=== PATIENT | female | born 1980 | race Caucasian/White ===

== ENCOUNTER 2020-07-18 08:07 | Outpatient (REF) | payer OTHER, SELFPAY ==
[2020-07-18 10:31] LABS: Cholesterol 210 mg/dL; HDL Cholesterol 45 mg/dL; LDL Cholesterol Calculated 141 mg/dl; Triglycerides 123 mg/dL
[2020-07-18 10:53] LABS: Vitamin D 25-OH Total 23.9 ng/mL (>30)
[2020-07-18 11:14] LABS: Estimated Average Glucose 123 mg/dL; Hemoglobin A1c % 5.9 %
[2020-07-20 10:26] LABS: LDL Cholesterol Direct 155 mg/dL (<100)
== END 2020-07-18 08:08 | disposition home or self-care (01) ==
LOC: CF 08:07
PROVIDERS: PCP Internal Medicine; Referring Provider Internal Medicine; Visit Provider Internal Medicine Endocrinology, Diabetes & Metabolism
DX: R73.03 Prediabetes (principal); E78.5 Hyperlipidemia, unspecified; E55.9 Vitamin D deficiency, unspecified; E66.01 Morbid (severe) obesity due to excess calories; Z68.41 Body mass index [BMI] 40.0-44.9, adult
CPT/HCPCS: 80061; 82306; 83036; 83721; 99214

== ENCOUNTER 2020-07-24 11:06 | Outpatient (REF) | payer OTHER, SELFPAY ==
--- NOTE | 2020-07-24 | MM_ITS ---
EXAMINATION: MM SCREENING DIGITAL BREAST TOMOSYNTHESIS, BILATERAL CLINICAL INFORMATION: Screening. Asymptomatic. Prior history breast reduction mammoplasty 2007 The lifetime risk of breast cancer based on the Tyrer-Cuzick Model is 12%. COMPARISON: Mammography: 07/19/2019, 06/30/2018 TECHNIQUE: Digital breast tomosynthesis is performed in both the craniocaudal and mediolateral oblique views along with computer-aided detection (CAD). Synthesized 2D images are generated from the tomosynthesis. FINDINGS: The breasts are heterogeneously dense, which may obscure small masses (ACR BI-RADS breast composition Category c). There are no significant masses, abnormal calcifications, or other abnormalities. The axilla and skin contours are unremarkable. IMPRESSION: No significant changes from prior studies. ASSESSMENT: BI-RADS 1: Negative RECOMMENDATION: Routine annual mammography screening. This patient's information was entered into a reminder system with a target due date for their next mammogram.
== END 2020-07-24 11:07 | disposition home or self-care (01) ==
LOC: HO.MAMMO 11:06
PROVIDERS: PCP Internal Medicine; Visit Provider Internal Medicine
DX: Z12.31 Encounter for screening mammogram for malignant neoplasm of breast (principal)
CPT/HCPCS: 77063; 77067

== ENCOUNTER 2021-02-09 07:45 | Outpatient (REF) | payer OTHER, SELFPAY ==
--- NOTE | ~2021-02-09 | XR_ITS ---
EXAMINATION: BILATERAL FOOT X-RAY CLINICAL INFORMATION: Pain COMPARISON: None TECHNIQUE: 3 views of each foot FINDINGS: Left: Bone alignment is normal. No fracture or dislocation is seen. Joint spaces are normal. There are small calcaneal spurs. Right: None alignment is normal. No acute fracture or dislocation is seen. There is a evidence of old fractures of the distal tibia and fibular shafts. There is orthopedic hardware with intramedullary billie and 2 distal screws seen in the visualized distal femur. There is mild arthritis at the first MTP joint with small osteophytes. Joint spaces are otherwise normal. There are calcaneal spurs. XR/XR foot LT 2V IMPRESSION: Bilateral calcaneal spurs. Mild arthritis at the right first MTP joint. Evidence of old trauma to the right distal tibial and fibular shafts.
--- NOTE | ~2021-02-09 | XR_ITS ---
EXAMINATION: XR HAND, RIGHT CLINICAL INFORMATION: Pain COMPARISON: Previous x-rays September 2016 and June 2016 TECHNIQUE: PA, lateral, and oblique views of the right hand. FINDINGS: Bone alignment is normal. No acute fracture or dislocation is seen seen. There is an old healed fracture of the right distal radius. There are small osteophytes at the DIP joint of the third finger. Joint spaces are otherwise normal. Soft tissues are normal. XR/XR hand RT min 3V IMPRESSION: Old healed distal radius fracture. Mild osteoarthritis at the DIP joint of the third finger.
--- NOTE | ~2021-02-09 | XR_ITS ---
EXAMINATION: BILATERAL FOOT X-RAY CLINICAL INFORMATION: Pain COMPARISON: None TECHNIQUE: 3 views of each foot FINDINGS: Left: Bone alignment is normal. No fracture or dislocation is seen. Joint spaces are normal. There are small calcaneal spurs. Right: None alignment is normal. No acute fracture or dislocation is seen. There is a evidence of old fractures of the distal tibia and fibular shafts. There is orthopedic hardware with intramedullary billie and 2 distal screws seen in the visualized distal femur. There is mild arthritis at the first MTP joint with small osteophytes. Joint spaces are otherwise normal. There are calcaneal spurs. XR/XR foot RT 2V IMPRESSION: Bilateral calcaneal spurs. Mild arthritis at the right first MTP joint. Evidence of old trauma to the right distal tibial and fibular shafts.
[2021-02-09 09:07] LABS: Cholesterol 210 mg/dL; HDL Cholesterol 41 mg/dL; LDL Cholesterol Calculated 133 mg/dl; Triglycerides 180 mg/dL
[2021-02-10 13:51] LABS: LDL Cholesterol Direct 154 mg/dL (<100)
== END 2021-02-09 07:46 | disposition home or self-care (01) ==
LOC: HO.LAB 07:45
PROVIDERS: Internal Medicine Endocrinology, Diabetes & Metabolism; PCP Internal Medicine; Visit Provider Internal Medicine
DX: E55.9 Vitamin D deficiency, unspecified (principal); M79.671 Pain in right foot; M79.672 Pain in left foot; M79.644 Pain in right finger(s)
CPT/HCPCS: 36415; 73130; 73620; 80061; 83721

== ENCOUNTER → 2021-02-13 09:56 | Outpatient (REF) | payer OTHER, SELFPAY ==
--- NOTE | 2021-02-13 10:10 | ECG_ITS ---
Test Reason : CHEST PAIN Blood Pressure : / mmHG Vent. Rate : 072 BPM Atrial Rate : 072 BPM P-R Int : 142 ms QRS Dur : 080 ms QT Int : 382 ms P-R-T Axes : 038 015 006 degrees QTc Int : 418 ms Normal sinus rhythm Normal ECG When compared with ECG of 17-JAN-2017 09:31, No significant change was found Referred By: Luli Jones Electronically Signed By:SHASHA PARMAR
== END ==
LOC: HO.CARD 09:56
PROVIDERS: PCP Internal Medicine; Visit Provider Internal Medicine
DX: R07.9 Chest pain, unspecified (principal)
CPT/HCPCS: 93005

== ENCOUNTER 2021-03-20 08:48 | Outpatient (REF) | payer OTHER, SELFPAY ==
[2021-03-20 10:20] LABS: Estimated Average Glucose 134 mg/dL; Hemoglobin A1c % 6.3 %
[2021-03-20 10:31] LABS: Alanine Aminotransferase 10 U/L (0-31); Albumin Level 4.1 g/dL (3.5-5.0); Alkaline Phosphatase 70 U/L (39-117); Anion Gap 11 (12-20); Aspartate Amino Transferase 17 U/L (5-31); Bilirubin Total 0.2 mg/dL (0.0-1.0); Blood Urea Nitrogen 6 mg/dL (9-16); Calcium 8.7 mg/dL (8.4-10.2); Carbon Dioxide 28 mmol/L (22-29); Chloride 105 mmol/L (96-108); Cholesterol 208 mg/dL; Estimated Glomerular Filt Rate > 60; Glucose Random 106 mg/dL (60-115); HDL Cholesterol 43 mg/dL; LDL Cholesterol Calculated 146 mg/dl; Potassium 4.5 mmol/L (3.3-5.1); Sodium 139 mmol/L (135-145); Total Protein 6.7 g/dL (6.5-8.0); Triglycerides 99 mg/dL
[2021-03-20 11:00] LABS: Vitamin D 25-OH Total 24.4 ng/mL (>30)
[2021-03-20 11:25] LABS: Creatinine Urine 226.28 mg/dL; Microalbum/Creatinine Ratio Ur 9.7 ug/mg cr
[2021-03-21 11:06] LABS: LDL Cholesterol Direct 152 mg/dL (<100)
== END 2021-03-20 08:49 | disposition home or self-care (01) ==
LOC: HO.LAB 08:48
PROVIDERS: PCP Internal Medicine; Visit Provider Internal Medicine Endocrinology, Diabetes & Metabolism
DX: R73.03 Prediabetes (principal); E55.9 Vitamin D deficiency, unspecified; E66.01 Morbid (severe) obesity due to excess calories; E78.5 Hyperlipidemia, unspecified; Z86.39 Personal history of other endocrine, nutritional and metabolic disease; Z79.899 Other long term (current) drug therapy
CPT/HCPCS: 36415; 80053; 80061; 82043; 82306; 83036; 83721; 99212

== ENCOUNTER → 2021-03-28 14:16 | Outpatient (BNVA) | payer OTHER, SELFPAY | PROVIDERS: PCP Internal Medicine; Visit Provider Dietitian, Registered | DX: R73.03 Prediabetes (principal) | CPT/HCPCS: 97803 ==

== ENCOUNTER 2021-03-29 13:58 | Outpatient (REF) | payer OTHER, SELFPAY ==
[2021-03-29 16:42] LABS: Amylase 56 U/L (28-100); Lipase 14 U/L (8-78)
[2021-03-29 17:02] LABS: Ferritin 63 ng/mL (10-250)
== END 2021-03-29 13:59 | disposition home or self-care (01) ==
LOC: HO.LAB 13:58
PROVIDERS: PCP Internal Medicine; Referring Provider Internal Medicine; Visit Provider Nurse Practitioner
DX: R10.13 Epigastric pain (principal); K92.1 Melena; K21.9 Gastro-esophageal reflux disease without esophagitis; D64.9 Anemia, unspecified; K59.04 Chronic idiopathic constipation
CPT/HCPCS: 36415; 82150; 82728; 83690

== ENCOUNTER 2021-04-19 18:58 | Emergency (ER) | payer OTHER, SELFPAY ==
[2021-04-19 19:08] VITALS: BP 133/88; PULSE 86; RESP 16; TEMP 36.6; O2SAT 98; BMI 38.9
[2021-04-19 19:59] LABS: MANUAL DIFF FLAG NO
[2021-04-19 20:02] LABS: Basophils Percent Auto 0.4 % (0-2); Eosinophils Absolute Auto 0.2 X10*3/uL (0.0-0.4); Eosinophils Percent Auto 1.7 % (0-4); Hematocrit 37.6 % (37-47); Hemoglobin 12.4 g/dl (12.0-16.0); Imm Gran Abs Auto 0.03 X10*3/uL (0.00-0.03); Imm Gran Pct Auto 0.3 % (0.0-0.4); Lymphocytes Absolute Auto 2.2 X10*3/uL (1.2-4.9); Lymphocytes Percent Auto 21.1 % (20-40); Mean Corpuscular Hemoglobin 26.8 pg (27.0-33.0); Mean Corpuscular Volume 81.4 fL (80-98); Mean Platelet Volume 9.6 fL (9.4-12.3); Monocytes Absolute Auto 0.6 X10*3/uL (0.1-1.2); Monocytes Percent Auto 5.8 % (2-11); Neutrophils Absolute Auto 7.4 X10*3/uL (2.0-8.3); Neutrophils Percent Auto 70.7 % (45-73); Platelet Count 334 X10*3/uL (160-400); Red Blood Count 4.62 X10*6/uL (4.20-5.50); Red Cell Distribution Width 13.1 % (11.0-16.0); White Blood Count 10.5 X10*3/uL (4.8-10.8)
[2021-04-19 20:04] LABS: Glucose Urine UA NEG (NEG); Leukocyte Esterase Urine 1+ (NEG); Nitrite Urine NEG (NEG); Specific Gravity - Urine 1.015 (1.005-1.025); UACC Culture Trigger YES; Urine Blood NEG (NEG); Urine Ketones NEG (NEG); Urine Protein NEG (NEG-TRACE)
[2021-04-19 20:06] LABS: Appearance Urine HAZY; Color Urine YELLOW
[2021-04-19 20:12] LABS: Amorphous Sediment Urine 2+ /LPF; Bacteria Urine 1+ /LPF; RBC Urine 0 /HPF (0); Squamous Epithelial Cell Urine 1+ /LPF
[2021-04-19 20:21] LABS: Anion Gap 16 (12-20); Blood Urea Nitrogen 8 mg/dL (9-16); Calcium 9.2 mg/dL (8.4-10.2); Carbon Dioxide 26 mmol/L (22-29); Chloride 102 mmol/L (96-108); Creatinine Clr Calc Pharmacy 118.4; Estimated Glomerular Filt Rate > 60; Glucose Random 118 mg/dL (60-115); Potassium 4.2 mmol/L (3.3-5.1); Sodium 140 mmol/L (135-145)
--- NOTE | 2021-04-19 22:39 | ED_ITS ---
HPI - Abdominal Pain General Chief Complaint: Abdominal Pain Stated Complaint: Flank pain Time Seen by Provider: 04/19/21 22:39 Source: patient Mode of arrival: ambulatory Limitations: language barrier History of Present Illness HPI narrative: Patient with history of kidney stone had lithotripsy last year been complaining of pain for 1 week in suprapubic area and right flank area with dysuria and frequency no hematuria no fever or chills no vomiting Related Data Home Medications Medication Instructions Recorded Confirmed nabumetone 750 mg tablet 750 mg PO BID 07/18/20 03/20/21 propranolol 20 mg tablet 20 mg PO BID 07/18/20 03/20/21 venlafaxine 75 mg tablet 75 mg PO DAILY 07/18/20 03/20/21 Previous Rx's Medication Instructions Recorded tglmofzuaz-lyajdgo-xjafeeaw 50 1 cap PO DAILY PRN #30 cap 01/31/21 mg-325 mg-40 mg capsule hydrochlorothiazide 12.5 mg tablet 12.5 mg PO QAM 90 Days #90 tab 01/31/21 cholecalciferol (vitamin D3) 125 125 mcg PO DAILY 90 Days #90 cap 03/20/21 mcg (5,000 unit) capsule pravastatin 40 mg tablet 40 mg PO BEDTIME 90 Days #90 tab 03/20/21 linaclotide 145 mcg capsule 145 mcg PO QAM 30 Days #30 cap 03/29/21 pantoprazole 40 mg tablet,delayed 40 mg PO DAILY 30 Days #30 tab 03/29/21 release ciprofloxacin HCl [Cipro] 500 mg PO BID #14 tab 04/20/21 phenazopyridine [Pyridium] 200 mg PO TID PRN #6 tab 04/20/21 tramadol 50 mg PO Q6H PRN #20 tab 04/20/21 Allergies Allergy/AdvReac Type Severity Reaction Status Date / Time acetaminophen [Percocet] Allergy Unknown hives Verified 04/19/21 19:13 bupropion [Contrave] Allergy Unknown nausea,vomit, Verified 04/19/21 19:13 headaches naltrexone [Contrave] Allergy Unknown nausea,vomit, Verified 04/19/21 19:13 headaches oxycodone [Percocet] Allergy Unknown hives Verified 04/19/21 19:13 Review of Systems Review of Systems Yes all other systems are reviewed and are negative Physical Exam Vital Signs: Vital Signs: Last Vital Signs Temp 97.9 F 07/09/21 19:08 Pulse 76 04/19/21 23:41 Resp 18 04/19/21 23:41 BP 143/81 H 04/19/21 23:41 Pulse Ox 98 04/19/21 23:41 Body Mass Index 38.9 Appearance: Alert. Oriented X3. No acute distress. Eyes: PERRLA, No Nystagmus ENT: Pharynx normal. Oral Mucosa moist Neck: Normal inspection. Neck supple. CVS: Normal heart rate and rhythm. Pulses normal. Respiratory: No respiratory distress. Equal air entry bilateral, no wheezing/rales/rhonchi Abdomen: Soft and nontender. Bowel sounds are present, no mass palpable, mild right CVA tenderness Skin: Skin warm and dry. Normal skin color. Normal skin turgor. Extremities: No lower extremity edema. No calf tenderness Neuro: Oriented X 3. No motor deficit. No sensory deficit.No cerebellar signs , cranial nerves II-XII intact MDM - Abdominal Pain Lab Data Attestation: I reviewed the patient's lab results. Result diagrams: 04/19/21 19:49 04/19/21 19:49 Labs: Lab Results 04/19/21 04/19/21 04/19/21 Range/Units 19:45 19:49 19:49 WBC 10.5 (4.8-10.8) X10*3/uL RBC 4.62 (4.20-5.50) X10*6/uL Hgb 12.4 (12.0-16.0) g/dl Hct 37.6 (37-47) % MCV 81.4 (80-98) fL MCH 26.8 L (27.0-33.0) pg MCHC 33.0 (31.0-35.0) g/dl RDW 13.1 (11.0-16.0) % Plt Count 334 (160-400) X10*3/uL MPV 9.6 (9.4-12.3) fL Immature Gran % (Auto) 0.3 (0.0-0.4) % Neut % (Auto) 70.7 (45-73) % Lymph % (Auto) 21.1 (20-40) % [place] % (Auto) 5.8 (2-11) % Eos % (Auto) 1.7 (0-4) % Baso % (Auto) 0.4 (0-2) % Lymph # (Auto) 2.2 (1.2-4.9) X10*3/uL [place] # (Auto) 0.6 (0.1-1.2) X10*3/uL Eos # (Auto) 0.2 (0.0-0.4) X10*3/uL Baso # (Auto) 0.0 (0.0-0.2) X10*3/uL Abs Immat Gran (auto) 0.03 (0.00-0.03) X10*3/uL Absolute Neuts (auto) 7.4 (2.0-8.3) X10*3/uL Absolute Nucleated RBC 0.000 (0.0-0.012) X10*3/uL Nucleated RBC % (auto) 0.0 (0.0-0.2) /100WBC Sodium 140 (135-145) mmol/L Potassium 4.2 (3.3-5.1) mmol/L Chloride 102 (96-108) mmol/L Carbon Dioxide 26 (22-29) mmol/L Anion Gap 16 (12-20) BUN 8 L (9-16) mg/dL Creatinine 0.69 (0.5-1.4) mg/dL Estim Creat Clear Calc 118.4 Estimated GFR > 60 Random Glucose 118 H (60-115) mg/dL Calcium 9.2 (8.4-10.2) mg/dL Urine Color YELLOW Urine Appearance HAZY Urine pH 7.0 (5.0-8.0) Ur Specific [place] 1.015 (1.005-1.025) Urine Protein NEG (NEG-TRACE) MG/DL Urine Glucose (UA) NEG (NEG) MG/DL Urine Ketones NEG (NEG) MG/DL Urine Blood NEG (NEG) Urine Nitrite NEG (NEG) Ur Leukocyte Esterase 1+ H (NEG) Urine RBC 0 (0) /HPF Urine WBC 5-9 H (0-4) /HPF Ur Squamous Epith Cells 1+ /LPF Amorphous Sediment 2+ /LPF Urine Bacteria 1+ /LPF Discharge Plan Discharge Clinical Impression: UTI (urinary tract infection) Qualifiers: Urinary tract infection type: acute cystitis Hematuria presence: without hematuria Qualified Code(s): N30.00 - Acute cystitis without hematuria Patient Disposition: Home, Self-Care Instructions: Urinary Tract Infection in Women (ED) Additional Instructions: Drink plenty of fluids take antibiotic as prescribed follow with PCP if not better Prescriptions: New ciprofloxacin HCl [Cipro] 500 mg tablet 500 mg PO BID Qty: 14 RF: 0 phenazopyridine [Pyridium] 200 mg tablet 200 mg PO TID PRN (Reason: pain) Qty: 6 RF: 0 tramadol 50 mg tablet 50 mg PO Q6H PRN (Reason: pain) Qty: 20 RF: 0 No Action tznmbtdlrs-ppuykol-hwzqrtej 50-325-40 mg capsule 1 cap PO DAILY PRN (Reason: headache) Qty: 30 RF: 0 hydrochlorothiazide 12.5 mg tablet 12.5 mg PO QAM 90 Days Qty: 90 RF: 3 pravastatin 40 mg tablet 40 mg PO BEDTIME 90 Days Qty: 90 RF: 1 cholecalciferol (vitamin D3) 125 mcg (5,000 unit) capsule 125 mcg PO DAILY 90 Days Qty: 90 RF: 0 propranolol 20 mg tablet 20 mg PO BID RF: 0 nabumetone 750 mg tablet 750 mg PO BID RF: 0 venlafaxine 75 mg tablet 75 mg PO DAILY RF: 0 pantoprazole [Protonix] 40 mg tablet,delayed release (DR/EC) 40 mg PO DAILY 30 Days Qty: 30 RF: 3 Linzess 145 mcg capsule 145 mcg PO QAM 30 Days Qty: 30 RF: 3 PMFSH Past Medical History Medical History Bloody stools Dyslipidemia Essential hypertension Finger pain GERD (gastroesophageal reflux disease) H/O reactive hypoglycemia Left foot pain Morbid obesity Polyarthralgia Prediabetes Right foot pain Vitamin D deficiency Surgical History Deficient knowledge of leg surgery History of incision and drainage History of lithotripsy History of total abdominal hysterectomy History of tubal ligation Hx of bilateral breast reduction surgery Hx of section Family History Family History Daughter Cancer Father No problems noted. Mother No problems noted. Paternal Aunt Cancer Maternal Grandmother Diabetes Hypertension CVD (cardiovascular disease) Maternal Grandfather Diabetes Hypertension CVD (cardiovascular disease) Paternal Grandmother Diabetes Hypertension Paternal Grandfather No problems noted. Social History Social History Alcohol intake: never Advance Directives: No Advance Directives Date on File: 07/18/20
[2021-04-19] MEDS: levoFLOXacin 500 MG TABLET PO (23:40)
[2021-04-19] MEDS: Phenazopyridine HCL 200 MG TABLET PO (23:40)
[2021-04-19] MEDS: Ketorolac Tromethamine 60 MG/2 ML VIAL IM (23:40)
[2021-04-19 23:41] VITALS: BP 143/81; PULSE 76; RESP 18; O2SAT 98
[2021-04-20] MEDS: Fluconazole 150 MG TABLET PO (01:20)
== END 2021-04-20 01:10 | disposition home or self-care (01) ==
PROVIDERS: Emergency Provider Internal Medicine; PCP Internal Medicine
DX: N30.00 Acute cystitis without hematuria (principal); R10.9 Unspecified abdominal pain; R30.0 Dysuria; Z79.899 Other long term (current) drug therapy
CPT/HCPCS: 36415; 80048; 81001; 81003; 85025; 87086; 96372; 99284; J1885

== ENCOUNTER 2021-04-25 08:14 | Outpatient (REF) | payer OTHER, SELFPAY ==
--- NOTE | ~2021-04-25 | US_ITS ---
EXAMINATION: US ABDOMEN COMPLETE CLINICAL INFORMATION: Epigastric pain. COMPARISON: Ultrasound abdomen complete 09/23/2019 and 06/18/2018. CT abdomen and pelvis 05/21/2019. KUB 01/27/2019 and 09/30/2017. TECHNIQUE: Real-time imaging of the abdominal viscera. FINDINGS: PANCREAS: Normal. ABDOMINAL AORTA: The proximal, mid, and distal segments are normal in caliber. INFERIOR VENA CAVA: Visualized portions are normal. LIVER: The liver is normal in size. The liver contour is normal. Increased parenchymal echogenicity. No focal hepatic lesion. There is no intrahepatic biliary duct dilatation seen. GALLBLADDER: Normal. The gallbladder is physiologically distended without evidence of stones, sludge, polyps, wall thickening or pericholecystic fluid. COMMON BILE DUCT: Normal in caliber measuring 0.4 cm in diameter. RIGHT KIDNEY: Simple right midpole cyst measuring 1.0 cm, unchanged. Findings are not clinically significant, and no followup imaging is recommended. No hydronephrosis. The kidney measures 10.6 cm in maximum dimension. LEFT KIDNEY: Probable vascular artifact within the mid/upper pole. No hydronephrosis. No renal calculi or focal parenchymal lesions. The kidney measures 10.9 cm in maximum dimension. SPLEEN: Normal. The spleen measures 9.3 cm in maximum dimension. FREE FLUID: None. US/US abdomen complete IMPRESSION: Increased hepatic parenchymal echogenicity, which can be seen in the setting of steatosis. Underlying hepatocellular disease cannot be excluded. No hepatic parenchymal lesion or biliary ductal dilatation. No cholelithiasis, gallbladder wall thickening, or pericholecystic free fluid to suggest acute cholecystitis.
[2021-04-25 13:38] LABS: MANUAL DIFF FLAG NO
[2021-04-25 13:41] LABS: Basophils Absolute Auto 0.1 X10*3/uL (0.0-0.2); Basophils Percent Auto 0.4 % (0-2); Eosinophils Absolute Auto 0.2 X10*3/uL (0.0-0.4); Eosinophils Percent Auto 1.6 % (0-4); Hematocrit 37.6 % (37-47); Hemoglobin 12.5 g/dl (12.0-16.0); Imm Gran Abs Auto 0.04 X10*3/uL (0.00-0.03); Imm Gran Pct Auto 0.3 % (0.0-0.4); Lymphocytes Absolute Auto 2.9 X10*3/uL (1.2-4.9); Mean Corpuscular HGB Conc 33.2 g/dl (31.0-35.0); Mean Corpuscular Hemoglobin 26.9 pg (27.0-33.0); Mean Corpuscular Volume 80.9 fL (80-98); Mean Platelet Volume 9.5 fL (9.4-12.3); Monocytes Absolute Auto 0.8 X10*3/uL (0.1-1.2); Monocytes Percent Auto 6.6 % (2-11); Neutrophils Absolute Auto 7.7 X10*3/uL (2.0-8.3); Neutrophils Percent Auto 66.1 % (45-73); Platelet Count 340 X10*3/uL (160-400); Red Blood Count 4.65 X10*6/uL (4.20-5.50); Red Cell Distribution Width 13.2 % (11.0-16.0); White Blood Count 11.6 X10*3/uL (4.8-10.8)
[2021-04-25 14:12] LABS: Alanine Aminotransferase 8 U/L (0-31); Albumin Level 4.4 g/dL (3.5-5.0); Alkaline Phosphatase 67 U/L (39-117); Anion Gap 12 (12-20); Aspartate Amino Transferase 13 U/L (5-31); Bilirubin Total 0.4 mg/dL (0.0-1.0); Blood Urea Nitrogen 13 mg/dL (9-16); Calcium 9.3 mg/dL (8.4-10.2); Carbon Dioxide 26 mmol/L (22-29); Chloride 104 mmol/L (96-108); Estimated Glomerular Filt Rate > 60; Glucose Random 82 mg/dL (60-115); Potassium 4.1 mmol/L (3.3-5.1); Rheumatoid Factor < 15.0 IU/mL (<15.0); Sodium 138 mmol/L (135-145); Total Protein 7.4 g/dL (6.5-8.0)
[2021-04-25 14:30] LABS: Erythrocyte Sedimentation Rate 43 MM/HR (0-20)
[2021-04-26 17:46] LABS: Lyme Abs Screen <0.90 index
[2021-04-27 14:06] LABS: Cyclic Citrullinated Peptide <16 UNITS
[2021-04-29 14:26] LABS: Anti Nuclear Antibody Screen NEGATIVE (NEGATIVE)
== END 2021-04-25 08:15 | disposition home or self-care (01) ==
LOC: HO.US 08:14
PROVIDERS: PCP Internal Medicine; Referring Provider Student in an Organized Health Care Education/Training Program; Visit Provider Nurse Practitioner
DX: R10.13 Epigastric pain (principal); K92.1 Melena; D64.9 Anemia, unspecified; M79.672 Pain in left foot; M79.7 Fibromyalgia; M79.644 Pain in right finger(s); M79.671 Pain in right foot; M77.11 Lateral epicondylitis, right elbow
CPT/HCPCS: 36415; 76700; 80053; 85025; 85652; 86038; 86039; 86140; 86200; 86431; 86617; 86618; 99202

== ENCOUNTER → 2021-05-09 12:05 | Outpatient (BNVA) | payer OTHER, SELFPAY | PROVIDERS: PCP Internal Medicine; Visit Provider Dietitian, Registered | DX: R73.03 Prediabetes (principal) | CPT/HCPCS: 97803 ==

== ENCOUNTER 2021-06-05 11:53 | Outpatient (REF) | payer OTHER, SELFPAY ==
[2021-06-05 12:44] LABS: Hematocrit 38.8 % (37-47); Hemoglobin 12.7 g/dl (12.0-16.0); Mean Corpuscular HGB Conc 32.7 g/dl (31.0-35.0); Mean Corpuscular Hemoglobin 26.5 pg (27.0-33.0); Mean Platelet Volume 9.5 fL (9.4-12.3); Platelet Count 347 X10*3/uL (160-400); Red Blood Count 4.79 X10*6/uL (4.20-5.50); Red Cell Distribution Width 12.9 % (11.0-16.0); White Blood Count 8.3 X10*3/uL (4.8-10.8)
[2021-06-05 13:34] LABS: Alanine Aminotransferase 14 U/L (0-31); Albumin Level 4.5 g/dL (3.5-5.0); Alkaline Phosphatase 67 U/L (39-117); Anion Gap 15 (12-20); Aspartate Amino Transferase 17 U/L (5-31); Bilirubin Total 0.5 mg/dL (0.0-1.0); Blood Urea Nitrogen 8 mg/dL (9-16); Calcium 9.4 mg/dL (8.4-10.2); Carbon Dioxide 26 mmol/L (22-29); Chloride 101 mmol/L (96-108); Cholesterol 231 mg/dL; Estimated Glomerular Filt Rate > 60; Glucose Fasting 99 mg/dL (60-99); HDL Cholesterol 44 mg/dL; LDL Cholesterol Calculated 156 mg/dl; Sodium 138 mmol/L (135-145); Total Protein 7.6 g/dL (6.5-8.0); Triglycerides 156 mg/dL
[2021-06-10 14:55] LABS: Vitamin D 25-OH, D2 <4 ng/mL; Vitamin D 25-OH, D3 29 ng/mL; Vitamin D 25-OH, Total 29 ng/mL (30-100)
== END 2021-06-05 11:54 | disposition home or self-care (01) ==
LOC: HO.LAB 11:53
PROVIDERS: PCP Internal Medicine; Visit Provider Internal Medicine
DX: E55.9 Vitamin D deficiency, unspecified (principal); E78.5 Hyperlipidemia, unspecified; I10 Essential (primary) hypertension; K21.9 Gastro-esophageal reflux disease without esophagitis
CPT/HCPCS: 36415; 80053; 80061; 82306; 85027

== ENCOUNTER → 2021-06-12 10:50 | Outpatient (BNVA) | payer OTHER, SELFPAY | PROVIDERS: PCP Internal Medicine; Visit Provider Student in an Organized Health Care Education/Training Program ==

== ENCOUNTER → 2021-06-20 11:19 | Outpatient (BNVA) | payer OTHER, SELFPAY | PROVIDERS: PCP Internal Medicine; Visit Provider Dietitian, Registered | DX: R73.03 Prediabetes (principal) | CPT/HCPCS: 97803 ==

== ENCOUNTER → 2021-07-29 11:51 | Outpatient (BNVA) | payer OTHER, SELFPAY | PROVIDERS: PCP Internal Medicine; Visit Provider Dietitian, Registered | DX: R73.03 Prediabetes (principal) | CPT/HCPCS: 97803 ==

== ENCOUNTER 2021-08-01 13:32 | Outpatient (REF) | payer OTHER, SELFPAY ==
--- NOTE | ~2021-08-01 | MM_ITS ---
EXAMINATION: MM SCREENING DIGITAL BREAST TOMOSYNTHESIS, BILATERAL CLINICAL INFORMATION: Screening. Asymptomatic. The lifetime risk of breast cancer based on the Tyrer-Cuzick Model is 19%. COMPARISON: Mammography: 07/24/2020, 07/19/2019, 06/30/2018 TECHNIQUE: Digital breast tomosynthesis is performed in both the craniocaudal and mediolateral oblique views along with computer-aided detection (CAD). Synthesized 2D images are generated from the tomosynthesis. Additional left CC view is provided. FINDINGS: The breasts are heterogeneously dense, which may obscure small masses (ACR BI-RADS breast composition Category c). There are no significant masses, abnormal calcifications, or other abnormalities. Parenchymal pattern is similar to prior exams. MM/MM tomosynthesis screening BI IMPRESSION: No mammographic evidence of malignancy. ASSESSMENT: BI-RADS 1: Negative RECOMMENDATION: Routine annual mammography screening. This patient's information was entered into a reminder system with a target due date for their next mammogram.
== END 2021-08-01 13:33 | disposition home or self-care (01) ==
LOC: HO.MAMMO 13:32
PROVIDERS: Visit Provider Internal Medicine
DX: Z12.31 Encounter for screening mammogram for malignant neoplasm of breast (principal)
CPT/HCPCS: 77063; 77067

== ENCOUNTER → 2021-09-30 09:26 | Outpatient (BNVA) | payer OTHER, SELFPAY | PROVIDERS: PCP Internal Medicine; Visit Provider Dietitian, Registered | DX: R73.03 Prediabetes (principal) | CPT/HCPCS: 97803 ==

== ENCOUNTER → 2021-12-03 14:01 | Outpatient (BNVA) | payer OTHER, SELFPAY | PROVIDERS: PCP Internal Medicine; Visit Provider Dietitian, Registered | DX: R73.03 Prediabetes (principal); E78.5 Hyperlipidemia, unspecified; E55.9 Vitamin D deficiency, unspecified; E66.9 Obesity, unspecified; Z68.39 Body mass index [BMI] 39.0-39.9, adult | CPT/HCPCS: 97803 ==

== ENCOUNTER → 2022-01-23 11:45 | Outpatient (BNVA) | payer OTHER, SELFPAY | PROVIDERS: PCP Internal Medicine; Visit Provider Dietitian, Registered | DX: R73.03 Prediabetes (principal); Z71.3 Dietary counseling and surveillance | CPT/HCPCS: 97803 ==

== ENCOUNTER → 2022-03-31 13:56 | Outpatient (BNVA) | payer OTHER, SELFPAY | PROVIDERS: PCP Internal Medicine; Referring Provider Internal Medicine; Visit Provider Nurse Practitioner | DX: K62.5 Hemorrhage of anus and rectum (principal) | CPT/HCPCS: 99202 ==

== ENCOUNTER → 2022-04-03 08:47 | Outpatient (BNVA) | payer OTHER, SELFPAY | PROVIDERS: PCP Internal Medicine; Visit Provider Physician Assistant Surgical | DX: E66.9 Obesity, unspecified (principal); Z68.39 Body mass index [BMI] 39.0-39.9, adult | CPT/HCPCS: 99202 ==

== ENCOUNTER 2022-04-21 09:59 | Outpatient (REF) | payer OTHER, SELFPAY ==
--- NOTE | ~2022-04-21 | XR_ITS ---
EXAMINATION: XR CHEST 2 VIEWS CLINICAL INFORMATION: Obesity. COMPARISON: Prior chest radiographs, most recently 02/16/2019. TECHNIQUE: Frontal and lateral views of the chest were obtained. FINDINGS: The heart, great vessels, pulmonary vasculature and mediastinum are normal. The lungs show no focal infiltrate, effusion or pneumothorax. There is no acute osseous abnormality. XR/XR chest 2V IMPRESSION: No active cardiopulmonary disease.
--- NOTE | 2022-04-21 10:05 | ECG_ITS ---
Test Reason : OBESITY Blood Pressure : / mmHG Vent. Rate : 065 BPM Atrial Rate : 065 BPM P-R Int : 152 ms QRS Dur : 088 ms QT Int : 402 ms P-R-T Axes : 040 010 011 degrees QTc Int : 418 ms Poor data quality, interpretation may be adversely affected Normal sinus rhythm Normal ECG When compared with ECG of 13-FEB-2021 10:13, No significant change was found Referred By: Bird Tang Electronically Signed By:
[2022-04-21 10:30] LABS: MANUAL DIFF FLAG NO
[2022-04-21 10:55] LABS: Basophils Absolute Auto 0.1 X10*3/uL (0.0-0.2); Basophils Percent Auto 0.8 % (0-2); Eosinophils Absolute Auto 0.2 X10*3/uL (0.0-0.4); Eosinophils Percent Auto 2.3 % (0-4); Hematocrit 37.7 % (37.0-47.0); Hemoglobin 12.7 g/dl (12.0-16.0); Imm Gran Abs Auto 0.01 X10*3/uL (0.00-0.03); Imm Gran Pct Auto 0.1 % (0.0-0.4); Lymphocytes Percent Auto 27.6 % (20-40); Mean Corpuscular HGB Conc 33.7 g/dl (31.0-35.0); Mean Corpuscular Hemoglobin 27.3 pg (27.0-33.0); Mean Corpuscular Volume 81.1 fL (80.0-98.0); Mean Platelet Volume 9.5 fL (9.4-12.3); Monocytes Absolute Auto 0.5 X10*3/uL (0.1-1.2); Monocytes Percent Auto 6.2 % (2-11); Neutrophils Absolute Auto 4.6 x10*3/uL (2.0-8.3); Platelet Count 354 X10*3/uL (160-400); Red Blood Count 4.65 X10*6/uL (4.20-5.50); Red Cell Distribution Width 12.6 % (11.0-16.0); White Blood Count 7.3 X10*3/uL (4.8-10.8)
[2022-04-21 11:05] LABS: Estimated Average Glucose 120 mg/dL; Hemoglobin A1c % 5.8 %
[2022-04-21 11:26] LABS: Alanine Aminotransferase 12 U/L (0-31); Albumin Level 4.3 g/dL (3.5-5.0); Alkaline Phosphatase 51 U/L (39-117); Anion Gap 13 (12-20); Aspartate Amino Transferase 16 U/L (5-31); Bilirubin Total 0.4 mg/dL (0.0-1.0); Blood Urea Nitrogen 12 mg/dL (9-16); C Reactive Protein 0.42 mg/dL (< or = 0.50); Carbon Dioxide 24 mmol/L (22-29); Chloride 104 mmol/L (96-108); Cholesterol 181 mg/dL; Estimated Glomerular Filt Rate > 60; Glucose Fasting 97 mg/dL (60-99); HDL Cholesterol 34 mg/dL; Iron 60 mcg/dL (30-160); LDL Cholesterol Calculated 130 mg/dl; Percent Iron Saturation 19 % (15-50); Potassium 4.3 mmol/L (3.3-5.1); Sodium 137 mmol/L (135-145); Total Iron Binding Capacity 322 mcg/dL (228-428); Total Protein 7.2 g/dL (6.5-8.0); Triglycerides 89 mg/dL; Unsaturated Iron Binding 262 ug/dL
[2022-04-21 11:29] LABS: C Reactive Protein 0.42 mg/dL (< or = 0.50); Cholesterol 181 mg/dL; HDL Cholesterol 34 mg/dL; LDL Cholesterol Calculated 130 mg/dl; Triglycerides 89 mg/dL
[2022-04-21 11:39] LABS: Erythrocyte Sedimentation Rate 34 MM/HR (0-20)
[2022-04-21 11:51] LABS: Vitamin D 25-OH Total 24.7 ng/mL (>30)
[2022-04-21 11:56] LABS: Ferritin 78 ng/mL (10-250); TSH reflex Free T4 0.53 uIU/mL (0.32-4.0); Vitamin D 25-OH Total 24.2 ng/mL (>30)
[2022-04-21 12:12] LABS: Folate 17.3 ng/mL (> or = 4.0); Vitamin B12 400 pg/mL (200-900)
[2022-04-21 13:11] LABS: Insulin 14 uU/mL (2-29)
[2022-04-22 12:11] LABS: Calcium (PTHI) 9.3 mg/dL (8.6-10.2); PTHI 59 pg/mL (16-77)
[2022-04-25 00:07] LABS: Zinc 76 mcg/dL (60-130)
[2022-04-26 02:57] LABS: Vitamin A 89 mcg/dL (38-98)
[2022-04-26 16:01] LABS: Vitamin B1 7 nmol/L (8-30)
== END 2022-04-21 10:00 | disposition home or self-care (01) ==
LOC: HO.LAB 09:59
PROVIDERS: Absent Provider Nurse Practitioner; PCP Internal Medicine; Referring Provider Internal Medicine; Visit Provider Physician Assistant Surgical
DX: Z00.00 Encounter for general adult medical examination without abnormal findings (principal); E66.9 Obesity, unspecified; K62.5 Hemorrhage of anus and rectum; E78.5 Hyperlipidemia, unspecified; R79.82 Elevated C-reactive protein (CRP); E55.9 Vitamin D deficiency, unspecified
CPT/HCPCS: 36415; 71046; 80053; 80061; 82306; 82607; 82728; 82746; 83036; 83525; 83540; 83970; 84425; 84443; 84590; 84630; 85025; 85652; 86140; 93005

== ENCOUNTER 2022-04-24 10:21 | Outpatient (REF) | payer OTHER, SELFPAY ==
[2022-04-25 14:09] LABS: H Pylori Breath Test Positive (Negative)
== END 2022-04-24 10:22 | disposition home or self-care (01) ==
LOC: HO.LNP 10:21
PROVIDERS: Physician Assistant Surgical; PCP Internal Medicine; Visit Provider Physician Assistant
DX: R73.03 Prediabetes (principal); E66.9 Obesity, unspecified; E55.9 Vitamin D deficiency, unspecified; E78.5 Hyperlipidemia, unspecified; Z71.3 Dietary counseling and surveillance; Z11.0 Encounter for screening for intestinal infectious diseases
CPT/HCPCS: 83013; 97803; 99211

== ENCOUNTER → 2022-05-01 10:27 | Outpatient (BNVA) | payer OTHER, SELFPAY | PROVIDERS: PCP Internal Medicine; Visit Provider Physician Assistant Surgical | DX: Z01.818 Encounter for other preprocedural examination (principal); E66.9 Obesity, unspecified; Z68.37 Body mass index [BMI] 37.0-37.9, adult; A04.8 Other specified bacterial intestinal infections | CPT/HCPCS: 99212 ==

== ENCOUNTER → 2022-05-06 08:37 | Outpatient (BNVA) | payer OTHER, SELFPAY | PROVIDERS: PCP Internal Medicine; Referring Provider Physician Assistant Surgical; Visit Provider Dietitian, Registered | DX: E66.9 Obesity, unspecified (principal); R73.03 Prediabetes; Z71.3 Dietary counseling and surveillance | CPT/HCPCS: 97802 ==

== ENCOUNTER → 2022-05-14 08:45 | Outpatient (BNVA) | payer OTHER, SELFPAY | PROVIDERS: PCP Internal Medicine; Visit Provider Surgery | DX: E66.9 Obesity, unspecified (principal); A04.8 Other specified bacterial intestinal infections; K59.04 Chronic idiopathic constipation; K21.9 Gastro-esophageal reflux disease without esophagitis; R73.03 Prediabetes; E78.5 Hyperlipidemia, unspecified | CPT/HCPCS: 99202; 99212 ==

== ENCOUNTER 2022-06-02 07:44 | Outpatient (REF) | payer OTHER, SELFPAY ==
--- NOTE | ~2022-06-02 | FL_ITS ---
EXAMINATION: XR FLUOROSCOPY UPPER GI WITH AIR CLINICAL INFORMATION: Obesity preop COMPARISON: None TECHNIQUE: Routine upper GI air-contrast study was performed. FINDINGS: Following oral administration of thick barium and effervescent granules there is normal propagation of bolus from the oral cavity through the pharynx, esophagus into stomach without any evidence of obstruction, narrowing or stricture. The course, caliber and peristalsis of the stomach and duodenal bulb is normal. The mucosal pattern is normal. There is mild gastroesophageal reflux without hiatal hernia. FLUOROSCOPY TIME: 1.1 minute DOSE AREA PRODUCT: 24.662 uGy-m2 (microgray-meter squared) FL/FL upper GI w air IMPRESSION: Mild gastroesophageal reflux without hiatal hernia.
--- NOTE | ~2022-06-02 | US_ITS ---
EXAMINATION: US COMPLETE ABDOMEN WITH LIVER ELASTOGRAPHY CLINICAL INFORMATION: Obesity. COMPARISON: None. TECHNIQUE: Real-time imaging of the abdominal viscera. Noninvasive ultrasound liver fibrosis assessment is performed using Kaiden ElastPQ point quantification shear wave elastography (2D-SWE) with a C5-2 MHz transducer. Multiple elastography samples are obtained. FINDINGS: PANCREAS: The visualized pancreatic head and body are mildly heterogeneous without focal lesion. The remainder of the pancreas is obscured from visualization by the overlying bowel gas. ABDOMINAL AORTA: The proximal, middle, and distal aortic segments are normal in caliber. INFERIOR VENA CAVA: Visualized portions are normal. LIVER: The liver demonstrates normal size, contour and increased echogenicity. No focal lesion or intrahepatic biliary duct dilatation. The right lobe measures 14.9 cm in length. The left lobe measures 11.2 cm in length. Portal flow is hepatopedal. Shear wave liver elastography median stiffness is 1.34 m/s (reference: normal median stiffness is 1.3 m/s or less). IQR/median stiffness to assess sampling precision is 0.03 (reference: good quality data set is IQR/median stiffness of 0.15 or less). GALLBLADDER: Normal. The gallbladder is physiologically distended without evidence of stones, sludge, polyps, wall thickening or pericholecystic fluid. COMMON BILE DUCT: Normal in caliber measuring 0.4 cm in diameter. RIGHT KIDNEY: No hydronephrosis. There are several echogenic calculi upper pole measuring 0.4 cm, midpole measuring 0.5 cm and lower pole measuring 0.3 cm. No caliectasis seen. There is anechoic cyst upper midpole measuring 0.9 x 0.8 x 0.9 cm. The kidney measures 11.6 cm in maximum dimension. LEFT KIDNEY: Normal. No hydronephrosis. No renal calculi or focal parenchymal lesions. The kidney measures 11.6 cm in maximum dimension. SPLEEN: Normal. The spleen measures 10.0 cm in maximum dimension. FREE FLUID: None. US/US abdomen comp w elastography IMPRESSION: 1. Nonobstructive echogenic right renal calculi. Small right renal cysts. 2. Hepatic steatosis without focal lesion. 3. Mild heterogeneous appearing pancreas. 4. Liver elastography: Median liver stiffness 1.34 m/s corresponding to cACLD (ruled out). REFERENCE: Society of Radiologists in Ultrasound Liver Stiffness Thresholds (2020): LIVER STIFFNESS THRESHOLDS: *Liver Stiffness equal or less than 1.3 m/s: High probability of being normal. *Liver Stiffness less than 1.7 m/s: In the absence of other known clinical signs, rules out compensated advanced chronic liver disease. *Liver Stiffness 1.7-2.1 m/s: Suggestive of compensated advanced chronic liver disease but need further test for confirmation. *Liver Stiffness over 2.1 m/s: Rules in compensated advanced chronic liver disease. *Liver Stiffness over 2.4 m/s: Suggestive of clinically significant portal hypertension. QUALITY OF DATA SET: *IQR/Median value equal or less than 0.15 implies a quality data set. *IQR/Median value over 0.15 implies a poor quality data set. SIGNIFICANT CHANGE FROM PRIOR EXAM: Significant change if liver stiffness measurement is 10% or greater from prior exam. OTHER CONSIDERATIONS: The stage of liver fibrosis may be overestimated in the setting of acute hepatitis, liver inflammation, elevated liver function tests, hepatic vascular congestion, obstructive cholestasis, non-fasting state, and infiltrative diseases such as amyloidosis and lymphoma. In some patients with NAFLD, the liver stiffness thresholds for compensated advanced chronic liver disease may be lower. In causes other than viral hepatitis and NAFLD, liver stiffness thresholds are not well established.
== END 2022-06-02 07:45 | disposition home or self-care (01) ==
LOC: HO.US 07:44
PROVIDERS: Visit Provider Physician Assistant Surgical
DX: Z01.818 Encounter for other preprocedural examination (principal); E66.9 Obesity, unspecified; K21.9 Gastro-esophageal reflux disease without esophagitis
CPT/HCPCS: 74246; 76705; 76981; 99212

== ENCOUNTER 2022-06-03 | Outpatient (REF) | payer OTHER, SELFPAY ==
[2022-06-05 13:56] LABS: H Pylori Breath Test Negative (Negative)
== END 2022-06-03 00:01 | disposition home or self-care (01) ==
LOC: HO.LNP
PROVIDERS: Visit Provider Physician Assistant Surgical
DX: Z01.818 Encounter for other preprocedural examination (principal); Z11.0 Encounter for screening for intestinal infectious diseases
CPT/HCPCS: 83013

== ENCOUNTER → 2022-06-03 10:53 | Outpatient (BNVA) | payer OTHER, SELFPAY | PROVIDERS: PCP Internal Medicine; Visit Provider Physician Assistant Surgical | DX: Z11.0 Encounter for screening for intestinal infectious diseases (principal) | CPT/HCPCS: 99211 ==

== ENCOUNTER → 2022-06-27 10:20 | Outpatient (BNVA) | payer OTHER, SELFPAY | PROVIDERS: PCP Internal Medicine; Visit Provider Physician Assistant Surgical | DX: E66.9 Obesity, unspecified (principal); Z68.35 Body mass index [BMI] 35.0-35.9, adult | CPT/HCPCS: 99212 ==

== ENCOUNTER → 2022-07-01 14:14 | Outpatient (BNVA) | payer OTHER, SELFPAY | PROVIDERS: PCP Internal Medicine; Visit Provider Dietitian, Registered | DX: E66.9 Obesity, unspecified (principal) | CPT/HCPCS: 97803 ==

== ENCOUNTER 2022-07-02 12:00 | Day surgery (SDC) | payer OTHER, SELFPAY ==
[2022-06-27 14:01] VITALS: BMI 32.5
[2022-07-02 12:16] VITALS: BMI 35.2
[2022-07-02 12:20] VITALS: BP 143/97; PULSE 92; RESP 18; TEMP 37.3; O2SAT 98
--- NOTE | 2022-07-02 12:22 | HO.ANESPROP2 ---
[facility] Active Problems Active Problems: All Active Problems (Updated 05/01/22 @ 11:32 by RACHEL Byrne) H. pylori infection (Acute) Obesity (BMI 30-39.9) (Acute) Rectal bleeding (Acute) Mild recurrent major depression (Acute) Physical exam (Acute) Elevated C-reactive protein (CRP) (Acute) Morbid obesity with BMI of 40.0-44.9, adult (Acute) Fibromyalgia (Acute) Right lateral epicondylitis (Acute) Chronic idiopathic constipation (Acute) Anemia (Acute) Epigastric pain (Acute) Polyarthralgia (Acute) Bloody stools (Acute) Right foot pain (Acute) Left foot pain (Acute) Finger pain (Acute) GERD (gastroesophageal reflux disease) (Acute) Essential hypertension (Acute) H/O reactive hypoglycemia (Acute) Vitamin D deficiency (Acute) Prediabetes (Acute) Dyslipidemia (Acute) Past Medical History Medical History Bloody stools Dyslipidemia Essential hypertension Finger pain GERD (gastroesophageal reflux disease) H/O reactive hypoglycemia Left foot pain Mild recurrent major depression Morbid obesity with BMI of 40.0-44.9, adult Physical exam Polyarthralgia Prediabetes Right foot pain Vitamin D deficiency Family History Family History Daughter Cancer Father Cancer, Onset Age: 54 Diabetes mellitus Mother Cancer, Onset Age: 64 Diabetes mellitus Paternal Aunt Cancer Maternal Grandmother Diabetes mellitus Hypertension CVD (cardiovascular disease) Maternal Grandfather Diabetes mellitus Hypertension CVD (cardiovascular disease) Paternal Grandmother Diabetes mellitus Hypertension Paternal Grandfather No problems noted. Family history of problems with anesthesia: No Surgical History Surgical History Deficient knowledge of leg surgery History of incision and drainage History of lithotripsy History of total abdominal hysterectomy History of tubal ligation Hx of bilateral breast reduction surgery Hx of section History of Problems with Anesthesia: No Social History Social History Housing: House Alcohol intake: never Patient Tobacco Use Status: Never used Tobacco e-Cigarette/Vaping Use: Never Used Second Hand Smoke Exposure: No Use of substances other than those prescribed or required for medical reasons: No Advance Directives: Yes Advance Directives on File: Yes Advance Directives Date on File: 07/18/20 service: No Current occupational status: unemployed Cognitive needs: No Hearing needs: No Vision needs: No Meds Allergies Allergy/AdvReac Type Severity Reaction Status Date / Time bupropion [Contrave] Allergy Intermediate nausea,vomit, Verified 06/27/22 10:31 headaches naltrexone [Contrave] Allergy Intermediate nausea,vomit, Verified 06/27/22 10:31 headaches oxycodone [Percocet] Allergy Intermediate hives Verified 06/27/22 10:31 duloxetine AdvReac Severe Hallucinati Verified 06/27/22 10:31 ons Home Medications Medication Instructions Recorded Confirmed Last Taken Type nabumetone 750 mg tablet 750 mg PO BID 07/18/20 06/27/22 Unknown History propranolol 20 mg tablet 20 mg PO BID 07/18/20 06/27/22 Unknown History venlafaxine 75 mg tablet 75 mg PO DAILY 07/18/20 06/27/22 Unknown History Exam Exam Date and Time: July 02, 2022 1222 Height,Weight and Vital Signs: Height 5 ft 3 in Weight 90.265 kg Last Vital Signs Temp 99.1 F 07/02/22 12:20 Pulse 92 07/02/22 12:20 Resp 18 07/02/22 12:20 BP 143/97 H 07/02/22 12:20 Pulse Ox 98 07/02/22 12:20 O2 Del Method 07/02/22 12:20 Airway Mallampati Class: II (Chipped tooth, appears loose but denied) TM Dist: >3cm Neck ROM: Full Heart: rrr Lungs: cta Assessment and Plan Assessment Anesthesia Assessment: Anesthesia Plan Discussed and Chart Reviewed Final Anesthetic Review Family History of Problems with Anesthesia: No History of Problems with Anesthesia: No NPO: Yes ASA Class: II Final Preanesthetic Review: No Changes in Pt Med Stat, Meds/Allgs Chart Reviewed and Consent Obtained/Reviewed Patient Risk: Intermediate Procedure Risk: Intermediate Anesthetic Plan Anesthetic Plan: MAC: Disposition: Standard PACU
[2022-07-02 12:26] VITALS: BMI 35.2
--- NOTE | 2022-07-02 12:32 | MHC.SHP ---
Pre-Procedural Eval Section A Date of Service: 07/02/22 Section B Chief Complaint: bleeding Relevant Family History (Specify if Yes): No Relevant Social History: None Present Medications: see Short Stay Collaborative assessment Medical History: Significant History (Bloody stools Dyslipidemia Essential hypertension Finger pain GERD (gastroesophageal reflux disease) H/O reactive hypoglycemia Left foot pain Mild recurrent major depression Morbid obesity with BMI of 40.0-44.9, adult Physical exam Polyarthralgia Prediabetes Right foot pain Vitamin D deficiency) History of Previous Operations: Relevant previous surgery/procedure and date(s) (Deficient knowledge of leg surgery History of incision and drainage History of lithotripsy History of total abdominal hysterectomy History of tubal ligation Hx of bilateral breast reduction surgery Hx of section) Allergies: Allergies Allergy/AdvReac Type Severity Reaction Status Date / Time bupropion [Contrave] Allergy Intermediate nausea,vomit, Verified 06/27/22 10:31 headaches naltrexone [Contrave] Allergy Intermediate nausea,vomit, Verified 06/27/22 10:31 headaches oxycodone [Percocet] Allergy Intermediate hives Verified 06/27/22 10:31 duloxetine AdvReac Severe Hallucinati Verified 06/27/22 10:31 ons Review of Systems Sugical H&P ROS: Negative: Constitution, Cardiovascular, Respiratory, Neurological, Psychiatric, Hem-Onc, Allergic/Immunologic, Gastrointestinal, Genitourinary, Musculoskeletal, Integumentary, Endocrine and Eyes/Ears/Nose/Throat Exam Surgical H&P Exam: Normal: HEENT, Normal: Heart, Normal: Lungs, Normal: Extremities, Normal: Abdomen, Normal: Skin and Normal: Neurological Plan Diagnosis/Plan: Unchanged I have reviewed the history and physical and performed a pertinent physical examination on my patient. No changes have occurred unless specified.
--- NOTE | 2022-07-02 12:40 | W.PM.OPN ---
Operative Note Operative Note Date of Service: 07/02/22 Narrative: Operative Information Procedure Description: Colonoscopy Indication: rectal bleeding Anesthesia: MAC COLONOSCOPY Instrument: Olympus variable stiffness pediatric scope 190L Colonoscopy Monitoring: Vital signs and clinical assessment, continuous EKG monitoring, Pulse oximetry, Carbon Dioxide monitoring and blood pressure monitoring were done throughout the procedure. Colon withdrawal time was 8 minutes. Procedure: The patient was placed in the left lateral decubitis position and pre-procedure medications were administered. After a digital rectal examination of the ano-rectum, the video colonoscope was inserted into the rectum and advanced through the colon to the cecum/TI. The colonoscope was slowly withdrawn in a retrograde panoramic fashion and the colon mucosa was carefully examined including a retroflexed view of the rectum. Findings and interventions are described below. Procedure Difficulty: easy Findings: Terminal Ileum-normal right sided retroflexion- normal Cecum:normal Ascending Colon: normal Transverse Colon -normal Descending Colon:normal Sigmoid Colon: normal Rectum: Retroflexion with small internal hemorrhoids, grade I Anorectum - normal Colon preparation: [place] Bowel Preparation Scale Right colon; 3 Transverse colon: 3 Left colon; 3 (0 = Unprepared colon segment with mucosa not seen due to solid stool that cannot be cleared. 1 = Portion of mucosa of the colon segment seen, but other areas of the colon segment not well seen due to staining, residual stool and/or opaque liquid. 2 = Minor amount of residual staining, small fragments of stool and/or opaque liquid, but mucosa of colon segment seen well. 3 = Entire mucosa of colon segment seen well with no residual staining, small fragments of stool or opaque liquid) Impression and Post Procedure Diagnosis: internal hemorrhoids Plan: High fiber diet leaflet Avoid straining at stool, epsom salts and sitz bath, anusol supps or cream Repeat Colonoscopy in 10 years or earlier if clinically indicated Above findings were reviewed with the patient and relevant handouts were provided if indicated.
[2022-07-02] MEDS: Lactated Ringers 1,000 ML 50 ML IVCONT (12:53)
[2022-07-02 13:14] VITALS: BP 114/65; PULSE 82; RESP 16; TEMP 36.9; O2SAT 98
[2022-07-02 13:29] VITALS: BP 126/82; PULSE 76; RESP 16; TEMP 36.5; O2SAT 98
[2022-07-02 13:44] VITALS: BP 128/76; PULSE 78; RESP 20; TEMP 36.7; O2SAT 98
== END 2022-07-02 14:23 | disposition home or self-care (01) ==
PROVIDERS: PCP Internal Medicine; Visit Provider Internal Medicine Gastroenterology
PROC: 0DJD8ZZ Inspection of Lower Intestinal Tract, Via Natural or Artificial Opening Endoscopic (ICD-10-PCS; CPT 45378; principal; 2022-07-02 13:40)
DX: K62.5 Hemorrhage of anus and rectum (principal); K64.0 First degree hemorrhoids; R14.0 Abdominal distension (gaseous); K21.9 Gastro-esophageal reflux disease without esophagitis; R19.7 Diarrhea, unspecified; K59.00 Constipation, unspecified; E78.5 Hyperlipidemia, unspecified; R73.03 Prediabetes; I10 Essential (primary) hypertension; Z79.899 Other long term (current) drug therapy; Z88.8 Allergy status to other drugs, medicaments and biological substances
CPT/HCPCS: 45378

== ENCOUNTER → 2022-07-16 13:55 | Outpatient (BNVA) | payer OTHER, SELFPAY | PROVIDERS: PCP Internal Medicine; Visit Provider Nurse Practitioner | DX: K64.9 Unspecified hemorrhoids (principal); K62.5 Hemorrhage of anus and rectum; K59.04 Chronic idiopathic constipation; K21.9 Gastro-esophageal reflux disease without esophagitis | CPT/HCPCS: 99212 ==

== ENCOUNTER → 2022-07-22 14:15 | Outpatient (BNVA) | payer OTHER, SELFPAY | PROVIDERS: PCP Internal Medicine; Visit Provider Dietitian, Registered | DX: E66.9 Obesity, unspecified (principal); Z68.35 Body mass index [BMI] 35.0-35.9, adult | CPT/HCPCS: 97803 ==

== ENCOUNTER → 2022-08-08 10:56 | Outpatient (BNVA) | payer OTHER, SELFPAY | PROVIDERS: PCP Internal Medicine; Visit Provider Physician Assistant Surgical | DX: E66.9 Obesity, unspecified (principal); Z68.34 Body mass index [BMI] 34.0-34.9, adult | CPT/HCPCS: 99212 ==

== ENCOUNTER → 2022-08-18 11:12 | Outpatient (BNVA) | payer OTHER, SELFPAY | PROVIDERS: PCP Internal Medicine; Referring Provider Physician Assistant Surgical; Visit Provider Dietitian, Registered | DX: E66.9 Obesity, unspecified (principal) | CPT/HCPCS: 97803 ==

== ENCOUNTER → 2022-09-03 08:14 | Outpatient (BNVA) | payer OTHER, SELFPAY | PROVIDERS: PCP Internal Medicine; Visit Provider Physician Assistant Surgical | DX: E66.9 Obesity, unspecified (principal); Z68.34 Body mass index [BMI] 34.0-34.9, adult | CPT/HCPCS: 99212 ==

== ENCOUNTER → 2022-09-08 08:01 | Outpatient (BNVA) | payer OTHER, SELFPAY | PROVIDERS: PCP Internal Medicine; Referring Provider Internal Medicine; Visit Provider Surgery | DX: E66.9 Obesity, unspecified (principal); R73.03 Prediabetes; E78.5 Hyperlipidemia, unspecified; E55.9 Vitamin D deficiency, unspecified; I10 Essential (primary) hypertension; K21.9 Gastro-esophageal reflux disease without esophagitis; M25.50 Pain in unspecified joint; K59.04 Chronic idiopathic constipation; M79.7 Fibromyalgia; A04.8 Other specified bacterial intestinal infections; Z68.34 Body mass index [BMI] 34.0-34.9, adult | CPT/HCPCS: 99212 ==

== ENCOUNTER 2022-09-12 11:38 | Emergency (ER) | payer OTHER, SELFPAY ==
[2022-09-12 11:52] VITALS: BP 113/74; PULSE 72; RESP 18; TEMP 36.6; O2SAT 98; BMI 33.5
--- NOTE | 2022-09-12 12:01 | ED_ITS ---
HPI - General Adult General Chief complaint: Dizziness Stated complaint: Dizzy Light Headed Time Seen by Provider: 09/12/22 12:01 Source: patient and vp organizational development Mode of arrival: wheelchair Limitations: language barrier History of Present Illness HPI narrative: Patient is a 42 year old assigned female at with a history of anemia presenting to the emergency department today after a near syncopal episode. Patient states that she was getting her blood drawn when she felt like she was going to pass out. Patient states that she fasted before the blood draw. Patient states that she feels back to normal now however, she wanted to be evaluated in the ER. Patient denies any current dizziness, lightheadedness, abdominal pain, nausea, vomiting, fever, chills, blurry vision, double vision, loss of vision, chest pain, difficulty breathing, shortness of breath, back pain, night sweats, pain with urination, increased urinary frequency, increased urinary urgency, blood in her urine or stool, recent trauma or falls, bowel incontinence, bladder incontinence, bowel retention, bladder retention, or any other complaints at this time. Onset (ago): minute(s) Severity: mild Severity scale (1-10): 2 Relieving factors: none Exacerbating factors: none Associated symptoms: denies other symptoms Treatments prior to arrival: none Related Data Home Medications Medication Instructions Recorded Confirmed nabumetone 750 mg tablet 750 mg PO BID 07/18/20 09/10/22 propranolol 20 mg tablet 20 mg PO BID 07/18/20 09/10/22 acetaminophen 500 mg/15 mL oral 500 mg PO Q4-6H PRN Pain 09/10/22 09/10/22 liquid Previous Rx's Medication Instructions Recorded cholecalciferol (vitamin D3) 125 125 mcg PO DAILY 90 days #90 caps 03/12/22 mcg (5,000 unit) capsule ondansetron HCl 4 mg tablet 4 mg PO Q6-8H PRN nausea and 06/23/22 vomiting #20 tabs pantoprazole 40 mg tablet,delayed 40 mg PO DAILY #30 tabs 06/23/22 release hydrocortisone 2.5 % topical cream 1 appl [place] BID hemorrhoids #30 grams 07/16/22 with perineal applicator (Proctosol HC) linaclotide 290 mcg capsule 290 mcg PO QAM 30 days #30 caps 07/16/22 (Linzess) yiqedehoia-jvnfoyz-skhcjgam 50 1 cap PO DAILY PRN headache #30 07/28/22 mg-325 mg-40 mg capsule caps loratadine 10 mg tablet (Allergy 10 mg PO DAILY 90 days #90 tabs 07/28/22 Relief (loratadine)) thiamine HCl (vitamin B1) 100 mg 100 mg PO DAILY #30 tabs 07/29/22 tablet (Vitamin B-1) Allergies Allergy/AdvReac Type Severity Reaction Status Date / Time bupropion [Contrave] Allergy Intermediate nausea,vomit, Verified 09/08/22 08:27 headaches naltrexone [Contrave] Allergy Intermediate nausea,vomit, Verified 09/08/22 08:27 headaches oxycodone [Percocet] Allergy Intermediate hives Verified 09/08/22 08:27 duloxetine AdvReac Severe Hallucinati Verified 09/08/22 08:27 ons Review of Systems Constitutional: Constitutional: Reports no additional constitutional complaints, Denies chills, Denies fever(s) and Denies night sweats Eyes: Eyes: Reports no additional eye complaints, Denies blurry vision, Denies change in vision, Denies diplopia, Denies eye discharge, Denies loss of vision and Denies eye pain ENT: Denies dizziness Cardiovascular: Cardiovascular: Reports no additional cardiovascular complaints, Denies chest pain, Denies lightheadedness, Denies Loss of Consciousness and Denies dyspnea Respiratory: Respiratory: Reports no additional respiratory complaints and Denies dyspnea Gastrointestinal: Gastrointestinal: Reports no additional gastrointestinal complaints, Denies abdominal pain, Denies melena, Denies hematochezia, Denies change in bowel habits and Denies change in stool character Genitourinary: Genitourinary: Denies hematuria, Denies urinary frequency, Denies dysuria, Denies urinary incontinence, Denies urinary hesitancy and Denies urinary urgency Musculoskeletal: Musculoskeletal: Reports no additional musculoskeletal complaints, Denies numbness and Denies tingling Neurologic: Denies dizziness, Denies loss of vision, Denies numbness and Denies tingling Psychiatric: Psychiatric: Reports no additional psychiatric complaints Endocrine: Endocrine: Reports no additional endocrine complaints Hematologic/Lymphatic: Hematologic/Lymphatic: Reports no additional hematologic/lymphatic complaints Allergic/Immunologic: Allergic/Immunologic: Reports no additional allergic/immunologic complaints PMFSH Past Medical History Attestation statement: The following information was validated with the patient. Source: old records reviewed and nursing notes reviewed Medical History Bloody stools Dyslipidemia Essential hypertension Finger pain GERD (gastroesophageal reflux disease) H/O reactive hypoglycemia Left foot pain Mild recurrent major depression Morbid obesity with BMI of 40.0-44.9, adult Physical exam Polyarthralgia Prediabetes Right foot pain Vitamin D deficiency Surgical History Deficient knowledge of leg surgery History of incision and drainage History of lithotripsy History of total abdominal hysterectomy History of tubal ligation Hx of bilateral breast reduction surgery Hx of section Hx of colonoscopy Family History Family History Daughter Cancer Father Cancer, Onset Age: 54 Diabetes mellitus Mother Cancer, Onset Age: 64 Diabetes mellitus Paternal Aunt Cancer Maternal Grandmother Diabetes mellitus Hypertension CVD (cardiovascular disease) Maternal Grandfather Diabetes mellitus Hypertension CVD (cardiovascular disease) Paternal Grandmother Diabetes mellitus Hypertension Paternal Grandfather No problems noted. Social History Social History Housing: House Are you a primary career portals teacher to a significant other at home: No Do you presently have visiting nurse or other home services: No Alcohol intake: never Patient Tobacco Use Status: Never used Tobacco e-Cigarette/Vaping Use: Never Used Second Hand Smoke Exposure: No Advance Directives: Yes Advance Directives Information Provided: Yes Advance Directives on File: No Advance Directives Date on File: 07/18/20 service: No Current occupational status: unemployed Cognitive needs: No Hearing needs: No Vision needs: No Physical Exam ED Vital Signs: Vital Signs - 24 hr 09/12/22 11:52 Temperature 97.8 F Pulse Rate 72 Respiratory Rate 18 Blood Pressure 113/74 Pulse Oximetry 98 Oxygen Delivery Method Room Air BMI result Body Mass Index 33.5 Const General: cooperative, no acute distress, alert and awake Nutritional Appearance: well nourished Orientation/consciousness: patient oriented x3 Limitations: no limitations HENMT Head: Yes normal to inspection and Yes atraumatic Ears: hearing grossly normal bilaterally and external ears normal General nose exam: Normal external nose present, no nasal discharge noted and no epistaxis Face and sinus: Yes normal facial exam, No abrasion and No laceration Mouth: Normal oral and palatal mucosa present, no drooling and no muffled voice Eyes General: appearance normal, both eyes and all related structures Periorbital: periorbital findings normal Eyelids: Yes eyelids normal Conjunctivae: conjunctivae normal Pupils: Equal, round and reactive pupils present EOM: EOMs intact bilaterally Neck Neck: Yes normal visual inspection, Yes full ROM and Yes no lymphadenopathy Chest Chest palpation & inspection: normal inspection of the chest Resp Effort & Inspection: normal respiratory effort and able to speak in complete sentences Auscultation: clear to auscultation bilaterally Cardio Rate: regular rate Rhythm: regular rhythm GI Inspection: Yes normal to inspection Neuro General: patient oriented x3 and moves all extremities Cranial nerves: Yes Equal, round and reactive pupils present Cognition (Neuro): normal cognition Motor exam (neuro): 5/5 motor strength present throughout Sensory Exam: Normal double simultaneous stimulation for sensation Coordination: jqkjlc-yv-rwhj test normal Extrem General: Yes normal to inspection, Yes full ROM and Yes capillary refill normal Psych Appearance: grossly normal Mental Status: mental status grossly normal Affect: normal affect Attitude: cooperative Thought process: Normal thought process present Thought content: Normal thought content present Insight: Good insight present (Psych) Medical Decision Making MDM Narrative Medical decision making narrative: Patient is a 42 year old assigned female at with a history of anemia presenting to the emergency department today after a near syncopal episode. Patient's physical exam was unremarkable. Patient was given juice and food while in the waiting room. Patient is back to baseline. Patient's clinical presentation is most consistent with a vasovagal episode. Patient's is going to come pick the patient up. I explained my physical exam findings to the patient. I answered all questions asked by the patient. I stressed the importance of the patient taking her medication as prescribed. I stressed the importance of the patient following up with her primary care provider. I stressed the importance of the patient returning to the emergency department immediately if her symptoms were to worsen or if she were to develop any dizziness, shortness of breath, difficulty breathing, chest pain, blurry vision, loss of vision, nausea, vomiting, abdominal pain, fever, chills, back pain, or any other complaints. Patient verbalized agreement and understanding with this treatment plan and discharge. Medical Records Medical records reviewed: Yes I reviewed the patient's medical records. Discharge Plan Discharge Clinical Impression: Vasovagal episode Patient Disposition: Home, Self-Care Instructions: Near Syncope (ED) Additional Instructions: Follow up with your primary care provider. Return to the emergency department immediately if your symptoms worsen or if you develop any dizziness, shortness of breath, difficulty breathing, chest pain, blurry vision, loss of vision, nausea, vomiting, abdominal pain, fever, chills, back pain, or any other complaints. Daryl un seguimiento con rogers proveedor de atenci?n primaria. Regrese al departamento de emergencias de inmediato si patrice s?ntomas empeoran o si presenta mareos, falta de aire, dificultad para respirar, dolor de pecho, visi?n borrosa, p?rdida de la visi?n, n?useas, v?mitos, dolor abdominal, fiebre, escalofr?os, dolor de espalda o cualquier otras quejas. Prescriptions: No Action pantoprazole 40 mg tablet,delayed release (DR/EC) 40 mg PO DAILY Qty: 30 2RF ondansetron HCl 4 mg tablet 4 mg PO Q6-8H PRN (Reason: nausea and vomiting) Qty: 20 0RF loratadine [Allergy Relief (loratadine)] 10 mg tablet 10 mg PO DAILY 90 Days Qty: 90 0RF jfxxafyexn-sfsezsn-jjefwqla 50-325-40 mg capsule 1 cap PO DAILY PRN (Reason: headache) Qty: 30 0RF thiamine HCl (vitamin B1) [Vitamin B-1] 100 mg tablet 100 mg PO DAILY Qty: 30 2RF acetaminophen 500 mg/15 mL liquid 500 mg PO Q4-6H PRN (Reason: Pain) cholecalciferol (vitamin D3) 125 mcg (5,000 unit) capsule 125 mcg PO DAILY 90 Days Qty: 90 0RF propranolol 20 mg tablet 20 mg PO BID nabumetone 750 mg tablet 750 mg PO BID hydrocortisone [Proctosol HC] 2.5 % cream with perineal applicator 1 appl [place] BID Qty: 30 3RF Linzess 290 mcg capsule 290 mcg PO QAM 30 Days Qty: 30 6RF Referrals: [facility] [place] [facility] [place] Group] (Call to establish and follow up with a primary care provider. If you already have a primary care provider, please follow up with them. Llame para establecer y hacer un seguimiento con un proveedor de atenci?n primaria. Si ya tiene un proveedor de atenci?n primaria, daryl un seguimiento con ?l.) [facility] [place] [facility] [[facility]] (Call to establish and follow up with a primary care provider. If you already have a primary care provider, please follow up with them. Llame para establecer y hacer un seguimiento con un proveedor de atenci?n primaria. Si ya tiene un proveedor de atenci?n primaria, daryl un seguimiento con ?l.) [facility] [Provider Group] (Call to establish and follow up with a primary care provider. If you already have a primary care provider, please follow up with them. Llame para establecer y hacer un seguimiento con un proveedor de atenci?n primaria. Si ya tiene un proveedor de atenci?n primaria, daryl un seguimiento con ?l.) Stand Alone Forms: Work/School Release Print Language: Icelandic
== END 2022-09-12 12:27 | disposition home or self-care (01) ==
PROVIDERS: Emergency Provider Student in an Organized Health Care Education/Training Program; PCP Internal Medicine
DX: R42 Dizziness and giddiness (principal); Z79.899 Other long term (current) drug therapy
CPT/HCPCS: 99282; 99283

== ENCOUNTER → 2022-09-25 10:48 | Outpatient (BNVA) | payer OTHER, SELFPAY | PROVIDERS: PCP Internal Medicine; Visit Provider Nurse Practitioner | DX: K64.9 Unspecified hemorrhoids (principal); K62.5 Hemorrhage of anus and rectum; K59.04 Chronic idiopathic constipation; K21.9 Gastro-esophageal reflux disease without esophagitis; I10 Essential (primary) hypertension; E66.01 Morbid (severe) obesity due to excess calories; E78.5 Hyperlipidemia, unspecified; Z68.34 Body mass index [BMI] 34.0-34.9, adult; Z79.899 Other long term (current) drug therapy | CPT/HCPCS: 99212 ==

== ENCOUNTER 2022-10-01 05:59 | Inpatient (IN) | payer OTHER, SELFPAY ==
[2022-09-10 10:33] VITALS: BMI 34.2
[2022-09-12 11:25] LABS: MANUAL DIFF FLAG NO
[2022-09-12 11:49] LABS: Basophils Percent Auto 0.4 % (0-2); Eosinophils Absolute Auto 0.1 X10*3/uL (0.0-0.4); Eosinophils Percent Auto 1.1 % (0-4); Hematocrit 42.2 % (37.0-47.0); Hemoglobin 14.1 g/dl (12.0-16.0); Imm Gran Abs Auto 0.01 X10*3/uL (0.00-0.03); Imm Gran Pct Auto 0.1 % (0.0-0.4); Lymphocytes Absolute Auto 1.9 X10*3/uL (1.2-4.9); Lymphocytes Percent Auto 24.9 % (20-40); Mean Corpuscular HGB Conc 33.4 g/dl (31.0-35.0); Mean Corpuscular Hemoglobin 27.3 pg (27.0-33.0); Mean Corpuscular Volume 81.6 fL (80.0-98.0); Mean Platelet Volume 9.7 fL (9.4-12.3); Monocytes Absolute Auto 0.4 X10*3/uL (0.1-1.2); Neutrophils Absolute Auto 5.2 x10*3/uL (2.0-8.3); Neutrophils Percent Auto 68.5 % (45-73); Platelet Count 334 X10*3/uL (160-400); Red Blood Count 5.17 X10*6/uL (4.20-5.50); Red Cell Distribution Width 12.9 % (11.0-16.0); White Blood Count 7.6 X10*3/uL (4.8-10.8)
[2022-09-12 12:02] LABS: INTERNATIONAL NORM RATIO 1.2 (0.9-1.1); Prothrombin Time 13.4 SEC (10.0-13.1)
[2022-09-12 12:03] LABS: Partial Thromboplastin Time 33.2 SEC (26.0-36.4)
[2022-09-12 12:50] LABS: Estimated Average Glucose 117 mg/dL; Hemoglobin A1c % 5.7 %
[2022-09-12 13:10] LABS: Vitamin B12 461 pg/mL (200-900)
[2022-09-12 14:27] LABS: Alanine Aminotransferase < 6 U/L (0-31); Albumin Level 4.6 g/dL (3.5-5.0); Alkaline Phosphatase 66 U/L (39-117); Anion Gap 13 (12-20); Aspartate Amino Transferase 13 U/L (5-31); Bilirubin Total 0.5 mg/dL (0.0-1.0); Blood Urea Nitrogen 11 mg/dL (9-16); C Reactive Protein 0.56 mg/dL (< or = 0.50); Calcium 9.4 mg/dL (8.4-10.2); Carbon Dioxide 27 mmol/L (22-29); Chloride 99 mmol/L (96-108); Cholesterol 203 mg/dL; Creatinine Clr Calc Pharmacy 114.1; Estimated Glomerular Filt Rate > 60; Ferritin 118 ng/mL (10-250); Glucose Random 92 mg/dL (60-115); HDL Cholesterol 38 mg/dL; Iron 77 mcg/dL (30-160); LDL Cholesterol Calculated 144 mg/dl; Percent Iron Saturation 26 % (15-50); Potassium 3.8 mmol/L (3.3-5.1); Sodium 135 mmol/L (135-145); TSH reflex Free T4 1.13 uIU/mL (0.32-4.0); Total Iron Binding Capacity 292 mcg/dL (228-428); Total Protein 7.7 g/dL (6.5-8.0); Triglycerides 105 mg/dL; Unsaturated Iron Binding 215 ug/dL; Vitamin D 25-OH Total 20.4 ng/mL (>30)
[2022-09-14 15:39] LABS: Calcium (PTHI) 9.5 mg/dL (8.6-10.2); PTHI 61 pg/mL (16-77)
--- NOTE | 2022-09-16 08:33 | P.CONAN_ITS ---
Documented by User: Lian Tomas NP 09/22/22 14:54 HPI - Anesthesia Eval Consult details Narrative: 42yo F for Gastrectomy Sleeve,EGD,poss diaphragmatic hernia,poss ventral hernia,poss open, 10/01/22 PMFSH Active Problems Active Problems: All Active Problems (Updated 09/13/22 @ 00:02 by Mary Cardenas) Epigastric pain (Acute) Anemia (Acute) Chronic idiopathic constipation (Acute) Right lateral epicondylitis (Acute) Fibromyalgia (Acute) Elevated C-reactive protein (CRP) (Acute) Rectal bleeding (Acute) Obesity (BMI 30-39.9) (Acute) H. pylori infection (Acute) Hemorrhoids (Acute) Family history of cancer (Acute) Mild recurrent major depression (Acute) Physical exam (Acute) Morbid obesity with BMI of 40.0-44.9, adult (Acute) Polyarthralgia (Acute) Bloody stools (Acute) Right foot pain (Acute) Left foot pain (Acute) Finger pain (Acute) GERD (gastroesophageal reflux disease) (Acute) Essential hypertension (Acute) H/O reactive hypoglycemia (Acute) Vitamin D deficiency (Acute) Prediabetes (Acute) Dyslipidemia (Acute) Past Medical History Medical History (Updated 09/30/22 @ 13:19 by Effie Ambriz RN) Bloody stools Dyslipidemia Essential hypertension Finger pain GERD (gastroesophageal reflux disease) H/O reactive hypoglycemia History of COVID-19 Left foot pain Mild recurrent major depression Morbid obesity with BMI of 40.0-44.9, adult Physical exam Polyarthralgia Prediabetes Right foot pain Vitamin D deficiency Family History Family History Daughter Cancer Father Cancer, Onset Age: 54 Diabetes mellitus Mother Cancer, Onset Age: 64 Diabetes mellitus Paternal Aunt Cancer Maternal Grandmother Diabetes mellitus Hypertension CVD (cardiovascular disease) Maternal Grandfather Diabetes mellitus Hypertension CVD (cardiovascular disease) Paternal Grandmother Diabetes mellitus Hypertension Paternal Grandfather No problems noted. Family history of problems with anesthesia: No Surgical History Surgical History (Updated 09/25/22 @ 11:15 by ZURI Luz) Deficient knowledge of leg surgery History of incision and drainage History of lithotripsy History of total abdominal hysterectomy History of tubal ligation Hx of bilateral breast reduction surgery Hx of section Hx of colonoscopy History of Problems with Anesthesia: No Social History Social History Housing: House Are you a primary manager critical care unit to a significant other at home: No Do you presently have visiting nurse or other home services: No Alcohol intake: never Patient Tobacco Use Status: Never used Tobacco e-Cigarette/Vaping Use: Never Used Second Hand Smoke Exposure: No Use of substances other than those prescribed or required for medical reasons: No Have you been hit, kicked, punched, or otherwise hurt by someone within the past year? If so, by whom?: No Are you DNR?: No Advance Directives: Yes Advance Directives Information Provided: No Advance Directives on File: No Advance Directives Date on File: 07/18/20 Recently lost weight without trying: No How much weight loss: 24-33 pounds Eating poorly because of decreased appetite: No Nutrition screen score: 3 Nutrition Risks: No Nutritional Risk Patient : No service: No Current occupational status: unemployed Cognitive needs: No Hearing needs: No Vision needs: No Meds Allergies Allergy/AdvReac Type Severity Reaction Status Date / Time bupropion [Contrave] Allergy Intermediate nausea,vomit, Verified 09/08/22 08:27 headaches naltrexone [Contrave] Allergy Intermediate nausea,vomit, Verified 09/08/22 08:27 headaches oxycodone [Percocet] Allergy Intermediate hives Verified 09/08/22 08:27 duloxetine AdvReac Severe Hallucinati Verified 09/08/22 08:27 ons Active Medications: Current Medications Acetaminophen/Butalbital/Caffeine (Butalb/Acetamin/Caff 50/325/40 Tablet) 1 tab PO DAILY PRN PRN Reason: headache Hydrocortisone (Hydrocortisone 2.5 % Rectal Cr 30 Gm Tube) 1 appl [place] BID YOU Loratadine (Loratadine 10 Mg Tablet) 10 mg PO DAILY YOU Non-Formulary Medication (Linaclotide [Linzess]) 290 mcg PO DAILY YOU Non-Formulary Medication (Nabumetone) 750 mg PO BID YOU Omeprazole (Omeprazole 20 Mg Capsule.Dr) 20 mg PO DAILY@0630 YOU Ondansetron HCl (Ondansetron Odt 4 Mg Tab.Rapdis) 4 mg TRANSLINGU Q6H PRN PRN Reason: nausea and vomiting Propranolol HCl (Propranolol Hcl 20 Mg Tablet) 20 mg PO BID [facility]; Protocol Thiamine HCl (Thiamine Hcl 100 Mg Tablet) 100 mg PO DAILY [facility] Vitamin D (Cholecalciferol (Vitamin D3) 25 Mcg Tablet) 125 mcg PO DAILY [facility] Home Medications Medication Instructions Recorded Confirmed Last Taken Type linaclotide 290 mcg capsule 290 mcg PO QAM 10/01/22 10/01/22 10/01/22 History Exam Exam Date and Time: September 16, 2022 0833 Height,Weight and Vital Signs: Height 5 ft 3 in Weight 87.543 kg Pertinent Lab Results Pertinent Lab Results: Laboratory Tests 09/12/22 09/12/22 09/12/22 11:11 11:11 11:11 WBC 7.6 RBC 5.17 Hgb 14.1 Hct 42.2 MCV 81.6 MCH 27.3 MCHC 33.4 RDW 12.9 Plt Count 334 MPV 9.7 Immature Gran % (Auto) 0.1 Neut % (Auto) 68.5 Lymph % (Auto) 24.9 [place] % (Auto) 5.0 Eos % (Auto) 1.1 Baso % (Auto) 0.4 Lymph # (Auto) 1.9 [place] # (Auto) 0.4 Eos # (Auto) 0.1 Baso # (Auto) 0.0 Abs Immat Gran (auto) 0.01 Absolute Neuts (auto) 5.2 Absolute Nucleated RBC 0.000 Nucleated RBC % (auto) 0.0 PT 13.4 H INR 1.2 H APTT 33.2 Sodium 135 Potassium 3.8 Chloride 99 Carbon Dioxide 27 Anion Gap 13 BUN 11 Creatinine 0.66 Estim Creat Clear Calc 114.1 Estimated GFR > 60 Random Glucose 92 Estimat Average Glucose Hemoglobin A1c % Calcium 9.4 Iron 77 TIBC 292 % Saturation 26 Unsat Iron Binding 215 Ferritin 118 Total Bilirubin 0.5 AST 13 ALT < 6 Alkaline Phosphatase 66 C-Reactive Protein 0.56 H Total Protein 7.7 Albumin 4.6 Triglycerides 105 Cholesterol 203 LDL Cholesterol, Calc 144 HDL Cholesterol 38 Vitamin B12 25-OH Vitamin D Total 20.4 TSH 1.13 PTH Intact Calcium (PTH Intact) Blood Type Antibody Screen 09/12/22 09/12/22 09/12/22 11:11 11:11 11:11 WBC RBC Hgb Hct MCV MCH MCHC RDW Plt Count MPV Immature Gran % (Auto) Neut % (Auto) Lymph % (Auto) [place] % (Auto) Eos % (Auto) Baso % (Auto) Lymph # (Auto) [place] # (Auto) Eos # (Auto) Baso # (Auto) Abs Immat Gran (auto) Absolute Neuts (auto) Absolute Nucleated RBC Nucleated RBC % (auto) PT INR APTT Sodium Potassium Chloride Carbon Dioxide Anion Gap BUN Creatinine Estim Creat Clear Calc Estimated GFR Random Glucose Estimat Average Glucose 117 Hemoglobin A1c % 5.7 Calcium Iron TIBC % Saturation Unsat Iron Binding Ferritin Total Bilirubin AST ALT Alkaline Phosphatase C-Reactive Protein Total Protein Albumin Triglycerides Cholesterol LDL Cholesterol, Calc HDL Cholesterol Vitamin B12 461 25-OH Vitamin D Total TSH PTH Intact 61 Calcium (PTH Intact) 9.5 Blood Type Antibody Screen 09/12/22 11:11 WBC RBC Hgb Hct MCV MCH MCHC RDW Plt Count MPV Immature Gran % (Auto) Neut % (Auto) Lymph % (Auto) [place] % (Auto) Eos % (Auto) Baso % (Auto) Lymph # (Auto) [place] # (Auto) Eos # (Auto) Baso # (Auto) Abs Immat Gran (auto) Absolute Neuts (auto) Absolute Nucleated RBC Nucleated RBC % (auto) PT INR APTT Sodium Potassium Chloride Carbon Dioxide Anion Gap BUN Creatinine Estim Creat Clear Calc Estimated GFR Random Glucose Estimat Average Glucose Hemoglobin A1c % Calcium Iron TIBC % Saturation Unsat Iron Binding Ferritin Total Bilirubin AST ALT Alkaline Phosphatase C-Reactive Protein Total Protein Albumin Triglycerides Cholesterol LDL Cholesterol, Calc HDL Cholesterol Vitamin B12 25-OH Vitamin D Total TSH PTH Intact Calcium (PTH Intact) Blood Type O Positive Antibody Screen NEGATIVE Narrative Narrative: EKG 04/2022 Vent. Rate : 065 BPM ? ? Atrial Rate : 065 BPM ?? P-R Int : 152 ms? QRS Dur : 088 ms ? ? QT Int : 402 ms ? ? ? P-R-T Axes : 040 010 011 degrees ?? QTc Int : 418 ms ? Poor data quality, interpretation may be adversely affected Normal sinus rhythm Normal ECG When compared with ECG of 13-FEB-2021 10:13, No significant change was found Assessment and Plan Assessment Anesthesia Assessment: Chart Reviewed Final Anesthetic Review Family History of Problems with Anesthesia: No History of Problems with Anesthesia: No Documented by User: Elzbieta Mcrae MD 10/01/22 09:39 [facility] Past Medical History Medical History (Updated 09/30/22 @ 13:19 by Effie Ambriz, ANGELINE) Bloody stools Dyslipidemia Essential hypertension Finger pain GERD (gastroesophageal reflux disease) H/O reactive hypoglycemia History of COVID-19 Left foot pain Mild recurrent major depression Morbid obesity with BMI of 40.0-44.9, adult Physical exam Polyarthralgia Prediabetes Right foot pain Vitamin D deficiency Family History Family History Daughter Cancer Father Cancer, Onset Age: 54 Diabetes mellitus Mother Cancer, Onset Age: 64 Diabetes mellitus Paternal Aunt Cancer Maternal Grandmother Diabetes mellitus Hypertension CVD (cardiovascular disease) Maternal Grandfather Diabetes mellitus Hypertension CVD (cardiovascular disease) Paternal Grandmother Diabetes mellitus Hypertension Paternal Grandfather No problems noted. Surgical History Surgical History (Updated 09/25/22 @ 11:15 by ZURI Luz) Deficient knowledge of leg surgery History of incision and drainage History of lithotripsy History of total abdominal hysterectomy History of tubal ligation Hx of bilateral breast reduction surgery Hx of section Hx of colonoscopy Social History Social History Housing: House Are you a primary manager critical care unit to a significant other at home: No Do you presently have visiting nurse or other home services: No Alcohol intake: never Patient Tobacco Use Status: Never used Tobacco e-Cigarette/Vaping Use: Never Used Second Hand Smoke Exposure: No Use of substances other than those prescribed or required for medical reasons: No Have you been hit, kicked, punched, or otherwise hurt by someone within the past year? If so, by whom?: No Are you DNR?: No Advance Directives: Yes Advance Directives Information Provided: No Advance Directives on File: No Advance Directives Date on File: 07/18/20 Recently lost weight without trying: No How much weight loss: 24-33 pounds Eating poorly because of decreased appetite: No Nutrition screen score: 3 Nutrition Risks: No Nutritional Risk Patient : No service: No Current occupational status: unemployed Cognitive needs: No Hearing needs: No Vision needs: No Meds Allergies Allergy/AdvReac Type Severity Reaction Status Date / Time bupropion [Contrave] Allergy Intermediate nausea,vomit, Verified 09/08/22 08:27 headaches naltrexone [Contrave] Allergy Intermediate nausea,vomit, Verified 09/08/22 08:27 headaches oxycodone [Percocet] Allergy Intermediate hives Verified 09/08/22 08:27 duloxetine AdvReac Severe Hallucinati Verified 09/08/22 08:27 ons Home Medications Medication Instructions Recorded Confirmed Last Taken Type linaclotide 290 mcg capsule 290 mcg PO QAM 10/01/22 10/01/22 10/01/22 History Exam Airway Mallampati Class: II TM Dist: >3cm Neck ROM: Full Loose/Missing/Broken Teeth: Yes (9 loose) Heart: rr Lungs: cta Assessment and Plan Final Anesthetic Review NPO: Yes ASA Class: II and III (Obesity morbid ) Final Preanesthetic Review: No Changes in Pt Med Stat, Meds/Allgs Chart Reviewed, Consent Obtained/Reviewed and Anes Risks/Benef Reviewed Patient Risk: Intermediate Procedure Risk: Intermediate Anesthetic Plan Anesthetic Plan: GA Disposition: Standard PACU
[2022-09-16 13:50] LABS: COVID-19 Test Positive (Negative); IDNOW Serial# BCCEAD1C
[2022-09-17 12:37] LABS: Vitamin A 39 mcg/dL (38-98)
[2022-09-17 15:59] LABS: Vitamin B1 9 nmol/L (8-30)
[2022-09-17 17:58] LABS: Zinc 82 mcg/dL (60-130)
[2022-09-30 13:59] LABS: COVID-19 Test Negative (Negative); IDNOW Serial# 55D5AD1C
[2022-10-01] VITALS (16 sets, daily range): BP systolic 138–167; BP diastolic 79–98; PULSE 71–102; RESP 18–32; TEMP 36.6–37.2; O2SAT 93–100
[2022-10-01] MEDS: Scopolamine 1.5 MG PATCH.TD.3 TRANSDERMA (06:40)
[2022-10-01] MEDS: Lactated Ringers 1,000 ML 150 ML IVCONT (06:40)
--- NOTE | 2022-10-01 06:53 | W.PM.OPN ---
Operative Note Operative Note Date of Service: 10/01/22 Narrative: Preop diagnosis: [Morbid obesity, prediabetes, dyslipidemia, hypertension] Postop diagnosis: [Same] Procedure: [Laparoscopic sleeve gastrectomy, gastropexy and intraoperative upper endoscopy] Surgeon: Gabriel Voss MD Assist: [Bird Tang PA-C] Anesthesia: [GET] Estimated blood loss: [3cc] Specimen: [Portion of stomach with fundus] Intraoperative findings: [Grossly normal stomach, no evidence of hiatal hernia, grossly normal liver, visualized spleen and visualized anterior pancreas] Indications: [The patient is a 42-year-old woman with a lifelong struggle with obesity that is failed medical management. Patient reports her heaviest weight is 235 lb and entered the surgical weight loss program at [facility] at a weight of 224 lb with a BMI of 39.8. After demonstrate commitment to her health, proper diet and increased activity, discussion of bariatric surgery including gastric bypass and sleeve gastrectomy was undertaken with the patient. I reviewed the inherent risks of this procedure which include, but are not limited to: Bleeding that could require another operation or blood transfusion; the inherent risks of transfusion reaction infectious disease from blood transfusions; the risk of staple line leaks that could cause sepsis, multi-system organ failure and ; the risk of mesenteric or deep vein thrombosis of the lower extremities that could cause a fatal pulmonary embolism was reviewed; the risk of GERD that could require conversion to gastric bypass was discussed; the risk of recurrent hiatal hernia, especially in the setting of weight regain was reviewed. The risk of weight regain if maladaptive eating and sedentary behavior continue was discussed. The importance of proper diet and increased activity to augment surgical weight loss and the fact that no operation would result in weight loss of poor dietary decisions and sedentary behavior are resumed were discussed at length and apparently understood. The patient had an cereal miller present for the discussion.] Procedure: [The patient was identified by myself in the preoperative holding area and hospital interpretive services and I met with the patient and confirmed no significant interval change. She was properly identified and the operations confirmed with her. She confirmed that she wanted me to call her at [phone] postoperatively. The patient was identified in the preoperative holding area by myself and again in the operating suite by myself and the team. Patient was placed supine on the operating table. Safety straps were utilized and a footboard utilized. The patient was induced in general endotracheal anesthesia administered with excellent effect. An appropriate time-out was performed. The patient's abdomen was then widely prepped and draped in the usual manner for surgery using chlorhexidine. Antibiotics per protocol were administered by Anesthesia. After infiltrating preemptive local in the skin and subcutaneous tissues in the epigastrium approximately 10cm from the xiphoid and the midline of the epigastrium, a stab incision was made sharply in the left subcostal abdomen and the Veress needle inserted without incident. An appropriate drop test was performed then a pneumoperitoneum of 15 mmHg was obtained using carbon dioxide. Opening pressures were 7 mmHg. Next, a 5 mm 0 degree scope over a 5 mm Optiview trocar was used to access the abdomen via the epigastric incision in the midline. Once the abdomen was entered, the the trocar obturator was removed and the laparoscope was used to confirm there was no injury from the Veress needle nor trocar insertion injury to the bowel or mesentery, then the scope was switched to a 5 mm 45 degree laparoscope. Next, using preemptive local, additional 5 mm trocars were placed under direct laparoscopic vision on the patient's left abdomen, then right and the 5 mm midline trocar upsized to a 12 mm to accommodate the stapler. The patient was then positioned in reverse Trendelenburg and the liver retractor deployed through the right lateral 5 mm trocar and secured. A 40 [place] ViSiGi bougie was inserted by Anesthesia per os and advanced to the stomach to decompress. It was then withdrawn to the GE junction all under direct laparoscopic vision. Dissection was begun along the greater curvature using the 5 mm [place] LigaSure for hemostasis and continued to the left pamela of the diaphragm. Dissection was then carried towards the pylorus to 3-4 cm from the pylorus and retro gastric adhesions lysed. The gastroesophageal fat pad was carefully mobilized taking care to avoid injury to the esophagus and stomach and dissection carried towards the short gastrics taking care to avoid injury to the spleen and splenic artery. The diaphragmatic hiatus was carefully examined for a hernia ; no hernia was identified. Next, the 40 Fr ViSiGi bougie was advanced by anesthesia under direct vision and laparoscopic guidance and positioned in the antrum approximately 3 cm from the pylorus using laparoscopic graspers to serve as a guide for a stapled sleeve gastrectomy. Stapling was performed with AEON Endo-CALIXTO stapler with a purple 45 and then orange 45 and 60 loads. The bougie served as a guide to maintain the same sleeve caliber to avoid stricture & sleeve distortion. The 10 mm clip marketing consultant was used to apply additional clips to the staple line. Care was taken to be sure that the sleeve laid flat and was without stricture. Once the sleeve was complete, the portion of stomach was placed in the lower abdomen to be sent for permanent section. The staple line, gastrocolic omentum, spleen and short gastric areas were all inspected for hemostasis which was found to be good. The ViSiGi bougie used for a leak test by reducing the reverse Trendelenburg and instilling sterile saline. Anesthesia that ran of O2 at 1 L per minute via the tube and no bubbles were demonstrated from the staple line. Next, the bougie was withdrawn under laparoscopic vision used to suction the esophagus and hypopharynx and then discarded. Next, I broke scrub perform an on-table upper endoscopy to assess the sleeve and the esophagus and stomach. The patient was returned to neutral position and the Olympus 160 gastroscope was advanced taking care to preserve the endotracheal tube. The esophagus was intubated without incident. Minimal air was insufflated and the scope advanced into the newly formed sleeve. The staple line was inspected for hemostasis and the morphology of the sleeve appeared straight with a uniform diameter. Intraoperatively, there was no evidence of staple line leak seen during laparoscopy as air was insufflated via endoscope. The scope was then used to aspirate the air from the sleeve withdrawn and removed. I then rescrubbed to return to the operative field and again inspected the field for hemostasis. The patient was again placed in reverse Trendelenburg. A gastropexy was performed using 2-0 Polysorb suture to secure the sleeve gastrectomy to the gastrocolic omentum. After final assessment for hemostasis, the patient was returned to neutral position, a Bryant used to withdraw the stomach which was sent for permanent section. The fascia of the 12 mm midline was closed using an 0 Polysorb on a suture Passer under direct laparoscopic vision. The abdomen was then deflated and all trocars removed. The suture was then tied and the skin closed with 4-0 Monocryl subcuticular sutures. The abdomen was then washed and dried, benzoin and Steri-Strips applied followed by Band-Aids. The patient tolerated the procedure well was then extubated the recover in stable condition. All sponge needle and instrument counts were correct x2. Postoperatively, the patient's was called as she has requested at [phone] with the help of Azul, our patient liaison since he is Yakut-speaking only. He was briefed that the operation went well, there was nothing unexpected and he could visit this afternoon since she was in PACU. His questions seemed to be satisfactorily answered.]
--- NOTE | 2022-10-01 07:19 | PHA.MEDREC ---
Pharmacy Consult ? Medication Reconciliation Pharmacy has completed the medication reconciliation. Reviewed med rec done by nursing
--- NOTE | 2022-10-01 07:26 | MHC.SHP ---
Pre-Procedural Eval Section A Date of Service: 10/01/22 The patient is an INPATIENT: Yes The History & Physical has been completed within 30 days and I have reviewed it.: Yes Section B Chief Complaint: obesity Allergies: Allergies Allergy/AdvReac Type Severity Reaction Status Date / Time bupropion [Contrave] Allergy Intermediate nausea,vomit, Verified 09/08/22 08:27 headaches naltrexone [Contrave] Allergy Intermediate nausea,vomit, Verified 09/08/22 08:27 headaches oxycodone [Percocet] Allergy Intermediate hives Verified 09/08/22 08:27 duloxetine AdvReac Severe Hallucinati Verified 09/08/22 08:27 ons Plan I have reviewed the history and physical and performed a pertinent physical examination on my patient. No changes have occurred unless specified. Time Spent With Patient Time: Total time managing care of this patient today ____ minutes.
[2022-10-01] MEDS: ceFAZolin Sodium/Dextrose,Iso 2 GM/50 ML PIGGYBACK IV ×2 (07:41→13:49)
--- NOTE | 2022-10-01 10:34 | PM.DS ---
DS: Providers Provider Date of Service: 10/02/22 Date of admission: 10/01/22 05:59 Primary care physician: Luli Jones MD DS: Summary Hospital Course Hospital Course: ADMITTING DIAGNOSIS: obesity, htn, gerd, depression, migraine ? DISCHARGE DIAGNOSIS: same, s/p laparoscopic sleeve gastrectomy ? PAST SURGICAL HISTORY: KAROL, breast reduction, cesarian section, tubal ligation ? PROCEDURE: upper endoscopy, laparoscopic sleeve gastrectomy ? DISCHARGE SUMMARY: ? History of Present Illness: ? The patient is a?42 year-old woman with a BMI of?39.8 kg/m2 and associated co-morbidities as described above. The patient had extensive work-up,lost?28.6 lbs preoperatively and was electively scheduled for laparoscopic, possible open sleeve gastrectomy and gastropexy. Risks and complications of the surgery were discussed with the patient in advance, particularly the possibility of , pulmonary embolism, anastomotic leak, bleeding, bowel injury, GERD, cardiac, renal or pulmonary complications. The patient understood all the risks and was in agreement with the surgical plan. ? Hospital Course: ? The patient underwent an uneventful laparoscopic sleeve gastrectomy with gastropexy on the day of admission. Postoperatively, the patient was transferred to the surgical floor. The patient received IV Acetaminophen and IV dilaudid for pain control. Patient was started on bariatric phase 1 diet POD #0. On postoperative day one, the patient was feeling well without nausea, vomiting, fevers, or tachycardia. The patient had some mild incisional pain and the abdomen was soft. ? On the morning of postoperative day one, the patient was continued on 1 ounce of water or ice every half hour. During the day, the patient did fairly well, having some incisional pain, but able to ambulate adequately and to tolerate liquids well. ? Since the patient is doing well, we decided that the patient was ready to be discharged. The patient was given instructions to follow-up with me next week and to call my office for any fever over 101, persistent abdominal pain, nausea, vomiting, GERD, symptoms of DVT such as calf tenderness, or leg swelling, or pulmonary embolism such as chest pain or shortness of breath. The patient was also instructed to drink 40-60 ounces of liquids per day using the 1-ounce cups. The patient had been given prescriptions for Tylenol for pain, Zofran prn for nausea, and pantoprazole and carafate previously. The patient was encouraged to ambulate and use the incentive spirometer. The patient was allowed to shower, but no baths, and encouraged to stay active at home. All of these instructions were given to the patient personally. All questions were answered and the patient understood all instructions, the instructions were also given to the patient in print. Time Spent with Patient Time attestation: Total time managing care of this patient today ____ minutes. Discharge coordination time: Less than 30 minutes Quality: Safe Use of Opioids Does Pt have an Active Cancer Diagnosis on the Problem List?: No Quality: Stroke Does the patient have a stroke diagnosis?: No Physical Exam Vital Signs: Vital Signs: Last Vital Signs Temp 98 F 10/01/22 06:15 Pulse 93 10/01/22 06:15 Resp 18 10/01/22 06:15 BP 138/79 10/01/22 06:15 Pulse Ox 98 10/01/22 06:15 O2 Del Method 10/01/22 06:15 BMI result Body Mass Index 34.2 DS: Data Data Completed and Pending Pending studies at discharge: Pending at discharge 10/01/22 09:42 Surgical [PTH] Routine Labs on day of discharge: Laboratory Results - last 24 hr 09/30/22 10/01/22 13:41 06:21 COVID-19 ([facility]INDER) Negative COVID-19 Clin Com See Note Blood Type O Positive Antibody Screen NEGATIVE Discharge Plan Discharge Anticipated Discharge Date/Time: 10/02/22 08:00 Patient Disposition: Home, Self-Care Discharge Diagnosis: s/p laparoscopic sleeve gastrectomy Referrals: Luli Azevedo MD [Primary Care Provider] - 1 Week Discharge Medications: New propranolol 20 mg Tablet 20 mg PO BID Qty: 1 0RF Protocol: Hold for SBP/HR < HOLD for SBP < : 90 HOLD for HR < : 60 Continued ondansetron HCl 4 mg tablet 4 mg PO Q6-8H PRN (Reason: nausea and vomiting) Qty: 20 0RF loratadine [Allergy Relief (loratadine)] 10 mg tablet 10 mg PO DAILY 90 Days Qty: 90 0RF pantoprazole 40 mg tablet,delayed release (DR/EC) 40 mg PO QAM 30 Days Qty: 30 2RF sucralfate 100 mg/mL suspension 10 ml PO BID 30 Days Qty: 600 2RF linaclotide 290 mcg capsule 290 mcg PO QAM hydrocortisone [Proctosol HC] 2.5 % cream with perineal applicator 1 appl [place] BID Qty: 28.35 3RF Label Comments: postop med Held [id number] 50-325-40 mg capsule 1 cap PO DAILY PRN (Reason: headache) Qty: 30 0RF Hold Instructions: hold for 1 week Discontinued thiamine HCl (vitamin B1) [Vitamin B-1] 100 mg tablet 100 mg PO DAILY Qty: 30 2RF cholecalciferol (vitamin D3) 125 mcg (5,000 unit) capsule 125 mcg PO DAILY 90 Days Qty: 90 0RF Activity on Discharge: No heavy lifting Stand Alone Forms: Patient Portal Discharge page Care Plan Goals: weight loss Health Concerns: obesity Plan of Treatment: No tub baths, sex or returning to work until discussed at first post op appointment. No exercise, alcohol, tobacco or illegal drug use. Continue to use incentive spirometer hourly while awake. Walk in home for 5- 10 minutes every 2 hours during the first week. Follow all instructions in the bariatric handbook and call with any questions.Discharge Instructions 1. Please call your doctor or come back to the emergency room should any new symptoms arise. 2. You will receive a courtesy call from [facility] 24-48 hours after discharge. 3. Activity: abstain from alcohol, practice limited stair climbing, no bending, no driving, no exercise, no illicit substances, no lifting, no sex, no tub bath, no work. 4. Diet: continue as discussed with Dr. Voss. 5. Dressing Change/Wound Care: Your incision is covered by clear bandages and guaze underneath. If the area is tender, you may apply an ice pack for short intervals (no more than 20 minutes on, followed by at least 20 minutes off). Do not apply heat. Do not use creams, lotions, or topical antibiotics unless instructed to do so by your surgeon. These can cause infection or allergic reaction. 6. Call your doctor if: - Your temperature exceeds 101.5 F - You experience excessive pain or swelling - You have an unexpected reaction to medication - You have excessive bleeding - You experience continued vomiting/nausea - Your incision begins to separate - Your incision shows signs of infection such as increased redness, swelling, excessive pain, heat, or drainage (light blood or clear fluid is normal) 7. General instructions: No lifting greater than 5 lbs for the next 4 weeks[address] driving within 24 hours of taking narcotic pain medications. If you do not move your bowels in the next 2 days, please take milk of magnesia over the counter. Please follow the post op diet and do not advance your diet until you are seen in the office in about 2 weeks. Please walk around your home every hour or two to prevent blood clots from forming in your legs. You do not need to wake from sleeping to walk. Please sleep in a bed or couch to prevent kinking at the hips and knees. Please take your incentive spirometer (your lung order entry representative) home with you and use it for the next few days to prevent pneumonias. You may shower, no hot tubs, baths or swimming pools. Please call the office with any questions or concerns such as increasing abdominal pain, fever, chills, shortness of breath, chest pain, leg pain or swelling, or redness or drainage from your incisions. Please stay on stage 3 diet which includes sugar free clear liquids such as ice pops and jello and broth and crystal light. Avoid all carbonation. Please drink 3 protein shakes with at least 25-30 grams of protein daily or 3 of the Celebrate 4:1 shakes which can be purchased in our office. The Celebrate shakes have all of the bariatric vitamins you need if you consume these shakes. If you are drinking other protein shakes, you will need to purchase the Celebrate multivitamins and calcium that we provide in the office (they will provide all the vitamins you need). Please make sure you are consuming at least 40-60 ounces of water in addition to your 3 protein shakes daily. Do not hesitate to contact the office with any questions at . The patient's medical history has been reviewed and they are considered low risk for post op DVT and therefore DVT prophylaxis is not considered necessary. Travel after surgery was reviewed. The patient has not disclosed any travel plans during the first 30 days after surgery and they have been advised that within the first 30 days after surgery any bus, plane, train or car travel over 2 hours in duration is contraindicated due to the possibility of developing blood clots from immobility. Any travel, needs to include periods of ambulation of 10 minutes in duration every 2 hours.? The patient was instructed to discuss any plans for travel during this period with their bariatric surgeon. Assessment: stable s/p laparoscopic sleeve gastrectomy
[2022-10-01] MEDS: ondansetron HCL 4 MG/2 ML VIAL IVPUSH ×2 (10:45→19:27)
[2022-10-01] MEDS: Lactated Ringers 1,000 ML 125 ML IVCONT ×2 (10:55→18:00)
[2022-10-01] MEDS: Famotidine/PF 20 MG/2 ML VIAL IVPUSH ×2 (10:57→19:27)
[2022-10-01] MEDS: Metoclopramide HCl 10 MG/2 ML VIAL IVPUSH ×2 (11:12→21:10)
[2022-10-01] MEDS: fentaNYL citrate/PF 100 MCG/2 ML VIAL 50 MCG IVPUSH ×2 (11:15→11:45)
[2022-10-01 11:38] LABS: Hematocrit 40.4 % (37.0-47.0); Hemoglobin 13.4 g/dl (12.0-16.0)
--- NOTE | 2022-10-01 11:58 | P.PNGS_ITS ---
Subjective Subjective Date of Service: 10/01/22 Patient reports: nausea and vomiting Interval history: The patient is seen with the auto service writer from the hospitalist to facilitate postoperative evaluation. Patient has been having significant nausea and vomiting since waking in PACU. She is getting Zofran and Phenergan with some improvement. Patient also notes that she has significant motion sickness. She denies any dysphagia or odynophagia but notes that after taking water, she starts feeling more nausea and then vomits. She did have some bloody emesis ea rlier but is not vomiting tamiko blood. Physical Exam Vital Signs: Vital Signs: Last Vital Signs Temp 98.5 F 10/01/22 10:33 Pulse 84 10/01/22 11:30 Resp 30 H 10/01/22 11:30 BP 157/88 H 10/01/22 11:30 Pulse Ox 99 10/01/22 11:30 O2 Del Method 10/01/22 11:30 O2 Flow Rate 2 10/01/22 11:30 BMI result Body Mass Index 34.2 The patient appears nontoxic but nausea is Objective Data Active Medications Acetaminophen/Butalbital/Caffeine (Butalb/Acetamin/Caff 50/325/40 Tablet) 1 tab PO DAILY PRN PRN Reason: headache Famotidine (Famotidine/Pf 20 Mg/2 Ml Vial) 20 mg IVPUSH BID [facility] Last Admin: 10/01/22 10:57 Dose: 20 mg Documented By: ELLIE Fentanyl (Fentanyl Citrate/Pf 100 Mcg/2 Ml Vial) 50 mcg IVPUSH Q5M PRN; Protocol PRN Reason: Pain, Severe (Pain Scale 7-10) Last Admin: 10/01/22 11:15 Dose: 50 mcg Documented By: ELLIE Hydrocortisone (Hydrocortisone 2.5 % Rectal Cr 30 Gm Tube) 1 appl [place] BID [facility] Lactated Ringer's (Lr) 1,000 mls @ 150 mls/hr IVCONT .Q6H40M [facility] Last Admin: 10/01/22 06:40 Dose: 150 mls/hr Documented By: VALDO Lactated Ringer's (Lr) 1,000 mls @ 125 mls/hr IVCONT .Q8H [facility] Last Admin: 10/01/22 10:55 Dose: 125 mls/hr Documented By: ELLIE Loratadine (Loratadine 10 Mg Tablet) 10 mg PO DAILY [facility] Metoclopramide HCl (Metoclopramide Hcl 10 Mg/2 Ml Vial) 10 mg IVPUSH Q6H PRN PRN Reason: Nausea Last Admin: 10/01/22 11:12 Dose: 10 mg Documented By: ELLIE Omeprazole (Omeprazole 20 Mg Capsule.Dr) 20 mg PO DAILY@0630 [facility] Ondansetron HCl (Ondansetron Odt 4 Mg Tab.Rapdis) 4 mg TRANSLINGU Q6H PRN PRN Reason: nausea and vomiting Ondansetron HCl (Ondansetron Hcl 4 Mg/2 Ml Vial) 4 mg IVPUSH ONCE PRN PRN Reason: Nausea and Vomiting Propranolol HCl (Propranolol Hcl 20 Mg Tablet) 20 mg PO BID [facility]; Protocol Thiamine HCl (Thiamine Hcl 100 Mg Tablet) 100 mg PO DAILY [facility] Vitamin D (Cholecalciferol (Vitamin D3) 25 Mcg Tablet) 125 mcg PO DAILY [facility] Labs CBC & Chem 7: 10/01/22 11:32 10/01/22 11:32 Labs: Laboratory Results - last 24 hr 09/30/22 10/01/22 13:41 06:21 COVID-19 ([facility]) Negative COVID-19 Clin Com See Note Blood Type O Positive Antibody Screen NEGATIVE Procedures Date of Service Date of Service: 10/01/22 Progress Note: A&P Assessment and plan (1) S/P laparoscopic sleeve gastrectomy: Status: Acute Plan Continue NPO and IV hydration. Continue anti emetics. The patient is reassured that this should pass over the next few hours. She has no tachycardia to suggest bleeding and is not experiencing symptoms of hematemesis at this time. Continue present management, trend labs. Time Spent With Patient Time: Total time managing care of this patient today ____ minutes. Quality Stroke Does the patient have a stroke diagnosis?: No VTE Prior VTE?: No VTE Risk Level:: Surgical - moderate VTE Device Contraindication: N/A - Device Ordered VTE Drug Contraindication: Treatment Not Indicated
[2022-10-01 12:06] LABS: Anion Gap 15 (12-20); Blood Urea Nitrogen 9 mg/dL (9-16); Calcium 8.4 mg/dL (8.4-10.2); Carbon Dioxide 23 mmol/L (22-29); Chloride 102 mmol/L (96-108); Creatinine Clr Calc Pharmacy 109.1; Estimated Glomerular Filt Rate > 60; Glucose Random 193 mg/dL (60-115); Potassium 3.8 mmol/L (3.3-5.1); Sodium 136 mmol/L (135-145)
[2022-10-01] MEDS: Acetaminophen 1,000 MG/100 ML PIGGYBACK 400 MG IV (12:14)
[2022-10-01] MEDS: Acetaminophen 1,000 MG/100 ML PIGGYBACK 16.7 MG IV ×2 (14:56→19:27)
[2022-10-01] MEDS: Propranolol HCL 20 MG TABLET PO (19:27)
[2022-10-01] MEDS: 0.9 % Sodium Chloride Flush 3 ML SYRINGE IVFLUSH (19:27)
[2022-10-01] MEDS: Hydrocortisone 2.5 % Rectal Cr 30 GM TUBE 1 APPL PR (19:28)
[2022-10-02] VITALS (7 sets, daily range): BP systolic 119–141; BP diastolic 77–95; PULSE 72–90; RESP 16–18; TEMP 36.8–37.4; O2SAT 98–100
[2022-10-02] MEDS: Acetaminophen 1,000 MG/100 ML PIGGYBACK 16.7 MG IV ×5 (01:23→23:36)
[2022-10-02] MEDS: Lactated Ringers 1,000 ML 125 ML IVCONT (01:25)
[2022-10-02] MEDS: Omeprazole 20 MG CAPSULE.DR PO (05:43)
[2022-10-02] MEDS: ondansetron HCL 4 MG/2 ML VIAL IVPUSH ×3 (05:43→20:55)
[2022-10-02 06:29] LABS: MANUAL DIFF FLAG NO
[2022-10-02 06:31] LABS: Basophils Percent Auto 0.3 % (0-2); Hematocrit 29.3 % (37.0-47.0); Hemoglobin 10.1 g/dl (12.0-16.0); Imm Gran Abs Auto 0.06 X10*3/uL (0.00-0.03); Imm Gran Pct Auto 0.4 % (0.0-0.4); Lymphocytes Percent Auto 13.1 % (20-40); Mean Corpuscular HGB Conc 34.5 g/dl (31.0-35.0); Mean Corpuscular Volume 81.2 fL (80.0-98.0); Mean Platelet Volume 10.3 fL (9.4-12.3); Monocytes Absolute Auto 0.9 X10*3/uL (0.1-1.2); Monocytes Percent Auto 5.9 % (2-11); Neutrophils Percent Auto 80.3 % (45-73); Platelet Count 338 X10*3/uL (160-400); Red Blood Count 3.61 X10*6/uL (4.20-5.50); Red Cell Distribution Width 12.9 % (11.0-16.0)
[2022-10-02 06:57] LABS: Anion Gap 13 (12-20); Blood Urea Nitrogen 7 mg/dL (9-16); Calcium 8.3 mg/dL (8.4-10.2); Carbon Dioxide 24 mmol/L (22-29); Chloride 103 mmol/L (96-108); Creatinine Clr Calc Pharmacy 129.8; Estimated Glomerular Filt Rate > 60; Glucose Random 126 mg/dL (60-115); Potassium 4.3 mmol/L (3.3-5.1); Sodium 136 mmol/L (135-145)
[2022-10-02] MEDS: Propranolol HCL 20 MG TABLET PO ×2 (07:09→20:54)
[2022-10-02] MEDS: Famotidine/PF 20 MG/2 ML VIAL IVPUSH ×2 (07:09→20:54)
--- NOTE | 2022-10-02 08:26 | P.PNGS_ITS ---
Subjective Subjective Date of Service: 10/02/22 Patient reports: feels better, pain is less and tolerating liquids well Interval history: The pt is see with the help of the sound effects manager from the hospital. Patient reports that her pain is improved as has her nausea and vomiting. She is tolerating water. She has continued epigastric pressure and reports that the binder is a little too tight. She otherwise denies dysphagia, odynophagia, regurgitation, hematemesis, pain in her chest or trouble breathing. She has been up to the bathroom several times. Physical Exam Vital Signs: Vital Signs: Last Vital Signs Temp 99.3 F 10/02/22 07:18 Pulse 86 10/02/22 07:18 Resp 17 10/02/22 07:18 BP 141/88 H 10/02/22 07:18 Pulse Ox 99 10/02/22 07:18 O2 Del Method 10/02/22 07:18 O2 Flow Rate 2.0 10/01/22 14:19 BMI result Body Mass Index 34.2 The patient is nontoxic Her questions were appropriate Her abdominal binder was loosened, dressings are clean, dry and intact Objective Data Active Medications Acetaminophen/Butalbital/Caffeine (Butalb/Acetamin/Caff 50/325/40 Tablet) 1 tab PO DAILY PRN PRN Reason: headache Famotidine (Famotidine/Pf 20 Mg/2 Ml Vial) 20 mg IVPUSH BID [facility] Last Admin: 10/02/22 07:09 Dose: 20 mg Documented By: DABKatherine Fentanyl (Fentanyl Citrate/Pf 100 Mcg/2 Ml Vial) 50 mcg IVPUSH Q5M PRN; Protocol PRN Reason: Pain, Severe (Pain Scale 7-10) Last Admin: 10/01/22 11:45 Dose: 50 mcg Documented By: ELLIE Hydrocortisone (Hydrocortisone 2.5 % Rectal Cr 30 Gm Tube) 1 appl SC BID [facility] Last Admin: 10/01/22 19:28 Dose: 1 appl Documented By: IMELDA Lactated Ringer's (Lr) 1,000 mls @ 80 mls/hr IVCONT .[id number] [facility] Last Admin: 10/02/22 01:25 Dose: 125 mls/hr Documented By: IMELDA Acetaminophen (Ofirmev) 1,000 mg in 100 mls @ 16.7 mls/hr IV .Q6H [facility] Last Admin: 10/02/22 06:24 Dose: 16.7 mls/hr Documented By: IMELDA Loratadine (Loratadine 10 Mg Tablet) 10 mg PO DAILY [facility] Metoclopramide HCl (Metoclopramide Hcl 10 Mg/2 Ml Vial) 10 mg IVPUSH Q6H PRN PRN Reason: Nausea Last Admin: 10/01/22 21:10 Dose: 10 mg Documented By: IMELDA Omeprazole (Omeprazole 20 Mg Capsule.Dr) 20 mg PO DAILY@0630 [facility] Last Admin: 10/02/22 05:43 Dose: 20 mg Documented By: IMELDA Ondansetron HCl (Ondansetron Odt 4 Mg Tab.Rapdis) 4 mg TRANSLINGU Q6H PRN PRN Reason: nausea and vomiting Ondansetron HCl (Ondansetron Hcl 4 Mg/2 Ml Vial) 4 mg IVPUSH ONCE PRN PRN Reason: Nausea and Vomiting Ondansetron HCl (Ondansetron Hcl 4 Mg/2 Ml Vial) 4 mg IVPUSH Q8H [facility] Last Admin: 10/02/22 05:43 Dose: 4 mg Documented By: IMELDA Propranolol HCl (Propranolol Hcl 20 Mg Tablet) 20 mg PO BID [facility]; Protocol Last Admin: 10/02/22 07:09 Dose: 20 mg Documented By: DORCAS Sodium Chloride (0.9 % Sodium Chloride Flush 3 Ml Syringe) 3 ml IVFLUSH QSHIFT [facility] Last Admin: 10/02/22 06:30 Dose: Not Given Documented By: DORCAS Non-Admin Reason: IV Running Thiamine HCl (Thiamine Hcl 100 Mg Tablet) 100 mg PO DAILY [facility] Last Admin: 10/02/22 07:12 Dose: Not Given Documented By: DORCAS Non-Admin Reason: hold per Vitamin D (Cholecalciferol (Vitamin D3) 25 Mcg Tablet) 125 mcg PO DAILY [facility] Last Admin: 10/02/22 07:12 Dose: Not Given Documented By: DORCAS Non-Admin Reason: holdl per Labs CBC & Chem 7: 10/02/22 05:24 10/02/22 05:24 Labs: Laboratory Results - last 24 hr 10/01/22 10/02/22 10/02/22 11:32 05:24 05:24 MCV 81.2 MCH 28.0 MCHC 34.5 RDW 12.9 Plt Count 338 MPV 10.3 Immature Gran % (Auto) 0.4 Neut % (Auto) 80.3 H Lymph % (Auto) 13.1 L [place] % (Auto) 5.9 Eos % (Auto) 0.0 Baso % (Auto) 0.3 Lymph # (Auto) 2.0 [place] # (Auto) 0.9 Eos # (Auto) 0.0 Baso # (Auto) 0.0 Abs Immat Gran (auto) 0.06 H Absolute Neuts (auto) 12.0 H Absolute Nucleated RBC 0.000 Nucleated RBC % (auto) 0.0 Anion Gap 15 13 Estim Creat Clear Calc 109.1 129.8 Estimated GFR > 60 > 60 Random Glucose 193 H 126 H Calcium 8.4 D 8.3 L Procedures Date of Service Date of Service: 10/02/22 Progress Note: A&P Assessment and plan (1) S/P laparoscopic sleeve gastrectomy: Status: Acute (2) Obesity (BMI 30-39.9): Status: Acute Plan Advanced to bariatric phase 2 diet Try a looser abdominal binder, if available, since the patient reports her incisions are more tender with the binder in place See new IV fluid orders, decrease rate to 80 cc/hour. Will recheck a CBC at 13:00 given the drift of hemoglobin that may be dilutional verses bleeding. Patient does not have any tachycardia or ongoing pain to suggest ongoing bleeding, however, this needs to be excluded. Time Spent With Patient Time: Total time managing care of this patient today ____ minutes. Quality Stroke Does the patient have a stroke diagnosis?: No VTE Prior VTE?: No VTE Risk Level:: Surgical - moderate VTE Device Contraindication: N/A - Device Ordered VTE Drug Contraindication: Treatment Not Indicated
--- NOTE | 2022-10-02 09:06 | MHC.CM.PN ---
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 LIVES IN A HOUSE WITH SPOUSE AND DAUGHTER. USES NO SERVICES OR DME PRIOR TO HOSPITALIZATION. NO HCP BUT WILL CONSIDER FILLING ONE OUT. NO COVID VAX. PCP DR. SALOMON AT [facility] [place]. DP: HOME WITH NO SERVICES ANTICIPATED, SPOUSE WILL TRANSPORT.
[2022-10-02 11:28] LABS: MANUAL DIFF FLAG NO
[2022-10-02 11:32] LABS: Basophils Percent Auto 0.2 % (0-2); Eosinophils Percent Auto 0.1 % (0-4); Hematocrit 27.8 % (37.0-47.0); Hemoglobin 9.5 g/dl (12.0-16.0); Imm Gran Abs Auto 0.04 X10*3/uL (0.00-0.03); Imm Gran Pct Auto 0.3 % (0.0-0.4); Lymphocytes Absolute Auto 1.9 X10*3/uL (1.2-4.9); Lymphocytes Percent Auto 13.5 % (20-40); Mean Corpuscular HGB Conc 34.2 g/dl (31.0-35.0); Mean Corpuscular Hemoglobin 27.9 pg (27.0-33.0); Mean Corpuscular Volume 81.5 fL (80.0-98.0); Mean Platelet Volume 9.6 fL (9.4-12.3); Monocytes Absolute Auto 0.9 X10*3/uL (0.1-1.2); Monocytes Percent Auto 6.1 % (2-11); Neutrophils Percent Auto 79.8 % (45-73); Platelet Count 290 X10*3/uL (160-400); Red Blood Count 3.41 X10*6/uL (4.20-5.50); White Blood Count 13.8 X10*3/uL (4.8-10.8)
[2022-10-02] MEDS: iohexoL 350 MG/ML 100 ML INFUS..BTL 85 ML IV (14:23)
--- NOTE | 2022-10-02 14:25 | HO.POSTANES ---
Post Anesthesia Evaluation Post Anesthesia Evaluation Vital Signs: Vital Signs Temp Pulse Resp BP Pulse Ox O2 Del Method 10/02/22 13:00 98.5 F 72 17 130/82 100 Room Air 10/02/22 10:26 Room Air 10/02/22 08:54 Room Air 10/02/22 07:18 99.3 F 86 17 141/88 H 99 Room Air 10/02/22 03:57 98.3 F 78 18 139/86 99 Room Air Anesthesia: General Endotracheal-GETA Mental Status: Awake Pain Control: Satisfactory Nausea/Vomiting: None Hydration: Adequate Anesthesia-Related Issues: No Anes. Related Issues
[2022-10-02 18:44] LABS: MANUAL DIFF FLAG NO
[2022-10-02 18:48] LABS: Basophils Absolute Auto 0.1 X10*3/uL (0.0-0.2); Basophils Percent Auto 0.4 % (0-2); Eosinophils Percent Auto 0.1 % (0-4); Hematocrit 25.7 % (37.0-47.0); Hemoglobin 8.7 g/dl (12.0-16.0); Imm Gran Abs Auto 0.07 X10*3/uL (0.00-0.03); Imm Gran Pct Auto 0.5 % (0.0-0.4); Lymphocytes Absolute Auto 2.3 X10*3/uL (1.2-4.9); Lymphocytes Percent Auto 17.3 % (20-40); Mean Corpuscular HGB Conc 33.9 g/dl (31.0-35.0); Mean Corpuscular Hemoglobin 28.1 pg (27.0-33.0); Mean Corpuscular Volume 82.9 fL (80.0-98.0); Mean Platelet Volume 9.8 fL (9.4-12.3); Monocytes Absolute Auto 0.8 X10*3/uL (0.1-1.2); Monocytes Percent Auto 6.2 % (2-11); Neutrophils Absolute Auto 10.1 x10*3/uL (2.0-8.3); Neutrophils Percent Auto 75.5 % (45-73); Platelet Count 279 X10*3/uL (160-400); Red Cell Distribution Width 13.2 % (11.0-16.0); White Blood Count 13.4 X10*3/uL (4.8-10.8)
[2022-10-02] MEDS: 0.9 % Sodium Chloride Flush 3 ML SYRINGE IVFLUSH (20:55)
[2022-10-02] MEDS: Hydrocortisone 2.5 % Rectal Cr 30 GM TUBE 1 APPL PR (20:56)
[2022-10-02] MEDS: Lactated Ringers 1,000 ML 80 ML IVCONT (23:34)
[2022-10-03] VITALS (11 sets, daily range): BP systolic 99–139; BP diastolic 60–82; PULSE 57–87; RESP 12–20; TEMP 35.7–37.3; O2SAT 95–99
[2022-10-03] MEDS: ondansetron HCL 4 MG/2 ML VIAL IVPUSH ×3 (05:23→21:20)
[2022-10-03] MEDS: Acetaminophen 1,000 MG/100 ML PIGGYBACK 16.7 MG IV ×3 (05:23→21:20)
[2022-10-03] MEDS: Omeprazole 20 MG CAPSULE.DR PO (05:24)
[2022-10-03 06:09] LABS: MANUAL DIFF FLAG NO
[2022-10-03 06:24] LABS: Basophils Absolute Auto 0.1 X10*3/uL (0.0-0.2); Basophils Percent Auto 0.5 % (0-2); Eosinophils Percent Auto 0.2 % (0-4); Hematocrit 22.8 % (37.0-47.0); Hemoglobin 7.7 g/dl (12.0-16.0); Imm Gran Abs Auto 0.06 X10*3/uL (0.00-0.03); Imm Gran Pct Auto 0.5 % (0.0-0.4); Lymphocytes Absolute Auto 2.6 X10*3/uL (1.2-4.9); Lymphocytes Percent Auto 21.7 % (20-40); Mean Corpuscular HGB Conc 33.8 g/dl (31.0-35.0); Mean Corpuscular Hemoglobin 27.8 pg (27.0-33.0); Mean Corpuscular Volume 82.3 fL (80.0-98.0); Mean Platelet Volume 10.1 fL (9.4-12.3); Monocytes Absolute Auto 0.8 X10*3/uL (0.1-1.2); Monocytes Percent Auto 6.6 % (2-11); Neutrophils Absolute Auto 8.6 x10*3/uL (2.0-8.3); Neutrophils Percent Auto 70.5 % (45-73); Platelet Count 256 X10*3/uL (160-400); Red Blood Count 2.77 X10*6/uL (4.20-5.50); Red Cell Distribution Width 13.2 % (11.0-16.0); White Blood Count 12.1 X10*3/uL (4.8-10.8)
[2022-10-03 06:33] LABS: Partial Thromboplastin Time 27.1 SEC (26.0-36.4)
[2022-10-03 06:49] LABS: Anion Gap 11 (12-20); Blood Urea Nitrogen 8 mg/dL (9-16); Calcium 7.9 mg/dL (8.4-10.2); Carbon Dioxide 26 mmol/L (22-29); Chloride 103 mmol/L (96-108); Creatinine Clr Calc Pharmacy 129.8; Estimated Glomerular Filt Rate > 60; Glucose Random 82 mg/dL (60-115); Potassium 3.8 mmol/L (3.3-5.1); Sodium 136 mmol/L (135-145)
--- NOTE | 2022-10-03 07:51 | PM.PNGS ---
Subjective Subjective Date of Service: 10/03/22 Patient reports: no new complaints Interval history: The help of the hospital socket welder helper, Hanh. Patient reports she has about the same to possibly a little more pain and she is coughing which is making her possibly have a headache. She denies any regurgitation, reports her nausea level is about the same but has had no vomiting. There is no hematemesis. She is passing gas and had a liquidy bowel movement, likely left over from her MiraLax bowel prep. She otherwise denies chest pain, shortness of breath or lower extremity pain Physical Exam Vital Signs: Vital Signs: Last Vital Signs Temp 96.3 F L 10/03/22 07:20 Pulse 80 10/03/22 07:20 Resp 12 10/03/22 07:20 BP 131/78 10/03/22 07:20 Pulse Ox 95 10/03/22 07:20 O2 Del Method 10/03/22 07:20 O2 Flow Rate 2.0 10/01/22 14:19 BMI result Body Mass Index 34.2 On exam, she is seated out of bed at the window and tolerating bariatric phase 2 Abdominal dressing is intact and her exam is unchanged Objective Data Active Medications Acetaminophen/Butalbital/Caffeine (Butalb/Acetamin/Caff 50/325/40 Tablet) 1 tab PO DAILY PRN PRN Reason: headache Famotidine (Famotidine/Pf 20 Mg/2 Ml Vial) 20 mg IVPUSH BID [facility] Last Admin: 10/02/22 20:54 Dose: 20 mg Documented By: IMELDA Fentanyl (Fentanyl Citrate/Pf 100 Mcg/2 Ml Vial) 50 mcg IVPUSH Q5M PRN; Protocol PRN Reason: Pain, Severe (Pain Scale 7-10) Last Admin: 10/01/22 11:45 Dose: 50 mcg Documented By: ELLIE Hydrocortisone (Hydrocortisone 2.5 % Rectal Cr 30 Gm Tube) 1 appl [place] BID [facility] Last Admin: 10/02/22 20:56 Dose: 1 appl Documented By: IMELDA Lactated Ringer's (Lr) 1,000 mls @ 80 mls/hr IVCONT .[id number] [facility] Last Admin: 10/02/22 23:34 Dose: 80 mls/hr Documented By: IMELDA Acetaminophen (Ofirmev) 1,000 mg in 100 mls @ 16.7 mls/hr IV .Q6H [facility] Last Admin: 10/03/22 05:23 Dose: 16.7 mls/hr Documented By: IMELDA Loratadine (Loratadine 10 Mg Tablet) 10 mg PO DAILY [facility] Last Admin: 10/02/22 12:16 Dose: Not Given Documented By: DORCAS Non-Admin Reason: Patient Refused Metoclopramide HCl (Metoclopramide Hcl 10 Mg/2 Ml Vial) 10 mg IVPUSH Q6H PRN PRN Reason: Nausea Last Admin: 10/01/22 21:10 Dose: 10 mg Documented By: IMELDA Omeprazole (Omeprazole 20 Mg Capsule.Dr) 20 mg PO DAILY@0630 [facility] Last Admin: 10/03/22 05:24 Dose: 20 mg Documented By: IMELDA Ondansetron HCl (Ondansetron Odt 4 Mg Tab.Rapdis) 4 mg TRANSLINGU Q6H PRN PRN Reason: nausea and vomiting Ondansetron HCl (Ondansetron Hcl 4 Mg/2 Ml Vial) 4 mg IVPUSH ONCE PRN PRN Reason: Nausea and Vomiting Ondansetron HCl (Ondansetron Hcl 4 Mg/2 Ml Vial) 4 mg IVPUSH Q8H [facility] Last Admin: 10/03/22 05:23 Dose: 4 mg Documented By: IMELDA Propranolol HCl (Propranolol Hcl 20 Mg Tablet) 20 mg PO BID [facility]; Protocol Last Admin: 10/02/22 20:54 Dose: 20 mg Documented By: IEMLDA Sodium Chloride (0.9 % Sodium Chloride Flush 3 Ml Syringe) 3 ml IVFLUSH QSHIFT [facility] Last Admin: 10/02/22 20:55 Dose: 3 ml Documented By: IMELDA Thiamine HCl (Thiamine Hcl 100 Mg Tablet) 100 mg PO DAILY [facility] Last Admin: 10/02/22 07:12 Dose: Not Given Documented By: DORCAS Non-Admin Reason: hold per Vitamin D (Cholecalciferol (Vitamin D3) 25 Mcg Tablet) 125 mcg PO DAILY [facility] Last Admin: 10/02/22 07:12 Dose: Not Given Documented By: DORCAS Non-Admin Reason: holdl per Labs CBC & Chem 7: 10/03/22 05:15 10/03/22 05:15 Labs: Laboratory Results - last 24 hr 10/02/22 10/02/22 10/03/22 11:23 18:30 05:15 MCV 81.5 82.9 82.3 MCH 27.9 28.1 27.8 MCHC 34.2 33.9 33.8 RDW 13.0 13.2 13.2 Plt Count 290 279 256 MPV 9.6 9.8 10.1 Immature Gran % (Auto) 0.3 0.5 H 0.5 H Neut % (Auto) 79.8 H 75.5 H 70.5 Lymph % (Auto) 13.5 L 17.3 L 21.7 [place] % (Auto) 6.1 6.2 6.6 Eos % (Auto) 0.1 0.1 0.2 Baso % (Auto) 0.2 0.4 0.5 Lymph # (Auto) 1.9 2.3 2.6 [place] # (Auto) 0.9 0.8 0.8 Eos # (Auto) 0.0 0.0 0.0 Baso # (Auto) 0.0 0.1 0.1 Abs Immat Gran (auto) 0.04 H 0.07 H 0.06 H Absolute Neuts (auto) 11.0 H 10.1 H 8.6 H Absolute Nucleated RBC 0.000 0.000 0.000 Nucleated RBC % (auto) 0.0 0.0 0.0 APTT Anion Gap Estim Creat Clear Calc Estimated GFR Random Glucose Calcium 10/03/22 10/03/22 05:15 05:37 MCV MCH MCHC RDW Plt Count MPV Immature Gran % (Auto) Neut % (Auto) Lymph % (Auto) [place] % (Auto) Eos % (Auto) Baso % (Auto) Lymph # (Auto) [place] # (Auto) Eos # (Auto) Baso # (Auto) Abs Immat Gran (auto) Absolute Neuts (auto) Absolute Nucleated RBC Nucleated RBC % (auto) APTT 27.1 Anion Gap 11 L Estim Creat Clear Calc 129.8 Estimated GFR > 60 Random Glucose 82 Calcium 7.9 L Procedures Date of Service Date of Service: 10/03/22 Progress Note: A&P Assessment and plan (1) S/P laparoscopic sleeve gastrectomy: Status: Acute (2) Anemia: Status: Acute (3) Postoperative anemia due to acute blood loss: Status: Acute (4) Prediabetes: Status: Acute (5) Dyslipidemia: Status: Acute Plan The patient is clinically stable at this point, has no significant dizziness or lightheadedness or shortness of breath. She seems well compensated from her bleed. However, given her hemoglobin drifting to 7.7, will observe her with serial CBCs to assess for stability and possible discharge tomorrow. Blood loss can cause consumptive coagulopathy. Stat coags were ordered and are currently pending. PTT is normal, PT INR pending. Please contact Dr. Voss with tachycardia, symptomatic dizziness/lightheadedness or questions. Time Spent With Patient Time: Total time managing care of this patient today ____ minutes. Quality Stroke Does the patient have a stroke diagnosis?: No VTE Prior VTE?: No VTE Risk Level:: Surgical - moderate VTE Device Contraindication: N/A - Device Ordered VTE Drug Contraindication: Treatment Not Indicated
[2022-10-03 08:16] LABS: INTERNATIONAL NORM RATIO 1.3 (0.9-1.1); Prothrombin Time 14.7 SEC (10.0-13.1)
[2022-10-03] MEDS: Thiamine HCL 100 MG TABLET PO (10:07)
[2022-10-03] MEDS: Cholecalciferol (Vitamin D3) 25 MCG TABLET 125 MCG PO (10:07)
[2022-10-03] MEDS: Propranolol HCL 20 MG TABLET PO ×2 (10:08→21:19)
[2022-10-03] MEDS: Loratadine 10 MG TABLET PO (10:08)
[2022-10-03] MEDS: Famotidine/PF 20 MG/2 ML VIAL IVPUSH ×2 (10:08→21:20)
[2022-10-03] MEDS: 0.9 % Sodium Chloride Flush 3 ML SYRINGE IVFLUSH ×3 (10:09→21:20)
[2022-10-03] MEDS: Hydrocortisone 2.5 % Rectal Cr 30 GM TUBE 1 APPL PR (10:09)
[2022-10-03] MEDS: HYDROmorphone HCl 2 MG TABLET PO (11:10)
[2022-10-03] MEDS: Lactated Ringers 1,000 ML 50 ML IVCONT (12:26)
[2022-10-03 13:31] LABS: MANUAL DIFF FLAG NO
[2022-10-03 13:34] LABS: Basophils Absolute Auto 0.1 X10*3/uL (0.0-0.2); Basophils Percent Auto 0.4 % (0-2); Eosinophils Absolute Auto 0.1 X10*3/uL (0.0-0.4); Eosinophils Percent Auto 0.4 % (0-4); Hematocrit 22.5 % (37.0-47.0); Hemoglobin 7.5 g/dl (12.0-16.0); Imm Gran Abs Auto 0.05 X10*3/uL (0.00-0.03); Imm Gran Pct Auto 0.4 % (0.0-0.4); Lymphocytes Absolute Auto 2.5 X10*3/uL (1.2-4.9); Lymphocytes Percent Auto 22.2 % (20-40); Mean Corpuscular HGB Conc 33.3 g/dl (31.0-35.0); Mean Corpuscular Hemoglobin 27.9 pg (27.0-33.0); Mean Corpuscular Volume 83.6 fL (80.0-98.0); Mean Platelet Volume 9.7 fL (9.4-12.3); Monocytes Absolute Auto 0.7 X10*3/uL (0.1-1.2); Monocytes Percent Auto 6.3 % (2-11); Neutrophils Absolute Auto 7.8 x10*3/uL (2.0-8.3); Neutrophils Percent Auto 70.3 % (45-73); Platelet Count 239 X10*3/uL (160-400); Red Blood Count 2.69 X10*6/uL (4.20-5.50); Red Cell Distribution Width 13.3 % (11.0-16.0); White Blood Count 11.2 X10*3/uL (4.8-10.8)
--- NOTE | 2022-10-03 14:44 | MHC.CM.PN ---
EMR REVIEWED . PT NOT MEDICALLY CLEARED FOR DC (MONITORING LABS) CM WILL CONTINUE TO FOLLOW.
[2022-10-03 19:19] LABS: MANUAL DIFF FLAG NO
[2022-10-03 19:22] LABS: Basophils Absolute Auto 0.1 X10*3/uL (0.0-0.2); Basophils Percent Auto 0.7 % (0-2); Eosinophils Absolute Auto 0.1 X10*3/uL (0.0-0.4); Eosinophils Percent Auto 0.7 % (0-4); Hematocrit 28.1 % (37.0-47.0); Hemoglobin 9.4 g/dl (12.0-16.0); Imm Gran Abs Auto 0.04 X10*3/uL (0.00-0.03); Imm Gran Pct Auto 0.3 % (0.0-0.4); Lymphocytes Absolute Auto 2.7 X10*3/uL (1.2-4.9); Lymphocytes Percent Auto 23.7 % (20-40); Mean Corpuscular HGB Conc 33.5 g/dl (31.0-35.0); Mean Corpuscular Volume 83.6 fL (80.0-98.0); Mean Platelet Volume 9.7 fL (9.4-12.3); Monocytes Absolute Auto 0.7 X10*3/uL (0.1-1.2); Monocytes Percent Auto 5.9 % (2-11); Neutrophils Absolute Auto 7.9 x10*3/uL (2.0-8.3); Neutrophils Percent Auto 68.7 % (45-73); Platelet Count 243 X10*3/uL (160-400); Red Blood Count 3.36 X10*6/uL (4.20-5.50); Red Cell Distribution Width 13.1 % (11.0-16.0); White Blood Count 11.5 X10*3/uL (4.8-10.8)
[2022-10-03 19:29] LABS: INTERNATIONAL NORM RATIO 1.2 (0.9-1.1); Prothrombin Time 13.8 SEC (10.0-13.1)
[2022-10-03 19:32] LABS: Partial Thromboplastin Time 27.4 SEC (26.0-36.4)
[2022-10-04] MEDS: Butalb/Acetamin/Caff 50/325/40 TABLET 1 TAB PO (02:43)
[2022-10-04 04:00] VITALS: BP 123/70; PULSE 69; RESP 18; TEMP 36.6; O2SAT 97
[2022-10-04] MEDS: ondansetron HCL 4 MG/2 ML VIAL IVPUSH ×2 (05:30→13:33)
[2022-10-04] MEDS: Omeprazole 20 MG CAPSULE.DR PO (05:30)
[2022-10-04] MEDS: Lactated Ringers 1,000 ML 50 ML IVCONT (06:44)
[2022-10-04] MEDS: Acetaminophen 1,000 MG/100 ML PIGGYBACK 16.7 MG IV (06:45)
[2022-10-04 07:02] LABS: MANUAL DIFF FLAG NO
[2022-10-04 07:06] LABS: Basophils Absolute Auto 0.1 X10*3/uL (0.0-0.2); Basophils Percent Auto 0.6 % (0-2); Eosinophils Absolute Auto 0.1 X10*3/uL (0.0-0.4); Eosinophils Percent Auto 1.1 % (0-4); Hematocrit 25.7 % (37.0-47.0); Hemoglobin 8.5 g/dl (12.0-16.0); Imm Gran Abs Auto 0.04 X10*3/uL (0.00-0.03); Imm Gran Pct Auto 0.4 % (0.0-0.4); Lymphocytes Absolute Auto 2.3 X10*3/uL (1.2-4.9); Lymphocytes Percent Auto 21.8 % (20-40); Mean Corpuscular HGB Conc 33.1 g/dl (31.0-35.0); Mean Corpuscular Hemoglobin 27.5 pg (27.0-33.0); Mean Corpuscular Volume 83.2 fL (80.0-98.0); Monocytes Absolute Auto 0.6 X10*3/uL (0.1-1.2); Monocytes Percent Auto 5.8 % (2-11); Neutrophils Absolute Auto 7.3 x10*3/uL (2.0-8.3); Neutrophils Percent Auto 70.3 % (45-73); Platelet Count 246 X10*3/uL (160-400); Red Blood Count 3.09 X10*6/uL (4.20-5.50); Red Cell Distribution Width 13.1 % (11.0-16.0); White Blood Count 10.4 X10*3/uL (4.8-10.8)
[2022-10-04] MEDS: Loratadine 10 MG TABLET PO (07:40)
[2022-10-04] MEDS: Thiamine HCL 100 MG TABLET PO (07:40)
[2022-10-04] MEDS: Cholecalciferol (Vitamin D3) 25 MCG TABLET 125 MCG PO (07:40)
[2022-10-04] MEDS: Famotidine/PF 20 MG/2 ML VIAL IVPUSH (07:40)
[2022-10-04] MEDS: Propranolol HCL 20 MG TABLET PO (07:40)
[2022-10-04] MEDS: 0.9 % Sodium Chloride Flush 3 ML SYRINGE IVFLUSH (07:41)
[2022-10-04] MEDS: Hydrocortisone 2.5 % Rectal Cr 30 GM TUBE 1 APPL PR (07:42)
[2022-10-04 08:00] VITALS: BP 121/68; PULSE 66; RESP 18; TEMP 36.7; O2SAT 98
[2022-10-04 12:00] VITALS: BP 118/68; PULSE 70; RESP 18; TEMP 36; O2SAT 100
[2022-10-04 13:20] LABS: MANUAL DIFF FLAG NO
[2022-10-04 13:24] LABS: Basophils Absolute Auto 0.1 X10*3/uL (0.0-0.2); Basophils Percent Auto 0.7 % (0-2); Eosinophils Absolute Auto 0.1 X10*3/uL (0.0-0.4); Eosinophils Percent Auto 0.7 % (0-4); Hematocrit 25.4 % (37.0-47.0); Hemoglobin 8.7 g/dl (12.0-16.0); Imm Gran Abs Auto 0.05 X10*3/uL (0.00-0.03); Imm Gran Pct Auto 0.4 % (0.0-0.4); Lymphocytes Absolute Auto 2.2 X10*3/uL (1.2-4.9); Lymphocytes Percent Auto 17.9 % (20-40); Mean Corpuscular HGB Conc 34.3 g/dl (31.0-35.0); Mean Corpuscular Hemoglobin 28.2 pg (27.0-33.0); Mean Corpuscular Volume 82.5 fL (80.0-98.0); Mean Platelet Volume 10.3 fL (9.4-12.3); Monocytes Absolute Auto 0.7 X10*3/uL (0.1-1.2); Neutrophils Percent Auto 74.3 % (45-73); Platelet Count 197 X10*3/uL (160-400); Red Blood Count 3.08 X10*6/uL (4.20-5.50); Red Cell Distribution Width 13.2 % (11.0-16.0); White Blood Count 12.1 X10*3/uL (4.8-10.8)
--- NOTE | 2022-10-04 15:15 | PM.PNGS ---
Subjective Subjective Date of Service: 10/04/22 Patient reports: no new complaints and feels better Interval history: The patient is seen with a hospital official court interpreter and reports that she is feeling well. She has no heartburn and his improved much after the unit of blood. She does note some cough but denies any fevers or productive sputum. She is tolerating her bariatric phase 2 diet and is anxious to go home. Physical Exam Vital Signs: Vital Signs: Last Vital Signs Temp 96.8 F 10/04/22 12:00 Pulse 70 10/04/22 12:00 Resp 18 10/04/22 12:00 BP 118/68 10/04/22 12:00 Pulse Ox 100 10/04/22 12:00 O2 Del Method 10/04/22 12:00 O2 Flow Rate 2.0 10/01/22 14:19 BMI result Body Mass Index 34.2 On exam she is nontoxic Abdomen has appropriate tenderness Binder instructions reviewed Objective Data Active Medications Acetaminophen/Butalbital/Caffeine (Butalb/Acetamin/Caff 50/325/40 Tablet) 1 tab PO DAILY PRN PRN Reason: headache Last Admin: 10/04/22 02:43 Dose: 1 tab Documented By: RAMIN Famotidine (Famotidine/Pf 20 Mg/2 Ml Vial) 20 mg IVPUSH BID [facility] Last Admin: 10/04/22 07:40 Dose: 20 mg Documented By: SANDRA Fentanyl (Fentanyl Citrate/Pf 100 Mcg/2 Ml Vial) 50 mcg IVPUSH Q5M PRN; Protocol PRN Reason: Pain, Severe (Pain Scale 7-10) Last Admin: 10/01/22 11:45 Dose: 50 mcg Documented By: ELLIE Hydrocortisone (Hydrocortisone 2.5 % Rectal Cr 30 Gm Tube) 1 appl [place] BID [facility] Last Admin: 10/04/22 07:42 Dose: 1 appl Documented By: SANDRA Lactated Ringer's (Lr) 1,000 mls @ 50 mls/hr IVCONT .Q20H [facility] Last Admin: 10/04/22 06:44 Dose: 50 mls/hr Documented By: RAMIN Loratadine (Loratadine 10 Mg Tablet) 10 mg PO DAILY [facility] Last Admin: 10/04/22 07:40 Dose: 10 mg Documented By: SANDRA Metoclopramide HCl (Metoclopramide Hcl 10 Mg/2 Ml Vial) 10 mg IVPUSH Q6H PRN PRN Reason: Nausea Last Admin: 10/01/22 21:10 Dose: 10 mg Documented By: IMELDA Omeprazole (Omeprazole 20 Mg Capsule.Dr) 20 mg PO DAILY@0630 [facility] Last Admin: 10/04/22 05:30 Dose: 20 mg Documented By: MALLY-YOULM Ondansetron HCl (Ondansetron Odt 4 Mg Tab.Rapdis) 4 mg TRANSLINGU Q6H PRN PRN Reason: nausea and vomiting Ondansetron HCl (Ondansetron Hcl 4 Mg/2 Ml Vial) 4 mg IVPUSH ONCE PRN PRN Reason: Nausea and Vomiting Ondansetron HCl (Ondansetron Hcl 4 Mg/2 Ml Vial) 4 mg IVPUSH Q8H [facility] Last Admin: 10/04/22 13:33 Dose: 4 mg Documented By: SANDRA Propranolol HCl (Propranolol Hcl 20 Mg Tablet) 20 mg PO BID [facility]; Protocol Last Admin: 10/04/22 07:40 Dose: 20 mg Documented By: SANDRA Sodium Chloride (0.9 % Sodium Chloride Flush 3 Ml Syringe) 3 ml IVFLUSH QSHIFT [facility] Last Admin: 10/04/22 07:41 Dose: 3 ml Documented By: SANDRA Thiamine HCl (Thiamine Hcl 100 Mg Tablet) 100 mg PO DAILY [facility] Last Admin: 10/04/22 07:40 Dose: 100 mg Documented By: SANDRA Vitamin D (Cholecalciferol (Vitamin D3) 25 Mcg Tablet) 125 mcg PO DAILY [facility] Last Admin: 10/04/22 07:40 Dose: 125 mcg Documented By: SANDRA Labs CBC & Chem 7: 10/04/22 13:15 10/03/22 05:15 Labs: Laboratory Results - last 24 hr 10/01/22 10/03/22 10/03/22 06:21 19:12 19:12 MCV 83.6 MCH 28.0 MCHC 33.5 RDW 13.1 Plt Count 243 MPV 9.7 Immature Gran % (Auto) 0.3 Neut % (Auto) 68.7 Lymph % (Auto) 23.7 [place] % (Auto) 5.9 Eos % (Auto) 0.7 Baso % (Auto) 0.7 Lymph # (Auto) 2.7 [place] # (Auto) 0.7 Eos # (Auto) 0.1 Baso # (Auto) 0.1 Abs Immat Gran (auto) 0.04 H Absolute Neuts (auto) 7.9 Absolute Nucleated RBC 0.000 Nucleated RBC % (auto) 0.0 PT 13.8 H INR 1.2 H APTT 27.4 Blood Type O Positive Antibody Screen NEGATIVE Crossmatch See Detail 10/04/22 10/04/22 05:30 13:15 MCV 83.2 82.5 MCH 27.5 28.2 MCHC 33.1 34.3 RDW 13.1 13.2 Plt Count 246 197 MPV 10.0 10.3 Immature Gran % (Auto) 0.4 0.4 Neut % (Auto) 70.3 74.3 H Lymph % (Auto) 21.8 17.9 L [place] % (Auto) 5.8 6.0 Eos % (Auto) 1.1 0.7 Baso % (Auto) 0.6 0.7 Lymph # (Auto) 2.3 2.2 [place] # (Auto) 0.6 0.7 Eos # (Auto) 0.1 0.1 Baso # (Auto) 0.1 0.1 Abs Immat Gran (auto) 0.04 H 0.05 H Absolute Neuts (auto) 7.3 9.0 H Absolute Nucleated RBC 0.000 0.000 Nucleated RBC % (auto) 0.0 0.0 PT INR APTT Blood Type Antibody Screen Crossmatch Procedures Date of Service Date of Service: 10/04/22 Progress Note: A&P Assessment and plan (1) S/P laparoscopic sleeve gastrectomy: Status: Acute (2) Postoperative anemia due to acute blood loss: Status: Acute Plan Instructions were reviewed and apparently understood. The patient had previously been on Relafen and is unsure whether not she took it preoperatively. I wrote this down as well as the generic name nabumetone and explained that she cannot take this medicine or any other NSAIDs due to concerns about bleeding. She has [place] instructions regarding her diet advancement. Follow-up next week. Time Spent With Patient Time: Total time managing care of this patient today ____ minutes. Quality Stroke Does the patient have a stroke diagnosis?: No VTE Prior VTE?: No VTE Risk Level:: Surgical - moderate VTE Device Contraindication: N/A - Device Ordered VTE Drug Contraindication: Treatment Not Indicated
--- NOTE | 2022-10-04 15:18 | PM.DS ---
DS: Providers Provider Date of Service: 10/04/22 Date of admission: 10/01/22 05:59 Primary care physician: Luli Jones MD DS: Diagnosis Discharge Diagnosis (1) S/P laparoscopic sleeve gastrectomy: Status: Acute (2) Postoperative anemia due to acute blood loss: Status: Acute DS: Summary Hospital Course Hospital Course: ADMITTING DIAGNOSIS: obesity, htn, gerd, depression, migraine ? DISCHARGE DIAGNOSIS: same, s/p laparoscopic sleeve gastrectomy ? PAST SURGICAL HISTORY: KAROL, breast reduction, cesarian section, tubal ligation ? PROCEDURE: upper endoscopy, laparoscopic sleeve gastrectomy ? DISCHARGE SUMMARY: ? History of Present Illness: ? The patient is a?42 year-old woman with a BMI of?39.8 kg/m2 and associated co-morbidities as described above. The patient had extensive work-up,lost?28.6 lbs preoperatively and was electively scheduled for laparoscopic, possible open sleeve gastrectomy and gastropexy. Risks and complications of the surgery were discussed with the patient in advance, particularly the possibility of , pulmonary embolism, anastomotic leak, bleeding, bowel injury, GERD, cardiac, renal or pulmonary complications. The patient understood all the risks and was in agreement with the surgical plan. ? Hospital Course: ? The patient underwent an uneventful laparoscopic sleeve gastrectomy with gastropexy on the day of admission. Postoperatively, the patient was transferred to the surgical floor. The patient received IV Acetaminophen and IV dilaudid for pain control. Patient had significant postoperative nausea and vomiting immediately after surgery and PACU in could not tolerate bariatric phase 1 diet. By postop day 1, hemoglobin had dropped and on repeat, an apparent bleed occurred and confirmed on CT. During this time, the patient had no tachycardia, dizziness, chest pain or symptoms of anemia, but by postop day 2 had general global weakness and when her hemoglobin dropped to 7.5, she received 1 unit of blood. By the next day, her hemoglobin had remained stable and she was discharged home in stable condition. The patient was unsure whether not she was taking her Relafen preoperatively and this medicine was clearly identified, written down and with an product technology scientist, noted that she must not take this medication, any aspirin or any other NSAIDs. ? The patient was given instructions to follow-up with me next week and to call my office for any fever over 101, persistent abdominal pain, nausea, vomiting, GERD, symptoms of DVT such as calf tenderness, or leg swelling, or pulmonary embolism such as chest pain or shortness of breath. The patient was also instructed to drink 40-60 ounces of liquids per day using the 1-ounce cups. The patient had been given prescriptions for Tylenol for pain, Zofran prn for nausea, and pantoprazole and carafate previously. The patient was encouraged to ambulate and use the incentive spirometer. The patient was allowed to shower, but no baths, and encouraged to stay active at home. All of these instructions were given to the patient personally. All questions were answered and the patient understood all instructions, the instructions were also given to the patient in print. Time Spent with Patient Time attestation: Total time managing care of this patient today ____ minutes. Discharge coordination time: Greater than 30 minutes Quality: Safe Use of Opioids Does Pt have an Active Cancer Diagnosis on the Problem List?: No Quality: Stroke Does the patient have a stroke diagnosis?: No Physical Exam Vital Signs: Vital Signs: Last Vital Signs Temp 96.8 F 10/04/22 12:00 Pulse 70 10/04/22 12:00 Resp 18 10/04/22 12:00 BP 118/68 10/04/22 12:00 Pulse Ox 100 10/04/22 12:00 O2 Del Method 10/04/22 12:00 O2 Flow Rate 2.0 10/01/22 14:19 BMI result Body Mass Index 34.2 DS: Data Data Completed and Pending Completed studies during hospitalization [Text1]: Pending at discharge 10/01/22 09:41 Surgical [PTH] Routine Labs on day of discharge: Laboratory Results - last 24 hr 10/01/22 10/03/22 10/03/22 06:21 19:12 19:12 WBC 11.5 H RBC 3.36 L D Hgb 9.4 L D Hct 28.1 L D MCV 83.6 MCH 28.0 MCHC 33.5 RDW 13.1 Plt Count 243 MPV 9.7 Immature Gran % (Auto) 0.3 Neut % (Auto) 68.7 Lymph % (Auto) 23.7 [place] % (Auto) 5.9 Eos % (Auto) 0.7 Baso % (Auto) 0.7 Lymph # (Auto) 2.7 [place] # (Auto) 0.7 Eos # (Auto) 0.1 Baso # (Auto) 0.1 Abs Immat Gran (auto) 0.04 H Absolute Neuts (auto) 7.9 Absolute Nucleated RBC 0.000 Nucleated RBC % (auto) 0.0 PT 13.8 H INR 1.2 H APTT 27.4 Blood Type O Positive Antibody Screen NEGATIVE Crossmatch See Detail 10/04/22 10/04/22 05:30 13:15 WBC 10.4 12.1 H RBC 3.09 L 3.08 L Hgb 8.5 L 8.7 L Hct 25.7 L 25.4 L MCV 83.2 82.5 MCH 27.5 28.2 MCHC 33.1 34.3 RDW 13.1 13.2 Plt Count 246 197 MPV 10.0 10.3 Immature Gran % (Auto) 0.4 0.4 Neut % (Auto) 70.3 74.3 H Lymph % (Auto) 21.8 17.9 L [place] % (Auto) 5.8 6.0 Eos % (Auto) 1.1 0.7 Baso % (Auto) 0.6 0.7 Lymph # (Auto) 2.3 2.2 [place] # (Auto) 0.6 0.7 Eos # (Auto) 0.1 0.1 Baso # (Auto) 0.1 0.1 Abs Immat Gran (auto) 0.04 H 0.05 H Absolute Neuts (auto) 7.3 9.0 H Absolute Nucleated RBC 0.000 0.000 Nucleated RBC % (auto) 0.0 0.0 PT INR APTT Blood Type Antibody Screen Crossmatch Discharge Plan Discharge Anticipated Discharge Date/Time: 10/02/22 08:00 Patient Disposition: Home, Self-Care Discharge Diagnosis: s/p laparoscopic sleeve gastrectomy Referrals: Luli Azevedo MD [Primary Care Provider] - 1 Week Gabriel Voss MD [Physician] - 1 Week Discharge Medications: New propranolol 20 mg Tablet 20 mg PO BID Qty: 1 0RF Protocol: Hold for SBP/HR < HOLD for SBP < : 90 HOLD for HR < : 60 Continued ondansetron HCl 4 mg tablet 4 mg PO Q6-8H PRN (Reason: nausea and vomiting) Qty: 20 0RF loratadine [Allergy Relief (loratadine)] 10 mg tablet 10 mg PO DAILY 90 Days Qty: 90 0RF pantoprazole 40 mg tablet,delayed release (DR/EC) 40 mg PO QAM 30 Days Qty: 30 2RF sucralfate 100 mg/mL suspension 10 ml PO BID 30 Days Qty: 600 2RF linaclotide 290 mcg capsule 290 mcg PO QAM hydrocortisone [Proctosol HC] 2.5 % cream with perineal applicator 1 appl [place] BID Qty: 28.35 3RF Label Comments: postop med Held [id number] 50-325-40 mg capsule 1 cap PO DAILY PRN (Reason: headache) Qty: 30 0RF Hold Instructions: hold for 1 week Discontinued thiamine HCl (vitamin B1) [Vitamin B-1] 100 mg tablet 100 mg PO DAILY Qty: 30 2RF cholecalciferol (vitamin D3) 125 mcg (5,000 unit) capsule 125 mcg PO DAILY 90 Days Qty: 90 0RF Discharge Orders: Discharge Order (Routine); Ordered 10/04/22 Ordered By: Gabriel Voss Diet: Bariatric diet Activity on Discharge: No heavy lifting Stand Alone Forms: Patient Portal Discharge page Care Plan Goals: weight loss Health Concerns: obesity Plan of Treatment: No tub baths, sex or returning to work until discussed at first post op appointment. No exercise, alcohol, tobacco or illegal drug use. Continue to use incentive spirometer hourly while awake. Walk in home for 5- 10 minutes every 2 hours during the first week. Follow all instructions in the bariatric handbook and call with any questions.Discharge Instructions 1. Please call your doctor or come back to the emergency room should any new symptoms arise. 2. You will receive a courtesy call from [facility] 24-48 hours after discharge. 3. Activity: abstain from alcohol, practice limited stair climbing, no bending, no driving, no exercise, no illicit substances, no lifting, no sex, no tub bath, no work. 4. Diet: continue as discussed with Dr. Voss. 5. Dressing Change/Wound Care: Your incision is covered by clear bandages and guaze underneath. If the area is tender, you may apply an ice pack for short intervals (no more than 20 minutes on, followed by at least 20 minutes off). Do not apply heat. Do not use creams, lotions, or topical antibiotics unless instructed to do so by your surgeon. These can cause infection or allergic reaction. 6. Call your doctor if: - Your temperature exceeds 101.5 F - You experience excessive pain or swelling - You have an unexpected reaction to medication - You have excessive bleeding - You experience continued vomiting/nausea - Your incision begins to separate - Your incision shows signs of infection such as increased redness, swelling, excessive pain, heat, or drainage (light blood or clear fluid is normal) 7. General instructions: No lifting greater than 5 lbs for the next 4 weeks[address] No driving within 24 hours of taking narcotic pain medications. If you do not move your bowels in the next 2 days, please take milk of magnesia over the counter. Please follow the post op diet and do not advance your diet until you are seen in the office in about 2 weeks. Please walk around your home every hour or two to prevent blood clots from forming in your legs. You do not need to wake from sleeping to walk. Please sleep in a bed or couch to prevent kinking at the hips and knees. Please take your incentive spirometer (your lung on air personality) home with you and use it for the next few days to prevent pneumonias. You may shower, no hot tubs, baths or swimming pools. Please call the office with any questions or concerns such as increasing abdominal pain, fever, chills, shortness of breath, chest pain, leg pain or swelling, or redness or drainage from your incisions. Please stay on stage 3 diet which includes sugar free clear liquids such as ice pops and jello and broth and crystal light. Avoid all carbonation. Please drink 3 protein shakes with at least 25-30 grams of protein daily or 3 of the Celebrate 4:1 shakes which can be purchased in our office. The Celebrate shakes have all of the bariatric vitamins you need if you consume these shakes. If you are drinking other protein shakes, you will need to purchase the Celebrate multivitamins and calcium that we provide in the office (they will provide all the vitamins you need). Please make sure you are consuming at least 40-60 ounces of water in addition to your 3 protein shakes daily. Do not hesitate to contact the office with any questions at . The patient's medical history has been reviewed and they are considered low risk for post op DVT and therefore DVT prophylaxis is not considered necessary. Travel after surgery was reviewed. The patient has not disclosed any travel plans during the first 30 days after surgery and they have been advised that within the first 30 days after surgery any bus, plane, train or car travel over 2 hours in duration is contraindicated due to the possibility of developing blood clots from immobility. Any travel, needs to include periods of ambulation of 10 minutes in duration every 2 hours.? The patient was instructed to discuss any plans for travel during this period with their bariatric surgeon. Assessment: stable s/p laparoscopic sleeve gastrectomy
== END 2022-10-04 16:46 | disposition home or self-care (01) | DRG 403 ==
LOC: HO.SSSA 10:38 → HO.S3 11:51
PROVIDERS: Physician Assistant; Physician Assistant Surgical; Admitting Provider Surgery; PCP Internal Medicine; Visit Provider Surgery
PROC: 0DB64Z3 Excision of Stomach, Percutaneous Endoscopic Approach, Vertical (ICD-10-PCS; CPT 43845; principal; 2022-10-01 07:30)
DX: E66.01 Morbid (severe) obesity due to excess calories (principal); D65 Disseminated intravascular coagulation [defibrination syndrome]; K66.1 Hemoperitoneum; K91.840 Postprocedural hemorrhage of a digestive system organ or structure following a digestive system procedure; D62 Acute posthemorrhagic anemia; F33.9 Major depressive disorder, recurrent, unspecified; R73.03 Prediabetes; Z68.34 Body mass index [BMI] 34.0-34.9, adult; I10 Essential (primary) hypertension; E78.5 Hyperlipidemia, unspecified; K21.9 Gastro-esophageal reflux disease without esophagitis; Z20.822 Contact with and (suspected) exposure to COVID-19; Z88.5 Allergy status to narcotic agent; Z79.899 Other long term (current) drug therapy
CPT/HCPCS: 36415; 74177; 80048; 80053; 80061; 82306; 82607; 82728; 83036; 83540; 83970; 84425; 84443; 84590; 84630; 85014; 85018; 85025; 85610; 85730; 86140; 86850; 86900; 86901; 86923; 87635; 88307; 88342; C9088; J0131; J0330; J0690; J1100; J2250; J2405; J2550; J2765; J2795; J3010; P9016; Q9967

== ENCOUNTER 2022-10-08 07:47 | Outpatient (REF) | payer OTHER, SELFPAY ==
[2022-10-08 09:16] LABS: MANUAL DIFF FLAG NO
[2022-10-08 10:11] LABS: Basophils Absolute Auto 0.1 X10*3/uL (0.0-0.2); Basophils Percent Auto 0.5 % (0-2); Eosinophils Absolute Auto 0.2 X10*3/uL (0.0-0.4); Eosinophils Percent Auto 1.6 % (0-4); Hematocrit 29.7 % (37.0-47.0); Hemoglobin 9.7 g/dl (12.0-16.0); Imm Gran Abs Auto 0.04 X10*3/uL (0.00-0.03); Imm Gran Pct Auto 0.4 % (0.0-0.4); Lymphocytes Absolute Auto 1.2 X10*3/uL (1.2-4.9); Lymphocytes Percent Auto 11.3 % (20-40); Mean Corpuscular HGB Conc 32.7 g/dl (31.0-35.0); Mean Corpuscular Hemoglobin 28.4 pg (27.0-33.0); Mean Corpuscular Volume 87.1 fL (80.0-98.0); Mean Platelet Volume 9.6 fL (9.4-12.3); Monocytes Absolute Auto 0.7 X10*3/uL (0.1-1.2); Monocytes Percent Auto 6.6 % (2-11); Neutrophils Absolute Auto 8.8 x10*3/uL (2.0-8.3); Neutrophils Percent Auto 79.6 % (45-73); Platelet Count 444 X10*3/uL (160-400); Red Blood Count 3.41 X10*6/uL (4.20-5.50); Red Cell Distribution Width 13.8 % (11.0-16.0)
== END 2022-10-08 07:48 | disposition home or self-care (01) ==
LOC: HO.LAB 07:47
PROVIDERS: Absent Provider Surgery; PCP Internal Medicine; Referring Provider Internal Medicine; Visit Provider Physician Assistant
DX: D62 Acute posthemorrhagic anemia (principal); Z98.84 Bariatric surgery status; Z90.3 Acquired absence of stomach [part of]
CPT/HCPCS: 36415; 85025

== ENCOUNTER 2022-10-23 13:47 | Outpatient (REF) | payer OTHER, SELFPAY ==
[2022-10-23 15:02] LABS: MANUAL DIFF FLAG NO
[2022-10-23 15:31] LABS: Basophils Absolute Auto 0.1 X10*3/uL (0.0-0.2); Basophils Percent Auto 0.7 % (0-2); Eosinophils Absolute Auto 0.1 X10*3/uL (0.0-0.4); Eosinophils Percent Auto 0.8 % (0-4); Hematocrit 34.9 % (37.0-47.0); Hemoglobin 11.2 g/dl (12.0-16.0); Imm Gran Abs Auto 0.02 X10*3/uL (0.00-0.03); Imm Gran Pct Auto 0.2 % (0.0-0.4); Mean Corpuscular HGB Conc 32.1 g/dl (31.0-35.0); Mean Corpuscular Hemoglobin 27.7 pg (27.0-33.0); Mean Corpuscular Volume 86.2 fL (80.0-98.0); Mean Platelet Volume 9.6 fL (9.4-12.3); Monocytes Absolute Auto 0.5 X10*3/uL (0.1-1.2); Monocytes Percent Auto 5.8 % (2-11); Neutrophils Absolute Auto 5.9 x10*3/uL (2.0-8.3); Neutrophils Percent Auto 69.5 % (45-73); Platelet Count 474 X10*3/uL (160-400); Red Blood Count 4.05 X10*6/uL (4.20-5.50); White Blood Count 8.5 X10*3/uL (4.8-10.8)
[2022-10-23 15:59] LABS: Anion Gap 14 (12-20); Blood Urea Nitrogen 15 mg/dL (9-16); Calcium 9.4 mg/dL (8.4-10.2); Carbon Dioxide 26 mmol/L (22-29); Chloride 100 mmol/L (96-108); Estimated Glomerular Filt Rate > 60; Glucose Random 87 mg/dL (60-115); Potassium 4.4 mmol/L (3.3-5.1); Sodium 136 mmol/L (135-145)
== END 2022-10-23 13:48 | disposition home or self-care (01) ==
LOC: HO.LAB 13:47
PROVIDERS: PCP Internal Medicine; Visit Provider Physician Assistant
DX: R10.9 Unspecified abdominal pain (principal); Z98.84 Bariatric surgery status; Z90.3 Acquired absence of stomach [part of]
CPT/HCPCS: 36415; 80048; 85025

== ENCOUNTER 2022-10-24 09:01 | Outpatient (REF) | payer OTHER, SELFPAY ==
--- NOTE | ~2022-10-24 | CT_ITS ---
EXAMINATION: CT ABDOMEN AND PELVIS WITH CONTRAST CLINICAL INFORMATION: Status post bariatric surgery, follow-up. COMPARISON: 10/02/2022 CT scans of the abdomen and pelvis. TECHNIQUE: Multidetector volumetric images were obtained from the superior aspect of the liver through the pubic symphysis following administration 85 mL of Omnipaque 350 intravenous contrast. Sagittal and coronal reformatted images were obtained on the technologist's workstation. Oral contrast: No This CT examination was performed using dose optimization techniques as appropriate, variously including the following: *Automated exposure control *Adjustment of mA and/or kV according to patient size (this includes techniques or standardized protocols for targeted exams where dose is matched to indication/reason for exam; i.e. extremities or head) *Use of iterative reconstruction technique DLP: 531 mGy-cm FINDINGS: LUNG BASES: The visualized lung bases are unremarkable. LIVER, GALLBLADDER, AND BILIARY TREE: Unremarkable. PANCREAS: Unremarkable. SPLEEN: Unremarkable. ADRENAL GLANDS: Unremarkable. KIDNEYS AND URETERS: Several small low-attenuation foci bilaterally without significant change. Nonobstructing intrarenal calculi bilaterally without significant change as well. No hydroureteronephrosis. BLADDER: Unremarkable. GASTROINTESTINAL TRACT: Gastric postsurgical changes are again seen without mural or intraluminal abnormality. Advancement interval decrease in adjacent low-attenuation fluid collections extending posteriorly to the left subphrenic region as well as along the greater curvature of the stomach with more defined margins. The small bowel and appendix are unremarkable. The colon and rectum are unremarkable. ABDOMINAL WALL: No significant hernia is appreciated. LYMPH NODES: No lymphadenopathy. VASCULAR: Unremarkable. PELVIC VISCERA: The patient appears status post hysterectomy. No overt abnormality within the adnexa. Mild residual pelvic complex fluid. OSSEOUS STRUCTURES: Unremarkable. CT/CT abdomen pelvis w IV con IMPRESSION: 1. Gastric posterior surgical changes as detailed above. Adjacent complex fluid collections have decreased in size with more defined features suggesting resolving hemorrhage. Similar decreased findings are seen in the pelvis. No definitive acute associated abnormality. Continued short-term CT follow-up is recommended as clinically indicated to assess for resolution of these collections. 2. Other incidental findings detailed above without significant change. Fleischner guidelines were followed.
[2022-10-24] MEDS: iohexoL 350 MG/ML 100 ML INFUS..BTL IV (12:41)
[2022-10-24] MEDS: Barium Sulfate Oral (Vanilla) 450 ML ORAL.SUSP 900 ML PO (12:41)
== END 2022-10-24 09:02 | disposition home or self-care (01) ==
LOC: HO.CT 09:01
PROVIDERS: PCP Internal Medicine; Visit Provider Physician Assistant
DX: R10.9 Unspecified abdominal pain (principal); Z98.84 Bariatric surgery status
CPT/HCPCS: 74177; Q9967

== ENCOUNTER → 2022-11-06 09:24 | Outpatient (BNVA) | payer OTHER, SELFPAY | PROVIDERS: PCP Internal Medicine; Visit Provider Physician Assistant | DX: Z13.89 Encounter for screening for other disorder (principal) ==

== ENCOUNTER → 2022-12-08 14:37 | Outpatient (BNVA) | payer OTHER, SELFPAY | PROVIDERS: PCP Internal Medicine; Visit Provider Physician Assistant | DX: Z13.89 Encounter for screening for other disorder (principal) ==

== ENCOUNTER → 2023-01-12 15:27 | Outpatient (BNVA) | payer OTHER, SELFPAY | PROVIDERS: PCP Internal Medicine; Visit Provider Physician Assistant | DX: E66.9 Obesity, unspecified (principal); Z98.84 Bariatric surgery status; Z68.28 Body mass index [BMI] 28.0-28.9, adult | CPT/HCPCS: 99212 ==

== ENCOUNTER → 2023-01-16 12:35 | Outpatient (BNVA) | payer OTHER, SELFPAY | PROVIDERS: PCP Internal Medicine; Visit Provider Counselor Mental Health ==

== ENCOUNTER → 2023-01-30 16:00 | Outpatient (BNVA) | payer OTHER, SELFPAY | PROVIDERS: PCP Internal Medicine; Visit Provider Counselor Mental Health ==

== ENCOUNTER 2023-02-05 13:38 | Outpatient (REF) | payer OTHER, SELFPAY ==
--- NOTE | ~2023-02-05 | MM_ITS ---
EXAMINATION: MM SCREENING DIGITAL BREAST TOMOSYNTHESIS, BILATERAL CLINICAL INFORMATION: Screening. Asymptomatic. The lifetime risk of breast cancer based on the Tyrer-Cuzick Model is 19.8%. COMPARISON: Mammography: 08/01/2021 and studies dating back to 10/10/2014. TECHNIQUE: Digital breast tomosynthesis is performed in both the craniocaudal and mediolateral oblique views along with computer-aided detection (CAD). Synthesized 2D images are generated from the tomosynthesis. FINDINGS: The breasts are extremely dense, which lowers the sensitivity of mammography (ACR BI-RADS breast composition Category d). Within the right breast on mediolateral oblique projection about the deep nipple line there is a grouping of calcifications for which spot magnification views are recommended. I do not definitely see these on craniocaudal view and these may be vascular in nature. There are other scattered calcifications seen bilaterally. No suspicious dominant mass is noted. MM/MM tomosynthesis screening BI IMPRESSION: Right breast calcifications for further evaluation. ASSESSMENT: BI-RADS 0: Incomplete - Need additional imaging evaluation. RECOMMENDATION: 1. Additional views of the right breast. 2. Targeted ultrasound if warranted after review of the additional views. 3. Radiology department staff will contact the patient for additional imaging. This patient's information was entered into a reminder system with a target due date for their next mammogram.
== END 2023-02-05 13:39 | disposition home or self-care (01) ==
LOC: HO.MAMMO 13:38
PROVIDERS: Visit Provider Internal Medicine
DX: Z12.31 Encounter for screening mammogram for malignant neoplasm of breast (principal)
CPT/HCPCS: 77063; 77067

== ENCOUNTER → 2023-02-13 16:11 | Outpatient (BNVA) | payer OTHER, SELFPAY | PROVIDERS: PCP Internal Medicine; Visit Provider Counselor Mental Health | DX: F43.29 Adjustment disorder with other symptoms (principal) ==

== ENCOUNTER 2023-02-17 08:06 | Outpatient (REF) | payer OTHER, SELFPAY ==
--- NOTE | ~2023-02-17 | MM_ITS ---
EXAMINATION: MM DIAGNOSTIC DIGITAL MAMMOGRAPHY, RIGHT CLINICAL INFORMATION: Recall from screening for calcifications central right breast approximately 8.5 cm from nipple on MLO view. Prior history reduction mammoplasty 2007. Family history breast cancer. TC score 20%. COMPARISON: Mammography: 02/05/2023, 08/01/2021 TECHNIQUE: Digital mammography is performed in the following views: Magnification CC x2, magnification ML x2. FINDINGS: The breasts are heterogeneously dense, which may obscure small masses (ACR BI-RADS breast composition Category c). The additional views confirm punctate grouped calcifications at least 10 in number mid posterior 3:00 right breast representing new finding from prior imaging. Stereotactic sampling is recommended. Results are discussed with the patient at time of visit, using an director aeronautics commission. MM/MM added views RT IMPRESSION: Punctate grouped calcifications mid posterior 3:00 right breast. ASSESSMENT: BI-RADS 4: Suspicious RECOMMENDATION: Stereotactic biopsy right breast calcifications. This patient's information was entered into a reminder system with a target due date for their next mammogram.
== END 2023-02-17 08:07 | disposition home or self-care (01) ==
LOC: HO.MAMMO 08:06
PROVIDERS: PCP Internal Medicine; Visit Provider Internal Medicine
DX: R92.1 Mammographic calcification found on diagnostic imaging of breast (principal)
CPT/HCPCS: 77065

== ENCOUNTER 2023-02-18 08:53 | Outpatient (REF) | payer OTHER, SELFPAY ==
--- NOTE | ~2023-02-18 | MM_ITS ---
EXAMINATION: STEREOTACTIC TOMOSYNTHESIS-GUIDED VACUUM-ASSISTED BREAST BIOPSY, RIGHT SPECIMEN RADIOGRAPH, RIGHT POST PROCEDURE DIGITAL MAMMOGRAM, RIGHT CLINICAL INFORMATION: Punctate grouped calcifications mid 3:00 right breast, new finding. COMPARISON: Mammography 02/05/2023, 02/17/2023 TECHNIQUE/PROCEDURE: Informed consent was obtained from the patient after discussion of the benefits, risks, and alternatives to biopsy today. Patient appeared to understand. Gave opportunity for questions. Patient signed consent form. Hospital provided element setter assisted during the consent and throughout the procedure. BIOPSY TABLE: [employer] Biopsy System. LESION: Grouped punctate calcifications mid 3:00 right breast. LOCAL ANESTHESIA: 10 mL carbonated 1% lidocaine; 10 mL 1% lidocaine with epinephrine. DERMATOTOMY: Single skin myron dermatotomy performed. NEEDLE: [employer] 9-gauge vacuum assisted core biopsy device. APPROACH: Medial lateral. TARGETING: Combination of digital breast tomosynthesis and stereotactic digital mammography used for targeting. CORES: 7. CLIP: Digital [employer] T-shaped marker. SPECIMEN RADIOGRAPH: Specimen radiograph is taken in separate room using digital mammography. The index calcifications are in the excised cores. There are over 12 calcifications in the cores. POST PROCEDURE UNILATERAL DIGITAL MAMMOGRAM: The post biopsy mammogram is performed in separate room using separate digital mammography equipment from the biopsy procedure. CC and LM views are obtained. The breasts are heterogeneously dense, which may obscure small masses (breast composition category: c). The clip marker is in position. The calcifications are markedly decreased at the biopsy site. No gross hematoma. The patient tolerated the procedure well. No immediate complications. Home instructions reviewed with the patient. Final pathology results are pending. MM/MM stereotactic biopsy RT IMPRESSION: 1. Digital tomosynthesis-guided core biopsy right breast with clip placement. 2. Specimen radiograph taken and post procedure mammogram. There is satisfactory positioning of the biopsy clip. 3. Final pathology results pending. An addendum report will be issued.
[2023-02-18] MEDS: Lidocaine HCl 1 % 20 ML VIAL 9 ML SUBCUT (11:09)
[2023-02-18] MEDS: Sodium Bicarbonate 8.4% 50 MEQ/50 ML VIAL SUBCUT (11:10)
== END 2023-02-18 08:54 | disposition home or self-care (01) ==
LOC: HO.MAMMO 08:53
PROVIDERS: PCP Internal Medicine; Visit Provider Surgery
DX: R92.0 Mammographic microcalcification found on diagnostic imaging of breast (principal)
CPT/HCPCS: 19081; 88305; 99202; A4648

== ENCOUNTER → 2023-02-20 14:43 | Outpatient (BNVA) | payer OTHER, SELFPAY | PROVIDERS: PCP Internal Medicine; Visit Provider Counselor Mental Health | DX: F43.29 Adjustment disorder with other symptoms (principal) ==

== ENCOUNTER → 2023-02-25 14:36 | Outpatient (BNVA) | payer OTHER, SELFPAY | PROVIDERS: PCP Internal Medicine; Visit Provider Physician Assistant | DX: Z98.84 Bariatric surgery status (principal) | CPT/HCPCS: 99212 ==

== ENCOUNTER → 2023-02-27 09:22 | Outpatient (BNVA) | payer OTHER, SELFPAY | PROVIDERS: PCP Internal Medicine; Visit Provider Surgery | DX: R92.0 Mammographic microcalcification found on diagnostic imaging of breast (principal) | CPT/HCPCS: 99212 ==

== ENCOUNTER → 2023-03-13 13:16 | Outpatient (BNVA) | payer OTHER, SELFPAY | PROVIDERS: PCP Internal Medicine; Visit Provider Counselor Mental Health ==

== ENCOUNTER 2023-03-28 08:15 | Outpatient (REF) | payer OTHER, SELFPAY ==
[2023-03-28 08:40] LABS: MANUAL DIFF FLAG NO
[2023-03-28 09:05] LABS: Estimated Average Glucose 103 mg/dL; Hemoglobin A1c % 5.2 %
[2023-03-28 09:06] LABS: Basophils Absolute Auto 0.1 X10*3/uL (0.0-0.2); Basophils Percent Auto 0.8 % (0-2); Eosinophils Absolute Auto 0.1 X10*3/uL (0.0-0.4); Eosinophils Percent Auto 1.3 % (0-4); Hematocrit 36.8 % (37.0-47.0); Hemoglobin 12.2 g/dl (12.0-16.0); Imm Gran Abs Auto 0.02 X10*3/uL (0.00-0.03); Imm Gran Pct Auto 0.3 % (0.0-0.4); Lymphocytes Absolute Auto 1.8 X10*3/uL (1.2-4.9); Mean Corpuscular HGB Conc 33.2 g/dl (31.0-35.0); Mean Corpuscular Hemoglobin 28.2 pg (27.0-33.0); Mean Corpuscular Volume 85.2 fL (80.0-98.0); Mean Platelet Volume 9.7 fL (9.4-12.3); Monocytes Absolute Auto 0.4 X10*3/uL (0.1-1.2); Monocytes Percent Auto 5.8 % (2-11); Neutrophils Absolute Auto 3.9 x10*3/uL (2.0-8.3); Neutrophils Percent Auto 62.8 % (45-73); Platelet Count 242 X10*3/uL (160-400); Red Blood Count 4.32 X10*6/uL (4.20-5.50); Red Cell Distribution Width 13.3 % (11.0-16.0); White Blood Count 6.2 X10*3/uL (4.8-10.8)
[2023-03-28 09:52] LABS: Alanine Aminotransferase 6 U/L (0-31); Albumin Level 3.9 g/dL (3.5-5.0); Alkaline Phosphatase 52 U/L (39-117); Anion Gap 13 (12-20); Aspartate Amino Transferase 11 U/L (5-31); Bilirubin Total 0.7 mg/dL (0.0-1.0); Blood Urea Nitrogen 9 mg/dL (9-16); C Reactive Protein < 0.10 mg/dL (< or = 0.50); Calcium 9.2 mg/dL (8.4-10.2); Carbon Dioxide 25 mmol/L (22-29); Chloride 107 mmol/L (96-108); Cholesterol 160 mg/dL; Estimated Glomerular Filt Rate > 60; Glucose Random 89 mg/dL (60-115); HDL Cholesterol 44 mg/dL; Iron 107 mcg/dL (30-160); LDL Cholesterol Calculated 102 mg/dl; Percent Iron Saturation 46 % (15-50); Potassium 3.8 mmol/L (3.3-5.1); Sodium 141 mmol/L (135-145); Total Iron Binding Capacity 233 mcg/dL (228-428); Total Protein 6.7 g/dL (6.5-8.0); Triglycerides 71 mg/dL; Unsaturated Iron Binding 126 ug/dL
[2023-03-28 10:11] LABS: Ferritin 192 ng/mL (10-250); Insulin 5 uU/mL (2-29); TSH reflex Free T4 1.24 uIU/mL (0.32-4.0); Vitamin D 25-OH Total 56.8 ng/mL (>30)
[2023-03-28 10:23] LABS: Folate 17.8 ng/mL (> or = 4.0); Vitamin B12 700 pg/mL (200-900)
[2023-04-01 05:03] LABS: Zinc 74 mcg/dL (60-130)
[2023-04-01 15:32] LABS: Calcium (PTHI) 8.8 mg/dL (8.6-10.2); PTHI 34 pg/mL (16-77)
[2023-04-02 02:43] LABS: Vitamin A 36 mcg/dL (38-98)
[2023-04-04 12:48] LABS: Vitamin B1 16 nmol/L (8-30)
== END 2023-03-28 08:16 | disposition home or self-care (01) ==
LOC: HO.LAB 08:15
PROVIDERS: PCP Internal Medicine; Visit Provider Physician Assistant
DX: E55.9 Vitamin D deficiency, unspecified (principal); R73.03 Prediabetes; Z98.84 Bariatric surgery status
CPT/HCPCS: 36415; 80053; 80061; 82306; 82607; 82728; 82746; 83036; 83525; 83540; 83970; 84425; 84443; 84590; 84630; 85025; 86140

== ENCOUNTER → 2023-04-02 12:00 | Outpatient (BNVA) | payer OTHER, SELFPAY | PROVIDERS: PCP Internal Medicine; Visit Provider Counselor Mental Health ==

== ENCOUNTER → 2023-04-08 08:47 | Outpatient (BNVA) | payer OTHER, SELFPAY | PROVIDERS: PCP Internal Medicine; Visit Provider Surgery | DX: Z31.438 Encounter for other genetic testing of female for procreative management (principal) | CPT/HCPCS: 99211 ==

== ENCOUNTER 2023-04-21 15:35 | Outpatient (AMB) | payer OTHER, SELFPAY ==
--- NOTE | 2023-04-21 15:49 | MHC.OFFVIS ---
Intake Vital Signs 04/21/23 15:50 Height 5 ft 3 in Weight 151 lb 10.848 oz BMI 26.9 BP 123/75 Blood Pressure Location Lt brachial Position Sitting Pulse 75 Intake Visit Reasons: 6 month fu Intake Note: Jessie presents in office as est.patient for a 6month f/u PT CC: pt reports having bloating , constipation /diarrhea Cabinet And Trim Installer Required: Yes Cabinet And Trim Installer Language: Palestinian Accompanied by: Spouse Allergies bupropion [Contrave] Allergy (Intermediate, Verified 04/21/23 15:50) nausea,vomit, headaches naltrexone [Contrave] Allergy (Intermediate, Verified 04/21/23 15:50) nausea,vomit, headaches oxycodone [Percocet] Allergy (Intermediate, Verified 04/21/23 15:50) hives duloxetine Adverse Reaction (Severe, Verified 04/21/23 15:50) Hallucinations HPI 6 month fu HPI Details Assessment & Plan (1) Chronic idiopathic constipation: ?Code(s): K59.04 - Chronic idiopathic constipation ?Plan: Palestinian #[id number], Mirela. She received the higher dose of Linzess 290 and it is moving her bowels well. She is satisfied with this for now, even though she will still have occasional CIC. She also continues on the pantoprazole 40mg qd with good control of her GERD. She did not receive the proctosol cream, likely an insurance problem - will try sending the brand name. She asks about bariatric surgery and if it will effect my stomach. I inform her that there are complications that can happen including gastric stasis and increased CIC, but this is different for each patient. I assure her I will work with her to overcome any GI problems if they arise. ROV 6 mos (2) GERD (gastroesophageal reflux disease): ?Code(s): K21.9 - Gastro-esophageal reflux disease without esophagitis ?Qualifiers: ?Esophagitis presence:?esophagitis presence not specified? Qualified Code(s):?K21.9 - Gastro-esophageal reflux disease without esophagitis (3) Bleeding hemorrhoids: ?Code(s): K64.9 - Unspecified hemorrhoids ? ? ? Medications: Changed From hydrocortisone 2.5 % (Proctosol HC) 1 appl? ND BID 30 grams 3RF hemorrho ids K64.9 - Unspecifie d hemorrhoids ? To Proctosol HC 2.5% (hydrocortisone) 1 appl? ND BID 28. 35 grams 3RF hemor rhoids NS K64.9 - Unspecifie d hemorrhoids ? Refilled linaclotide (Linze ss) 290 mcg? PO QAM 30 days 30 caps 6RF E K59.04 - Chronic i diopathic constipa tion ? pantoprazole 40 mg? PO DAILY 30 tabs 6RF ? TODAY'S VISIT Palestinian #[id number] Gina She is here with a male family member She had gastric bypass 10/01/2022. She has had more constipation since the surgery despite taking the Linzess 290 qam, we will add bisacodyl 2 tabs qhs. She also is taking a fiber pill. She is having a lot of HB, she was told to stop her protonix before surgery, we will restart this at qd (she used to be at bid) and titrate to effect or s/e. . She has lost 70-80lbs!! ROV 3 weeks. PFS Medical History Bleeding hemorrhoids Bloody stools Dyslipidemia Epigastric pain Essential hypertension Finger pain GERD (gastroesophageal reflux disease) H. pylori infection H/O reactive hypoglycemia History of COVID-19 Left foot pain Mild recurrent major depression Morbid obesity with BMI of 40.0-44.9, adult Obesity (BMI 30-39.9) Polyarthralgia Prediabetes Rectal bleeding Right foot pain Right lateral epicondylitis Vitamin D deficiency Surgical History Deficient knowledge of leg surgery History of incision and drainage History of lithotripsy History of total abdominal hysterectomy History of tubal ligation Hx of bilateral breast reduction surgery Hx of section Hx of colonoscopy S/P laparoscopic sleeve gastrectomy Family History Daughter Cancer Father Cancer, Onset Age: 54 Diabetes mellitus Mother Cancer, Onset Age: 64 Diabetes mellitus Paternal Aunt Cancer Maternal Grandmother Diabetes mellitus Hypertension CVD (cardiovascular disease) Maternal Grandfather Diabetes mellitus Hypertension CVD (cardiovascular disease) Paternal Grandmother Diabetes mellitus Hypertension Paternal Grandfather No problems noted. 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 Current occupational exposures/hazards: No Cognitive needs: No Hearing needs: No Vision needs: No Review of Systems Const Denies fatigue, Denies fever(s), Denies night sweats, Denies poor appetite and Denies weight loss ENT Reports Normal hearing present, Denies dental pain, Denies dysphagia, Denies hearing loss, Denies mouth pain, Denies odynophagia, Denies throat swelling, Denies tongue swelling and Reports other (Dentition adequate) Card Reports no additional complaints Resp Reports no additional complaints GI Denies abdominal pain, Denies melena, Denies bloating, Denies hematochezia, Reports constipation, Denies GI cramping, Denies dysphagia, Denies excessive flatus, Denies early satiety, Reports heartburn, Denies diarrhea, Denies nausea, Denies odynophagia, Denies vomiting and Denies hematemesis Skin/Breast Denies pruritus, Denies lesions, Denies rash and Denies jaundice Neuro Reports Normal hearing present and Denies Abnormal speech present Endo Denies fatigue Aller/Immun Denies throat swelling and Denies tongue swelling Physical Exam Vital Signs: Last Vital Signs Pulse 75 04/21/23 15:50 BP 123/75 04/21/23 15:50 BMI result Body Mass Index 26.9 Const General: cooperative, no acute distress, well developed and well groomed Nutritional Appearance: average body habitus and well nourished Orientation/consciousness: oriented to person, oriented to place and oriented to time Limitations: language barrier HEENT Head: Yes normocephalic and Yes atraumatic Eyes General: appearance normal, both eyes and all related structures Pupils: Equal, round and reactive pupils present Neck Neck: Yes normal visual inspection and Yes no lymphadenopathy Thyroid: Thyroid normal Resp Effort & Inspection: normal respiratory effort and able to speak in complete sentences Auscultation: clear to auscultation bilaterally Cardio Rate: regular rate Rhythm: regular rhythm Heart sounds: Normal, physiologic split S2 sound present Peripheral pulses: radial pulses present and posterior tibial pulses present GI Inspection: No distended, No Abdominal panniculus present, Yes scar and Yes striae Palpation (GI): Soft to palpation, nontender, no guarding, not rigid and No hepatosplenomegaly present Percussion: Yes normal to percussion Auscultation: normal bowel sounds Rectal Exam - Female: deferred Abdomen image: 1. Auricle scars 2. 3. Skin General skin exam: no rashes or lesions noted, turgor normal, skin not dry, no jaundice, No spider nevi and no striae Rashes: no rashes Nails: normal Neuro General: oriented to person, oriented to place and oriented to time Cranial nerves: Yes Equal, round and reactive pupils present and Yes Normal hearing present Speech: No Abnormal speech present Extrem General: Yes normal to inspection, No clubbing, No cyanosis and No edema Psych Appearance: grossly normal and well kempt Mental Status: mental status grossly normal Speech and movement: Normal speech and movement present Affect: normal affect Attitude: cooperative Thought process: Normal thought process present and not confabulating Thought content: Normal thought content present Insight: Limited insight present (Psych) Judgement: Limited judgement present (Psych) Assessment & Plan Assessment & Plan (1) Chronic idiopathic constipation: Code(s): K59.04 - Chronic idiopathic constipation Plan: Palestinian #[id number] Gina She is here with a male family member She had gastric bypass 10/01/2022. She has had more constipation since the surgery despite taking the Linzess 290 qam, we will add bisacodyl 2 tabs qhs. She also is taking a fiber pill. She is having a lot of HB, she was told to stop her protonix before surgery, we will restart this at qd (she used to be at bid) and titrate to effect or s/e. . She has lost 70-80lbs!! ROV 3 weeks. (2) GERD (gastroesophageal reflux disease): Code(s): K21.9 - Gastro-esophageal reflux disease without esophagitis Qualifiers: Esophagitis presence: esophagitis presence not specified Qualified Code(s): K21.9 - Gastro-esophageal reflux disease without esophagitis Medications: New bisacodyl (Dulcolax (bisacodyl)) 10 mg (2 x 5 mg) PO BEDTIME 60 tabs 6RF 30 days linaclotide 290 mcg PO QAM 30 caps 6RF pantoprazole (Protonix) 40 mg PO DAILY 30 tabs 6RF 30 days K21.9 - Gastro-esophageal reflux disease without esophagitis Quality Reporting (2019) Adult ([facility] 138/12/03/68) Smoking risk assessment performed?: Yes Patient Tobacco Use Status: Never used Tobacco Coding Level of Care Code Est Pt Level 3 (24314) Diagnoses Chronic idiopathic constipation K59.04 GERD (gastroesophageal reflux disease) K21.9 Esophagitis presence: esophagitis presence not specified
[2023-04-21 15:50] VITALS: BP 123/75; PULSE 75; BMI 26.9
== END 2023-04-21 16:14 | disposition home or self-care (01) ==
PROVIDERS: PCP Internal Medicine; Visit Provider Nurse Practitioner
DX: K59.04 Chronic idiopathic constipation (principal); K21.9 Gastro-esophageal reflux disease without esophagitis
CPT/HCPCS: 99213

== ENCOUNTER → 2023-04-21 15:35 | Outpatient (BNVA) | payer OTHER, SELFPAY | PROVIDERS: PCP Internal Medicine; Visit Provider Nurse Practitioner | DX: K59.04 Chronic idiopathic constipation (principal); K21.9 Gastro-esophageal reflux disease without esophagitis; Z98.84 Bariatric surgery status | CPT/HCPCS: 99212 ==

== ENCOUNTER 2023-04-23 16:00 | Outpatient (AMB) | payer OTHER, SELFPAY ==
--- NOTE | 2023-04-23 13:58 | MHC.OFFVISWM ---
Intake VS Expanded 04/23/23 16:27 Height 5 ft 3 in Weight 149 lb 6 oz BMI 26.5 Intake Visit Reasons: VIDEO PO LSG 10/01/22 Allergies bupropion [Contrave] Allergy (Intermediate, Verified 04/21/23 15:50) nausea,vomit, headaches naltrexone [Contrave] Allergy (Intermediate, Verified 04/21/23 15:50) nausea,vomit, headaches oxycodone [Percocet] Allergy (Intermediate, Verified 04/21/23 15:50) hives duloxetine Adverse Reaction (Severe, Verified 04/21/23 15:50) Hallucinations Medication List - Last Reconciled 04/23/23 by Maggy Echevarria PA-C bisacodyl (Dulcolax (bisacodyl)) 10 mg (2 x 5 mg) PO BEDTIME 30 days fiadiriofq-yasptdbleplcv-epio 50-325-40 mg 1 cap PO Q6H PRN 30 days calcium citrate-vitamin D3 315 mg-5 mcg (200 unit) (Calcium Citrate + D) 1 tab PO BID inulin (Fiber Gummies) 2 grams PO BID linaclotide 290 mcg PO QAM loratadine (Allergy Relief (loratadine)) 10 mg PO DAILY 90 days pantoprazole (Protonix) 40 mg PO DAILY 30 days Proctosol HC 2.5% (hydrocortisone) 1 appl GA BID NS HPI HPI Comments History of Present Illness Details Pt is now 7 months s/p LSG, [employer]ICE weight of 224.8 lbs. TBWL is lbs or %. Pt is followed by GI and now takes pantoprazole and linzess daily. Patient has multiple complaints of migraines, stress, skipping meals, acid in stomach , cotnstiaption, Low blood sugar and high BP and breaking up wit her partner. 8am -[place] - [employer] mid day - 2 oz protein abd 2 oz veg, dinner - 2oz/ 2oz Exercise - some Post op complications: GABRIELA: never DM: resolved HTN: may still have Hyperlipidemia: resolved GERD: 2 0 = no symptoms 1 = symptoms noticeable but not bothersome 2 =symptoms bothersome but not daily 3 = symptoms bothersome and daily 4 = symptoms affect daily activities 5 = symptoms are incapacitating, unable to do daily activities How bad is the heartburn ? 2 Heartburn while lying down ? Heartburn when standing up ? Heartburn after meals ? Does heartburn change your diet ? Does heartburn wake you up from sleep ? Do you have difficulty swallowing ? Do you have pain with swallowing -? If you take medicine for your reflux, does this affect your daily life ? Satisfaction with present condition - satisfied ___ Not satisfied ___ [facility] Medical History Bleeding hemorrhoids Bloody stools Dyslipidemia Epigastric pain Essential hypertension Finger pain GERD (gastroesophageal reflux disease) H. pylori infection H/O reactive hypoglycemia History of COVID-19 Left foot pain Mild recurrent major depression Morbid obesity with BMI of 40.0-44.9, adult Obesity (BMI 30-39.9) Polyarthralgia Prediabetes Rectal bleeding Right foot pain Right lateral epicondylitis Vitamin D deficiency Surgical History Deficient knowledge of leg surgery History of incision and drainage History of lithotripsy History of total abdominal hysterectomy History of tubal ligation Hx of bilateral breast reduction surgery Hx of section Hx of colonoscopy S/P laparoscopic sleeve gastrectomy Family History Daughter Cancer Father Cancer, Onset Age: 54 Diabetes mellitus Mother Cancer, Onset Age: 64 Diabetes mellitus Paternal Aunt Cancer Maternal Grandmother Diabetes mellitus Hypertension CVD (cardiovascular disease) Maternal Grandfather Diabetes mellitus Hypertension CVD (cardiovascular disease) Paternal Grandmother Diabetes mellitus Hypertension Paternal Grandfather No problems noted. 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 but I think the issue is that she feels very stressed by a personal situation and is skipping meals, having migraines and low blood sugars and high BP. We talked about how she must eat 3 tiems per day - even if she doesn't feel hunger. 2 shakes and 1 meal or 1 shake and 2 meals per day. Will see Stephanie next month for hep. I told her to make appt with her PCP for High BP - ma need meds again Me in 3 months. Patient is not considered stable at this time. I spent 30 minutes in total speaking with the patient via video conference counseling , reviewing records and charting in patients chart. . Orders: Orders Vitamin B12 and Folate Today D64.9 - Anemia, unspecified, E55.9 - Vitamin D deficiency, unspecified, E78.5 - Hyperlipidemia, unspecified, R73.03 - Prediabetes, Z98.84 - Bariatric surgery status Comprehensive Met. Panel Today D64.9 - Anemia, unspecified, E55.9 - Vitamin D deficiency, unspecified, E78.5 - Hyperlipidemia, unspecified, R73.03 - Prediabetes, Z98.84 - Bariatric surgery status C Reactive Protein Today D64.9 - Anemia, unspecified, E55.9 - Vitamin D deficiency, unspecified, E78.5 - Hyperlipidemia, unspecified, R73.03 - Prediabetes, Z98.84 - Bariatric surgery status Ferritin Today D64.9 - Anemia, unspecified, E55.9 - Vitamin D deficiency, unspecified, E78.5 - Hyperlipidemia, unspecified, R73.03 - Prediabetes, Z98.84 - Bariatric surgery status Hemoglobin A1c Today D64.9 - Anemia, unspecified, E55.9 - Vitamin D deficiency, unspecified, E78.5 - Hyperlipidemia, unspecified, R73.03 - Prediabetes, Z98.84 - Bariatric surgery status Insulin Today D64.9 - Anemia, unspecified, E55.9 - Vitamin D deficiency, unspecified, E78.5 - Hyperlipidemia, unspecified, R73.03 - Prediabetes, Z98.84 - Bariatric surgery status IRON PROFILE Today D64.9 - Anemia, unspecified, E55.9 - Vitamin D deficiency, unspecified, E78.5 - Hyperlipidemia, unspecified, R73.03 - Prediabetes, Z98.84 - Bariatric surgery status Lipid Panel Today D64.9 - Anemia, unspecified, E55.9 - Vitamin D deficiency, unspecified, E78.5 - Hyperlipidemia, unspecified, R73.03 - Prediabetes, Z98.84 - Bariatric surgery status PTHI Today D64.9 - Anemia, unspecified, E55.9 - Vitamin D deficiency, unspecified, E78.5 - Hyperlipidemia, unspecified, R73.03 - Prediabetes, Z98.84 - Bariatric surgery status TSH reflex Free T4 Today D64.9 - Anemia, unspecified, E55.9 - Vitamin D deficiency, unspecified, E78.5 - Hyperlipidemia, unspecified, R73.03 - Prediabetes, Z98.84 - Bariatric surgery status Vitamin A Today D64.9 - Anemia, unspecified, E55.9 - Vitamin D deficiency, unspecified, E78.5 - Hyperlipidemia, unspecified, R73.03 - Prediabetes, Z98.84 - Bariatric surgery status Vitamin B1 Today D64.9 - Anemia, unspecified, E55.9 - Vitamin D deficiency, unspecified, E78.5 - Hyperlipidemia, unspecified, R73.03 - Prediabetes, Z98.84 - Bariatric surgery status Vitamin D 25-OH Total Today D64.9 - Anemia, unspecified, E55.9 - Vitamin D deficiency, unspecified, E78.5 - Hyperlipidemia, unspecified, R73.03 - Prediabetes, Z98.84 - Bariatric surgery status Zinc Today D64.9 - Anemia, unspecified, E55.9 - Vitamin D deficiency, unspecified, E78.5 - Hyperlipidemia, unspecified, R73.03 - Prediabetes, Z98.84 - Bariatric surgery status Complete Blood Count Auto Diff Today D64.9 - Anemia, unspecified, E55.9 - Vitamin D deficiency, unspecified, E78.5 - Hyperlipidemia, unspecified, R73.03 - Prediabetes, Z98.84 - Bariatric surgery status Quality Reporting (2019) Adult ([facility] 138/12/03/68) Smoking risk assessment performed?: Yes Patient Tobacco Use Status: Never used Tobacco Coding Level of Care Code Tele Est Pt Level 4 (41338) Diagnoses S/P laparoscopic sleeve gastrectomy Z98.84
[2023-04-23 16:27] VITALS: BMI 26.5
== END 2023-04-23 16:38 | disposition home or self-care (01) ==
LOC: HO.HBS 16:30
PROVIDERS: PCP Internal Medicine; Visit Provider Physician Assistant
DX: E66.3 Overweight (principal); Z68.26 Body mass index [BMI] 26.0-26.9, adult; Z90.3 Acquired absence of stomach [part of]; Z98.84 Bariatric surgery status
CPT/HCPCS: 99214

== ENCOUNTER → 2023-04-23 16:00 | Outpatient (BNVA) | payer OTHER, SELFPAY | PROVIDERS: PCP Internal Medicine; Visit Provider Physician Assistant ==

== ENCOUNTER 2023-05-11 07:24 | Outpatient (AMB) | payer OTHER, SELFPAY ==
[2023-05-11 07:29] VITALS: BP 124/78; PULSE 74; O2SAT 98; BMI 25.7
--- NOTE | 2023-05-11 07:29 | A.OFFPC_ITS ---
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 Name: [id number] Ken Information Interpreted: non-clinical & clinical Allergies bupropion [Contrave] Allergy (Intermediate, Verified 05/11/23 07:30) nausea,vomit, headaches naltrexone [Contrave] Allergy (Intermediate, Verified 05/11/23 07:30) nausea,vomit, headaches oxycodone [Percocet] Allergy (Intermediate, Verified 05/11/23 07:30) hives duloxetine Adverse Reaction (Severe, Verified 05/11/23 07:30) Hallucinations Tobacco use date assessed: 12/29/22 Dental Screening Dental Screen Date: 05/11/23 Did you have a dental visit in the last 12 months?: Yes Did you have a dental problem in the last 6 months where you did not have access to dental care?: No Was dental information given to patient?: Patient has dentist HPI HPI Comments History of Present Illness Details 43-year-old female medical history significant for depression, migraines, anemia, fibromyalgia, GERD, dyslipidemia, s/p laparoscopic sleeve gastrectomy September 2022. Patient presents today for physical exam. Refill sent on patients Fiorecet. Migrainse 3-5 times a month. Mammogram: 02/05/2023; showed right breast deep dermal aligned grouping of calcifications which were suspicious patient underwent a biopsy on 02/18/2023 : Pathology results: -Benign breast tissue with fibrocystic changes and calcifications; no atypia or malignancy identified. Please see pathology report for comprehensive information regarding the specimen. Follow up mammography in 6 months. Colonoscopy:07/02/2022, recommended follow up in 10 years. Pap smear: S/p total hysterectomy Eye exam: Last year. COUNT INCLUDES [facility] Medical History Bleeding hemorrhoids Bloody stools Dyslipidemia Epigastric pain Essential hypertension Finger pain GERD (gastroesophageal reflux disease) H. pylori infection H/O reactive hypoglycemia History of COVID-19 Left foot pain Mild recurrent major depression Morbid obesity with BMI of 40.0-44.9, adult Obesity (BMI 30-39.9) Polyarthralgia Prediabetes Rectal bleeding Right foot pain Right lateral epicondylitis Vitamin D deficiency Surgical History Deficient knowledge of leg surgery History of incision and drainage History of lithotripsy History of total abdominal hysterectomy History of tubal ligation Hx of bilateral breast reduction surgery Hx of section Hx of colonoscopy S/P laparoscopic sleeve gastrectomy Family History Daughter Cancer Father Cancer, Onset Age: 54 Diabetes mellitus Mother Cancer, Onset Age: 64 Diabetes mellitus Paternal Aunt Cancer Maternal Grandmother Diabetes mellitus Hypertension CVD (cardiovascular disease) Maternal Grandfather Diabetes mellitus Hypertension CVD (cardiovascular disease) Paternal Grandmother Diabetes mellitus Hypertension Paternal Grandfather No problems noted. 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 1. Little interest or pleasure in doing things: not at all 2. Feeling down, depressed, or hopeless: several days 3. Trouble falling or staying asleep, or sleeping too much: several days 4. Feeling tired or having little energy: not at all 5. Poor appetite or overeating: not at all 6. Feeling bad about yourself - or that you are a failure or have let yourself or your family down: not at all 7. Trouble concentrating on things, such as reading the newspaper or watching television: not at all 8. Moving or speaking so slowly that other people could have noticed. Or the opposite - being so fidgety or restless that you have been moving around a lot more than usual: not at all 9. Thoughts that you would be better off or of hurting yourself in some way: not at all Total score: 2 Depression Screening Interpretation: Negative 30124 - PHQ-9 Billing: Yes Source: Developed by Drs. Lev Dempsey, Dolores Solis, Jacob Spear and colleagues, with an educational tonya from [employer]. Thrive Questionnaire Date Thrive assessed: 12/29/22 AUDIT C Alcohol Use Questionnaire (AUDIT-C) 1. How often do you have a drink containing alcohol?: Never Total Score: 0 EFRAIN-7 AMB Questionnaire EFRAIN-7 Date EFRAIN - 7 assessed: 12/29/22 Source: Developed by Drs. Lev Dempsey, Jacob Gannon and colleagues, with an educational tonya from [employer]. Review of Systems Const Denies chills, Denies fatigue, Denies fever(s) and Denies poor appetite Eyes Denies no additional complaints ENT Reports Normal hearing present Card Denies chest pain, Denies syncope, Denies rapid heart rate and Denies dyspnea Resp Denies cough and Denies dyspnea GI Denies change in stool character, Denies constipation, Denies diarrhea, Denies nausea and Denies vomiting Denies urinary frequency, Denies dysuria and Denies urinary urgency Neuro Reports Normal hearing present, Denies confusion and Denies syncope Psych Denies confusion Endo Denies fatigue Physical exam (Primary Care) Vital Signs: Last Vital Signs Pulse 74 05/11/23 07:29 BP 124/78 05/11/23 07:29 Pulse Ox 98 05/11/23 07:29 Oxygen Delivery Method Room Air 05/11/23 07:29 BMI result Body Mass Index 25.7 Tobacco/Smoking Status: Tobacco use Status Tobacco use date assessed 12/29/22 05/11/23 07:33 Patient Tobacco Use Status Never used Tobacco 05/11/23 07:33 e-Cigarette/Vaping Use Never Used 05/11/23 07:33 PHQ-9: PHQ-9 Score PHQ-9: Total score 2 05/11/23 07:45 Depression Screening Interpretation: Negative Thrive Assessment: Date of Thrive Assessment Date Thrive assessed 12/29/22 05/11/23 07:33 Const General: No confusion Orientation/consciousness: No confusion HENMT Head: Yes normocephalic and Yes atraumatic Ears: external ears normal and TM's normal bilaterally General nose exam: Normal external nose present and Normal nasal mucous membranes and turbinates present Face and sinus: Yes normal facial exam and Yes sinuses nontender Mouth: moist mucous membranes Throat: Yes tonsils normal Eyes Conjunctivae: conjunctivae normal Sclerae: sclerae normal Pupils: Equal, round and reactive pupils present and Pupils normal by confrontation EOM: EOMs intact bilaterally Direct Ophthalmoscopy: normal light reflex Neck Neck: Yes no lymphadenopathy and Yes supple Thyroid: Thyroid normal Chest Chest palpation & inspection: normal inspection of the chest Resp Effort & Inspection: normal respiratory effort Auscultation: clear to auscultation bilaterally, no crackles, no rhonchi and no wheezes Cardio Rate: regular rate Rhythm: regular rhythm Peripheral pulses: radial pulses present and dorsalis pedis present GI Inspection: Yes normal to inspection Palpation (GI): Soft to palpation, nontender and No hepatosplenomegaly present Auscultation: normoactive bowel sounds Skin General skin exam: no rashes or lesions noted Neuro General: No confusion Cranial nerves: Yes Equal, round and reactive pupils present and Yes Normal hearing present Cognition (Neuro): normal cognition Gait exam (Neuro): Normal gait present Motor exam (neuro): 5/5 motor strength present throughout Deep tendon reflexes (DTR's): Right brachioradialis reflex intensity grade: 2+, Left brachioradialis reflex intensity grade: 2+, Right patellar reflex intensity grade: 2+ and Left patellar reflex intensity grade: 2+ Extrem General: No edema Assessment and Plan Assessment & Plan (1) Dyslipidemia: Code(s): E78.5 - Hyperlipidemia, unspecified Plan: LDL March, LDL goal < 130 (2) GERD (gastroesophageal reflux disease): Code(s): K21.9 - Gastro-esophageal reflux disease without esophagitis Qualifiers: Esophagitis presence: esophagitis presence not specified Qualified Code(s): K21.9 - Gastro-esophageal reflux disease without esophagitis Plan: Continue on pantoprazole. (3) Physical exam, annual: Code(s): Z00.00 - Encounter for general adult medical examination without abnormal findings Plan: Follow-up 1 year. Plan Follow up in 6 months. Medications: Refilled wmfydcjjxb-memlabzthyixh-zsiy 50-325-40 mg 1 cap PO Q6H 30 days PRN 10 caps 0RF pain Coding Level of Care Code Est Pt Prev Care 40-64y(29915) Diagnoses Dyslipidemia E78.5 GERD (gastroesophageal reflux disease) K21.9 Esophagitis presence: esophagitis presence not specified Physical exam, annual Z00.00
== END 2023-05-11 07:53 | disposition home or self-care (01) ==
PROVIDERS: PCP Internal Medicine; Visit Provider Nurse Practitioner Family
DX: E78.5 Hyperlipidemia, unspecified (principal); K21.9 Gastro-esophageal reflux disease without esophagitis; Z00.00 Encounter for general adult medical examination without abnormal findings
CPT/HCPCS: 99396

== ENCOUNTER 2023-05-12 14:42 | Outpatient (AMB) | payer OTHER, SELFPAY ==
--- NOTE | 2023-05-12 14:50 | A.OFFVIS_ITS ---
Intake Vital Signs 05/12/23 14:51 Height 5 ft 3 in Weight 146 lb 6.191 oz BMI 25.9 BP 117/75 Blood Pressure Location Rt brachial Position Sitting Pulse 79 Intake Visit Reasons: 3 week follow up Intake Note: Jessie presents to in office visit today in follow up of constipation. PT CC: Pt reports she continues to have constipation, bloating, and occasional diarrhea. She states the Dulcolax does not work well for her. Patient also reports occasional heartburn, GERD, nausea, and vomiting Speech And Language Clinician Required: Yes Speech And Language Clinician Language: Registered Dental Hygienist Name: Lizzeth Lopez utilization management rn Accompanied by: Spouse Allergies bupropion [Contrave] Allergy (Intermediate, Verified 05/11/23 07:30) nausea,vomit, headaches naltrexone [Contrave] Allergy (Intermediate, Verified 05/11/23 07:30) nausea,vomit, headaches oxycodone [Percocet] Allergy (Intermediate, Verified 05/11/23 07:30) hives duloxetine Adverse Reaction (Severe, Verified 05/11/23 07:30) Hallucinations HPI 3 week follow up HPI Details Assessment & Plan (1) Chronic idiopathic constipation: ?Code(s): K59.04 - Chronic idiopathic constipation ?Plan: Filipino #[id number] Gina She is here with a male family member She had gastric bypass 10/01/2022. She has had more constipation since the surgery despite taking the Linzess 290 qam, we will add bisacodyl 2 tabs qhs. She also is taking a fiber pill. She is having a lot of HB, she was told to stop her protonix before surgery, we will restart this at qd (she used to be at bid) and titrate to effect or s/e. . She has lost 70-80lbs!! ROV 3 weeks. (2) GERD (gastroesophageal reflux disease): ?Code(s): K21.9 - Gastro-esophageal reflux disease without esophagitis ?Qualifiers: ?Esophagitis presence:?esophagitis presence not specified? Qualified Code(s):?K21.9 - Gastro-esophageal reflux disease without esophagitis ? ? ? Medications: New bisacodyl (Dulcola x (bisacodyl)) 10 mg (2 x 5 mg) P O BEDTIME 60 tabs 6RF 30 days ? ? linaclotide 290 mcg PO QAM 30 caps 6RF ? ? pantoprazole (Prot duglas) 40 mg PO DAILY 30 tabs 6RF 30 days K21.9 - Gastro-eso phageal reflux dis ease without esoph agitis ? TODAY'S VISIT Filipino #Mitra Live She is taking the LInzess 290 qam adn 2 dulcolax qhs but she is only moving small amts of liquid but still feels bloated and has a lot of left sided cramping and pain. At times she feels like things are backing up all the way to my mouth. Her TSH was checked in March and was ok. I want to send her for an xr to evaluate the stool burden, and if there is a burden consider reglan. She is passing gas. She is a gastric bypass patient as well. She has some rectal pain likely r/t straining and spasm. She is taking a protein shake, and takes calcium which are both constipating. She continues on her pantoprazole 40mg qd. ROV 1 weeks. [facility] Medical History Bleeding hemorrhoids Bloody stools Dyslipidemia Epigastric pain Essential hypertension Finger pain GERD (gastroesophageal reflux disease) H. pylori infection H/O reactive hypoglycemia History of COVID-19 Left foot pain Mild recurrent major depression Morbid obesity with BMI of 40.0-44.9, adult Obesity (BMI 30-39.9) Polyarthralgia Prediabetes Rectal bleeding Right foot pain Right lateral epicondylitis Vitamin D deficiency Surgical History Deficient knowledge of leg surgery History of incision and drainage History of lithotripsy History of total abdominal hysterectomy History of tubal ligation Hx of bilateral breast reduction surgery Hx of section Hx of colonoscopy S/P laparoscopic sleeve gastrectomy Family History Daughter Cancer Father Cancer, Onset Age: 54 Diabetes mellitus Mother Cancer, Onset Age: 64 Diabetes mellitus Paternal Aunt Cancer Maternal Grandmother Diabetes mellitus Hypertension CVD (cardiovascular disease) Maternal Grandfather Diabetes mellitus Hypertension CVD (cardiovascular disease) Paternal Grandmother Diabetes mellitus Hypertension Paternal Grandfather No problems noted. 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 Current occupational exposures/hazards: No Cognitive needs: No Hearing needs: No Vision needs: No Review of Systems Const Denies fatigue, Denies fever(s), Denies night sweats, Denies poor appetite and Denies weight loss ENT Reports Normal hearing present, Denies dental pain, Denies dysphagia, Denies hearing loss, Denies mouth pain, Denies odynophagia, Denies throat swelling, Denies tongue swelling and Reports other (Dentition adequate) Card Reports no additional complaints Resp Reports no additional complaints GI Reports abdominal pain, Denies melena, Reports bloating, Denies hematochezia, Reports constipation, Reports GI cramping, Denies dysphagia, Denies excessive flatus, Denies early satiety, Reports heartburn, Denies diarrhea, Denies nausea, Denies odynophagia, Denies vomiting and Denies hematemesis Skin/Breast Denies pruritus, Denies lesions, Denies rash and Denies jaundice Neuro Reports Normal hearing present and Denies Abnormal speech present Endo Denies fatigue Aller/Immun Denies throat swelling and Denies tongue swelling Physical Exam Vital Signs: Last Vital Signs Pulse 79 05/12/23 14:51 BP 117/75 05/12/23 14:51 BMI result Body Mass Index 25.9 Const General: cooperative, no acute distress, well developed and well groomed Nutritional Appearance: average body habitus and well nourished Orientation/consciousness: oriented to person, oriented to place and oriented to time Limitations: language barrier HEENT Head: Yes normocephalic and Yes atraumatic Eyes General: appearance normal, both eyes and all related structures Pupils: Equal, round and reactive pupils present Neck Neck: Yes normal visual inspection and Yes no lymphadenopathy Thyroid: Thyroid normal Resp Effort & Inspection: normal respiratory effort and able to speak in complete sentences Auscultation: clear to auscultation bilaterally Cardio Rate: regular rate Rhythm: regular rhythm Heart sounds: Normal, physiologic split S2 sound present Peripheral pulses: radial pulses present and posterior tibial pulses present GI Inspection: No distended, No Abdominal panniculus present and Yes striae Palpation (GI): Soft to palpation, Tenderness to palpation present (GI) in the LUQ, no guarding, not rigid and No hepatosplenomegaly present Percussion: Yes normal to percussion Auscultation: normal bowel sounds Rectal Exam - Female: deferred Skin General skin exam: no rashes or lesions noted, turgor normal, skin not dry, no jaundice, No spider nevi and no striae Rashes: no rashes Nails: normal Neuro General: oriented to person, oriented to place and oriented to time Cranial nerves: Yes Equal, round and reactive pupils present and Yes Normal hearing present Speech: No Abnormal speech present Extrem General: Yes normal to inspection, No clubbing, No cyanosis and No edema Psych Appearance: grossly normal and well kempt Mental Status: mental status grossly normal Speech and movement: Normal speech and movement present Affect: normal affect Attitude: cooperative Thought process: Normal thought process present and not confabulating Thought content: Normal thought content present Insight: Fair insight present (Psych) Judgement: Fair judgement present (Psych) Assessment & Plan Assessment & Plan (1) Chronic idiopathic constipation: Code(s): K59.04 - Chronic idiopathic constipation Plan: Filipino #Mitra Live She is taking the LInzess 290 qam adn 2 dulcolax qhs but she is only moving small amts of liquid but still feels bloated and has a lot of left sided cramping and pain. At times she feels like things are backing up all the way to my mouth. Her TSH was checked in March and was ok. I want to send her for an xr to evaluate the stool burden, and if there is a burden consider reglan. She is passing gas. She is a gastric bypass patient as well. She has some rectal pain likely r/t straining and spasm. She is taking a protein shake, and takes calcium which are both constipating. She continues on her pantoprazole 40mg qd. ROV 1 weeks. (2) GERD (gastroesophageal reflux disease): Code(s): K21.9 - Gastro-esophageal reflux disease without esophagitis Qualifiers: Esophagitis presence: esophagitis presence not specified Qualified Code(s): K21.9 - Gastro-esophageal reflux disease without esophagitis (3) Abdominal pain: Code(s): R10.9 - Unspecified abdominal pain Orders: Orders XR abdomen w decubitus Today K59.04 - Chronic idiopathic constipation, R10.9 - Unspecified abdominal pain Medications: Refilled Proctosol HC 2.5% (hydrocortisone) 1 appl [place] BID 28.35 grams 3RF hemorrhoids NS K64.9 - Unspecified hemorrhoids Quality Reporting (2019) Adult ([facility] 13812/03/68) Smoking risk assessment performed?: Yes Patient Tobacco Use Status: Never used Tobacco Coding Level of Care Code Est Pt Level 3 (35681) Diagnoses Chronic idiopathic constipation K59.04 GERD (gastroesophageal reflux disease) K21.9 Esophagitis presence: esophagitis presence not specified Abdominal pain R10.9
[2023-05-12 14:51] VITALS: BP 117/75; PULSE 79; BMI 25.9
== END 2023-05-12 15:25 | disposition home or self-care (01) ==
PROVIDERS: PCP Internal Medicine; Visit Provider Nurse Practitioner
DX: K59.04 Chronic idiopathic constipation (principal); K21.9 Gastro-esophageal reflux disease without esophagitis; R10.9 Unspecified abdominal pain
CPT/HCPCS: 99213

== ENCOUNTER 2023-05-12 14:42 | Outpatient (REF) | payer OTHER, SELFPAY ==
--- NOTE | ~2023-05-12 | XR_ITS ---
EXAMINATION: XR ABDOMEN WITH DECUBITUS VIEWS CLINICAL INDICATION: Chronic radiopacity constipation COMPARISON: None available. TECHNIQUE: 2 views of abdomen FINDINGS: The bowel gas pattern is normal with no evidence of ileus or obstruction. No unusual soft tissue calcifications are noted. The bones are unremarkable. There are surgical sutures in the left upper quadrant XR/XR abdomen w decubitus IMPRESSION: Unremarkable examination.
== END 2023-05-12 14:43 | disposition home or self-care (01) ==
LOC: HO.XRAY 14:42
PROVIDERS: PCP Internal Medicine; Visit Provider Nurse Practitioner
DX: K59.04 Chronic idiopathic constipation (principal); R10.9 Unspecified abdominal pain; K21.9 Gastro-esophageal reflux disease without esophagitis
CPT/HCPCS: 74021; 99212

== ENCOUNTER 2023-05-20 15:03 | Outpatient (AMB) | payer OTHER, SELFPAY ==
--- NOTE | 2023-05-20 15:10 | MHC.OFFVIS ---
Intake Vital Signs 05/20/23 15:12 Height 5 ft 3 in Weight 145 lb 8.081 oz BMI 25.8 BP 116/81 Blood Pressure Location Rt brachial Position Sitting Pulse 71 Intake Visit Reasons: 1 week f/u Intake Note: Jessie presents to in office visit today in follow up of constipation. CC: Patient presents to in office visit today to discuss Xray results. She continues to have constipation, bloating, and occasional diarrhea. She also reports occasional heartburn, GERD, nausea, and vomiting Electric Powerline Examiner Required: Yes Electric Powerline Examiner Language: Comoran Accompanied by: Spouse Allergies bupropion [Contrave] Allergy (Intermediate, Verified 05/20/23 15:16) nausea,vomit, headaches naltrexone [Contrave] Allergy (Intermediate, Verified 05/20/23 15:16) nausea,vomit, headaches oxycodone [Percocet] Allergy (Intermediate, Verified 05/20/23 15:16) hives duloxetine Adverse Reaction (Severe, Verified 05/20/23 15:16) Hallucinations HPI 1 week f/u HPI Details Assessment & Plan (1) Chronic idiopathic constipation: ?Code(s): K59.04 - Chronic idiopathic constipation ?Plan: [place]an #Mitra Live She is taking the LInzess 290 qam adn 2 dulcolax qhs but she is only moving small amts of liquid but still feels bloated and has a lot of left sided cramping and pain. At times she feels like things are backing up all the way to my mouth. Her TSH was checked in March and was ok. I want to send her for an xr to evaluate the stool burden, and if there is a burden consider reglan. She is passing gas. She is a gastric bypass patient as well. She has some rectal pain likely r/t straining and? spasm. She is taking a protein shake, and takes calcium which are both constipating. She continues on her pantoprazole 40mg qd. ROV 1 weeks. (2) GERD (gastroesophageal reflux disease): ?Code(s): K21.9 - Gastro-esophageal reflux disease without esophagitis ?Qualifiers: ?Esophagitis presence:?esophagitis presence not specified? Qualified Code(s):?K21.9 - Gastro-esophageal reflux disease without esophagitis (3) Abdominal pain: ?Code(s): R10.9 - Unspecified abdominal pain ? ? ? Orders: Orders XR abdomen w decub itus Today K59.04 - Chronic i diopathic constipa tion, R10.9 - Unsp ecified abdominal pain ? Medications: Refilled Proctosol HC 2.5% (hydrocortisone) 1 appl? [place] BID 28. 35 grams 3RF hemor rhoids NS K64.9 - Unspecifie d hemorrhoids X-RAY OF THE ABDOMEN 05/19/23 FINDINGS: The bowel gas pattern is normal with no evidence of ileus or obstruction. No unusual soft tissue calcifications are noted. The bones are unremarkable. There are surgical sutures in the left upper quadrant XR/XR abdomen w decubitus IMPRESSION: Unremarkable examination.? ? TODAY'S VISIT Comoran #William Gamal SHE TELLS ME THAT her symptoms of the same. She continues to have bloating that starts in the upper abdomen but then will spread to the rest of the abdomen. She continues to take Linzess at the maximum dose along with bisacodyl and does not move her bowels consistently. She is not having just liquid stools anymore in fact she has had several very large bowel movements that have been formed. She continues to have the feeling that everything just fax up all the way to her throat causing worsening reflux. At this point I think we will continue her regimen but add metoclopramide 5 mg 3 times a day. She was instructed how to use this and about any potential side effects that would necessitate discontinuance. We reviewed the x-ray that does not seem to show any grave stool burden however we really need to titrate to the patient response and not just to the radiology finding. She continues on her pantoprazole once a day and she also has Proctosol cream for hemorrhoidal bleeding. Return office visit in 2 weeks. PFSH Medical History Bleeding hemorrhoids Bloody stools Dyslipidemia Epigastric pain Essential hypertension Finger pain GERD (gastroesophageal reflux disease) H. pylori infection H/O reactive hypoglycemia History of COVID-19 Left foot pain Mild recurrent major depression Morbid obesity with BMI of 40.0-44.9, adult Obesity (BMI 30-39.9) Polyarthralgia Prediabetes Rectal bleeding Right foot pain Right lateral epicondylitis Vitamin D deficiency Surgical History Deficient knowledge of leg surgery History of incision and drainage History of lithotripsy History of total abdominal hysterectomy History of tubal ligation Hx of bilateral breast reduction surgery Hx of section Hx of colonoscopy S/P laparoscopic sleeve gastrectomy Family History Daughter Cancer Father Cancer, Onset Age: 54 Diabetes mellitus Mother Cancer, Onset Age: 64 Diabetes mellitus Paternal Aunt Cancer Maternal Grandmother Diabetes mellitus Hypertension CVD (cardiovascular disease) Maternal Grandfather Diabetes mellitus Hypertension CVD (cardiovascular disease) Paternal Grandmother Diabetes mellitus Hypertension Paternal Grandfather No problems noted. Social History Housing: House Are you a primary career development facilitator to a significant other at home: No Do you presently have visiting nurse or other home services: No Alcohol intake: never Patient Tobacco Use Status: Never used Tobacco e-Cigarette/Vaping Use: Never Used Second Hand Smoke Exposure: No Advance Directives Date on File: 07/18/20 service: No Current occupational status: employed Current occupation: [employer] Current occupational exposures/hazards: No Cognitive needs: No Hearing needs: No Vision needs: No Review of Systems Const Denies fatigue, Denies fever(s), Denies night sweats, Denies poor appetite and Denies weight loss ENT Reports Normal hearing present, Denies dental pain, Denies dysphagia, Denies hearing loss, Denies mouth pain, Denies odynophagia, Denies throat swelling, Denies tongue swelling and Reports other (Dentition adequate) Card Reports no additional complaints Resp Reports no additional complaints GI Reports abdominal pain, Denies melena, Reports bloating, Denies hematochezia, Reports constipation, Denies GI cramping, Denies dysphagia, Denies excessive flatus, Denies early satiety, Reports heartburn, Denies diarrhea, Denies nausea, Denies odynophagia, Denies vomiting and Denies hematemesis Skin/Breast Denies pruritus, Denies lesions, Denies rash and Denies jaundice Neuro Reports Normal hearing present and Denies Abnormal speech present Endo Denies fatigue Aller/Immun Denies throat swelling and Denies tongue swelling Physical Exam Const General: cooperative, no acute distress, well developed and well groomed Nutritional Appearance: average body habitus and well nourished Orientation/consciousness: oriented to person, oriented to place and oriented to time Limitations: language barrier HEENT Head: Yes normocephalic and Yes atraumatic Eyes General: appearance normal, both eyes and all related structures Pupils: Equal, round and reactive pupils present Neck Neck: Yes normal visual inspection and Yes no lymphadenopathy Thyroid: Thyroid normal Resp Effort & Inspection: normal respiratory effort and able to speak in complete sentences Auscultation: clear to auscultation bilaterally Cardio Rate: regular rate Rhythm: regular rhythm Heart sounds: Normal, physiologic split S2 sound present Peripheral pulses: radial pulses present and posterior tibial pulses present GI Inspection: No distended and No Abdominal panniculus present Palpation (GI): Soft to palpation, nontender, no guarding, not rigid and No hepatosplenomegaly present Percussion: Yes normal to percussion Auscultation: normal bowel sounds Rectal Exam - Female: deferred Skin General skin exam: no rashes or lesions noted, turgor normal, skin not dry, no jaundice, No spider nevi and no striae Rashes: no rashes Nails: normal Neuro General: oriented to person, oriented to place and oriented to time Cranial nerves: Yes Equal, round and reactive pupils present and Yes Normal hearing present Speech: No Abnormal speech present Extrem General: Yes normal to inspection, No clubbing, No cyanosis and No edema Psych Appearance: grossly normal and well kempt Mental Status: mental status grossly normal Speech and movement: Normal speech and movement present Affect: normal affect Attitude: cooperative Thought process: Normal thought process present and not confabulating Thought content: Normal thought content present Insight: Fair insight present (Psych) Judgement: Fair judgement present (Psych) Assessment & Plan Assessment & Plan (1) Chronic idiopathic constipation: Code(s): K59.04 - Chronic idiopathic constipation Plan: [place]an #William LIve SHE TELLS ME THAT her symptoms of the same. She continues to have bloating that starts in the upper abdomen but then will spread to the rest of the abdomen. She continues to take Linzess at the maximum dose along with bisacodyl and does not move her bowels consistently. She is not having just liquid stools anymore in fact she has had several very large bowel movements that have been formed. She continues to have the feeling that everything just fax up all the way to her throat causing worsening reflux. At this point I think we will continue her regimen but add metoclopramide 5 mg 3 times a day. She was instructed how to use this and about any potential side effects that would necessitate discontinuance. We reviewed the x-ray that does not seem to show any grave stool burden however we really need to titrate to the patient response and not just to the radiology finding. She continues on her pantoprazole once a day and she also has Proctosol cream for hemorrhoidal bleeding. Return office visit in 2 weeks. (2) GERD (gastroesophageal reflux disease): Code(s): K21.9 - Gastro-esophageal reflux disease without esophagitis Qualifiers: Esophagitis presence: esophagitis presence not specified Qualified Code(s): K21.9 - Gastro-esophageal reflux disease without esophagitis (3) Hemorrhoids: Code(s): K64.9 - Unspecified hemorrhoids Medications: New metoclopramide HCl (Reglan) 5 mg PO .tidac 90 tabs 3RF K21.9 - Gastro-esophageal reflux disease without esophagitis Quality Reporting (2019) Adult ([facility] 138/12/03/68) Smoking risk assessment performed?: Yes Patient Tobacco Use Status: Never used Tobacco Coding Level of Care Code Est Pt Level 3 (26407) Diagnoses Chronic idiopathic constipation K59.04 GERD (gastroesophageal reflux disease) K21.9 Esophagitis presence: esophagitis presence not specified Hemorrhoids K64.9
[2023-05-20 15:12] VITALS: BP 116/81; PULSE 71; BMI 25.8
== END 2023-05-20 15:38 | disposition home or self-care (01) ==
PROVIDERS: PCP Internal Medicine; Visit Provider Nurse Practitioner
DX: K59.04 Chronic idiopathic constipation (principal); K21.9 Gastro-esophageal reflux disease without esophagitis; K64.9 Unspecified hemorrhoids
CPT/HCPCS: 99213

== ENCOUNTER → 2023-05-20 15:03 | Outpatient (BNVA) | payer OTHER, SELFPAY | PROVIDERS: PCP Internal Medicine; Visit Provider Nurse Practitioner | DX: K59.04 Chronic idiopathic constipation (principal); K21.9 Gastro-esophageal reflux disease without esophagitis; K64.9 Unspecified hemorrhoids | CPT/HCPCS: 99212 ==

== ENCOUNTER 2023-06-03 06:49 | Outpatient (REF) | payer OTHER, SELFPAY ==
[2023-06-03 07:04] LABS: MANUAL DIFF FLAG NO
[2023-06-03 08:23] LABS: Basophils Percent Auto 0.7 % (0-2); Eosinophils Absolute Auto 0.1 X10*3/uL (0.0-0.4); Eosinophils Percent Auto 1.5 % (0-4); Estimated Average Glucose 103 mg/dL; Hematocrit 36.9 % (37.0-47.0); Hemoglobin 12.3 g/dl (12.0-16.0); Hemoglobin A1c % 5.2 % (<6.0); Imm Gran Abs Auto 0.01 X10*3/uL (0.00-0.03); Imm Gran Pct Auto 0.2 % (0.0-0.4); Lymphocytes Percent Auto 33.3 % (20-40); Mean Corpuscular HGB Conc 33.3 g/dl (31.0-35.0); Mean Corpuscular Hemoglobin 28.8 pg (27.0-33.0); Mean Corpuscular Volume 86.4 fL (80.0-98.0); Monocytes Absolute Auto 0.4 X10*3/uL (0.1-1.2); Monocytes Percent Auto 6.1 % (2-11); Neutrophils Absolute Auto 3.5 x10*3/uL (2.0-8.3); Neutrophils Percent Auto 58.2 % (45-73); Platelet Count 238 X10*3/uL (160-400); Red Blood Count 4.27 X10*6/uL (4.20-5.50); Red Cell Distribution Width 12.4 % (11.0-16.0)
[2023-06-03 09:06] LABS: Alanine Aminotransferase 6 U/L (0-31); Albumin Level 3.9 g/dL (3.5-5.0); Alkaline Phosphatase 49 U/L (39-117); Anion Gap 9 (12-20); Aspartate Amino Transferase 11 U/L (5-31); Bilirubin Total 0.3 mg/dL (0.0-1.0); Blood Urea Nitrogen 12 mg/dL (9-16); C Reactive Protein < 0.04 mg/dL (< or = 0.50); Calcium 9.3 mg/dL (8.4-10.2); Carbon Dioxide 30 mmol/L (22-29); Chloride 106 mmol/L (96-108); Cholesterol 173 mg/dL (<200); Estimated Glomerular Filt Rate > 60; Glucose Random 89 mg/dL (60-115); HDL Cholesterol 52 mg/dL (>40); Iron 112 mcg/dL (30-160); LDL Cholesterol Calculated 102 mg/dL (<100); Percent Iron Saturation 48 % (15-50); Potassium 3.7 mmol/L (3.3-5.1); Sodium 141 mmol/L (135-145); Total Iron Binding Capacity 231 mcg/dL (228-428); Total Protein 6.6 g/dL (6.5-8.0); Triglycerides 96 mg/dL (<150); Unsaturated Iron Binding 119 ug/dL
[2023-06-03 09:22] LABS: Ferritin 160 ng/mL (10-250); Insulin 8 uU/mL (2-29); TSH reflex Free T4 1.53 uIU/mL (0.32-4.0); Vitamin D 25-OH Total 53.2 ng/mL (>30)
[2023-06-03 09:32] LABS: Folate 16.4 ng/mL (> or = 4.0); Vitamin B12 578 pg/mL (200-900)
[2023-06-04 10:48] LABS: Calcium (PTHI) 8.8 mg/dL (8.6-10.2); PTHI 37 pg/mL (16-77)
[2023-06-07 01:59] LABS: Zinc 74 mcg/dL (60-130)
[2023-06-08 11:58] LABS: Vitamin B1 18 nmol/L (8-30)
[2023-06-09 14:23] LABS: Vitamin A 47 mcg/dL (38-98)
== END 2023-06-03 06:50 | disposition home or self-care (01) ==
LOC: HO.LAB 06:49
PROVIDERS: PCP Internal Medicine; Visit Provider Physician Assistant
DX: D64.9 Anemia, unspecified (principal); E55.9 Vitamin D deficiency, unspecified; E78.5 Hyperlipidemia, unspecified; R73.03 Prediabetes; Z98.84 Bariatric surgery status
CPT/HCPCS: 36415; 80053; 80061; 82306; 82607; 82728; 82746; 83036; 83525; 83540; 83970; 84425; 84443; 84590; 84630; 85025; 86140

== ENCOUNTER 2023-06-23 09:53 | Outpatient (AMB) | payer OTHER, SELFPAY ==
--- NOTE | 2023-06-23 10:01 | AM.OFFVISNUR ---
Intake Intake Visit Reasons: PPD Plant Allergies bupropion [Contrave] Allergy (Intermediate, Verified 05/20/23 15:16) nausea,vomit, headaches naltrexone [Contrave] Allergy (Intermediate, Verified 05/20/23 15:16) nausea,vomit, headaches oxycodone [Percocet] Allergy (Intermediate, Verified 05/20/23 15:16) hives duloxetine Adverse Reaction (Severe, Verified 05/20/23 15:16) Hallucinations Office Meds tuberculin PPD 5 tub. unit/0.1 mL intradermal injection solution Performing Provider: Luli Jones MD [facility] Administered by: Effie Grimes RN on 06/23/23 10:01 Dose Route Admin Location Dispensed Lot Number Expiration Date ND Manager English 0.1 mL intradermal 0.1 mL [id number] 08/10/26 56217-781-22 [employer] Coding Assessment & Plan Assessment & Plan Orders: Orders AMB PPD Planted Today Z11.1 - Encounter for screening for respiratory tuberculosis
== END 2023-06-23 10:03 | disposition home or self-care (01) ==
PROVIDERS: PCP Internal Medicine; Visit Provider Internal Medicine
DX: Z11.1 Encounter for screening for respiratory tuberculosis (principal)
CPT/HCPCS: 86580

== ENCOUNTER 2023-08-31 10:12 | Outpatient (AMB) | payer OTHER, SELFPAY ==
[2023-08-31 10:20] VITALS: BP 145/76; PULSE 72; BMI 26.4
--- NOTE | 2023-08-31 10:20 | MHC.OFFVIS ---
Intake Vital Signs 08/31/23 10:20 Height 5 ft 3 in Weight 149 lb BMI 26.4 BP 145/76 H Blood Pressure Location Rt brachial Position Sitting Pulse 72 Intake Visit Reasons: 6 month follow up, breast exam Intake Note: Patient here for 6m breast exam. Last mammo 02-17-23. Reports mass on Rt lat breast feels like is enlarging. Sheet Heater Required: No Accompanied by: Self / Same As Patient Allergies bupropion [Contrave] Allergy (Intermediate, Verified 08/31/23 10:21) nausea,vomit, headaches naltrexone [Contrave] Allergy (Intermediate, Verified 08/31/23 10:21) nausea,vomit, headaches oxycodone [Percocet] Allergy (Intermediate, Verified 08/31/23 10:21) hives duloxetine Adverse Reaction (Severe, Verified 08/31/23 10:21) Hallucinations HPI HPI Comments History of Present Illness Details Patient whom I have seen the past who presents here with upper outer quadrant right breast mass which cord the patient has been biopsied in the past which was benign but it is increasing in size, becoming more symptomatic. She wishes to have it excised. Chart was reviewed patient evaluated. Patient had bilateral reduction mammaplasty 2000 knee. [facility] Medical History History of COVID-19 Bleeding hemorrhoids H. pylori infection Obesity (BMI 30-39.9) Rectal bleeding Mild recurrent major depression Morbid obesity with BMI of 40.0-44.9, adult Right lateral epicondylitis Epigastric pain Polyarthralgia Bloody stools Right foot pain Left foot pain Finger pain GERD (gastroesophageal reflux disease) Essential hypertension H/O reactive hypoglycemia Vitamin D deficiency Prediabetes Dyslipidemia Surgical History S/P laparoscopic sleeve gastrectomy Hx of colonoscopy Deficient knowledge of leg surgery History of incision and drainage History of lithotripsy History of total abdominal hysterectomy History of tubal ligation Hx of section Hx of bilateral breast reduction surgery Family History Daughter Cancer Father Cancer, Onset Age: 54 Diabetes mellitus Mother Cancer, Onset Age: 64 Diabetes mellitus Paternal Aunt Cancer Maternal Grandmother Diabetes mellitus Hypertension CVD (cardiovascular disease) Maternal Grandfather Diabetes mellitus Hypertension CVD (cardiovascular disease) Paternal Grandmother Diabetes mellitus Hypertension Paternal Grandfather No problems noted. 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 Bilateral reduction mammoplasty scars. Left breast exam negative; No mass, discharge, adenopathy or skin changes. Right breast noteworthy for approximately 4 x 3 cm upper outer quadrant mass. Past recent Biopsy was consistent with fibrocystic disease. Assessment & Plan Assessment & Plan (1) Breast mass, right: Code(s): N63.10 - Unspecified lump in the right breast, unspecified quadrant Plan Risks, benefits, alternatives of excision is right upper outer quadrant present fibrocystic breast mass reviewed the patient and included but not limited to bleeding, infection, recurrence, numbness, pain, scarring, seroma formation and the patient was to proceed. All questions were answered. Arrangements will be made for this. Quality Reporting (2019) Adult ([facility] 138/12/03/68) Smoking risk assessment performed?: Yes Patient Tobacco Use Status: Never used Tobacco Coding Level of Care Code Est Pt Level 5 (56052) Diagnoses Breast mass, right N63.10
== END 2023-08-31 10:34 | disposition home or self-care (01) ==
PROVIDERS: PCP Internal Medicine; Visit Provider Surgery
DX: N63.10 Unspecified lump in the right breast, unspecified quadrant (principal)
CPT/HCPCS: 99214

== ENCOUNTER → 2023-08-31 10:12 | Outpatient (BNVA) | payer OTHER, SELFPAY | PROVIDERS: Visit Provider Surgery | DX: N63.11 Unspecified lump in the right breast, upper outer quadrant (principal); Z42.8 Encounter for other plastic and reconstructive surgery following medical procedure or healed injury | CPT/HCPCS: 99212 ==

== ENCOUNTER 2023-11-05 08:38 | Day surgery (SDC) | payer OTHER, SELFPAY ==
[2023-11-03 08:19] VITALS: BMI 26.4
--- NOTE | 2023-11-04 09:05 | HO.ANESPROP2 ---
Documented by User: Lian Tomas NP 11/04/23 09:12 HPI - Anesthesia Eval Consult details Narrative: 43yo F for Right Wide Local Excision Upper Outer Quadrant Breast Mass s/p sleeve 2021 with GA-ETT 7 PMFSH Active Problems Active Problems: All Active Problems (Updated 08/31/23 @ 10:36 by Andres Brunson MD) Breast mass, right (Acute) Microcalcification of right breast on mammogram (Acute) Stress due to family tension (Acute) Major depression, recurrent (Acute) Stress and adjustment reaction (Acute) Migraines (Acute) S/P laparoscopic sleeve gastrectomy (Acute) Abdominal pain (Acute) Anemia (Acute) Chronic idiopathic constipation (Acute) Fibromyalgia (Acute) Elevated C-reactive protein (CRP) (Acute) Hemorrhoids (Acute) Family history of cancer (Acute) Mild recurrent major depression (Acute) Polyarthralgia (Acute) GERD (gastroesophageal reflux disease) (Acute) H/O reactive hypoglycemia (Acute) Vitamin D deficiency (Acute) Prediabetes (Acute) Dyslipidemia (Acute) Past Medical History Medical History History of COVID-19 Bleeding hemorrhoids H. pylori infection Obesity (BMI 30-39.9) Rectal bleeding Mild recurrent major depression Morbid obesity with BMI of 40.0-44.9, adult Right lateral epicondylitis Epigastric pain Polyarthralgia Bloody stools Right foot pain Left foot pain Finger pain GERD (gastroesophageal reflux disease) Essential hypertension H/O reactive hypoglycemia Vitamin D deficiency Prediabetes Dyslipidemia Family History Family History Daughter Cancer Father Cancer, Onset Age: 54 Diabetes mellitus Mother Cancer, Onset Age: 64 Diabetes mellitus Paternal Aunt Cancer Maternal Grandmother Diabetes mellitus Hypertension CVD (cardiovascular disease) Maternal Grandfather Diabetes mellitus Hypertension CVD (cardiovascular disease) Paternal Grandmother Diabetes mellitus Hypertension Paternal Grandfather No problems noted. Family history of problems with anesthesia: No Surgical History Surgical History S/P laparoscopic sleeve gastrectomy Hx of colonoscopy Deficient knowledge of leg surgery History of incision and drainage History of lithotripsy History of total abdominal hysterectomy History of tubal ligation Hx of section Hx of bilateral breast reduction surgery History of Problems with Anesthesia: No Social History Social History Housing: House Are you a primary healthcare corporate account director to a significant other at home: No Do you presently have visiting nurse or other home services: No Alcohol intake: never Patient Tobacco Use Status: Never used Tobacco e-Cigarette/Vaping Use: Never Used Second Hand Smoke Exposure: No Are you DNR?: No Advance Directives: No Advance Directives Information Provided: Yes Advance Directives Date on File: 07/18/20 Nutrition Risks: No Nutritional Risk service: No Current occupational status: employed 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 Current occupational exposures/hazards: No Cognitive needs: No Hearing needs: No Vision needs: No Meds Allergies Allergy/AdvReac Type Severity Reaction Status Date / Time bupropion [Contrave] Allergy Intermediate nausea,vomit, Verified 11/05/23 08:49 headaches naltrexone [Contrave] Allergy Intermediate nausea,vomit, Verified 11/05/23 08:49 headaches oxycodone [Percocet] Allergy Intermediate hives Verified 11/05/23 08:49 duloxetine AdvReac Severe Hallucinati Verified 11/05/23 08:49 ons Exam Height,Weight and Vital Signs: Height 5 ft 3 in Weight 67.585 kg Pertinent Lab Results Pertinent Lab Results: Laboratory Tests 06/03/23 07:02 WBC 6.0 Hgb 12.3 Hct 36.9 L Plt Count 238 Sodium 141 Potassium 3.7 Chloride 106 Carbon Dioxide 30 H BUN 12 Creatinine 0.63 Assessment and Plan Assessment Anesthesia Assessment: Chart Reviewed Final Anesthetic Review Family History of Problems with Anesthesia: No History of Problems with Anesthesia: No Documented by User: Celine French MD 11/05/23 09:41 PMFSH Past Medical History Medical History History of COVID-19 Bleeding hemorrhoids H. pylori infection Obesity (BMI 30-39.9) Rectal bleeding Mild recurrent major depression Morbid obesity with BMI of 40.0-44.9, adult Right lateral epicondylitis Epigastric pain Polyarthralgia Bloody stools Right foot pain Left foot pain Finger pain GERD (gastroesophageal reflux disease) Essential hypertension H/O reactive hypoglycemia Vitamin D deficiency Prediabetes Dyslipidemia Family History Family History Daughter Cancer Father Cancer, Onset Age: 54 Diabetes mellitus Mother Cancer, Onset Age: 64 Diabetes mellitus Paternal Aunt Cancer Maternal Grandmother Diabetes mellitus Hypertension CVD (cardiovascular disease) Maternal Grandfather Diabetes mellitus Hypertension CVD (cardiovascular disease) Paternal Grandmother Diabetes mellitus Hypertension Paternal Grandfather No problems noted. Surgical History Surgical History S/P laparoscopic sleeve gastrectomy Hx of colonoscopy Deficient knowledge of leg surgery History of incision and drainage History of lithotripsy History of total abdominal hysterectomy History of tubal ligation Hx of section Hx of bilateral breast reduction surgery Social History Social History Housing: House Are you a primary healthcare corporate account director to a significant other at home: No Do you presently have visiting nurse or other home services: No Alcohol intake: never Patient Tobacco Use Status: Never used Tobacco e-Cigarette/Vaping Use: Never Used Second Hand Smoke Exposure: No Are you DNR?: No Advance Directives: No Advance Directives Information Provided: Yes Advance Directives Date on File: 07/18/20 Nutrition Risks: No Nutritional Risk service: No Current occupational status: employed 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 Current occupational exposures/hazards: No Cognitive needs: No Hearing needs: No Vision needs: No Meds Allergies Allergy/AdvReac Type Severity Reaction Status Date / Time bupropion [Contrave] Allergy Intermediate nausea,vomit, Verified 11/05/23 08:49 headaches naltrexone [Contrave] Allergy Intermediate nausea,vomit, Verified 11/05/23 08:49 headaches oxycodone [Percocet] Allergy Intermediate hives Verified 11/05/23 08:49 duloxetine AdvReac Severe Hallucinati Verified 11/05/23 08:49 ons Exam Airway Mallampati Class: II TM Dist: >3cm Neck ROM: Full Heart: rrr Lungs: cta Assessment and Plan Assessment Anesthesia Assessment: Anesthesia Plan Discussed Final Anesthetic Review NPO: Yes ASA Class: III Final Preanesthetic Review: No Changes in Pt Med Stat, Meds/Allgs Chart Reviewed and Consent Obtained/Reviewed Patient Risk: Intermediate Procedure Risk: Low Anesthetic Plan Anesthetic Plan: GA and Spinal Disposition: Standard PACU
--- NOTE | 2023-11-04 13:36 | MHC.SHP ---
Pre-Procedural Eval Section A Date of Service: 11/04/23 The patient is an INPATIENT: No Changes since office visit: No Cold of Flu in the past 2 weeks, No New Medical Problems, No Changes in Medication and No Patient answered all questions The History & Physical has been completed within 30 days and I have reviewed it.: Yes Section B Chief Complaint: Unspecified lump in the right breast, unspecified Allergies: Allergies Allergy/AdvReac Type Severity Reaction Status Date / Time bupropion [Contrave] Allergy Intermediate nausea,vomit, Verified 08/31/23 10:21 headaches naltrexone [Contrave] Allergy Intermediate nausea,vomit, Verified 08/31/23 10:21 headaches oxycodone [Percocet] Allergy Intermediate hives Verified 08/31/23 10:21 duloxetine AdvReac Severe Hallucinati Verified 08/31/23 10:21 ons Plan I have reviewed the history and physical and performed a pertinent physical examination on my patient. No changes have occurred unless specified. Time Spent With Patient Time: Total time managing care of this patient today ____ minutes.
[2023-11-05] VITALS (9 sets, daily range): BP systolic 105–128; BP diastolic 66–75; PULSE 63–87; RESP 16–18; TEMP 36.8–37.1; O2SAT 97–100; BMI 27.6
[2023-11-05] MEDS: Lactated Ringers 1,000 ML 100 ML IVCONT (09:12)
--- NOTE | 2023-11-05 13:16 | W.PM.OPN ---
Operative Note Operative Note Date of Service: 11/05/23 Narrative: Preoperative diagnosis: [] Upper outer quadrant enlarging fibrocystic disease/mass right breast Postop diagnosis: [] Same Procedure [] wide local excision upper outer quadrant fibrocystic disease right breast Surgeon: [] Boy Label Press Operator: [] Elizabeth Type of Anesthesia: [] General Indication for surgery: [] Patient is status post bilateral reduction mammoplasty. She has had an enlarging upper outer quadrant right breast mass which on prior biopsy was consistent with fibrocystic disease. This was initially observed. Because his increasing in size, becoming more symptomatic, patient would like to have this excised. Findings: [] Patient brought to the operating room, placed on operative table in supine position, after adequate level of general anesthesia was induced, the right breast was prepped and draped in usual sterile fashion. Using a curvilinear incision in the upper outer quadrant over the mass in question, this carried down through skin, subcutaneous tissue, were superior and inferior skin flaps were developed and circumferentially dissection of a large fibrocystic mass was accomplished using Bovie. Specimen sent to pathology. Wound was irrigated, secured hemostasis, and closed using interrupted inverted dermal 3-0 Vicryl sutures followed by Steri-Strips and sterile dressings. Wound was infiltrated 0.5% Marcaine/1% lidocaine at completion. Sponge, needle, and instrument counts were reported correct. Patient tolerated the procedure well and emerged from anesthesia stable condition. EBL minimal
[2023-11-05] MEDS: Acetaminophen 325 MG TABLET 650 MG PO (14:08)
== END 2023-11-05 15:52 | disposition home or self-care (01) ==
PROVIDERS: PCP Internal Medicine; Visit Provider Surgery
PROC: (CPT 19120; principal; 2023-11-05 10:40)
DX: N60.11 Diffuse cystic mastopathy of right breast (principal); N62 Hypertrophy of breast; R92.0 Mammographic microcalcification found on diagnostic imaging of breast; I10 Essential (primary) hypertension; E78.5 Hyperlipidemia, unspecified; E55.9 Vitamin D deficiency, unspecified; R73.03 Prediabetes; F33.0 Major depressive disorder, recurrent, mild; Z79.899 Other long term (current) drug therapy; Z88.5 Allergy status to narcotic agent; Z88.8 Allergy status to other drugs, medicaments and biological substances; Z98.84 Bariatric surgery status; Z98.890 Other specified postprocedural states; Z86.16 Personal history of COVID-19; Z87.442 Personal history of urinary calculi
CPT/HCPCS: 19120; 88307; J0690; J1100; J2405; J2704; J2795; J3010

== ENCOUNTER → 2023-11-05 08:38 | Outpatient (BNV) | payer OTHER, SELFPAY | PROVIDERS: PCP Internal Medicine; Visit Provider Surgery | DX: N63.11 Unspecified lump in the right breast, upper outer quadrant (principal) | CPT/HCPCS: 19120 ==

== ENCOUNTER 2023-11-11 14:24 | Outpatient (AMB) | payer OTHER, SELFPAY ==
--- NOTE | 2023-11-11 14:33 | MHC.PC.OV ---
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 Accompanied by: Spouse Allergies bupropion [Contrave] Allergy (Intermediate, Verified 11/11/23 15:01) nausea,vomit, headaches naltrexone [Contrave] Allergy (Intermediate, Verified 11/11/23 15:01) nausea,vomit, headaches oxycodone [Percocet] Allergy (Intermediate, Verified 11/11/23 15:01) hives duloxetine Adverse Reaction (Severe, Verified 11/11/23 15:01) Hallucinations Medication List - Last Reconciled 11/11/23 by Luli Jones MD bisacodyl (Dulcolax (bisacodyl)) 10 mg (2 x 5 mg) PO BEDTIME 30 days uagvbgqbvh-uryaojyjvgfck-ajqz 50-325-40 mg 1 tab PO Q6H PRN calcium citrate-vitamin D3 315 mg-5 mcg (200 unit) (Calcium Citrate + D) 1 tab PO BID inulin (Fiber Gummies) 2 grams PO BID linaclotide 290 mcg PO QAM loratadine (Allergy Relief (loratadine)) 10 mg PO DAILY 90 days metoclopramide HCl (Reglan) 5 mg PO .tidac pantoprazole (Protonix) 40 mg PO DAILY 30 days Proctosol HC 2.5% (hydrocortisone) 1 appl [place] BID NS Tobacco use date assessed: 11/11/23 Dental Screening Dental Screen Date: 11/11/23 Did you have a dental visit in the last 12 months?: Yes Did you have a dental problem in the last 6 months where you did not have access to dental care?: No Was dental information given to patient?: Patient has dentist HPI HPI Comments History of Present Illness Details This is a 43-year-old female with mild recurrent major depression in remission, GERD, and chronic idiopathic constipation that comes accompanied by complaining of loss of consciousness that happened 4 days ago to go to the shower while was present. He said that her eyes were open but she did not react. He said that he had jerky movements in upper limbs. No bowel or bladder incontinence. Had dizziness before this episode. Does not recall any chest pain or palpitations. Was oriented after. Depression is in remission. GERD stable with PPIs. Constipation well control with Linzess. [facility] Medical History (Updated 11/11/23 @ 15:20 by Luli Jones MD) Major depression, recurrent History of COVID-19 Bleeding hemorrhoids H. pylori infection Obesity (BMI 30-39.9) Rectal bleeding Mild recurrent major depression Morbid obesity with BMI of 40.0-44.9, adult Right lateral epicondylitis Epigastric pain Polyarthralgia Bloody stools Right foot pain Left foot pain Finger pain GERD (gastroesophageal reflux disease) Essential hypertension H/O reactive hypoglycemia Vitamin D deficiency Prediabetes Dyslipidemia Surgical History S/P laparoscopic sleeve gastrectomy Hx of colonoscopy Deficient knowledge of leg surgery History of incision and drainage History of lithotripsy History of total abdominal hysterectomy History of tubal ligation Hx of section Hx of bilateral breast reduction surgery Family History Daughter Cancer Father Cancer, Onset Age: 54 Diabetes mellitus Mother Cancer, Onset Age: 64 Diabetes mellitus Paternal Aunt Cancer Maternal Grandmother Diabetes mellitus Hypertension CVD (cardiovascular disease) Maternal Grandfather Diabetes mellitus Hypertension CVD (cardiovascular disease) Paternal Grandmother Diabetes mellitus Hypertension Paternal Grandfather No problems noted. 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 1. Little interest or pleasure in doing things: several days 2. Feeling down, depressed, or hopeless: several days 3. Trouble falling or staying asleep, or sleeping too much: several days 4. Feeling tired or having little energy: several days 5. Poor appetite or overeating: several days 6. Feeling bad about yourself - or that you are a failure or have let yourself or your family down: more than half the days 7. Trouble concentrating on things, such as reading the newspaper or watching television: several days 8. Moving or speaking so slowly that other people could have noticed. Or the opposite - being so fidgety or restless that you have been moving around a lot more than usual: several days 9. Thoughts that you would be better off or of hurting yourself in some way: not at all Total score: 9 Depression Screening Interpretation: Positive Depression Screening Follow-up: Existing condition Depression Screening Done: Yes 64135 - PHQ-9 Billing: Yes Source: Developed by Drs. Lev Dempsey, Dolores Solis, Jacob Spear and colleagues, with an educational tonya from [employer]. Thrive Questionnaire Date Thrive assessed: 11/11/23 I am a: Patient What is your living situation today?: I have a steady place to live Within the past 12 months, did the food you bought not last and you didn't have the money to get more?: Never true Within the past 12 months, did you worry whether your food would run out before you got money to buy more?: Never true Do you have trouble paying for medicines?: No Do you have trouble getting transportation to medical appointments?: No Do you have trouble paying your heating and electricity bill?: No Do you have trouble taking care of your child, family member or friend?: No Do you have trouble with day-to-day activities such as bathing, preparing meals, shopping, managing finances, etc.?: No Are you currently unemployed and looking for a job?: No Are you interested in more education?: No Please select the resources that you would like help with: None Currently or been in a relationship where the following occur: no concerns reported THRIVE Score: 0 AUDIT C Alcohol Use Questionnaire (AUDIT-C) 1. How often do you have a drink containing alcohol?: Never Total Score: 0 EFRAIN-7 AMB Questionnaire EFRAIN-7 Date EFRAIN - 7 assessed: 11/11/23 Feeling nervous, anxious, or on edge: 3 = Nearly every day Not being able to stop or control worryin = Several days Worrying too much about different things: 3 = Nearly every day Trouble relaxin = Several days Being so restless that it is hard to sit still: 0 = Not at all Becoming easily annoyed or irritable: 3 = Nearly every day Feeling afraid as if something awful might happen: 1 = Several days Total EFRAIN-7 score (0-4 normal; 5-9 mild; 10-14 moderate; 15-21 severe): 12 Source: Developed by Drs. Lev Dempsey, Dolores Solis, Jacob Spear and colleagues, with an educational tonya from [employer]. EFRAIN-7 Assessment Billing EFRAIN-7 Assessment Tool: EFRAIN-7 Assessment 37887 Review of Systems Const All systems reviewed & are unremarkable except as noted in HPI and below Eyes Reports no additional complaints, Denies change in vision and Denies other visual disturbances ENT Reports dizziness Card Denies chest pain at rest, Denies chest pain with activity, Denies edema, Denies irregular heart rhythm, Denies claudication, Denies dyspnea, Denies dyspnea on exertion, Denies orthopnea, Denies paroxysmal nocturnal dyspnea and Denies slow heart rate Resp Denies cough, Denies dyspnea and Denies dyspnea on exertion GI Denies abdominal pain, Denies change in bowel habits, Denies excessive flatus, Denies nausea and Denies vomiting Denies urinary incontinence, Denies urinary hesitancy and Denies urinary urgency Musc Denies abnormal gait, Denies atrophy, Denies deformity and Denies limited range of motion Skin/Breast Denies bleeding lesions, Denies changing lesions and Denies rash Neuro Denies abnormal gait, Denies behavioral changes, Denies confusion, Reports dizziness, Denies lack of coordination and Reports seizure-like activity Psych Denies behavioral changes and Denies confusion Physical exam (Primary Care) Vital Signs: Last Vital Signs BP 110/78 11/11/23 14:34 BMI result Body Mass Index 26.4 Tobacco/Smoking Status: Tobacco use Status Tobacco use date assessed 11/11/23 11/11/23 14:37 Patient Tobacco Use Status Never used Tobacco 11/11/23 14:37 e-Cigarette/Vaping Use Never Used 11/11/23 14:37 PHQ-9: PHQ-9 Score PHQ-9: Total score 9 11/11/23 14:57 Depression Screening Interpretation: Positive Depression Screening Follow-up: Existing condition Thrive Assessment: Date of Thrive Assessment Date Thrive assessed 11/11/23 11/11/23 14:56 Currently or been in a relationship where the following occur: no concerns reported Const General: No confusion Orientation/consciousness: patient oriented x3 and No confusion Eyes General: appearance normal, both eyes and all related structures Eyelids: Yes eyelids normal Conjunctivae: conjunctivae normal Neck Neck: Yes normal visual inspection and Yes supple Resp Effort & Inspection: normal respiratory effort Auscultation: clear to auscultation bilaterally Cardio Jugular venous distension: no JVD Rate: regular rate Rhythm: regular rhythm Heart sounds: S1 normal heart sound present and S2 normal heart sound present GI Inspection: Yes normal to inspection Palpation (GI): Soft to palpation and nontender Auscultation: normal bowel sounds Neuro General: patient oriented x3, no focal motor deficits and No confusion Romberg Test: Negative Extrem General: Yes full ROM Assessment and Plan Assessment & Plan (1) Syncope: Code(s): R55 - Syncope and collapse Plan: Head CT, EKG, echocardiogram and labs ordered. Referred to neurology. (2) Mild recurrent major depression: Code(s): F33.0 - Major depressive disorder, recurrent, mild Plan: In remission. (3) GERD (gastroesophageal reflux disease): Code(s): K21.9 - Gastro-esophageal reflux disease without esophagitis Qualifiers: Esophagitis presence: esophagitis presence not specified Qualified Code(s): K21.9 - Gastro-esophageal reflux disease without esophagitis Plan: Continue PPIs as needed. (4) Chronic idiopathic constipation: Code(s): K59.04 - Chronic idiopathic constipation Plan: Continue Linzess as needed. Orders: Orders CA echo transthoracic complete Today R55 - Syncope and collapse ECG 12 lead EKG Today R55 - Syncope and collapse Complete Blood Count Auto Diff Today D64.9 - Anemia, unspecified, R55 - Syncope and collapse ECG holter monitor 24 hour Today R55 - Syncope and collapse CT head/brain wo IV con Today R55 - Syncope and collapse Comprehensive [place]. Panel Fast Today R55 - Syncope and collapse Referrals Neurology Referral R55 - Syncope and collapse Medications: Refilled calcium citrate-vitamin D3 315 mg-5 mcg (200 unit) (Calcium Citrate + D) 1 tab PO BID 60 tabs 11RF enmfbveewt-fkigimmiesiup-bdvw 50-325-40 mg 1 tab PO Q6H PRN 10 tabs 0RF pain G43.909 - Migraine, unspecified, not intractable, without status migrainosus Coding Level of Care Code Est Pt Level 4 (61893) Diagnoses Syncope R55 Mild recurrent major depression F33.0 Gastroesophageal reflux disease, unspecified whether esophagitis present K21.9 Esophagitis presence: esophagitis presence not specified Chronic idiopathic constipation K59.04 Additional Codes EFRAIN-7 Assessment Billing - EFRAIN-7 Assessment Tool: EFRAIN-7 Assessment 81896 ([id number]) Time Spent (min) 24
[2023-11-11 14:34] VITALS: BP 110/78; BMI 26.4
== END 2023-11-11 15:22 | disposition home or self-care (01) ==
PROVIDERS: PCP Internal Medicine; Visit Provider Internal Medicine
DX: R55 Syncope and collapse (principal); F33.40 Major depressive disorder, recurrent, in remission, unspecified; K21.9 Gastro-esophageal reflux disease without esophagitis; K59.04 Chronic idiopathic constipation
CPT/HCPCS: 99214

== ENCOUNTER 2023-11-16 10:29 | Outpatient (AMB) | payer SELFPAY ==
[2023-11-16 10:43] VITALS: BP 125/69; PULSE 77; BMI 27.1
--- NOTE | 2023-11-16 10:43 | MHC.OFFVIS ---
Intake Vital Signs 11/16/23 10:43 Height 5 ft 3 in Weight 153 lb BMI 27.1 BP 125/69 Blood Pressure Location Rt brachial Position Sitting Pulse 77 Intake Visit Reasons: S/P WLE Rt upper outer quadrant breast mass Intake Note: Patient here s/p WLE Rt upper outer quadrant breast mass. Reports incision healing well. Patient c/o: tenderness to touch, redness along scarline. 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 She has minimal incisional discomfort. She is otherwise doing well. Pathology was reviewed and is benign. [facility] Medical History Breast mass, right (11/05/23) Major depression, recurrent History of COVID-19 Bleeding hemorrhoids H. pylori infection Obesity (BMI 30-39.9) Rectal bleeding Mild recurrent major depression Morbid obesity with BMI of 40.0-44.9, adult Right lateral epicondylitis Epigastric pain Polyarthralgia Bloody stools Right foot pain Left foot pain Finger pain GERD (gastroesophageal reflux disease) Essential hypertension H/O reactive hypoglycemia Vitamin D deficiency Prediabetes Dyslipidemia Surgical History S/P laparoscopic sleeve gastrectomy Hx of colonoscopy Deficient knowledge of leg surgery History of incision and drainage History of lithotripsy History of total abdominal hysterectomy History of tubal ligation Hx of section Hx of bilateral breast reduction surgery Family History Daughter Cancer Father Cancer, Onset Age: 54 Diabetes mellitus Mother Cancer, Onset Age: 64 Diabetes mellitus Paternal Aunt Cancer Maternal Grandmother Diabetes mellitus Hypertension CVD (cardiovascular disease) Maternal Grandfather Diabetes mellitus Hypertension CVD (cardiovascular disease) Paternal Grandmother Diabetes mellitus Hypertension Paternal Grandfather No problems noted. 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 Assessment & Plan Assessment & Plan (1) Breast mass, right: Onset Date: 11/05/23 Comment: WLE Rt upper outer quadrant breast Dr. Andres Brunson Code(s): N63.10 - Unspecified lump in the right breast, unspecified quadrant Plan Patient has significant other have been given local instructions, and patient otherwise follow-up p.r.n.. All questions answered. Quality Reporting (2020) Adult (CMS 138/12/03/68) Smoking risk assessment performed?: Yes Patient Tobacco Use Status: Never used Tobacco Coding Level of Care Code Global (61764) Diagnoses Breast mass, right N63.10
== END 2023-11-16 10:58 | disposition home or self-care (01) ==
PROVIDERS: PCP Internal Medicine; Visit Provider Surgery
DX: N63.10 Unspecified lump in the right breast, unspecified quadrant (principal)
CPT/HCPCS: 99024

== ENCOUNTER → 2023-11-16 10:29 | Outpatient (BNVA) | payer SELFPAY | PROVIDERS: PCP Internal Medicine; Visit Provider Surgery | DX: N63.11 Unspecified lump in the right breast, upper outer quadrant (principal) | CPT/HCPCS: 99212 ==

== ENCOUNTER → 2023-12-04 07:47 | Outpatient (REF) | payer OTHER, SELFPAY ==
--- NOTE | 2023-12-04 07:55 | ECG_ITS ---
Test Reason : syncope and collapse Blood Pressure : / mmHG Vent. Rate : 064 BPM Atrial Rate : 064 BPM P-R Int : 154 ms QRS Dur : 086 ms QT Int : 400 ms P-R-T Axes : 049 015 -02 degrees QTc Int : 412 ms Normal sinus rhythm Low voltage QRS Borderline ECG When compared with ECG of 21-APR-2022 10:27, No significant change was found Referred By: Luli Jones Electronically Signed By:VICKIE MAI MD
--- NOTE | 2023-12-04 07:55 | HM_ITS ---
Conclusion: 1. Patient was monitored for total period of 1 day 2. Baseline was normal sinus rhythm with average heart of 72 beats per minute 3. No significant pauses noted and rare PACs noted 4. No patient reported events MTDD
--- NOTE | 2023-12-04 07:55 | CA_ITS ---
Transthoracic Echocardiogram Patient (Last, First, Middle): Jessie Woodson, Gender: Female Date of : 1980 Age: 43 Procedure Date: 12/04/2023 Procedure Type: Transthoracic Echocardiogram Location: OP Height: 160.02 cm Weight: 68.04 kg BSA: 1.71 m2 Heart Rate: bpm BP: 110 / 72 mmHg Wing Scorer: TO Referring MD: Luli Jones MD Communications Writer: Efrain Luevano MD Symptoms: R55 - Syncope and collapse Study Quality: Fair/Contrast ECG Rhythm: Sinus Conclusions: - Essentially normal study Findings Procedure Information Contrast agent, definity, is being given per protocol without apparent complications. Left Ventricle Normal left ventricular size, thickness, and systolic function. The visually estimated ejection fraction is between 55-60%. Spectral Doppler is indicative of a normal filling pattern. Peak GLS is -17.6%, borderline normal Right Ventricle Normal right ventricular cavity size and systolic function. Atria Both atria are normal in size. Interatrial shunt cannot be excluded. Aortic Valve Normal aortic valve structure and function. There is no aortic valve stenosis. There is trace (trivial) aortic valve regurgitation. Mitral Valve Normal mitral valve structure and function. There is trace mitral valve regurgitation. There is no mitral valve stenosis. Pulmonic Valve The pulmonic valve is likely normal. Tricuspid Valve Normal tricuspid valve structure. There is trace tricuspid valve regurgitation. The right ventricular systolic pressure is normal. Normal right atrial pressure. There is no evidence of pulmonary hypertension. Great Vessels All visible segments of the aorta are normal in size. The pulmonary artery was not well visualized. Venous The inferior vena cava is normal in size and collapses greater than 50% with inspiration. Pericardium/Pleural There is no evidence of pericardial effusion. Measurements 2D Linear Measurements IVSd: 0.68 0.6-0.9/0.6-1.0 cm LVIDd: 5.23 3.9-5.3/4.2-5.9 cm LVIDd Index: 3.06 2.4-3.2/2.2-3.1 cm/m2 LVIDs: 3.41 2.0-3.6 cm LVPWd: 0.70 0.7-1.1 cm LA Diam: 3.70 2.7-3.8/3.0-4.0 cm LAIDs Index: 2.16 1.5-2.3 cm/m2 LV Mass: 150.49 67-162/88-224 g LV Mass Index: 88.01 43-95/49-115 g/m2 LVOT Diam: 2.00 3.0+(-)1.3 cm 2D Systolic Function EF 4C: 56.80 >55% EF 2C: 57.40 >55% EF BiP: 57.50 >55% Mitral Valve MV Pk E: 0.85 MV PK A: 0.53 MV Decel Time: 172.00 E/A: 1.60 E'Lateral: 10.30 E'Medial: 9.25 E/E' Med: 9.20 E/E' Lat: 8.20 PHT: 50.00 MVA PHT: 4.40 Decel [place]: 4.94 Aortic Valve AoV Pk Jerry: 1.49 AoV Mn Jerry: 1.05 AoV VTI: 0.32 AoV Pk Grad: 9.00 Aov Mn Grad: 5.00 HALIE Cont.VTI: 1.99 LVOT LVOT Pk Jerry: 0.93 LVOT Mn Jerry: 0.59 LVOT VTI: 0.20 LVOT Pk Grad: 3.00 LVOT Mn Grad: 2.00 LVOT Diam: 2.00 LVOT Area: 3.14 Diastolic Function MV Pk E: 0.85 MV Pk A: 0.53 E/A: 1.60 E'Medial: 9.25 E/E' Med: 9.20 E' Laterial: 10.30 E/E' Lat: 8.20 Right Ventricle TAPSE (mm): 20.80 TVS' Jerry: 10.90 Tricuspid Valve TR Pk Jerry: 2.05 TR Pk Grad: 17.00 RA Press: 3.00 RVSP: 20.00 Great Vessels Aorta Sinus of Valsalva: 3.02 2.0-3.5 cm Ao Asc: 3.10 2.1-3.4 cm Ao Arch: 2.90 Updated in Other Vendor System with Status of Final Efrain Luevano MD electronically signed on 12/05/2023 11:30:03 AM with status of Final
== END ==
LOC: HO.CARD 07:47
PROVIDERS: PCP Internal Medicine; Visit Provider Internal Medicine
DX: R55 Syncope and collapse (principal)
CPT/HCPCS: 93005; 93225; 93306; 93356; Q9957

== ENCOUNTER → 2023-12-04 07:55 | Outpatient (BNV) | payer SELFPAY | PROVIDERS: PCP Internal Medicine; Visit Provider Internal Medicine Cardiovascular Disease | DX: R55 Syncope and collapse (principal) | CPT/HCPCS: 93010; 93227; 93306 ==

== ENCOUNTER 2023-12-18 07:51 | Outpatient (REF) | payer OTHER, SELFPAY ==
[2023-12-18 08:05] LABS: MANUAL DIFF FLAG NO
[2023-12-18 08:51] LABS: Basophils Percent Auto 0.7 % (0-2); Eosinophils Absolute Auto 0.1 X10*3/uL (0.0-0.4); Eosinophils Percent Auto 1.8 % (0-4); Hematocrit 36.2 % (37.0-47.0); Hemoglobin 11.7 g/dl (12.0-16.0); Imm Gran Abs Auto 0.01 X10*3/uL (0.00-0.03); Imm Gran Pct Auto 0.2 % (0.0-0.4); Lymphocytes Absolute Auto 1.7 X10*3/uL (1.2-4.9); Lymphocytes Percent Auto 27.1 % (20-40); Mean Corpuscular HGB Conc 32.3 g/dl (31.0-35.0); Mean Corpuscular Hemoglobin 27.9 pg (27.0-33.0); Mean Corpuscular Volume 86.2 fL (80.0-98.0); Mean Platelet Volume 9.5 fL (9.4-12.3); Monocytes Absolute Auto 0.4 X10*3/uL (0.1-1.2); Neutrophils Absolute Auto 3.9 x10*3/uL (2.0-8.3); Neutrophils Percent Auto 63.2 % (45-73); Platelet Count 240 X10*3/uL (160-400); Red Cell Distribution Width 12.9 % (11.0-16.0); White Blood Count 6.1 X10*3/uL (4.8-10.8)
[2023-12-18 09:31] LABS: Alanine Aminotransferase 9 U/L (0-31); Albumin Level 4.1 g/dL (3.5-5.0); Alkaline Phosphatase 44 U/L (39-117); Anion Gap 11 (12-20); Aspartate Amino Transferase 12 U/L (5-31); Bilirubin Total 0.4 mg/dL (0.0-1.0); Blood Urea Nitrogen 10 mg/dL (9-16); Calcium 9.2 mg/dL (8.4-10.2); Carbon Dioxide 29 mmol/L (22-29); Chloride 107 mmol/L (96-108); Cholesterol 180 mg/dL (<200); Estimated Glomerular Filt Rate > 60; Glucose Fasting 80 mg/dL (60-99); HDL Cholesterol 60 mg/dL (>40); LDL Cholesterol Calculated 102 mg/dL (<100); Potassium 3.8 mmol/L (3.3-5.1); Sodium 143 mmol/L (135-145); Total Protein 6.8 g/dL (6.5-8.0); Triglycerides 91 mg/dL (<150)
[2023-12-18 09:47] LABS: Vitamin D 25-OH Total 50.4 ng/mL (>30)
== END 2023-12-18 07:52 | disposition home or self-care (01) ==
LOC: HO.LAB 07:51
PROVIDERS: PCP Internal Medicine; Visit Provider Internal Medicine
DX: E78.5 Hyperlipidemia, unspecified (principal); K59.04 Chronic idiopathic constipation; D64.9 Anemia, unspecified; R55 Syncope and collapse; E55.9 Vitamin D deficiency, unspecified
CPT/HCPCS: 36415; 80053; 80061; 82306; 85025

== ENCOUNTER 2024-02-19 13:00 | Emergency (ER) | payer OTHER, SELFPAY ==
--- NOTE | ~2024-02-19 | XR_ITS ---
EXAMINATION: XR ELBOW, RIGHT CLINICAL INFORMATION: Pain, ecchymosis. Fall. COMPARISON: None available. TECHNIQUE: AP, lateral, and oblique views of the right elbow. FINDINGS: No acute fracture or dislocation. No joint space narrowing or marginal osteophytes. No osseous erosion. No significant joint effusion. No abnormal soft tissue calcification. Focal soft tissue swelling dorsal to the olecranon which could represent a soft tissue hematoma versus olecranon bursitis. XR/XR elbow RT 2V IMPRESSION: Focal soft tissue swelling dorsal to the olecranon which could represent a soft tissue hematoma versus olecranon bursitis.
--- NOTE | ~2024-02-19 | CT_ITS ---
EXAMINATION: CT HEAD WITHOUT CONTRAST CT CERVICAL SPINE WITHOUT CONTRAST CLINICAL INFORMATION: Fall, head strike. COMPARISON: CT PET 03/26/2017. TECHNIQUE: Contiguous axial imaging was performed from the skull base to vertex without intravenous administration of contrast. Contiguous axial imaging was performed from the upper chest through the skull base without intravenous administration of contrast. Coronal and sagittal reformats were obtained at the acquisition workstation. This CT examination was performed using dose optimization techniques as appropriate, variously including the following: *Automated exposure control *Adjustment of mA and/or kV according to patient size (this includes techniques or standardized protocols for targeted exams where dose is matched to indication/reason for exam; i.e. extremities or head) *Use of iterative reconstruction technique DLP: 633 and 215 mGy-cm FINDINGS: Head: There is no evidence of acute intracranial hemorrhage or edematous territorial infarction. There is no abnormal attenuation within the brain parenchyma. Rodrigues-white matter differentiation is preserved. The ventricles are normal in size and configuration. No evidence for obstructive hydrocephalus. No abnormal mass effect or midline shift. No extra-axial fluid collections. No acute soft tissue or osseous abnormalities. The mastoid air cells and paranasal sinuses are clear. Cervical Spine: The atlantooccipital and atlantoaxial articulations remain well aligned. Straightening of the normal cervical lordosis. Otherwise, there is anatomic alignment of the vertebral bodies and posterior elements. No evidence of acute fracture or subluxation. Mild multilevel intervertebral disc height loss. Small anterior and posterior marginal osteophytes. Mild to moderate multilevel facet/uncovertebral hypertrophy. There is no prevertebral soft tissue swelling. The thyroid gland and remaining cervical soft tissues are normal in appearance. The lung apices demonstrate no abnormalities. CT/CT cervical spine wo IV con IMPRESSION: 1. No acute intracranial pathology. 2. No acute cervical spinal fractures or malalignment.
[2024-02-19 13:15] VITALS: BP 130/83; PULSE 62; RESP 18; TEMP 37.1; O2SAT 100; BMI 28.9
--- NOTE | 2024-02-19 13:15 | ED.GENADULT ---
HPI - General Adult General Chief complaint: Fall Stated complaint: fall in shower, elbow inj and head pain Time Seen by Provider: 02/19/24 14:37 Source: patient Mode of arrival: ambulatory Limitations: no limitations History of Present Illness HPI narrative: patient is a 43-year-old female who presents emergency department for evaluation after a mechanical slip and fall in the shower earlier this morning. resulting in head strike posteriorly without loss of consciousness and localized swelling and pain to the right elbow. Denies dizziness, lightheadedness, neck pain, neck stiffness, numbness or tingling to the extremities Related Data Previous Rx's ?Medication ?Instructions ?Recorded inulin 2 gram chewable tablet 2 g PO BID #60 tabs 12/08/22 (Fiber Gummies) loratadine 10 mg tablet (Allergy 10 mg PO DAILY 90 days #90 tabs 04/01/23 Relief (loratadine)) bisacodyl 5 mg tablet,delayed 10 mg (2 x 5 mg) PO BEDTIME 30 04/21/23 release (Dulcolax (bisacodyl)) days #60 tabs linaclotide 290 mcg capsule 290 mcg PO QAM #30 caps 04/21/23 pantoprazole 40 mg tablet,delayed 40 mg PO DAILY 30 days #30 tabs 04/21/23 release (Protonix) Proctosol HC 2.5 % topical cream 1 appl HI BID hemorrhoids #28.35 05/12/23 perineal applicator grams (hydrocortisone) metoclopramide HCl 5 mg tablet 5 mg PO .tidac #90 tabs 05/20/23 (Reglan) qjyfmnolju-krigboxlewssq-fsjvvcdz 1 tab PO Q6H PRN pain #10 tabs 11/11/23 50 mg-325 mg-40 mg tablet calcium citrate 315 mg-vitamin D3 1 tab PO BID #60 tabs 11/11/23 5 mcg (200 unit) tablet (Calcium Citrate + D) Allergies Allergy/AdvReac Type Severity Reaction Status Date / Time bupropion [Contrave] Allergy Intermediate nausea,vomit, Verified 02/19/24 13:19 headaches naltrexone [Contrave] Allergy Intermediate nausea,vomit, Verified 02/19/24 13:19 headaches oxycodone [Percocet] Allergy Intermediate hives Verified 02/19/24 13:19 duloxetine AdvReac Severe Hallucinati Verified 02/19/24 13:19 ons Review of Systems Review of Systems: Yes all other systems are reviewed and are negative [facility]LY [facility] Past Medical History Attestation statement: The following information was validated with the patient. Source: old records reviewed Medical History Major depression, recurrent History of COVID-19 Bleeding hemorrhoids H. pylori infection Obesity (BMI 30-39.9) Rectal bleeding Mild recurrent major depression Morbid obesity with BMI of 40.0-44.9, adult Right lateral epicondylitis Epigastric pain Polyarthralgia Bloody stools Right foot pain Left foot pain Finger pain GERD (gastroesophageal reflux disease) Essential hypertension H/O reactive hypoglycemia Vitamin D deficiency Prediabetes Dyslipidemia Surgical History Breast mass, right (11/05/23) S/P laparoscopic sleeve gastrectomy Hx of colonoscopy Deficient knowledge of leg surgery History of incision and drainage History of lithotripsy History of total abdominal hysterectomy History of tubal ligation Hx of section Hx of bilateral breast reduction surgery Family History Family History Daughter Cancer Father Cancer, Onset Age: 54 Diabetes mellitus Mother Cancer, Onset Age: 64 Diabetes mellitus Paternal Aunt Cancer Maternal Grandmother Diabetes mellitus Hypertension CVD (cardiovascular disease) Maternal Grandfather Diabetes mellitus Hypertension CVD (cardiovascular disease) Paternal Grandmother Diabetes mellitus Hypertension Paternal Grandfather No problems noted. Social History Social History Housing: House Are you a primary direct care specialist to a significant other at home: No Do you presently have visiting nurse or other home services: No Alcohol intake: never Comment: COUNTS CORRECT Patient Tobacco Use Status: Never used Tobacco Smoked in Last 30 Days: No e-Cigarette/Vaping Use: Never Used Second Hand Smoke Exposure: No Use of substances other than those prescribed or required for medical reasons: No Advance Directives: No Advance Directives Information Provided: Yes Advance Directives Date on File: 07/18/20 Patient : No service: No Current occupational status: employed 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 No acute distress.?Normal affect. Head: normocephalic, atraumatic Eyes: Pupils equal, round and reactive to light.? EOMI. No nystagmus. ENT: Pharynx normal.?? TM normal bilaterally. Neck: Normal inspection.? Neck supple.?? full range of motion. No midline cervical spine tenderness, step-offs, deformities. CVS: Heart sounds normal. Normal heart rate and rhythm.? Pulses normal.?? Respiratory: No respiratory distress.? Lung sounds clear to auscultation bilaterally?? Abdomen: Soft and non-tender. Normoactive bowel sounds. ? Skin: Skin warm and dry.? Normal skin color.? ? Extremities: Hematoma to the right proximal forearm / elbow Neuro: Moves all extremities spontaneously. Sensation intact bilaterally. CN II-XII intact. No focal neuro deficits. Ambulates with normal steady gait. Course Course Course Narrative: This is a rapid medical exam performed by Rashmi Salas NP: Additional HPI, ROS, PE not included below will be deferred to primary provider. Patient is a 43-year-old female with history of migraines, anemia presenting to the ED with complaint of headache and right elbow pain after a fall in the shower this morning. Not anticoagulated, no loss of consciousness. Plan: Upreg, CT head and cspine, xray Medications Administered Discontinued Medications Generic Name Dose Route Start Last Admin Trade Name Freq PRN Reason Stop Dose Admin Acetaminophen 975 mg 02/19/24 15:07 02/19/24 15:14 Acetaminophen 325 Mg Tablet PO 02/19/24 15:08 975 mg ONCE ONE Administration Ibuprofen 600 mg 02/19/24 15:07 02/19/24 15:14 Ibuprofen 600 Mg Tablet PO 02/19/24 15:08 600 mg ONCE ONE Administration Medical Decision Making Medical Decision Making MDM Narrative: patient is a 43-year-old female who presents emergency department for evaluation after mechanical slip and fall in the bathtub resulting head injury without loss consciousness and injury to the right elbow. Right upper extremity is neurovascularly intact distally. Has no focal neurological deficits on examination. XR of the elbow is without acute fracture /dislocation, focal soft tissue swelling most consistent with hematoma. CT of the head and cervical spine to exclude ICH /fracture /subluxation which reveals no acute pathology. She is ambulatory with a steady gait. Stable for discharge and outpatient follow-up with her primary care provider. Differential Diagnosis Differential Diagnoses: The differential diagnosis associated with the presentation includes ( See narrative above) Admission/Observation Consideration of admission/observation: Escalation of care including admission/observation considered ( See narrative above) Lab Data Labs: Lab Results 02/19/24 Range/Units 15:16 Urine Test NEGATIVE (NEGATIVE) Independent Interpretation I performed an independent interpretation of an: Plain X-Ray ( No acute fracture dislocation to the right elbow) Radiology Impression Discussion of test interpretation with radiology: I have reviewed the radiologist's reading. Radiologist Impression: XR/XR elbow RT 2V IMPRESSION: Focal soft tissue swelling dorsal to the olecranon which could represent a soft tissue hematoma versus olecranon bursitis. CT/CT head/brain wo IV con IMPRESSION: 1. No acute intracranial pathology. 2. No acute cervical spinal fractures or malalignment. Independent Historian Clinical information obtained from an independent historian. History obtained from or confirmed by: Spouse External Record Review External record reviewed: Outpatient record Prescription Management I considered prescription management with: Pain Medication ( acetaminophen/ ibuprofen) Discharge Plan Discharge Clinical Impression: Acute head injury without loss of consciousness, Hematoma of elbow Instructions: Head Injury (ED), R.I.C.E. Treatment (ED) Additional Instructions: You can take ibuprofen 200 mg, 3 tablets (600mg) every 6-8 hours as needed for pain, in addition to Tylenol 500 mg, 2 tablets (1,000mg) every 4-6 hours as needed for pain, but not to exceed 3 doses daily (3,000mg).? be sure to rest over the next few days, apply ice to areas of pain, [employer] bandage for compression to the right elbow, elevation above the level of your chest. Contact your primary care provider and arrange for a follow-up visit. You may return back to emergency department any new or worsening symptoms or concerns. Prescriptions: No Action loratadine [Allergy Relief (loratadine)] 10 mg tablet 10 mg PO DAILY 90 Days Qty: 90 1RF calcium citrate-vitamin D3 [Calcium Citrate + D] 315 mg-5 mcg (200 unit) tablet 1 tab PO BID Qty: 60 11RF ccmzwbgvpt-aahstjvyeslue-ojie 50-325-40 mg tablet 1 tab PO Q6H PRN (Reason: pain) Qty: 10 0RF bisacodyl [Dulcolax (bisacodyl)] 5 mg tablet,delayed release (DR/EC) 10 mg PO BEDTIME 30 Days Qty: 60 6RF linaclotide 290 mcg capsule 290 mcg PO QAM Qty: 30 6RF pantoprazole [Protonix] 40 mg tablet,delayed release (DR/EC) 40 mg PO DAILY 30 Days Qty: 30 6RF Fiber Gummies 2 gram tablet,chewable 2 g PO BID Qty: 60 6RF hydrocortisone [Proctosol HC] 2.5 % cream with perineal applicator 1 appl HI BID Qty: 28.35 3RF Patient Comments: postop med metoclopramide HCl [Reglan] 5 mg tablet 5 mg PO .tidac Qty: 90 3RF Referrals: Luli Azevedo MD [Primary Care Provider] - Print Language: Argentine
[2024-02-19] MEDS: Ibuprofen 600 MG TABLET PO (15:14)
[2024-02-19] MEDS: Acetaminophen 325 MG TABLET 975 MG PO (15:14)
[2024-02-19 15:18] VITALS: RESP 18
--- NOTE | 2024-02-19 15:21 | PC.NURSE ---
Pt medicated per MAR, urine sample collected, ur preg pending. Awaiting CT scan, aware of plan of care.
[2024-02-19 15:29] LABS: UPreg QC Valid YES; Urine Pregnancy NEGATIVE (NEGATIVE)
[2024-02-19 17:40] VITALS: BP 134/83; PULSE 67; RESP 15; TEMP 36.8; O2SAT 100
== END 2024-02-19 17:41 | disposition home or self-care (01) ==
PROVIDERS: Registered Nurse Emergency; Emergency Provider Student in an Organized Health Care Education/Training Program; PCP Internal Medicine
DX: S59.901A Unspecified injury of right elbow, initial encounter (principal); R51.9 Headache, unspecified; M25.521 Pain in right elbow; M54.2 Cervicalgia; W01.10XA Fall on same level from slipping, tripping and stumbling with subsequent striking against unspecified object, initial encounter; Y93.E1 Activity, personal bathing and showering; Y92.002 Bathroom of unspecified non-institutional (private) residence as the place of occurrence of the external cause; Y99.8 Other external cause status
CPT/HCPCS: 70450; 72125; 73070; 81025; 99284

== ENCOUNTER 2024-02-23 09:39 | Emergency (ER) | payer OTHER, SELFPAY ==
--- NOTE | ~2024-02-23 | CT_ITS ---
EXAMINATION: CT HEAD WITHOUT CONTRAST CLINICAL INFORMATION: Worsening posterior head pain status post head strike. COMPARISON: CT head dated 02/19/2024. TECHNIQUE: Contiguous axial imaging was performed from the skull base to vertex without intravenous administration of contrast. This CT examination was performed using dose optimization techniques as appropriate, variously including the following: *Automated exposure control *Adjustment of mA and/or kV according to patient size (this includes techniques or standardized protocols for targeted exams where dose is matched to indication/reason for exam; i.e. extremities or head) *Use of iterative reconstruction technique DLP: 650 mGy-cm FINDINGS: There is no acute intracranial hemorrhage. There is no evidence of acute/subacute cerebral or cerebellar infarction. There is no mass effect or midline shift. There is no extra-axial fluid collection. The ventricles are normal in size and configuration. The orbits are symmetric and within normal limits. The calvarium is intact. The mastoid air cells are clear. The visualized paranasal sinuses are well aerated. There is a rightward projecting nasal spur. CT/CT head/brain wo IV con IMPRESSION: Normal noncontrast head CT. No acute intracranial abnormality is seen.
--- NOTE | ~2024-02-23 | XR_ITS ---
EXAMINATION: XR ELBOW, RIGHT CLINICAL INFORMATION: Pain after fall COMPARISON: Right elbow 02/19/2024, 4 days ago TECHNIQUE: AP, lateral, and oblique views of the right elbow. FINDINGS: The bones and soft tissues are normal. No fracture or joint effusion. Alignment is anatomic. Joint spaces are maintained. Previously seen swelling behind the olecranon has decreased when compared to prior. XR/XR elbow RT min 3V IMPRESSION: Normal right elbow.
[2024-02-23 10:22] VITALS: BP 128/88; PULSE 72; RESP 16; TEMP 36.4; O2SAT 100; BMI 28.0
--- NOTE | 2024-02-23 11:54 | ED_ITS ---
HPI - Fall General Chief Complaint: Fall Stated Complaint: Head Pain S/P Fall 02/19/24 Time Seen by Provider: 02/23/24 11:36 Source: patient, RN notes reviewed, old records reviewed and sports medicine physician (Hungarian) Mode of arrival: ambulatory Limitations: no limitations History of Present Illness HPI Narrative: 43 year old Hungarian speaking female with pmhx significant for dyslipidemia, prediabetes, GERD, polyarthralgia, fibromyalgia, migraines, and MDD presents to the ED today for evaluation of right elbow pain and posterior headache x4 days s/p mechanical fall. Admits to slip and fall in tub on 02/19/24 with posterior head strike and elbow strike on bath tub. Denies LOC. Not on anticoagulation. She was evaluated same day in ED with unremarkable head/brain/c spine imaging and xr of right elbow showing soft tissue swelling. She was advised to take Motrin and Tylenol for pain which she has been taking without improvement. She presents to the ED today with continued posterior head pain and worsening right elbow pain. Endorses an episode of blurred vision yesterday which has since resolved. She called her PCP yesterday who advised her to come to the ED. Denies fever, chills, dizziness, neck pain, back pain, numbness/tingling/weakness of the RUQ, saddle anesthesia, bowel or bladder incontinence or retension. Related Data Previous Rx's ?Medication ?Instructions ?Recorded inulin 2 gram chewable tablet 2 g PO BID #60 tabs 12/08/22 (Fiber Gummies) loratadine 10 mg tablet (Allergy 10 mg PO DAILY 90 days #90 tabs 04/01/23 Relief (loratadine)) bisacodyl 5 mg tablet,delayed 10 mg (2 x 5 mg) PO BEDTIME 30 04/21/23 release (Dulcolax (bisacodyl)) days #60 tabs linaclotide 290 mcg capsule 290 mcg PO QAM #30 caps 04/21/23 pantoprazole 40 mg tablet,delayed 40 mg PO DAILY 30 days #30 tabs 04/21/23 release (Protonix) Proctosol HC 2.5 % topical cream 1 appl [place] BID hemorrhoids #28.35 05/12/23 perineal applicator grams (hydrocortisone) metoclopramide HCl 5 mg tablet 5 mg PO .tidac #90 tabs 05/20/23 (Reglan) calcium citrate 315 mg-vitamin D3 1 tab PO BID #60 tabs 11/11/23 5 mcg (200 unit) tablet (Calcium Citrate + D) jcltxtqjyn-grteqsxkirnpo-zwuypunv 1 tab PO Q6H PRN pain #10 tabs 02/22/24 50 mg-325 mg-40 mg tablet qctzditgkx-fphqzswtskzqz-zrylojdd 1 cap PO Q8H PRN pain (scale score 02/23/24 50 mg-300 mg-40 mg capsule 7-10) #7 caps (Fioricet) Allergies Allergy/AdvReac Type Severity Reaction Status Date / Time bupropion [Contrave] Allergy Intermediate nausea,vomit, Verified 02/23/24 10:24 headaches naltrexone [Contrave] Allergy Intermediate nausea,vomit, Verified 02/23/24 10:24 headaches oxycodone [Percocet] Allergy Intermediate hives Verified 02/23/24 10:24 duloxetine AdvReac Severe Hallucinati Verified 02/23/24 10:24 ons Review of Systems Review of Systems: Constitutional: No fever, chills, fatigue, night sweats, weight changes ENT/Mouth: No ear pain, hearing loss, nasal congestion, sinus pain, rhinorrhea, sore throat Eyes: No eye pain, swelling, redness, vision changes, discharge Cardio: No chest pain, palpitations, CABRERA, orthopnea, peripheral edema Pulm: No SOB, cough, sputum, wheezing, dyspnea, hemoptysis GI: No nausea, vomiting, hematemesis, abdominal pain, diarrhea, constipation, hematochezia, melena : No irregular bleeding, dysuria, frequency, urgency, hesitancy, hematuria, flank pain, urinary flow changes, urinary incontinence or retention MSK: No back pain, neck pain, joint pain, myalgias, +elbow pain Skin: No lesions, rashes Neuro: No weakness, numbness, paresthesias, LOC, dizziness, +headache Psych: No anxiety/panic, depression, SI/HI, AH/VH All other systems reviewed and are negative. [facility] Past Medical History Attestation statement: The following information was validated with the patient. Source: old records reviewed and nursing notes reviewed Medical History Major depression, recurrent History of COVID-19 Bleeding hemorrhoids H. pylori infection Obesity (BMI 30-39.9) Rectal bleeding Mild recurrent major depression Morbid obesity with BMI of 40.0-44.9, adult Right lateral epicondylitis Epigastric pain Polyarthralgia Bloody stools Right foot pain Left foot pain Finger pain GERD (gastroesophageal reflux disease) Essential hypertension H/O reactive hypoglycemia Vitamin D deficiency Prediabetes Dyslipidemia Surgical History Breast mass, right (11/05/23) S/P laparoscopic sleeve gastrectomy Hx of colonoscopy Deficient knowledge of leg surgery History of incision and drainage History of lithotripsy History of total abdominal hysterectomy History of tubal ligation Hx of section Hx of bilateral breast reduction surgery Family History Family History Daughter Cancer Father Cancer, Onset Age: 54 Diabetes mellitus Mother Cancer, Onset Age: 64 Diabetes mellitus Paternal Aunt Cancer Maternal Grandmother Diabetes mellitus Hypertension CVD (cardiovascular disease) Maternal Grandfather Diabetes mellitus Hypertension CVD (cardiovascular disease) Paternal Grandmother Diabetes mellitus Hypertension Paternal Grandfather No problems noted. 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 Const: General: cooperative, healthy appearing, comfortable and no acute distress Orientation/consciousness: patient oriented x3 Limitations: no limitations HEENT: Head: Yes normal to inspection, Yes No palpable skull fracture present, Yes normocephalic, Yes atraumatic, No Merino's sign, No hematoma, No raccoon eyes and No periorbital ecchymosis Eyes: General: appearance normal, both eyes and all related structures Conjunctivae: conjunctivae normal Sclerae: sclerae normal Pupils: Equal, round and reactive pupils present Neck: Other: No midline cervical spinous tenderness or step-off deformity. Neck: Yes normal visual inspection, Yes full ROM, Yes no lymphadenopathy and Yes no meningeal signs Resp: Effort & Inspection: normal respiratory effort and able to speak in complete sentences Auscultation: clear to auscultation bilaterally Cardio: Rate: regular rate Rhythm: regular rhythm GI: Inspection: Yes normal to inspection and No abdominal wall ecchymosis Back/Spine/Pelvis: Other: No midline spinous tenderness or step off deformity. No paraspinal muscle tenderness. Skin: General skin exam: no rashes or lesions noted Neuro: Other: Strength 5/5 intact throughout. Sensation intact to light touch.? Neurovascular intact distally.? General: patient oriented x3, gait normal, tone normal, no meningeal signs and no focal motor deficits Cranial nerves: Yes Equal, round and reactive pupils present Extrem: Other: + Right elbow with notable ecchymoses an d soft tissue swelling. Slightly tender to palpation over right olecranon. Full ROM intact to right elbow. Pain elicited with elbow extension. Full ROM intact to right wrist and right shoulder. No further overlying skin changes or deformities. 2+ radial and ulnar pulse. No pallor. Course Course Course Narrative: 154-- x-ray right elbow without soft tissue abnormality or fracture. Likely contusion. [facility] wrap placed. CT head/brain without bleed, mass, skull fracture. Question concussion versus general headache. On re-evaluation, patient reports improvement in headache with Reglan, Benadryl, Tylenol. Fioricet sent to pharmacy. advised to follow up with pcp regarding today's visit. Patient has remained stable throughout ED visit today. Discussed worrisome signs and symptoms and when to return to the ED. All questions answered at this time. Patient is agreeable with disposition and stable for discharge. Medications Administered Discontinued Medications Generic Name Dose Route Start Last Admin Trade Name Michael PRN Reason Stop Dose Admin Acetaminophen 975 mg 02/23/24 13:14 02/23/24 13:17 Acetaminophen 325 Mg Tablet PO 02/23/24 13:15 975 mg ONCE ONE Administration Diphenhydramine HCl 25 mg 02/23/24 12:36 02/23/24 13:13 Diphenhydramine Hcl 25 Mg Capsule PO 02/23/24 12:37 25 mg ONCE ONE Administration Metoclopramide HCl 10 mg 02/23/24 12:36 02/23/24 13:13 Metoclopramide Hcl 10 Mg Tablet PO 02/23/24 12:37 10 mg ONCE ONE Administration Procedures Orthopedic Splinting/Casting Injury #1: Side: right Upper Extremity Injury Location: elbow Upper Extremity Immobilizer: [employer] wrap Medical Decision Making Medical Decision Making MDM Narrative: 43 year old Hungarian speaking female with pmhx significant for dyslipidemia, prediabetes, GERD, polyarthralgia, fibromyalgia, migraines, and MDD presents to the ED today for evaluation of right elbow pain and posterior headache x4 days s/p mechanical fall. Vital signs stable. Afebrile. She is nontoxic-appearing and in no acute distress. On exam, no palpable skull fracture. No periorbital ecchymoses or merino sign. PERRLA. Bilateral photophobia. EOMs intact without entrapment. Exam nonfocal. Cerebellum intact. No midline spinous tenderness or step-off deformity. Ambulating with steady gait. Right elbow with notable ecchymoses and soft tissue swelling. Slightly tender to palpation over right olecranon. Full ROM intact to right elbow. Pain elicited with elbow extension. Full ROM intact to right wrist and right shoulder. No further overlying skin changes or deformities. 2+ radial and ulnar pulse. No pallor. Differential diagnosis includes concussion, headache, migraine. Unlikely scalp hematoma, ICH, CVA/TIA, dissection, skull fracture. Suspicion for elbow contusion, fracture, soft tissue injury. Low suspicion for dislocation, neurov ascular compromise, compartment syndrome, threat to limb. Plan for repeat x-rays, CT head/brain, pain control and re-evaluation. Differential Diagnosis Differential Diagnoses: The differential diagnosis associated with the presentation includes as above. Admission/Observation not indicated. Independent Interpretation I performed an independent interpretation of an: Plain X-Ray Interpretation: XR of left elbow without fracture, agree with radiologist's interpretation. CT head/brain without bleed, agree with radiologist's interpretation. Radiology Impression Discussion of test interpretation with radiology: I have reviewed the radiologist's reading. Radiologist Impression: EXAMINATION: XR ELBOW, RIGHT CLINICAL INFORMATION: Pain after fall COMPARISON: Right elbow 02/19/2024, 4 days ago TECHNIQUE: AP, lateral, and oblique views of the right elbow. FINDINGS: The bones and soft tissues are normal. No fracture or joint effusion. Alignment is anatomic. Joint spaces are maintained. Previously seen swelling behind the olecranon has decreased when compared to prior. XR/XR elbow RT min 3V IMPRESSION: Normal right elbow. EXAMINATION: CT HEAD WITHOUT CONTRAST CLINICAL INFORMATION: Worsening posterior head pain status post head strike. COMPARISON: CT head dated 02/19/2024. TECHNIQUE: Contiguous axial imaging was performed from the skull base to vertex without intravenous administration of contrast. This CT examination was performed using dose optimization techniques as appropriate, variously including the following: *Automated exposure control *Adjustment of mA and/or kV according to patient size (this includes techniques or standardized protocols for targeted exams where dose is matched to indication/reason for exam; i.e. extremities or head) *Use of iterative reconstruction technique DLP: 650 mGy-cm FINDINGS: There is no acute intracranial hemorrhage. There is no evidence of acute/subacute cerebral or cerebellar infarction. There is no mass effect or midline shift. There is no extra-axial fluid collection. The ventricles are normal in size and configuration. The orbits are symmetric and within normal limits. The calvarium is intact. The mastoid air cells are clear. The visualized paranasal sinuses are well aerated. There is a rightward projecting nasal spur. CT/CT head/brain wo IV con IMPRESSION: Normal noncontrast head CT. No acute intracranial abnormality is seen. External Record Review External record reviewed: Inpatient record, Office record, Outpatient record, Prior outpatient labs, Prior outpatient radiology, Primary care record and Outside ED record Prescription Management I considered prescription management with: Pain Medication (fioricet) Social Determinants Patient?s care significantly limited by Social Determinants of Health including: Other Social Determinant of Health Critical Care Time Critical Care Time Critical Care Time: No Discharge Plan Discharge Clinical Impression: Headache, Traumatic ecchymosis of left elbow Patient Disposition: Home, Self-Care Instructions: Concussion (ED), Acute Headache (ED), Contusion in Adults (ED) Additional Instructions: The xray of your right elbow is normal. The CT scan of your head/brain is normal. You may have a concussion. Fioricet is a pain medication that has been sent to your pharmacy for you to take for headache. Do not take this for more than 3 days in a row as it can cause rebound headache. Do not take this with tylenol. You may also continue taking ibuprofen. You were provided with an [facility] wrap to help with compression/ swelling. Follow-up with your primary care provider. Return to the ED with new or worsening symptoms. In the case of an emergency call 911. Prescriptions: New xpnuhkkqak-vmvgimeaxhjbt-jafv [Fioricet] 50-300-40 mg capsule 1 cap PO Q8H PRN (Reason: pain (scale score 7-10)) Qty: 7 0RF No Action loratadine [Allergy Relief (loratadine)] 10 mg tablet 10 mg PO DAILY 90 Days Qty: 90 1RF iqohcxkaog-ugfzhvybzgdjs-wpyf 50-325-40 mg tablet 1 tab PO Q6H PRN (Reason: pain) Qty: 10 0RF calcium citrate-vitamin D3 [Calcium Citrate + D] 315 mg-5 mcg (200 unit) tablet 1 tab PO BID Qty: 60 11RF bisacodyl [Dulcolax (bisacodyl)] 5 mg tablet,delayed release (DR/EC) 10 mg PO BEDTIME 30 Days Qty: 60 6RF linaclotide 290 mcg capsule 290 mcg PO QAM Qty: 30 6RF pantoprazole [Protonix] 40 mg tablet,delayed release (DR/EC) 40 mg PO DAILY 30 Days Qty: 30 6RF Fiber Gummies 2 gram tablet,chewable 2 g PO BID Qty: 60 6RF hydrocortisone [Proctosol HC] 2.5 % cream with perineal applicator 1 appl [place] BID Qty: 28.35 3RF Patient Comments: postop med metoclopramide HCl [Reglan] 5 mg tablet 5 mg PO .tidac Qty: 90 3RF Referrals: Luli Azevedo MD [Primary Care Provider] - Interventions: ED Discharge Assessment Last Done: 02/23/24 15:49 Discharge Date/Time: 02/23/24 15:50 Print Language: Hungarian
[2024-02-23] MEDS: Metoclopramide HCl 10 MG TABLET PO (13:13)
[2024-02-23] MEDS: diphenhydrAMINE HCL 25 MG CAPSULE PO (13:13)
[2024-02-23] MEDS: Acetaminophen 325 MG TABLET 975 MG PO (13:17)
[2024-02-23 15:49] VITALS: BP 121/76; PULSE 77; RESP 16; TEMP 36.7; O2SAT 99
== END 2024-02-23 15:50 | disposition home or self-care (01) ==
PROVIDERS: Emergency Provider Emergency Medicine; PCP Internal Medicine
DX: R51.9 Headache, unspecified (principal); S50.01XA Contusion of right elbow, initial encounter; W18.30XA Fall on same level, unspecified, initial encounter; E11.9 Type 2 diabetes mellitus without complications; E78.5 Hyperlipidemia, unspecified; Y93.9 Activity, unspecified; Y92.002 Bathroom of unspecified non-institutional (private) residence as the place of occurrence of the external cause; Y99.9 Unspecified external cause status; Z98.84 Bariatric surgery status; Z79.899 Other long term (current) drug therapy
CPT/HCPCS: 70450; 73080; 99283; 99284

== ENCOUNTER 2024-02-29 09:30 | Outpatient (AMB) | payer OTHER, SELFPAY ==
--- NOTE | 2024-02-29 09:45 | A.OFFVIS_ITS ---
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 patient had a sleeve procedure and since she g Allergies bupropion [Contrave] Allergy (Intermediate, Verified 02/23/24 10:24) nausea,vomit, headaches naltrexone [Contrave] Allergy (Intermediate, Verified 02/23/24 10:24) nausea,vomit, headaches oxycodone [Percocet] Allergy (Intermediate, Verified 02/23/24 10:24) hives duloxetine Adverse Reaction (Severe, Verified 02/23/24 10:24) Hallucinations Medication List - Last Reconciled 02/29/24 by PORSHA Branch bisacodyl (Dulcolax (bisacodyl)) 10 mg (2 x 5 mg) PO BEDTIME 30 days azuzecryzi-asuneitqngzbl-xdeh 50-300-40 mg (Fioricet) 1 cap PO Q8H PRN ccvpuillrz-bccxateibctfu-spxg 50-325-40 mg 1 tab PO Q6H PRN calcium citrate-vitamin D3 315 mg-5 mcg (200 unit) (Calcium Citrate + D) 1 tab PO BID inulin (Fiber Gummies) 2 grams PO BID linaclotide 290 mcg PO QAM loratadine (Allergy Relief (loratadine)) 10 mg PO DAILY 90 days metoclopramide HCl (Reglan) 5 mg PO .tidac pantoprazole (Protonix) 40 mg PO DAILY 30 days Proctosol HC 2.5% (hydrocortisone) 1 appl AL BID NS HPI Comments Details: Right-handed 43-yr-old female presents for neurological evaluation of: syncope. Pt is accompanied by her mother. Pt reports she was prone to dizziness, however after having a gastric bypass surgery 2 yrs ago, she started having episodes of syncope. She has near constant off-balance dizziness. She has episodes a few syncopal episodes in the last year. She describes the syncopal episodes- she has a few minutes of off-balance dizziness, then she feels cold and shaking from her feet up to her face, vision becomes blurry, becomes confused. This can be f/b LOC, which lasts 1-2 minutes. Usually family is there to help her so she does not fall. But a few days ago, no one was with her while showering, and she fell to the ground and hit her head and right elbow- had ER eval- work-up negative. Denies interictal tongue biting or incontinence. Following the episode she feels more tired and confused for a few minutes. The episodes are often triggered by showering or using the bathroom. Sometimes these episodes are a/w more severe headaches, but not always. She is not eating or drinking well d/t GI s/s- nausea, vomiting. Can be r/t headache but not always. She is prone to constipation- uses Linzess and Reglan- helps some. She is prone to orthostatic lightheadedness. She has a daily headache and migraine- severe frontal and occipital a/w photophobia, phonophobia, at times osmophobia, allodynia, nausea, at times vomiting, dizziness, difficulty concentrating, activity intolerance, neck tightness and a feeling of something running up her neck. Severe attack lasts 1- 3 days. She is taking Tylenol every day for headache and Fioricet prn (has 10 tabs per month). She does recall her previous migraine tx trials. She takes walks. Pt denies history of known seizure activity. 12/04/23, 24 hr Holter: Conclusion: 1. Patient was monitored for total period of 1 day 2. Baseline was normal sinus rhythm with average heart of 72 beats per minute 3. No significant pauses noted and rare PACs noted 4. No patient reported events 12/04/23, Echocardiogram. Conclusions: - Essentially normal study 02/23/24, CT/CT head/brain wo IV con IMPRESSION: Normal noncontrast head CT. No acute intracranial abnormality is seen. 02/19/2024, CT/CT head/brain wo IV con IMPRESSION: 1. No acute intracranial pathology. 2. No acute cervical spinal fractures or malalignment. [facility] Medical History Major depression, recurrent History of COVID-19 Bleeding hemorrhoids H. pylori infection Obesity (BMI 30-39.9) Rectal bleeding Mild recurrent major depression Morbid obesity with BMI of 40.0-44.9, adult Right lateral epicondylitis Epigastric pain Polyarthralgia Bloody stools Right foot pain Left foot pain Finger pain GERD (gastroesophageal reflux disease) Essential hypertension H/O reactive hypoglycemia Vitamin D deficiency Prediabetes Dyslipidemia Surgical History Breast mass, right (11/05/23) S/P laparoscopic sleeve gastrectomy Hx of colonoscopy Deficient knowledge of leg surgery History of incision and drainage History of lithotripsy History of total abdominal hysterectomy History of tubal ligation Hx of section Hx of bilateral breast reduction surgery Family History Daughter Cancer Father Cancer, Onset Age: 54 Diabetes mellitus Mother Cancer, Onset Age: 64 Diabetes mellitus Paternal Aunt Cancer Maternal Grandmother Diabetes mellitus Hypertension CVD (cardiovascular disease) Maternal Grandfather Diabetes mellitus Hypertension CVD (cardiovascular disease) Paternal Grandmother Diabetes mellitus Hypertension Paternal Grandfather No problems noted. 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 Current occupational exposures/hazards: No Cognitive needs: No Hearing needs: No Vision needs: No Review of Systems Const All systems reviewed & are unremarkable except as noted in HPI and below Physical Exam Vital Signs: Last Vital Signs Pulse 78 02/29/24 09:51 BP 128/82 02/29/24 09:51 Pulse Ox 98 02/29/24 09:51 Oxygen Delivery Method Room Air 02/29/24 09:51 BMI result Body Mass Index 27.6 Const General: cooperative and no acute distress Orientation/consciousness: patient oriented x3 HEENT Head: Yes normocephalic Resp Effort & Inspection: normal respiratory effort and able to speak in complete sentences Neuro Other: Diffuse scalp tenderness Bilateral posterior cervical tightness. Cervical ROM: mildly limited Left Spurling: normal Right Spurling: tightness/running pain from right neck into right shoulder. Sways slightly upon standing. Negative Romberg. Tandem walk intact General: patient oriented x3, CN's II-XI intact bilaterally and deep tendon reflexes 2+ bilaterally Gait exam (Neuro): Normal gait present Motor exam (neuro): 5/5 motor strength present throughout Extrem Other: Right elbow ecchymosis and swelling. Psych Appearance: grossly normal Mental Status: mental status grossly normal Speech and movement: Normal speech and movement present Affect: normal affect Attitude: cooperative Thought process: Normal thought process present Thought content: Normal thought content present Insight: Good insight present (Psych) Quality Reporting (2019) Adult ([facility] 138/12/03/68) Smoking risk assessment performed?: Yes Patient Tobacco Use Status: Never used Tobacco Assessment & Plan Assessment & Plan (1) Syncope: Code(s): R55 - Syncope and collapse Category: Medical (2) Migraines: Code(s): G43.909 - Migraine, unspecified, not intractable, without status migrainosus Category: Medical Plan Syncope- ? orthostatic hypotension, ? vasovagal syncope, ? migarien or vertigo componennt- ? exacerabated by poor po intake r/t N/V and h/o gastric sleeve sx. Reviewed orthostatic BP/HR- no orthostasis observed. Pt advised to undergo: Brain MRI w/wo- pt requests open MRI. EEG ECG tilt table test. Trial Amitriptyline 10mg qhs- in hopes this alleviates headaches, N/V, dizziness. Increase fluids. Take full glass glass of water, juice, or electrolyte replacement drink prior to showering. Future considerations- vestibular PT, optimizing migraine tx. Pt seen in c/w Dr Arabella Tucker. f/u upon review of above and in-clinic in 3 months or sooner prn. Orders: Orders ECG Tilt Table Test Today R55 - Syncope and collapse EEG electroencephalogram Today R55 - Syncope and collapse MR head/brain wo/w con Today G43.909 - Migraine, unspecified, not intractable, without status migrainosus, R55 - Syncope and collapse Medications: New amitriptyline 10 mg PO BEDTIME 30 tabs 3RF 30 days alprazolam 0.25 mg orally 1 tab 30 minutes prior to MRI, may repeat x's 1; PRN; 2 tabs 0RF anxiety 1 day Coding Level of Care Code New Pt Level 4 (42670) Diagnoses Syncope R55 Migraines G43.909
[2024-02-29 09:51] VITALS: BP 128/82; PULSE 78; O2SAT 98; BMI 27.6
[2024-02-29 10:45] VITALS: BP 118/80; PULSE 64
[2024-02-29 10:46] VITALS: BP 112/78; PULSE 72
[2024-02-29 10:49] VITALS: BP 122/84; PULSE 70
== END 2024-02-29 11:15 | disposition home or self-care (01) ==
PROVIDERS: PCP Internal Medicine; Visit Provider Nurse Practitioner Family
DX: R55 Syncope and collapse (principal); G43.909 Migraine, unspecified, not intractable, without status migrainosus
CPT/HCPCS: 99204

== ENCOUNTER → 2024-02-29 09:30 | Outpatient (BNVA) | payer OTHER, SELFPAY | PROVIDERS: PCP Internal Medicine; Visit Provider Nurse Practitioner Family | DX: G43.909 Migraine, unspecified, not intractable, without status migrainosus (principal); R55 Syncope and collapse | CPT/HCPCS: 99202 ==

== ENCOUNTER 2024-05-12 15:28 | Outpatient (AMB) | payer OTHER, SELFPAY ==
[2024-05-12 15:35] VITALS: BP 110/80; BMI 27.6
--- NOTE | 2024-05-12 15:35 | A.OFFPC_ITS ---
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 Mammogram done 2022 and I will order another mammogram. Colonoscopy done 2022. No need for Pap smear due to hysterectomy. She complains of right hand pain specifically more the 3rd and 4th finger. She also complains of right knee pain. COUNTS INCLUDE 234 BEDS AT THE [facility] Medical History Major depression, recurrent History of COVID-19 Bleeding hemorrhoids H. pylori infection Obesity (BMI 30-39.9) Rectal bleeding Mild recurrent major depression Morbid obesity with BMI of 40.0-44.9, adult Right lateral epicondylitis Epigastric pain Polyarthralgia Bloody stools Right foot pain Left foot pain Finger pain GERD (gastroesophageal reflux disease) Essential hypertension H/O reactive hypoglycemia Vitamin D deficiency Prediabetes Dyslipidemia Surgical History Breast mass, right (11/05/23) S/P laparoscopic sleeve gastrectomy Hx of colonoscopy Deficient knowledge of leg surgery History of incision and drainage History of lithotripsy History of total abdominal hysterectomy History of tubal ligation Hx of section Hx of bilateral breast reduction surgery Family History Daughter Cancer Father Cancer, Onset Age: 54 Diabetes mellitus Mother Cancer, Onset Age: 64 Diabetes mellitus Paternal Aunt Cancer Maternal Grandmother Diabetes mellitus Hypertension CVD (cardiovascular disease) Maternal Grandfather Diabetes mellitus Hypertension CVD (cardiovascular disease) Paternal Grandmother Diabetes mellitus Hypertension Paternal Grandfather No problems noted. 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 Lev Dempsey, Dolores Solis, Jacob Spear and colleagues, with an educational tonya from [employer]. Review of Systems Const All systems reviewed & are unremarkable except as noted in HPI and below Card Denies chest pain at rest, Denies chest pain with activity, Denies edema, Denies irregular heart rhythm, Denies claudication, Denies dyspnea, Denies dyspnea on exertion, Denies orthopnea, Denies paroxysmal nocturnal dyspnea and Denies slow heart rate Resp Denies cough, Denies dyspnea and Denies dyspnea on exertion GI Denies abdominal pain, Denies change in bowel habits, Denies excessive flatus, Denies nausea and Denies vomiting Denies urinary incontinence, Denies urinary hesitancy and Denies urinary urgency Musc Denies abnormal gait, Denies atrophy, Denies deformity, Reports arthralgias and Denies limited range of motion Skin/Breast Denies bleeding lesions, Denies changing lesions and Denies rash Neuro Denies abnormal gait and Denies lack of coordination Physical exam (Primary Care) Vital Signs: Last Vital Signs BP 110/80 05/12/24 15:35 BMI result Body Mass Index 27.6 Tobacco/Smoking Status: Tobacco use Status Tobacco use date assessed 11/11/23 05/12/24 15:38 Patient Tobacco Use Status Never used Tobacco 05/12/24 15:38 e-Cigarette/Vaping Use Never Used 05/12/24 15:38 Thrive Assessment: Date of Thrive Assessment Date Thrive assessed 11/11/23 05/12/24 15:38 HENMT Head: Yes normal to inspection, Yes normocephalic and Yes atraumatic Ears: external ears normal Eyes General: appearance normal, both eyes and all related structures Eyelids: Yes eyelids normal Conjunctivae: conjunctivae normal Neck Neck: Yes normal visual inspection and Yes supple Resp Effort & Inspection: normal respiratory effort Auscultation: clear to auscultation bilaterally Cardio Jugular venous distension: no JVD Rate: regular rate Rhythm: regular rhythm Heart sounds: S1 normal heart sound present and S2 normal heart sound present GI Inspection: Yes normal to inspection Palpation (GI): Soft to palpation and nontender Auscultation: normal bowel sounds Skin General skin exam: no rashes or lesions noted Neuro General: no focal motor deficits Extrem General: Yes full ROM Psych Appearance: grossly normal Assessment and Plan Assessment & Plan (1) Physical exam: Code(s): Z00.00 - Encounter for general adult medical examination without abnormal findings Plan: Repeat in a year. (2) Right hand pain: Code(s): M79.641 - Pain in right hand Plan: X-ray of the hand ordered. (3) Right knee pain: Code(s): M25.561 - Pain in right knee Qualifiers: Chronicity: chronic Qualified Code(s): M25.561 - Pain in right knee; G89.29 - Other chronic pain Plan: X-ray of the knee ordered. Orders: Orders Complete Blood Count Auto Diff Today D64.9 - Anemia, unspecified IRON PROFILE Today D64.9 - Anemia, unspecified Vitamin B12 and Folate Today E53.8 - Deficiency of other specified B group vitamins XR hand RT 2V Today M79.641 - Pain in right hand Comprehensive Lead. Panel Fast Today R73.03 - Prediabetes Vitamin D 25-OH Total Today E55.9 - Vitamin D deficiency, unspecified Lipid Panel Today Z00.00 - Encounter for general adult medical examination without abnormal findings MM screening mammo BI Today Z12.31 - Encounter for screening mammogram for malignant neoplasm of breast XR knee RT 2V Today M25.561 - Pain in right knee Medications: Refilled wxhbdejqzs-fcwwxisqezjzl-zrau 50-300-40 mg (Fioricet) 1 cap PO Q8H PRN 7 caps 0RF pain (scale score 7-10) Coding Level of Care Code Est Pt Level 3 (02961) Est Pt Prev Care 40-64y(95105) Diagnoses Physical exam Z00.00 Right hand pain M79.641 Chronic pain of right knee M25.561; G89.29 Chronicity: chronic Time Spent (min) 33
== END 2024-05-12 16:04 | disposition home or self-care (01) ==
PROVIDERS: PCP Internal Medicine; Visit Provider Internal Medicine
DX: Z00.00 Encounter for general adult medical examination without abnormal findings (principal); M79.641 Pain in right hand; M25.561 Pain in right knee
CPT/HCPCS: 99213; 99396

== ENCOUNTER 2024-05-17 07:14 | Outpatient (REF) | payer OTHER, SELFPAY ==
--- NOTE | ~2024-05-17 | XR_ITS ---
EXAMINATION: Right knee series CLINICAL INFORMATION: No knee pain COMPARISON: X-rays of the right tibia and fibula June 2019 TECHNIQUE: 2 views of the right knee FINDINGS: Proximal end of a intramedullary billie present within the tibia unchanged compared with the prior x-ray. Lucency just proximal to this in the central tibia likely postsurgical and unchanged. No joint space narrowing or marginal osteophytes. No effusion. XR/XR knee RT 2V IMPRESSION: No arthritis or acute abnormality No change compared with the prior x-ray June 2019 with stable postoperative changes. Electronically signed by: Alex Wayne MD 06/09/2024 08:20 PM EDT
--- NOTE | ~2024-05-17 | XR_ITS ---
EXAMINATION: Right hand series CLINICAL INFORMATION: No pain in right hand COMPARISON: No x-rays of the right hand February 2021 TECHNIQUE: 3 views of the right hand FINDINGS: Distal radius: Mild deformity compatible with old fracture unchanged. Third DIP joint: There is moderate to severe joint space narrowing and marginal osteophytes indicative of moderate to severe osteoarthritis. There is some minimal surrounding capsular calcification. The remaining bones joints and soft tissues are normal. XR/XR hand RT 2V IMPRESSION: 1. 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 2. Old distal radius fracture. Electronically signed by: Alex Wayne MD 06/09/2024 08:22 PM EDT
[2024-05-17 07:31] LABS: MANUAL DIFF FLAG NO
--- NOTE | 2024-05-17 07:45 | EEG_ITS ---
FINDINGS: The waking background activity consists of a low voltage 9 to 10 hertz posterior alpha frequency that attenuates well with eye opening. Drowsiness was characterized by diffuse theta slowing. Photic stimulation and hyperventilation are without activation. No focal, lateralizing, or paroxysmal discharges are seen. IMPRESSION: This awake and drowsy EEG is within normal limits. MD DANILO Severino/[place] / [id number]
[2024-05-17 08:01] LABS: Basophils Percent Auto 0.5 % (0-2); Eosinophils Absolute Auto 0.2 X10*3/uL (0.0-0.4); Eosinophils Percent Auto 2.7 % (0-4); Hematocrit 34.7 % (37.0-47.0); Hemoglobin 11.9 g/dl (12.0-16.0); Imm Gran Abs Auto 0.01 X10*3/uL (0.00-0.03); Imm Gran Pct Auto 0.2 % (0.0-0.4); Lymphocytes Absolute Auto 1.1 X10*3/uL (1.2-4.9); Mean Corpuscular HGB Conc 34.3 g/dl (31.0-35.0); Mean Corpuscular Hemoglobin 29.1 pg (27.0-33.0); Mean Corpuscular Volume 84.8 fL (80.0-98.0); Mean Platelet Volume 9.2 fL (9.4-12.3); Monocytes Absolute Auto 0.5 X10*3/uL (0.1-1.2); Monocytes Percent Auto 8.9 % (2-11); Neutrophils Absolute Auto 3.8 x10*3/uL (2.0-8.3); Neutrophils Percent Auto 67.7 % (45-73); Platelet Count 224 X10*3/uL (160-400); Red Blood Count 4.09 X10*6/uL (4.20-5.50); Red Cell Distribution Width 12.4 % (11.0-16.0); White Blood Count 5.6 X10*3/uL (4.8-10.8)
[2024-05-17 08:36] LABS: Alanine Aminotransferase 8 U/L (0-31); Albumin Level 4.3 g/dL (3.5-5.0); Alkaline Phosphatase 44 U/L (39-117); Anion Gap 14 (12-20); Aspartate Amino Transferase 13 U/L (5-31); Bilirubin Total 0.8 mg/dL (0.0-1.0); Blood Urea Nitrogen 9 mg/dL (9-16); Calcium 9.1 mg/dL (8.4-10.2); Carbon Dioxide 28 mmol/L (22-29); Chloride 103 mmol/L (96-108); Cholesterol 187 mg/dL (<200); Estimated Glomerular Filt Rate > 60; Glucose Fasting 88 mg/dL (60-99); HDL Cholesterol 62 mg/dL (>40); Iron 65 mcg/dL (30-160); LDL Cholesterol Calculated 109 mg/dL (<100); Percent Iron Saturation 27 % (15-50); Potassium 3.9 mmol/L (3.3-5.1); Sodium 141 mmol/L (135-145); Total Iron Binding Capacity 242 mcg/dL (228-428); Triglycerides 82 mg/dL (<150); Unsaturated Iron Binding 177 ug/dL
[2024-05-17 09:01] LABS: Vitamin B12 503 pg/mL (200-900)
== END 2024-05-17 07:15 | disposition home or self-care (01) ==
LOC: HO.NEURO 07:14
PROVIDERS: PCP Internal Medicine; Visit Provider Nurse Practitioner Family
DX: M79.641 Pain in right hand (principal); M25.561 Pain in right knee; R55 Syncope and collapse; D64.9 Anemia, unspecified; E53.8 Deficiency of other specified B group vitamins; E55.9 Vitamin D deficiency, unspecified; R73.03 Prediabetes; Z00.00 Encounter for general adult medical examination without abnormal findings
CPT/HCPCS: 36415; 73120; 73560; 80053; 80061; 82306; 82607; 82746; 83540; 85025; 95816

== ENCOUNTER 2024-05-26 13:13 | Outpatient (REF) | payer OTHER, SELFPAY ==
--- NOTE | ~2024-05-26 | MM_ITS ---
EXAMINATION: MM SCREENING DIGITAL BREAST TOMOSYNTHESIS, BILATERAL CLINICAL INFORMATION: Screening. Asymptomatic. Patient has a history of bilateral breast reduction dating back to 2007. No other history of surgery is given. Patient also had a stereotactic biopsy of calcifications in the 3:00 region of the right breast on 02/18/2023. According to the concordance addendum, no malignancy was present and there were benign fibrocystic changes with calcifications in the tissue sample. COMPARISON: Mammography: This study is compared with prior exams dating back to 2020. TECHNIQUE: Digital breast tomosynthesis is performed in both the craniocaudal and mediolateral oblique views along with computer-aided detection (CAD). Synthesized 2D images are generated from the tomosynthesis. FINDINGS: The breasts are heterogeneously dense, which may obscure small masses (ACR BI-RADS breast composition Category c). There is a biopsy tissue marker in the 3:00 position of the right breast. Indicates a site of prior benign stereotactic biopsy from February 2023. In the upper outer quadrant of the right breast, remote from the tissue marker, there is a focal asymmetry which warrants additional mammographic and targeted sonographic imaging. There are no scar markers placed on the breast in this region and no history of surgery given. . In the left breast, there are no significant masses, abnormal calcifications, or other abnormalities. MM/MM tomosynthesis screening BI IMPRESSION: Focal asymmetry of the right breast warrants additional mammographic and targeted sonographic imaging. When the patient returns for the additional imaging, a search for any laterally located skin scars of the right breast should be made. Any scars in this region should been marked with scar markers for all of the diagnostic imaging No mammographic signs of malignancy left breast. ASSESSMENT: BI-RADS BI-RADS 0 - Incomplete: Needs additional Imaging. RECOMMENDATION: 1. Additional views of the right breast. 2. Targeted ultrasound if warranted after review of the additional views. 3. Radiology department staff will contact the patient for additional imaging. Additional Imaging required This examination should not preclude the clinical evaluation of a suspicious palpable abnormality. This patient's information was entered into a reminder system with a target due date for their next mammogram. Electronically signed by: Sarah Gomez MD 06/25/2024 03:03 PM EDT
== END 2024-05-26 13:14 | disposition home or self-care (01) ==
LOC: HO.MAMMO 13:13
PROVIDERS: PCP Internal Medicine; Visit Provider Internal Medicine
DX: Z12.31 Encounter for screening mammogram for malignant neoplasm of breast (principal)
CPT/HCPCS: 77063; 77067

== ENCOUNTER → 2024-05-26 13:30 | Outpatient (BNV) | payer OTHER, SELFPAY | PROVIDERS: PCP Internal Medicine; Visit Provider Radiology Diagnostic Radiology | DX: Z12.31 Encounter for screening mammogram for malignant neoplasm of breast (principal) | CPT/HCPCS: 77063; 77067 ==

== ENCOUNTER 2024-05-31 07:09 | Outpatient (AMB) | payer OTHER, SELFPAY ==
--- NOTE | 2024-05-31 07:38 | MHC.OFFVIS ---
Vital Signs 05/31/24 07:39 Height 5 ft 3 in Weight 156 lb BMI 27.6 Intake Visit Reasons: 3 Month F/U-CONF Intake Note: Patient presents for 3 month follow up. Psychological Science Professor Required: Yes Psychological Science Professor Name: isabella hartley Allergies bupropion [Contrave] Allergy (Intermediate, Verified 05/31/24 07:46) nausea,vomit, headaches naltrexone [Contrave] Allergy (Intermediate, Verified 05/31/24 07:46) nausea,vomit, headaches oxycodone [Percocet] Allergy (Intermediate, Verified 05/31/24 07:46) hives duloxetine Adverse Reaction (Severe, Verified 05/31/24 07:46) Hallucinations Medication List - Last Reconciled 05/31/24 by PORSHA Branch alprazolam 0.25 mg orally 1 tab 30 minutes prior to MRI, february repeat x's 1; PRN; 1 day amitriptyline 10 mg PO BEDTIME 30 days bisacodyl (Dulcolax (bisacodyl)) 10 mg (2 x 5 mg) PO BEDTIME 30 days dubjdfrhli-kxpylrwvkmbqr-hibh 50-300-40 mg (Fioricet) 1 cap PO Q8H PRN oyzlrgzuxo-aekjeoezzxjun-hasw 50-325-40 mg 1 tab PO Q6H PRN calcium citrate-vitamin D3 315 mg-5 mcg (200 unit) (Calcium Citrate + D) 1 tab PO BID inulin (Fiber Gummies) 2 grams PO BID linaclotide 290 mcg PO QAM loratadine (Allergy Relief (loratadine)) 10 mg PO DAILY 90 days metoclopramide HCl (Reglan) 5 mg PO .tidac pantoprazole (Protonix) 40 mg PO DAILY 30 days Proctosol HC 2.5% (hydrocortisone) 1 appl [place] BID NS HPI Comments Details: 44-yr-old female presents for f/u visit. Pt denies any significant interval medical changes. Brain MRI showed mild scattered mild nonspecific white matter changes. EEG was normal. Tilt table test- pending- scheduled for 06/14/24. She denies interval syncope She continues to have frequent dizziness. She continues to have daily headache. She has tolerated starting Amitriptyline. She is using Fioricet- states her PCP gives her 7-10 tabs at a time, which she uses within a week. Baseline headache characteristics: She has a daily headache and migraine- severe frontal and occipital a/w photophobia, phonophobia, at times osmophobia, allodynia, nausea, at times vomiting, dizziness, difficulty concentrating, activity intolerance, neck tightness and a feeling of something running up her neck. Severe attack lasts 1-3 days. She is taking Tylenol every day for headache and Fioricet prn (has 10 tabs per month). She does recall her previous migraine tx trials. [facility] Medical History Major depression, recurrent History of COVID-19 Bleeding hemorrhoids H. pylori infection Obesity (BMI 30-39.9) Rectal bleeding Mild recurrent major depression Morbid obesity with BMI of 40.0-44.9, adult Right lateral epicondylitis Epigastric pain Polyarthralgia Bloody stools Right foot pain Left foot pain Finger pain GERD (gastroesophageal reflux disease) Essential hypertension H/O reactive hypoglycemia Vitamin D deficiency Prediabetes Dyslipidemia Surgical History Breast mass, right (11/05/23) S/P laparoscopic sleeve gastrectomy Hx of colonoscopy Deficient knowledge of leg surgery History of incision and drainage History of lithotripsy History of total abdominal hysterectomy History of tubal ligation Hx of section Hx of bilateral breast reduction surgery Family History Daughter Cancer Father Cancer, Onset Age: 54 Diabetes mellitus Mother Cancer, Onset Age: 64 Diabetes mellitus Paternal Aunt Cancer Maternal Grandmother Diabetes mellitus Hypertension CVD (cardiovascular disease) Maternal Grandfather Diabetes mellitus Hypertension CVD (cardiovascular disease) Paternal Grandmother Diabetes mellitus Hypertension Paternal Grandfather No problems noted. 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 Current occupational exposures/hazards: No Cognitive needs: No Hearing needs: No Vision needs: No Physical Exam Vital Signs: BMI result Body Mass Index 27.6 Const General: cooperative and no acute distress Orientation/consciousness: patient oriented x3 Resp Effort & Inspection: normal respiratory effort and able to speak in complete sentences Neuro General: patient oriented x3 Cranial nerves: Yes CN's II-XII intact bilaterally Cognition (Neuro): normal cognition Psych Appearance: grossly normal Mental Status: mental status grossly normal Speech and movement: Normal speech and movement present Affect: normal affect Attitude: cooperative Quality Reporting (2019) Adult ([facility] ) Smoking risk assessment performed?: Yes Patient Tobacco Use Status: Never used Tobacco Assessment & Plan Assessment & Plan (1) Migraines: Code(s): G43.909 - Migraine, unspecified, not intractable, without status migrainosus Category: Medical (2) Syncope: Code(s): R55 - Syncope and collapse Category: Medical (3) Dizziness: Code(s): R42 - Dizziness and giddiness Category: Medical Plan Reviewed: Brain MRI w/wo- mild non-specific white matter changes. No findings to account for pt's migraine PEREZ or syncope/dizziness. EEG- normal. For syncope and dizziness: ECG tilt table test as scheduled 06/14/24. Increased fluids. Take full glass glass of water, juice, or electrolyte replacement drink prior to showering. Future considerations- vestibular PT. For overall headache management: It is important to practice good self-care, including but not limited to eating a healthy diet, drinking enough fluids (typically 64 oz per day), maintaining a good sleep routine, and engaging in regular physical activity (typically 30-45 minutes of moderate physical activity 5 days per week). To help us better understand your headache: Track headaches, especially after treatment plan changes. Also track dizziness and syncope events follwoing tx plan change- such as starting Emgality. For acute headache treatment: It is important to take as needed acute medications at the first sign of headache, however you want to avoid taking most as needed headache too often as this can lead to medication overuse/adaptation headaches. Trial Sumatriptan 100mg tab, 1/2 - 1 tab (50-100mg) at onset of headache, may repeat in 2 hours. Max of 2 tabs (200mg) per 24 hours. May adjunct with OTC Tylenol 650mg q 4 hours. Goal to reduce Fioricet use. Potential adverse effects of triptans, including but not limited to nausea, fatigue, chest tightness/tingling (usually passes within a few minutes), medication overuse headaches. Previous acute migraine medication trials: Pt does not recall Acute migraine medication contraindications: None at this time. For headache prevention medication: Preventative medications should be taken routinely as prescribed for best effect, it may take several weeks to see full effect. Continue Amitriptyline 10mg qhs. Start Emgality: Loading dose 240mg (2 120mg/ml autoinjectors) x's 1, then in 30 days, start Maintenance dose 120mg (120mg/ml autoinjector) sc q month. Pt requests injection training once Emgality available. Previous migraine prevention medication trials: No known others Migraine prevention medication contraindications: Beta-blockers, anti-HTN tx's d/t syncope, hypotension. Would avoid aimovig or atogepoant d/t constipation. Follow-up in 6 months or sooner prn. ? Medications: New galcanezumab-gnlm (Emgality Pen) Loading dose: 120 mg subcu injection x2 in alternate sites (total 240 mg). To be followed by maintenance dose of 120 mg subcu q.month. 240 mg (2 mL) subcut ONCE 30 days 2 mL 0RF sumatriptan succinate (0.5 - 1 x 100 mg) 50 - 100 mg orally at onset of headache, may repeat in 2 hrs PRN; max 2 tabs per day or 4 tabs/week (may take with Tylenol) 30 days 12 tabs 6RF migraine headache Coding Level of Care Code Est Pt Level 4 (01106) Diagnoses Migraines G43.909 Syncope R55 Dizziness R42
[2024-05-31 07:39] VITALS: BMI 27.6
== END 2024-05-31 08:21 | disposition home or self-care (01) ==
PROVIDERS: PCP Internal Medicine; Visit Provider Nurse Practitioner Family
DX: G43.909 Migraine, unspecified, not intractable, without status migrainosus (principal); R55 Syncope and collapse; R42 Dizziness and giddiness
CPT/HCPCS: 99214

== ENCOUNTER → 2024-05-31 07:09 | Outpatient (BNVA) | payer OTHER, SELFPAY | PROVIDERS: PCP Internal Medicine; Visit Provider Nurse Practitioner Family | DX: G43.909 Migraine, unspecified, not intractable, without status migrainosus (principal); R55 Syncope and collapse; R42 Dizziness and giddiness | CPT/HCPCS: 99212 ==

== ENCOUNTER 2024-06-15 12:50 | Outpatient (AMB) | payer OTHER, SELFPAY ==
--- NOTE | 2024-06-15 12:35 | MHC.OFFVISWM ---
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 Allergies bupropion [Contrave] Allergy (Intermediate, Verified 05/31/24 07:46) nausea,vomit, headaches naltrexone [Contrave] Allergy (Intermediate, Verified 05/31/24 07:46) nausea,vomit, headaches oxycodone [Percocet] Allergy (Intermediate, Verified 05/31/24 07:46) hives duloxetine Adverse Reaction (Severe, Verified 05/31/24 07:46) Hallucinations Medication List - Last Reconciled 06/15/24 by RACHEL Murray alprazolam 0.25 mg orally 1 tab 30 minutes prior to MRI, may repeat x's 1; PRN; 1 day amitriptyline 10 mg PO BEDTIME 30 days bisacodyl (Dulcolax (bisacodyl)) 10 mg (2 x 5 mg) PO BEDTIME 30 days lgtdnxpywa-xwbtxhkbaxlbc-zzbs 50-300-40 mg (Fioricet) 1 cap PO Q8H PRN eoqebguxjh-fzhpblsxttrza-rtbl 50-325-40 mg 1 tab PO Q6H PRN calcium citrate-vitamin D3 315 mg-5 mcg (200 unit) (Calcium Citrate + D) 1 tab PO BID galcanezumab-gnlm (Emgality Pen) 240 mg (2 mL) subcut ONCE 30 days inulin (Fiber Gummies) 2 grams PO BID linaclotide 290 mcg PO QAM loratadine (Allergy Relief (loratadine)) 10 mg PO DAILY 90 days metoclopramide HCl (Reglan) 5 mg PO .tidac pantoprazole (Protonix) 40 mg PO DAILY 30 days Proctosol HC 2.5% (hydrocortisone) 1 appl [place] BID NS sumatriptan succinate 50 - 100 mg orally at onset of headache, may repeat in 2 hrs PRN; max 2 tabs per day or 4 tabs/week (may take with Tylenol) 30 days HPI Comments Details: This?is a?44?yo female who is s/p LSG 10/01/2022. Presents for 2 year 9 month post op visit. Weight at last visit on 04/23/2023 was 149.6 pounds with a BMI of 26.5, weight today is 155 pounds, representing a 5.4 pound weight loss with a BMI today of 27.5.? No complaints of abdominal pain or reflux, or constipation. Pt reports a lot of vomiting foam . Present meal plan includes: breakfast- coffee, 2 eggs snack- cheese or almonds 12-1pm- meat/veg 3:30pm- farina oatmeal 5:30pm- chicken, rice, veg- always vomits Exercise routine includes: we did not get a chance to discuss [facility] Medical History (Updated 06/15/24 @ 13:01 by RACHEL Murray) Major depression, recurrent History of COVID-19 Bleeding hemorrhoids H. pylori infection Obesity (BMI 30-39.9) Rectal bleeding Mild recurrent major depression Morbid obesity with BMI of 40.0-44.9, adult Right lateral epicondylitis Epigastric pain Polyarthralgia Bloody stools Right foot pain Left foot pain Finger pain GERD (gastroesophageal reflux disease) Essential hypertension H/O reactive hypoglycemia Vitamin D deficiency Prediabetes Dyslipidemia Surgical History Breast mass, right (11/05/23) S/P laparoscopic sleeve gastrectomy Hx of colonoscopy Deficient knowledge of leg surgery History of incision and drainage History of lithotripsy History of total abdominal hysterectomy History of tubal ligation Hx of section Hx of bilateral breast reduction surgery Family History Daughter Cancer Father Cancer, Onset Age: 54 Diabetes mellitus Mother Cancer, Onset Age: 64 Diabetes mellitus Paternal Aunt Cancer Maternal Grandmother Diabetes mellitus Hypertension CVD (cardiovascular disease) Maternal Grandfather Diabetes mellitus Hypertension CVD (cardiovascular disease) Paternal Grandmother Diabetes mellitus Hypertension Paternal Grandfather No problems noted. 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 Current occupational exposures/hazards: No Cognitive needs: No Hearing needs: No Vision needs: No Quality Reporting (2019) Adult ([facility] 13812/03/68) Smoking risk assessment performed?: Yes Patient Tobacco Use Status: Never used Tobacco Telehealth Telehealth Telehealth Platform: Telephone Location of provider rendering services: other Location of patient: address on file Patient Identification confirmed using: Name, : Yes Telehealth method: voice only Patient verbally consented to treatment: Yes Patient verbally consented to billing insurance company: Yes Patient informed of any privacy concerns related to visit: Yes Minutes spent on Phone/Video with Pt.: 18 Assessment & Plan Assessment & Plan (1) S/P laparoscopic sleeve gastrectomy: Code(s): Z98.84 - Bariatric surgery status Category: Surgical (2) Overweight: Code(s): E66.3 - Overweight Category: Medical Plan Pt can tolerate soft foods like eggs, cheese, liquids without difficulty. Likely not due to a structural/anatomical issue. Discussed eliminating oatmeal, rice; try to have a yogurt or protein shake instead of oatmeal; ensure no meals are larger than 8oz total volume. If these changes do not help vomiting pt will contact office to let us know. Had labs recently done. RTC in mid to late Sep for annual visit. I spent a total of 30 minutes reviewing/updating records, examining the patient and counseling the patient on weight management as detailed above.
[2024-06-15 12:46] VITALS: BMI 27.5
== END 2024-06-15 13:01 | disposition home or self-care (01) ==
LOC: HO.HBS 12:50
PROVIDERS: PCP Internal Medicine; Visit Provider Physician Assistant Surgical
DX: E66.3 Overweight (principal); Z68.27 Body mass index [BMI] 27.0-27.9, adult; Z90.3 Acquired absence of stomach [part of]; Z98.84 Bariatric surgery status
CPT/HCPCS: 99214

== ENCOUNTER → 2024-06-15 12:50 | Outpatient (BNVA) | payer OTHER, SELFPAY | PROVIDERS: PCP Internal Medicine; Visit Provider Physician Assistant Surgical ==

== ENCOUNTER 2024-06-16 09:48 | Emergency (ER) | payer OTHER, SELFPAY ==
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
[2024-06-16 09:54] VITALS: BP 151/79; PULSE 79; RESP 20; TEMP 37.2; O2SAT 98; BMI 26.6
--- NOTE | 2024-06-16 10:08 | PC.NURSE ---
this RN talked with PA about need/no need of collar from triage, per PA at this time pt does not need to be collared.
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
[2024-06-16] MEDS: Acetaminophen 325 MG TABLET 975 MG PO (11:21)
[2024-06-16] MEDS: Cyclobenzaprine HCl 10 MG TABLET PO (11:22)
[2024-06-16 13:26] VITALS: BP 118/77; PULSE 70; RESP 16; TEMP 36.8; O2SAT 100
[2024-06-16 13:32] VITALS: BP 118/77; PULSE 70; RESP 16; TEMP 36.8; O2SAT 100
== END 2024-06-16 13:37 | disposition home or self-care (01) ==
PROVIDERS: Emergency Provider Emergency Medicine; PCP Internal Medicine
DX: S13.4XXA Sprain of ligaments of cervical spine, initial encounter (principal); S39.012A Strain of muscle, fascia and tendon of lower back, initial encounter; V43.52XA Car driver injured in collision with other type car in traffic accident, initial encounter; Y93.89 Activity, other specified; Y92.414 Local residential or business street as the place of occurrence of the external cause; Y99.9 Unspecified external cause status
CPT/HCPCS: 70450; 71045; 72100; 72125; 99283; 99284

== ENCOUNTER 2024-07-11 08:44 | Outpatient (REF) | payer OTHER, SELFPAY ==
--- NOTE | ~2024-07-11 | MM_ITS ---
EXAMINATION: MM DIAGNOSTIC DIGITAL BREAST TOMOSYNTHESIS, RIGHT CLINICAL INFORMATION: Follow-up for area of architectural distortion upper outer right breast seen on screening exam. Patient has history of remote reduction surgery. COMPARISON: Mammography: 06/05/2024, 02/18/2023 stereotactic biopsy (benign fibrocystic changes), 02/17/2023, 02/05/2023, 08/01/2021, and dating back to 07/19/2019. On 11/04/2023, the patient had an excisional biopsy for a enlarging upper outer quadrant right breast mass . Scar markers were added to this diagnostic exam. TECHNIQUE: Digital right breast tomosynthesis is performed in both the craniocaudal and mediolateral oblique views along with computer-aided detection (CAD). Synthesized 2D images are generated from the tomosynthesis. Examination was performed with scar marker present. FINDINGS: The breasts are extremely dense, which lowers the sensitivity of mammography (ACR BI-RADS breast composition Category d). Architectural distortion in the upper outer quadrant of the right breast, middle to posterior one third, is consistent with post excisional biopsy scar (performed 11/04/2023), and correlates with the scar marker location. This finding is benign. No additional suspicious abnormalities present which could be distinguished from the extremely dense and somewhat nodular breast tissue. Biopsy clip in the 3:00 axis, posterior one third, from benign breast stereotactic biopsy. No axillary abnormalities. MM/MM tomosynthesis added views R IMPRESSION: -There are no findings suspicious for malignancy in the right breast. -Architectural right breast upper outer quadrant distortion correlates with excisional biopsy scarring, surgery originally performed 11/04/2023. Pathology was benign. -Recommend the patient resume routine annual screening mammography. ASSESSMENT: BI-RADS BI-RADS 2 - Benign Findings RECOMMENDATION: 1 year F/U Results were provided to the patient at time of visit by the technologist. This patient's information was entered into a reminder system with a target due date for their next mammogram. Electronically signed by: Mati Sanchez MD 07/11/2024 09:58 AM EDT
== END 2024-07-11 08:45 | disposition home or self-care (01) ==
LOC: HO.MAMMO 08:44
PROVIDERS: PCP Internal Medicine; Visit Provider Internal Medicine
DX: N64.89 Other specified disorders of breast (principal)
CPT/HCPCS: 77061; 77065

== ENCOUNTER → 2024-07-11 09:30 | Outpatient (BNV) | payer OTHER, SELFPAY | PROVIDERS: PCP Internal Medicine; Visit Provider Radiology Diagnostic Radiology | DX: R92.8 Other abnormal and inconclusive findings on diagnostic imaging of breast (principal) | CPT/HCPCS: 77061; 77065 ==

== ENCOUNTER 2024-08-23 10:00 | Outpatient (RCR) | payer OTHER, SELFPAY ==
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
== END 2024-12-30 08:58 | disposition home or self-care (01) ==
LOC: HO.PTCHIC 10:00
PROVIDERS: PCP Internal Medicine; Visit Provider Internal Medicine
DX: M54.2 Cervicalgia (principal); M54.9 Dorsalgia, unspecified
CPT/HCPCS: 97014; 97110; 97140; 97163

== ENCOUNTER 2024-08-31 15:26 | Emergency (ER) | payer OTHER, SELFPAY ==
--- NOTE | ~2024-08-31 | XR_ITS ---
EXAMINATION: XR ABDOMEN KUB CLINICAL INDICATION: pain COMPARISON: 05/12/2023 TECHNIQUE: AP supine view of the abdomen. FINDINGS: Again seen are numerous surgical clips in left upper quadrant. Nondilated bowel gas pattern. No intraperitoneal free air on these supine images. Sensitivity is limited. No appreciable pathologic calcifications. Lung bases are clear. No kidney osseous findings. XR/XR KUB IMPRESSION: No acute radiograph intra-abdominal findings Electronically signed by: Mati Espinoza MD 08/31/2024 06:57 PM EST
[2024-08-31 15:43] VITALS: BP 113/85; PULSE 86; RESP 19; TEMP 37.2; O2SAT 97; BMI 29.2
--- NOTE | 2024-08-31 15:44 | ED_ITS ---
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 Reports 2 small bowel movements in the past 2 days tinged with pink blood. Patient also reports dizziness and 5 episodes of vomiting yesterday; nonbloody bile. Decreased appetite and only able to keep down small amounts of fluid. Patient also reports numbness to the hands and legs which is new as of today. Tried fwdj-wrj-bprqbwt medication for constipation with no relief. Reports that movement worsens abdominal pain. Bariatric surgery approximately 2 years ago; reportedly had to receive 1 pint of blood following surgery. Denies recent illness, medication changes, changes to diet/activity. Denies chest pain, shortness of breath, palpitations. Denies hemoptysis, cough, difficulty swallowing. Onset (ago): day(s) (4) Location: abdomen Severity: severe Severity scale (1-10): 10 Quality: burning Pain Consistency: constant Relieving factors: none Exacerbating factors: movement Associated symptoms: loss of appetite and nausea/vomiting Treatments prior to arrival: none Related Data Previous Rx's ?Medication ?Instructions ?Recorded inulin 2 gram chewable tablet 2 g PO BID #60 tabs 12/08/22 (Fiber Gummies) loratadine 10 mg tablet (Allergy 10 mg PO DAILY 90 days #90 tabs 04/01/23 Relief (loratadine)) bisacodyl 5 mg tablet,delayed 10 mg (2 x 5 mg) PO BEDTIME 30 04/21/23 release (Dulcolax (bisacodyl)) days #60 tabs linaclotide 290 mcg capsule 290 mcg PO QAM #30 caps 04/21/23 pantoprazole 40 mg tablet,delayed 40 mg PO DAILY 30 days #30 tabs 04/21/23 release (Protonix) Proctosol HC 2.5 % topical cream 1 appl FL BID hemorrhoids #28.35 05/12/23 perineal applicator grams (hydrocortisone) metoclopramide HCl 5 mg tablet 5 mg PO .tidac #90 tabs 05/20/23 (Reglan) calcium 315 mg (as 1 tab PO BID #60 tabs 11/11/23 citrate)-vitamin D3 5 mcg (200 unit) tablet (Calcium Citrate + D) ukxeywdklh-cqzytyydubebv-nwwdshwj 1 tab PO Q6H PRN pain #10 tabs 02/22/24 50 mg-325 mg-40 mg tablet alprazolam 0.25 mg tablet 0.25 mg PO .COMPLEX PRN anxiety 1 02/29/24 day #2 tabs amitriptyline 10 mg tablet 10 mg PO BEDTIME 30 days #30 tabs 02/29/24 rmtkaiexwz-fablbybexuswu-fwjrhlsn 1 cap PO Q8H PRN pain (scale score 05/12/24 50 mg-300 mg-40 mg capsule 7-10) #7 caps (Fioricet) galcanezumab-gnlm 120 mg/mL 240 mg (2 mL) subcut ONCE 30 days 05/31/24 subcutaneous pen injector #2 mL (Emgality Pen) sumatriptan succinate 100 mg tablet 50 - 100 mg (0.5 - 1 x 100 mg) PO 05/31/24 .COMPLEX PRN migraine headache 30 days #12 tabs cyclobenzaprine 10 mg tablet 10 mg PO TID PRN muscle spasm #20 06/16/24 tabs lidocaine 5 % topical patch 1 patch topical DAILY #30 ea 06/16/24 metoclopramide HCl 10 mg tablet 10 mg PO Q6H PRN nausea and 08/31/24 (Reglan) vomiting #14 tabs sucralfate 100 mg/mL oral 10 ml PO QID PRN reflux #400 mL 08/31/24 suspension (Carafate) Allergies Allergy/AdvReac Type Severity Reaction Status Date / Time bupropion [Contrave] Allergy Intermediate nausea,vomit, Verified 08/31/24 15:46 headaches naltrexone [Contrave] Allergy Intermediate nausea,vomit, Verified 08/31/24 15:46 headaches oxycodone [Percocet] Allergy Intermediate hives Verified 08/31/24 15:46 duloxetine AdvReac Severe Hallucinati Verified 08/31/24 15:46 ons Review of Systems 2 Review of Systems: Neuro: Alert and oriented. Reports numbness of the hands and feet. Denies swelling of extremities Constitutional: Denies fever, chills, weakness. HEENT: Denies headache, head pain. Denies visual changes, erythema, discharge from eyes. Denies auditory changes, tinnitus. Denies nasal discharge, nasal congestion. Denies throat discomfort, difficulty swallowing. Cardiac: Denies chest pain, palpitations Pulmonary: Denies shortness of breath, cough, wheezing, sputum production GI: Reports 10/10 centralized abdominal pain, nausea, vomiting, constipation. Reports small amount of blood in stool. Denies diarrhea. Denies hematemesis Integumentary: Denies changes to skin including rashes, erythema, pruritus MSK: Reports full range of motion in all extremities. Yes all other systems are reviewed and are negative Constitutional: Constitutional: Reports as per HPI and Reports no additional constitutional complaints Eyes: Eyes: Reports as per HPI and Reports no additional eye complaints ENT: Reports system reviewed and no additional complaints, except as documented, Reports as per HPI and Reports Normal hearing present Cardiovascular: Cardiovascular: Reports as per HPI and Reports no additional cardiovascular complaints Respiratory: Respiratory: Reports as per HPI and Reports no additional respiratory complaints Gastrointestinal: Gastrointestinal: Reports as per HPI, Reports abdominal pain, Reports change in stool character, Reports constipation, Reports nausea and Reports vomiting Musculoskeletal: Musculoskeletal: Reports no additional musculoskeletal complaints and Reports as per HPI Integumentary/Breasts: Skin/Breast: Reports system reviewed and no additional complaints, except as docu and Reports as per HPI Neurologic: Reports system reviewed and no additional complaints, except as documented, Reports as per HPI and Reports Normal hearing present Comments: Reports numbness of hands and feet Psychiatric: Psychiatric: Reports no additional psychiatric complaints and Reports as per HPI Endocrine: Endocrine: Reports no additional endocrine complaints and Reports as per HPI Hematologic/Lymphatic: Hematologic/Lymphatic: Reports no additional hematologic/lymphatic complaints and Reports as per HPI Allergic/Immunologic: Allergic/Immunologic: Reports no additional allergic/immunologic complaints and Reports as per HPI [facility] Past Medical History Medical History Major depression, recurrent History of COVID-19 Bleeding hemorrhoids H. pylori infection Obesity (BMI 30-39.9) Rectal bleeding Mild recurrent major depression Morbid obesity with BMI of 40.0-44.9, adult Right lateral epicondylitis Epigastric pain Polyarthralgia Bloody stools Right foot pain Left foot pain Finger pain GERD (gastroesophageal reflux disease) Essential hypertension H/O reactive hypoglycemia Vitamin D deficiency Prediabetes Dyslipidemia Surgical History Breast mass, right (11/05/23) S/P laparoscopic sleeve gastrectomy Hx of colonoscopy Deficient knowledge of leg surgery History of incision and drainage History of lithotripsy History of total abdominal hysterectomy History of tubal ligation Hx of section Hx of bilateral breast reduction surgery Family History Family History Daughter Cancer Father Cancer, Onset Age: 54 Diabetes mellitus Mother Cancer, Onset Age: 64 Diabetes mellitus Paternal Aunt Cancer Maternal Grandmother Diabetes mellitus Hypertension CVD (cardiovascular disease) Maternal Grandfather Diabetes mellitus Hypertension CVD (cardiovascular disease) Paternal Grandmother Diabetes mellitus Hypertension Paternal Grandfather No problems noted. Social History Social History Housing: House Are you a primary rn complex care to a significant other at home: No Do you presently have visiting nurse or other home services: No Alcohol intake: never Comment: COUNTS CORRECT Patient Tobacco Use Status: Never used Tobacco Smoked in Last 30 Days: No e-Cigarette/Vaping Use: Never Used Second Hand Smoke Exposure: No Use of substances other than those prescribed or required for medical reasons: No Advance Directives: Yes Advance Directives on File: Yes Advance Directives Date on File: 10/07/22 Do you have a plan to hurt others: No Plan Patient : No service: No Current occupational status: employed 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 They are awake, alert and oriented. Able to speak in complete in full sentences. General: cooperative, well developed, alert and awake Nutritional Appearance: average body habitus and well nourished Orientation/consciousness: patient oriented x3 HENMT Other: Head is normocephalic, atraumatic. No significant abnormalities are noted. External ears appear to be normal; hearing is intact External nose appears to be normal; no discharge, erythema, bleeding noted Face is symmetric, no signs of trauma; no significant abnormalities are noted. External mouth reveals no significant abnormalities Head: Yes normal to inspection Ears: hearing grossly normal bilaterally General nose exam: Normal external nose present Face and sinus: Yes normal facial exam and Yes face symmetric Mouth: Normal oral and palatal mucosa present and lip normal Eyes Other: Pupils are PERRL. No noted erythema, discharge, other significant or notable abnormalities General: appearance normal, both eyes and all related structures Periorbital: periorbital findings normal Eyelids: Yes eyelids normal Conjunctivae: conjunctivae normal Sclerae: sclerae normal Pupils: Equal, round and reactive pupils present Neck Other: Full range of motion of the cervical spine. No tenderness or obvious abnormalities. Neck: Yes normal visual inspection Resp Other: Lungs are clear to auscultation bilaterally; no noted wheezing, rhonchi. Patient is able to speak in full and complete sentences without difficulty; no signs of respiratory distress Effort & Inspection: normal respiratory effort Auscultation: clear to auscultation bilaterally Cardio Other: Heart is regular for rate, rhythm, quality. No murmurs, rubs, gallops noted Rate: regular rate Rhythm: regular rhythm GI Other: Tenderness upon palpation of the left lower quadrant and central abdomen. Abdomen is soft, nondistended; no noted rigidity. Bowel sounds are present. Negative Thapa sign. Inspection: Yes normal to inspection Palpation (GI): Soft to palpation Auscultation: normal bowel sounds Back/Spine/Pelvis Other: No tenderness upon palpation of the cervical, thoracic, lumbar spine Skin Other: Skin is warm, dry, appropriate for color. No noted abnormalities including rashes, erythema, changes to skin color. General skin exam: no rashes or lesions noted Neuro Other: Patient is alert and oriented, able to speak in complete and full sentences. Patient is able to move all extremities with full range of motion. General: patient oriented x3 and moves all extremities Cranial nerves: Yes Equal, round and reactive pupils present and Yes Normal hearing present Cognition (Neuro): normal cognition Extrem Other: Patient is able to move all extremities with full range of motion. They report numbness to the hands and feet but do have positive CMS in all extremities. General: Yes normal to inspection and Yes full ROM Psych Other: No signs of distress Appearance: grossly normal and well kempt Mental Status: mental status grossly normal Speech and movement: Normal speech and movement present and Clear speech present Affect: normal affect Attitude: cooperative Thought process: Normal thought process present Thought content: Normal thought content present Insight: Good insight present (Psych) Judgement: Good judgement present (Psych) Course Course Course Narrative: This is a rapid medical exam performed by Rashmi Salas NP: Additional HPI, ROS, PE not included below will be deferred to primary provider. Patient is a 44-year-old female with history of bariatric surgery, fibromyalgia, migraines, anemia, chronic idiopathic constipation presenting with complaint of epigastric abdominal pain, constipation, nausea and dizziness. Diarrhea for the past 2 hours. Plan: EKG, labs, viral serology Medical Decision Making Medical Decision Making [facility] Narrative: Aman Ball PA-C have personally assessed and manage the patient, Luz CHISHOLM observed and helped to formulate the documentation 44-year-old female seen in the ED for concerns regarding constipation x4 days with associated centralized 10/10 abdominal pain; described as constant and burning. Reports 2 small bowel movements in the past 2 days tinged with pink blood. Patient also reports dizziness and 5 episodes of vomiting yesterday; nonbloody bile. Decreased appetite and only able to keep down small amounts of fluid. Patient also reports numbness to the hands and legs which is new as of today. Tried ekuu-qeo-lsgubka medication for constipation with no relief. Reports that movement worsens abdominal pain. Bariatric surgery approximately 2 years ago; reportedly had to receive 1 pint of blood following surgery. Denies recent illness, medication changes, changes to diet/activity. Denies chest pain, shortness of breath, palpitations. Denies hemoptysis, cough, difficulty swallowing. DDX - gastritis/GERD: Consider given vomiting, constipation, abdominal pain. Unlikely due to lack of fever, diarrhea. - bowel obstruction: Consider due to constipation, abdominal pain, vomiting. Unlikely due to physical exam findings revealing present bowel sounds, nondistended abdomen. - diverticulitis: Consider given reports of tenderness upon palpation of the left lower quadrant, constipation, vomiting. Unlikely due to lack of fever and chief complaint of centralized abdominal pain. - Irritable bowel syndrome; consider given constipation, abdominal pain, history including several stress factors. Unlikely due to acute onset, no report of same symptoms in the past. - colorectal cancer; consider given report of constipation, abdominal pain, vomiting, report of blood-tinged stool; family history of cancer unspecified. Unlikely as symptoms are acute onset - pancreatitis; consider given report of centralized abdominal pain, vomiting. Unlikely due to report of tenderness upon palpation of the left lower quadrant - cholecystits/ other complication involiving the gallbladder; consider given report of centralized abdominal pain, vomiting. Unlikely due to constipation, report of left lower quadrant pain. - flu/ COVID/ RSV: Consider even complain of abdominal pain, vomiting. Unlikely due to lack of other flu-like symptoms. Plan - pain control: Due to report of 07/21 abdominal pain - vitals: Monitor to assess for any hemodynamic instability or drastic changes in vital signs - abdominal x-ray: Assess for any obstruction or notable abnormalities - ultrasound: Assess for underlying gallbladder pathology that may be related to current presentation - CBC: To assess for any hematologic or infectious process - CMP: To assess for any metabolic or electrolyte abnormalities - urinalysis: Assess for , infectious process, kidney function - EKG: Assess for any cardia, electrolyte, pulmonary abnormalities; especially due to age and chief complaint of centralized abdominal pain with associated GI symptoms - COVID/ flu/ RSV swab: To assess for the presence of COVID, flu, RSV per Effie Ball PA-C Patient has a history of idiopathic constipation, unclear what medications she uses at home, I think the diarrhea she is experiencing is breakthrough diarrhea, from what she is describing a sounds as if she uses senna. I am going to send her on a different bowel regimen. I obtained a KUB in addition to the screening labs that were obtained, she still has stool burden. Her abdomen is soft nondistended, she is passing gas, she is expelling stool, this is not obstruction. I have independently reviewed the following tests: Labs: No leukocytosis, not anemic, no electrolyte abnormality KUB: Bowel gas noted, stool noted, still constipated Lab Data 08/31/24 16:56 08/31/24 16:56 Labs: Lab Results 08/31/24 08/31/24 Range/Units 16:20 16:56 WBC 10.2 (4.8-10.8) X10*3/uL RBC 4.46 (4.20-5.50) X10*6/uL Hgb 13.0 (12.0-16.0) g/dl Hct 37.1 (37.0-47.0) % MCV 83.2 (80.0-98.0) fL MCH 29.1 (27.0-33.0) pg MCHC 35.0 (31.0-35.0) g/dl RDW 12.1 (11.0-16.0) % Plt Count 239 (160-400) X10*3/uL MPV 9.0 L (9.4-12.3) fL Immature Gran % (Auto) 0.3 (0.0-0.4) % Neut % (Auto) 91.4 H (45-73) % Lymph % (Auto) 4.3 L (20-40) % Power % (Auto) 2.9 (2-11) % Eos % (Auto) 0.9 (0-4) % Baso % (Auto) 0.2 (0-2) % Lymph # (Auto) 0.4 L (1.2-4.9) X10*3/uL Power # (Auto) 0.3 (0.1-1.2) X10*3/uL Eos # (Auto) 0.1 (0.0-0.4) X10*3/uL Baso # (Auto) 0.0 (0.0-0.2) X10*3/uL Abs Immat Gran (auto) 0.03 (0.00-0.03) X10*3/uL Absolute Neuts (auto) 9.3 H (2.0-8.3) x10*3/uL Absolute Nucleated RBC 0.000 (0.0-0.012) X10*3/uL Nucleated RBC % (auto) 0.0 (0.0-0.2) /100WBC Smear Tech's Comments VERIFIED Sodium 139 (135-145) mmol/L Potassium 3.8 (3.3-5.1) mmol/L Chloride 103 (96-108) mmol/L Carbon Dioxide 24 (22-29) mmol/L Anion Gap 16 (12-20) BUN 12 (9-16) mg/dL Creatinine 0.59 (0.5-1.4) mg/dL Estim Creat Clear Calc 115.4 Estimated GFR > 60 Random Glucose 103 (60-115) mg/dL Calcium 8.6 (8.4-10.2) mg/dL Magnesium 1.8 (1.6-2.6) mg/dL Total Bilirubin 0.7 (0.0-1.0) mg/dL AST 18 (5-31) U/L ALT 10 (0-31) U/L Alkaline Phosphatase 47 (39-117) U/L Total Protein 7.2 (6.5-8.0) g/dL Albumin 4.3 (3.5-5.0) g/dL Beta HCG, Quant < 2 mIU/mL Influenza Type A (PCR) NEGATIVE (Negative) Influenza Type B (PCR) NEGATIVE (Negative) RSV RNA Qual (PCR) NEGATIVE (Negative) SARS-CoV-2 RNA (RT-PCR) NEGATIVE (Negative) Discharge Plan Discharge Clinical Impression: Constipation Patient Disposition: Home, Self-Care Instructions: Constipation (ED) Additional Instructions: The x-ray revealed that you were still constipated. This can cause nausea and indigestion. Use the Carafate for indigestion as directed, use the Reglan as needed for nausea. You also need to use a different medication to manage your chronic constipation. You need to purchase MiraLax, mix the powder per package instructions with liquid. Drink the solution every hour until you fully clear out your gut, you are essentially performing a bowel prep, as if you were going to have a colonoscopy. After you alleviate your current stool burden, you should stay on a stool softener such as Colace, use daily. You may have to use the MiraLax a few times a week to prevent further episodes of constipation. Continue to follow up with your healthcare providers. Prescriptions: New metoclopramide HCl [Reglan] 10 mg tablet 10 mg PO Q6H PRN (Reason: nausea and vomiting) Qty: 14 0RF sucralfate [Carafate] 100 mg/mL suspension 10 ml PO QID PRN (Reason: reflux) Qty: 400 0RF Rx Instructions: swish in mouth and swallow; use after food/drink No Action loratadine [Allergy Relief (loratadine)] 10 mg tablet 10 mg PO DAILY 90 Days Qty: 90 1RF zlhdztjauc-sadvyggejlsjr-ygfd 50-325-40 mg tablet 1 tab PO Q6H PRN (Reason: pain) Qty: 10 0RF cyclobenzaprine 10 mg tablet 10 mg PO TID PRN (Reason: muscle spasm) Qty: 20 0RF lidocaine 5 % adhesive patch,medicated 1 patch topical DAILY Qty: 30 0RF Rx Instructions: leave on most painful area for up to 12 hrs byzclthbop-qpostuschiqty-xnrq [Fioricet] 50-300-40 mg capsule 1 cap PO Q8H PRN (Reason: pain (scale score 7-10)) Qty: 7 0RF calcium citrate-vitamin D3 [Calcium Citrate + D] 315 mg-5 mcg (200 unit) tablet 1 tab PO BID Qty: 60 11RF bisacodyl [Dulcolax (bisacodyl)] 5 mg tablet,delayed release (DR/EC) 10 mg PO BEDTIME 30 Days Qty: 60 6RF linaclotide 290 mcg capsule 290 mcg PO QAM Qty: 30 6RF pantoprazole [Protonix] 40 mg tablet,delayed release (DR/EC) 40 mg PO DAILY 30 Days Qty: 30 6RF Fiber Gummies 2 gram tablet,chewable 2 g PO BID Qty: 60 6RF Emgality Pen 120 mg/mL pen injector 240 mg subcut ONCE 30 Days Qty: 2 0RF Rx Instructions: Loading dose: 120 mg subcu injection x2 in alternate sites (total 240 mg). To be followed by maintenance dose of 120 mg subcu q.month. sumatriptan succinate 100 mg tablet 50 - 100 mg PO .COMPLEX PRN (Reason: migraine headache) 30 Days Qty: 12 6RF Rx Instructions: 50 - 100 mg orally at onset of headache, may repeat in 2 hrs PRN; max 2 tabs per day or 4 tabs/week (may take with Tylenol) hydrocortisone [Proctosol HC] 2.5 % cream with perineal applicator 1 appl FL BID Qty: 28.35 3RF Patient Comments: postop med metoclopramide HCl [Reglan] 5 mg tablet 5 mg PO .tidac Qty: 90 3RF amitriptyline 10 mg tablet 10 mg PO BEDTIME 30 Days Qty: 30 3RF alprazolam 0.25 mg tablet 0.25 mg PO .COMPLEX PRN (Reason: anxiety) 1 Days Qty: 2 0RF Rx Instructions: 0.25 mg orally 1 tab 30 minutes prior to MRI, may repeat x's 1; PRN; Print Language: Indonesian
--- NOTE | 2024-08-31 15:47 | ECG_ITS ---
Test Reason : sob Blood Pressure : / mmHG Vent. Rate : 080 BPM Atrial Rate : 080 BPM P-R Int : 138 ms QRS Dur : 076 ms QT Int : 384 ms P-R-T Axes : 045 012 000 degrees QTc Int : 442 ms Normal sinus rhythm Normal ECG When compared with ECG of 04-DEC-2023 08:00, No significant change was found Referred By: Sanjuana Salas Electronically Signed By:VICKIE MAI MD
[2024-08-31 17:04] LABS: Basophils Percent Auto 0.2 % (0-2); Eosinophils Absolute Auto 0.1 X10*3/uL (0.0-0.4); Eosinophils Percent Auto 0.9 % (0-4); Hematocrit 37.1 % (37.0-47.0); Imm Gran Abs Auto 0.03 X10*3/uL (0.00-0.03); Imm Gran Pct Auto 0.3 % (0.0-0.4); Lymphocytes Absolute Auto 0.4 X10*3/uL (1.2-4.9); Lymphocytes Percent Auto 4.3 % (20-40); MANUAL DIFF FLAG SCAN; Mean Corpuscular Hemoglobin 29.1 pg (27.0-33.0); Mean Corpuscular Volume 83.2 fL (80.0-98.0); Monocytes Absolute Auto 0.3 X10*3/uL (0.1-1.2); Monocytes Percent Auto 2.9 % (2-11); Neutrophils Absolute Auto 9.3 x10*3/uL (2.0-8.3); Neutrophils Percent Auto 91.4 % (45-73); Platelet Count 239 X10*3/uL (160-400); Red Blood Count 4.46 X10*6/uL (4.20-5.50); Red Cell Distribution Width 12.1 % (11.0-16.0); SCAN SMEAR FLAG 1; White Blood Count 10.2 X10*3/uL (4.8-10.8)
[2024-08-31 17:10] LABS: Influenza A PCR NEGATIVE (Negative); Influenza B PCR NEGATIVE (Negative); Resp Syncy Virus RNA Qual PCR NEGATIVE (Negative); SARS COV2 PCR INHOUSE NEGATIVE (Negative)
[2024-08-31 17:27] LABS: SLIDE REVIEW VERIFIED
[2024-08-31 17:36] LABS: Alanine Aminotransferase 10 U/L (0-31); Albumin Level 4.3 g/dL (3.5-5.0); Alkaline Phosphatase 47 U/L (39-117); Anion Gap 16 (12-20); Aspartate Amino Transferase 18 U/L (5-31); Bilirubin Total 0.7 mg/dL (0.0-1.0); Blood Urea Nitrogen 12 mg/dL (9-16); Calcium 8.6 mg/dL (8.4-10.2); Carbon Dioxide 24 mmol/L (22-29); Chloride 103 mmol/L (96-108); Creatinine Clr Calc Pharmacy 115.4; Estimated Glomerular Filt Rate > 60; Glucose Random 103 mg/dL (60-115); Magnesium 1.8 mg/dL (1.6-2.6); Potassium 3.8 mmol/L (3.3-5.1); Sodium 139 mmol/L (135-145); Total Protein 7.2 g/dL (6.5-8.0)
[2024-08-31 17:37] LABS: HCG Quantitative < 2 mIU/mL
[2024-08-31 18:41] VITALS: BP 113/85; PULSE 86; RESP 19; TEMP 37.2; O2SAT 97
== END 2024-08-31 18:41 | disposition home or self-care (01) ==
PROVIDERS: Registered Nurse Emergency; Emergency Provider Emergency Medicine; PCP Internal Medicine
DX: K59.00 Constipation, unspecified (principal); R10.9 Unspecified abdominal pain; R06.02 Shortness of breath; Z03.818 Encounter for observation for suspected exposure to other biological agents ruled out; E11.9 Type 2 diabetes mellitus without complications; E78.5 Hyperlipidemia, unspecified; Z98.84 Bariatric surgery status; Z79.899 Other long term (current) drug therapy
CPT/HCPCS: 0241U; 36415; 74018; 80053; 83735; 84702; 85025; 93005; 99283; 99284

== ENCOUNTER → 2024-08-31 15:47 | Outpatient (BNV) | payer OTHER, SELFPAY | PROVIDERS: Emergency Provider Emergency Medicine; PCP Internal Medicine; Visit Provider Internal Medicine Cardiovascular Disease | DX: R06.02 Shortness of breath (principal) | CPT/HCPCS: 93010 ==

== ENCOUNTER 2024-10-07 08:32 | Outpatient (REF) | payer OTHER, SELFPAY ==
--- NOTE | ~2024-10-07 | XR_ITS ---
CLINICAL HISTORY: M53.3 - Sacrococcygeal disorders, not elsewhere classified Exam: AP pelvis with AP and frog-leg lateral views of the right hip. Comparison: None. Findings: Bony alignment of the hip joints is anatomic. No acute fracture. Urqi-ht-uhrdzozj degenerative change of the right hip joint with mild degenerative change of the left hip joint. Sacroiliac joints and pubic symphysis are unremarkable. Impression: Bilateral hip DJD, [id number]-[id number]-left. This document has been electronically signed by: Alex Wilson MD on 10/10/2024 21:34:29
== END 2024-10-07 08:33 | disposition home or self-care (01) ==
LOC: HO.XRAY 08:32
PROVIDERS: PCP Internal Medicine; Visit Provider Registered Nurse Emergency
DX: M53.3 Sacrococcygeal disorders, not elsewhere classified (principal)
CPT/HCPCS: 73502

== ENCOUNTER 2024-10-07 08:32 | Outpatient (AMB) | payer OTHER, SELFPAY ==
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
[2024-10-07 08:56] VITALS: BP 132/90; PULSE 84; O2SAT 99; BMI 28.5
== END 2024-10-07 09:19 | disposition home or self-care (01) ==
PROVIDERS: PCP Internal Medicine; Referring Provider Internal Medicine; Visit Provider Registered Nurse Emergency
DX: M53.3 Sacrococcygeal disorders, not elsewhere classified (principal)
CPT/HCPCS: 99204; G2211

== ENCOUNTER → 2024-10-07 09:26 | Outpatient (BNV) | payer OTHER, SELFPAY | PROVIDERS: PCP Internal Medicine; Visit Provider Radiology Diagnostic Radiology | DX: M53.3 Sacrococcygeal disorders, not elsewhere classified (principal) | CPT/HCPCS: 73502 ==

== ENCOUNTER 2024-10-14 09:34 | Outpatient (AMB) | payer OTHER, SELFPAY ==
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
[2024-10-14 10:07] VITALS: BP 129/81; PULSE 70; O2SAT 99; BMI 28.6
== END 2024-10-14 10:15 | disposition home or self-care (01) ==
PROVIDERS: PCP Internal Medicine; Visit Provider Registered Nurse Emergency
DX: M53.3 Sacrococcygeal disorders, not elsewhere classified (principal)
CPT/HCPCS: 99213; G2211

== ENCOUNTER → 2024-10-14 09:34 | Outpatient (BNVA) | payer OTHER, SELFPAY | PROVIDERS: PCP Internal Medicine; Visit Provider Registered Nurse Emergency | DX: M53.3 Sacrococcygeal disorders, not elsewhere classified (principal) | CPT/HCPCS: 99212 ==

== ENCOUNTER 2024-10-18 10:38 | Outpatient (AMB) | payer OTHER, SELFPAY ==
--- NOTE | 2024-10-18 10:46 | MHC.OFFVISWM ---
VS Expanded 10/18/24 10:50 BP 117/70 Blood Pressure Location Lt brachial Blood Pressure Position Sitting Pulse 75 Pulse Oximetry 100 Height 5 ft 3 in Weight 157 lb 6.4 oz BMI 27.9 Body Fat % 36.3 Body Fat Mass 57.0 Fat Free Mass 100.0 Visceral Fat Rating 7.0 Body Water % 45.4 Body Water Mass 71.4 Muscle Mass/Score 95.0 Basal Metabolic Rate/Score 1,376 Intake Visit Reasons: OV PO LSG 10/01/22 Telemarketing Representative Required: Yes Telemarketing Representative Name: Solange Guzman Information Interpreted: clinical only Allergies bupropion [Contrave] Allergy (Intermediate, Verified 10/18/24 10:50) nausea,vomit, headaches naltrexone [Contrave] Allergy (Intermediate, Verified 10/18/24 10:50) nausea,vomit, headaches oxycodone [Percocet] Allergy (Intermediate, Verified 10/18/24 10:50) hives duloxetine Adverse Reaction (Severe, Verified 10/18/24 10:50) Hallucinations Medication List - Last Reconciled 10/18/24 by RACHEL Murray amitriptyline 10 mg PO BEDTIME 30 days bisacodyl (Dulcolax (bisacodyl)) 10 mg (2 x 5 mg) PO BEDTIME 30 days awqwkunomt-csvvtmbaatkjv-rrnz 50-325-40 mg 1 tab PO Q6H PRN calcium citrate-vitamin D3 315 mg-5 mcg (200 unit) (Calcium Citrate + D) 1 tab PO BID inulin (Fiber Gummies) 2 grams PO BID lidocaine 5% 1 patch topical DAILY linaclotide 290 mcg PO QAM loratadine (Allergy Relief (loratadine)) 10 mg PO DAILY 90 days methocarbamol 500 mg PO TID PRN metoclopramide HCl (Reglan) 10 mg PO Q6H PRN metoclopramide HCl (Reglan) 5 mg PO .tidac pantoprazole (Protonix) 40 mg PO DAILY 30 days Proctosol HC 2.5% (hydrocortisone) 1 appl [place] BID NS sucralfate (Carafate) 10 mL PO QID PRN sumatriptan succinate 50 - 100 mg orally at onset of headache, may repeat in 2 hrs PRN; max 2 tabs per day or 4 tabs/week (may take with Tylenol) 30 days HPI Comments Details: This?is a?44?yo female who is s/p LSG 10/01/2022. Presents for 1 year post op visit. Weight at last visit on 06/15/2024 was 155 pounds; weight today is 157.4 pounds, representing a 2.4 pound weight gain with a BMI today of 27.9.? No complaints of emesis, or reflux, or constipation. Occasional nausea and pain. She reports her problems with vomiting or foaming have improved. Present meal plan includes: breakfast- coffee, 2 eggs snack- cheese or almonds 12-1pm- farina 5:30pm- chicken, rice, veg- always vomits At last visit, discussed eliminating oatmeal, rice; try to have a yogurt or protein shake instead of oatmeal; ensure no meals are larger than 8oz total volume trying to eat as healthy as possible Exercise routine includes: since she started working, has not done a lot of formal exercise; active at work [employer] [facility] Medical History Major depression, recurrent History of COVID-19 Bleeding hemorrhoids H. pylori infection Obesity (BMI 30-39.9) Rectal bleeding Mild recurrent major depression Morbid obesity with BMI of 40.0-44.9, adult Right lateral epicondylitis Epigastric pain Polyarthralgia Bloody stools Right foot pain Left foot pain Finger pain GERD (gastroesophageal reflux disease) Essential hypertension H/O reactive hypoglycemia Vitamin D deficiency Prediabetes Dyslipidemia Surgical History Breast mass, right (11/05/23) S/P laparoscopic sleeve gastrectomy Hx of colonoscopy Deficient knowledge of leg surgery History of incision and drainage History of lithotripsy History of total abdominal hysterectomy History of tubal ligation Hx of section Hx of bilateral breast reduction surgery Family History Daughter Cancer Father Cancer, Onset Age: 54 Diabetes mellitus Mother Cancer, Onset Age: 64 Diabetes mellitus Paternal Aunt Cancer Maternal Grandmother Diabetes mellitus Hypertension CVD (cardiovascular disease) Maternal Grandfather Diabetes mellitus Hypertension CVD (cardiovascular disease) Paternal Grandmother Diabetes mellitus Hypertension Paternal Grandfather No problems noted. 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 Current occupational exposures/hazards: No Cognitive needs: No Hearing needs: No Vision needs: No Physical Exam Vital Signs: Last Vital Signs Pulse 75 10/18/24 10:50 BP 117/70 10/18/24 10:50 Pulse Ox 100 10/18/24 10:50 BMI result Body Mass Index 27.9 Quality Reporting (2019) Adult ([facility] 138/12/03/68) Smoking risk assessment performed?: Yes Patient Tobacco Use Status: Never used Tobacco Assessment & Plan Assessment & Plan (1) Overweight: Code(s): E66.3 - Overweight Category: Medical (2) S/P laparoscopic sleeve gastrectomy: Code(s): Z98.84 - Bariatric surgery status Category: Surgical Plan Pt felt comfortable at 155lbs. Discussed the importance of regular exercise in weight loss and maintenance, encouraged pt to find a type of exercise she enjoys. Offered home workout videos sheet. Pt agreeable to trying protein shakes again. breakfast- 1-2 eggs snack- 1 scoop Orgain lunch- no farina, try italian yogurt, or meat/veg snack- 1 scoop Orgain dinner- meat/veg RTC 3months, can reorder labs at next visit. I spent a total of 30 minutes reviewing/updating records, examining the patient and counseling the patient on weight management as detailed above. Medications: Refilled sucralfate (Carafate) swish in mouth and swallow; use after food/drink 10 mL PO QID PRN 400 mL 0RF reflux
[2024-10-18 10:50] VITALS: BP 117/70; PULSE 75; O2SAT 100; BMI 27.9
== END 2024-10-18 11:35 | disposition home or self-care (01) ==
PROVIDERS: PCP Internal Medicine; Visit Provider Physician Assistant Surgical
DX: E66.3 Overweight (principal); Z68.27 Body mass index [BMI] 27.0-27.9, adult; Z90.3 Acquired absence of stomach [part of]; Z98.84 Bariatric surgery status
CPT/HCPCS: 99214; G2211

== ENCOUNTER → 2024-10-18 10:38 | Outpatient (BNVA) | payer OTHER, SELFPAY | PROVIDERS: PCP Internal Medicine; Visit Provider Physician Assistant Surgical | DX: E66.3 Overweight (principal); Z71.3 Dietary counseling and surveillance; Z98.84 Bariatric surgery status; Z68.27 Body mass index [BMI] 27.0-27.9, adult | CPT/HCPCS: 99212 ==

== ENCOUNTER 2024-11-08 06:30 | Outpatient (REF) | payer OTHER, SELFPAY ==
--- NOTE | ~2024-11-08 | FL_ITS ---
EXAMINATION: FL GUIDANCE ONLY HISTORY: M53.3 - Sacrococcygeal disorders, not elsewhere classified COMPARISON: None available. TECHNIQUE: Fluoroscopy time: 0.1 minutes. Cumulative Dose: 2.59 mGy. DAP: 0.0450 uGy-m2 (microgray-meter squared). Images: 1. FINDINGS: A single fluoroscopic spot film demonstrates a needle and contrast in the region of the right sacroiliac joint. FL/FL guidance in treatment room IMPRESSION: Fluoroscopy during procedure. Please see procedure report for additional information. Electronically signed by: Lev Singh MD 11/09/2024 07:41 AM EST
== END 2024-11-08 06:31 | disposition home or self-care (01) ==
LOC: CF 06:30
PROVIDERS: Visit Provider Anesthesiology
DX: M53.3 Sacrococcygeal disorders, not elsewhere classified (principal)
CPT/HCPCS: 27096; J2003; J2795; Q9967

== ENCOUNTER 2024-11-08 12:33 | Outpatient (AMB) | payer OTHER, SELFPAY ==
[2024-11-08 12:57] VITALS: BP 115/68; PULSE 90; RESP 16; O2SAT 99
--- NOTE | 2024-11-08 12:57 | A.OFFVIS_ITS ---
Vital Signs 11/08/24 12:57 11/08/24 13:43 BP 115/68 117/78 Blood Pressure Location Lt brachial Lt brachial Position Sitting Sitting Respiration 16 16 Pulse 90 70 Pulse Source Pulse Oximeter Pulse Oximeter Pulse Oximetry (%) 99 99 Oxygen Delivery Method Room Air Room Air Intake Visit Reasons: RIGHT DIAGNOSTIC SIJ INJECTION Creative Services Specialist Required: Yes Creative Services Specialist Services: Creative Services Specialist Present Creative Services Specialist Name: Sanju [id number] Allergies bupropion [Contrave] Allergy (Intermediate, Verified 11/08/24 12:57) nausea,vomit, headaches naltrexone [Contrave] Allergy (Intermediate, Verified 11/08/24 12:57) nausea,vomit, headaches oxycodone [Percocet] Allergy (Intermediate, Verified 11/08/24 12:57) hives duloxetine Adverse Reaction (Severe, Verified 11/08/24 12:57) Hallucinations Medication List - Last Reconciled 11/08/24 by Wendy Mendieta LPN amitriptyline 10 mg PO BEDTIME 30 days bisacodyl (Dulcolax (bisacodyl)) 10 mg (2 x 5 mg) PO BEDTIME 30 days moflrrliey-mqhkviqbtfqqm-hqql 50-325-40 mg 1 tab PO Q6H PRN calcium citrate-vitamin D3 315 mg-5 mcg (200 unit) (Calcium Citrate + D) 1 tab PO BID inulin (Fiber Gummies) 2 grams PO BID lidocaine 5% 1 patch topical DAILY linaclotide 290 mcg PO QAM loratadine (Allergy Relief (loratadine)) 10 mg PO DAILY 90 days methocarbamol 500 mg PO TID PRN metoclopramide HCl (Reglan) 10 mg PO Q6H PRN metoclopramide HCl (Reglan) 5 mg PO .tidac pantoprazole (Protonix) 40 mg PO DAILY 30 days Proctosol HC 2.5% (hydrocortisone) 1 appl [place] BID NS sucralfate (Carafate) 10 mL PO QID PRN sumatriptan succinate 50 - 100 mg orally at onset of headache, may repeat in 2 hrs PRN; max 2 tabs per day or 4 tabs/week (may take with Tylenol) 30 days PFSH Medical History Major depression, recurrent History of COVID-19 Bleeding hemorrhoids H. pylori infection Obesity (BMI 30-39.9) Rectal bleeding Mild recurrent major depression Morbid obesity with BMI of 40.0-44.9, adult Right lateral epicondylitis Epigastric pain Polyarthralgia Bloody stools Right foot pain Left foot pain Finger pain GERD (gastroesophageal reflux disease) Essential hypertension H/O reactive hypoglycemia Vitamin D deficiency Prediabetes Dyslipidemia Surgical History Breast mass, right (11/05/23) S/P laparoscopic sleeve gastrectomy Hx of colonoscopy Deficient knowledge of leg surgery History of incision and drainage History of lithotripsy History of total abdominal hysterectomy History of tubal ligation Hx of section Hx of bilateral breast reduction surgery Family History Daughter Cancer Father Cancer, Onset Age: 54 Diabetes mellitus Mother Cancer, Onset Age: 64 Diabetes mellitus Paternal Aunt Cancer Maternal Grandmother Diabetes mellitus Hypertension CVD (cardiovascular disease) Maternal Grandfather Diabetes mellitus Hypertension CVD (cardiovascular disease) Paternal Grandmother Diabetes mellitus Hypertension Paternal Grandfather No problems noted. 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 Current occupational exposures/hazards: No Cognitive needs: No Hearing needs: No Vision needs: No Physical Exam Vital Signs: Last Vital Signs Pulse 70 11/08/24 13:43 Resp 16 11/08/24 13:43 BP 117/78 11/08/24 13:43 Pulse Ox 99 11/08/24 13:43 Oxygen Delivery Method Room Air 11/08/24 13:43 Quality Reporting (2019) Adult ([facility] 138/12/03/68) Smoking risk assessment performed?: Yes Patient Tobacco Use Status: Never used Tobacco Assessment & Plan Assessment & Plan (1) Sacroiliac joint dysfunction of right side: Code(s): M53.3 - Sacrococcygeal disorders, not elsewhere classified Category: Medical Plan Right sacroiliac joint injection diagnostic. Informed consent was thoroughly explained to the patient before the procedure.? The patient came to the operating room.? She was positioned prone on operating table with a pillow under her abdomen.? Time-out was performed delineating correct site and side of the procedure, nature of the injection, name and date of of the patient. The lower back and upper buttocks of the patient was prepped with ChloraPrep and draped with sterile utility towels.? C-arm was brought over the operating field and picture of right sacroiliac joint was demonstrated on the screen. Tilting machine contralateral left 15 degrees from the midline the anterior portion of the silhouette of the joint was superimposed on posterior portion of the silhouette of the joint. The skin was anesthetized with mixture of ropivacaine 0.5% and lidocaine 2% one-to-one slightly medial to the silhouette of the sacroiliac joint. 22 gauge 3-1/2 inch spinal needle was inserted through the skin wheal and advanced to the sacroiliac joint. When tip of the needle entered the sacroiliac joint injection of the contrast performed delineating arthrogram. After that 4 cc of ropivacaine was injected into the joint. Upon completion of the injection needle was removed and Band-Aid was applied. Patient tolerated the procedure well. Orders: Orders FL guidance in treatment room Today M53.3 - Sacrococcygeal disorders, not elsewhere classified Coding Level of Care Code Procedure Only Diagnoses Sacroiliac joint dysfunction of right side M53.3
[2024-11-08 13:43] VITALS: BP 117/78; PULSE 70; RESP 16; O2SAT 99
== END 2024-11-08 13:50 | disposition home or self-care (01) ==
LOC: HO.PMCPRC 12:33
PROVIDERS: PCP Internal Medicine; Visit Provider Anesthesiology
DX: M53.3 Sacrococcygeal disorders, not elsewhere classified (principal)
CPT/HCPCS: 27096

== ENCOUNTER 2024-11-10 10:53 | Outpatient (AMB) | payer OTHER, SELFPAY ==
[2024-11-10 10:55] VITALS: BP 124/75; PULSE 70; O2SAT 100; BMI 28.3
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
== END 2024-11-10 11:08 | disposition home or self-care (01) ==
PROVIDERS: PCP Internal Medicine; Visit Provider Registered Nurse Emergency
DX: M53.3 Sacrococcygeal disorders, not elsewhere classified (principal)
CPT/HCPCS: 99213; G2211

== ENCOUNTER → 2024-11-10 10:53 | Outpatient (BNVA) | payer OTHER, SELFPAY | PROVIDERS: PCP Internal Medicine; Visit Provider Registered Nurse Emergency | DX: M53.3 Sacrococcygeal disorders, not elsewhere classified (principal) | CPT/HCPCS: 99212 ==

== ENCOUNTER → 2024-11-15 09:10 | Outpatient (BNVA) | payer OTHER, SELFPAY | PROVIDERS: PCP Internal Medicine; Visit Provider Internal Medicine | DX: G43.909 Migraine, unspecified, not intractable, without status migrainosus (principal); K59.04 Chronic idiopathic constipation; F33.0 Major depressive disorder, recurrent, mild; K21.9 Gastro-esophageal reflux disease without esophagitis; L98.9 Disorder of the skin and subcutaneous tissue, unspecified | CPT/HCPCS: 90471; 96127; 99212 ==

== ENCOUNTER 2024-11-22 06:35 | Outpatient (REF) | payer OTHER, SELFPAY ==
--- NOTE | ~2024-11-22 | FL_ITS ---
EXAMINATION: FLUOROSCOPY GUIDANCE FOR NEEDLE PLACEMENT CLINICAL INFORMATION: M53.3 - Sacrococcygeal disorders, not elsewhere classified COMPARISON: None available. TECHNIQUE: Single one static image obtained during a right sacroiliac joint injection procedure. Patient in prone position. FINDINGS: Medial overlapping the right sacroiliac joint with radiopaque material. Nondiagnostic exam. FLUOROSCOPY TIME: 0.1 minute DOSE AREA PRODUCT: 1.73 uGy-m2 (microgray-meter squared) FL/FL guidance in treatment room IMPRESSION: Fluoroscopy-guided ends for treatment and the right sacroiliac joint. Please refer to the procedure note. Electronically signed by: Larry Torres MD 11/22/2024 02:55 PM PATRICK
== END 2024-11-22 06:36 | disposition home or self-care (01) ==
LOC: CF 06:35
PROVIDERS: Visit Provider Anesthesiology
DX: M53.3 Sacrococcygeal disorders, not elsewhere classified (principal)
CPT/HCPCS: 27096; J2003; J2795; J3301; Q9967

== ENCOUNTER 2024-11-22 13:57 | Outpatient (AMB) | payer OTHER, SELFPAY ==
[2024-11-22 14:19] VITALS: BP 119/70; PULSE 83; O2SAT 100
--- NOTE | 2024-11-22 14:19 | MHC.OFFVIS ---
Vital Signs 11/22/24 14:19 11/22/24 14:20 BP 119/70 123/77 Blood Pressure Location Lt brachial Lt brachial Position Sitting Sitting Pulse 83 75 Pulse Source Pulse Oximeter Pulse Oximeter Pulse Oximetry (%) 100 100 Oxygen Delivery Method Room Air Room Air Comment Pre-op Post-op Intake Visit Reasons: RIGHT THERAPEUTIC SIJ INJECTION Allergies bupropion [Contrave] Allergy (Intermediate, Verified 11/15/24 09:55) nausea,vomit, headaches naltrexone [Contrave] Allergy (Intermediate, Verified 11/15/24 09:55) nausea,vomit, headaches oxycodone [Percocet] Allergy (Intermediate, Verified 11/15/24 09:55) hives duloxetine Adverse Reaction (Severe, Verified 11/15/24 09:55) Hallucinations [facility] Medical History Major depression, recurrent History of COVID-19 Bleeding hemorrhoids H. pylori infection Obesity (BMI 30-39.9) Rectal bleeding Mild recurrent major depression Morbid obesity with BMI of 40.0-44.9, adult Right lateral epicondylitis Epigastric pain Polyarthralgia Bloody stools Right foot pain Left foot pain Finger pain GERD (gastroesophageal reflux disease) Essential hypertension H/O reactive hypoglycemia Vitamin D deficiency Prediabetes Dyslipidemia Surgical History Breast mass, right (11/05/23) S/P laparoscopic sleeve gastrectomy Hx of colonoscopy Deficient knowledge of leg surgery History of incision and drainage History of lithotripsy History of total abdominal hysterectomy History of tubal ligation Hx of section Hx of bilateral breast reduction surgery Family History Daughter Cancer Father Cancer, Onset Age: 54 Diabetes mellitus Mother Cancer, Onset Age: 64 Diabetes mellitus Paternal Aunt Cancer Maternal Grandmother Diabetes mellitus Hypertension CVD (cardiovascular disease) Maternal Grandfather Diabetes mellitus Hypertension CVD (cardiovascular disease) Paternal Grandmother Diabetes mellitus Hypertension Paternal Grandfather No problems noted. 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 Current occupational exposures/hazards: No Cognitive needs: No Hearing needs: No Vision needs: No Physical Exam Vital Signs: Last Vital Signs Pulse 75 11/22/24 14:20 BP 123/77 11/22/24 14:20 Pulse Ox 100 11/22/24 14:20 Oxygen Delivery Method Room Air 11/22/24 14:20 Quality Reporting (2019) Adult ([facility] ) Smoking risk assessment performed?: Yes Patient Tobacco Use Status: Never used Tobacco Assessment & Plan Assessment & Plan (1) Sacroiliac joint dysfunction of right side: Code(s): M53.3 - Sacrococcygeal disorders, not elsewhere classified Category: Medical Plan Right sacroiliac joint injection therapeutic. Informed consent was thoroughly explained to the patient before the procedure.? The patient came to the operating room.?She was positioned prone on operating table with a pillow under her abdomen.? Time-out was performed delineating correct site and side of the procedure, nature of the injection, name and date of of the patient. The lower back and upper buttocks of the patient was prepped with ChloraPrep and draped with sterile utility towels.? C-arm was brought over the operating field and picture of right sacroiliac joint was demonstrated on the screen. Tilting machine contralateral left 20 degrees from the midline the anterior portion of the silhouette of the joint was superimposed on posterior portion of the silhouette of the joint. The skin was anesthetized with mixture of ropivacaine 0.5% and lidocaine 2% one-to-one slightly medial to the silhouette of the sacroiliac joint. 22 gauge 3-1/2 inch spinal needle was inserted through the skin wheal and advanced to the sacroiliac joint. When tip of the needle entered the sacroiliac joint injection of the contrast performed delineating arthrogram. After that 4 cc of ropivacaine mixed with Kenalog 40 mg was injected into the joint. Upon completion of the injection needle was removed and sterile bandades were applied Patient tolerated the procedure well. Orders: Orders FL guidance in treatment room 11/22/24 M53.3 - Sacrococcygeal disorders, not elsewhere classified Coding Level of Care Code Procedure Only Diagnoses Sacroiliac joint dysfunction of right side M53.3
[2024-11-22 14:20] VITALS: BP 123/77; PULSE 75; O2SAT 100
== END 2024-11-22 14:20 | disposition home or self-care (01) ==
LOC: HO.PMCPRC 13:57
PROVIDERS: PCP Internal Medicine; Visit Provider Anesthesiology
DX: M53.3 Sacrococcygeal disorders, not elsewhere classified (principal)
CPT/HCPCS: 27096

== ENCOUNTER 2024-12-08 08:44 | Outpatient (AMB) | payer OTHER, SELFPAY ==
[2024-12-08 08:52] VITALS: BP 120/86; O2SAT 99; BMI 28.9
--- NOTE | 2024-12-08 08:52 | MHC.OFFVIS ---
Vital Signs 12/08/24 08:52 Height 5 ft 3 in Weight 163 lb BMI 28.9 BP 120/86 Blood Pressure Location Lt brachial Position Sitting Pulse Source Pulse Oximeter Pulse Oximetry (%) 99 Oxygen Delivery Method Room Air Intake Visit Reasons: 6mo F/U Intake Note: Patient presents follow up migraine Medication Accompanied by: Self / Same As Patient Allergies bupropion [Contrave] Allergy (Intermediate, Verified 12/08/24 08:55) nausea,vomit, headaches naltrexone [Contrave] Allergy (Intermediate, Verified 12/08/24 08:55) nausea,vomit, headaches oxycodone [Percocet] Allergy (Intermediate, Verified 12/08/24 08:55) hives duloxetine Adverse Reaction (Severe, Verified 12/08/24 08:55) Hallucinations Medication List - Last Reconciled 12/08/24 by PORSHA Branch amitriptyline 10 mg PO BEDTIME 30 days bisacodyl (Dulcolax (bisacodyl)) 10 mg (2 x 5 mg) PO BEDTIME 30 days [id number]-[id number]-[id number] 50-325-40 mg 1 tab PO Q6H PRN calcium citrate-vitamin D3 315 mg-5 mcg (200 unit) (Calcium Citrate + D) 1 tab PO BID inulin (Fiber Gummies) 2 grams PO BID lidocaine 5% 1 patch topical DAILY linaclotide 290 mcg PO QAM loratadine (Allergy Relief (loratadine)) 10 mg PO DAILY 90 days methocarbamol 500 mg PO TID PRN metoclopramide HCl (Reglan) 10 mg PO Q6H PRN pantoprazole (Protonix) 40 mg PO DAILY 30 days Proctosol HC 2.5% (hydrocortisone) 1 appl NE BID NS sucralfate (Carafate) 10 mL PO QID PRN sumatriptan succinate 50 - 100 mg orally at onset of headache, may repeat in 2 hrs PRN; max 2 tabs per day or 4 tabs/week (may take with Tylenol) 30 days HPI Comments Details: The patient is a 44-year-old female presenting with chronic migraine. The migraine headaches are frequent, lasting multiple days each month. She continues to have near daily headache and migraine. She tried sumatriptan, which had limited effect, though she did not experience any adverse effects. She does use Fioricet as needed. She is compliant with amitriptyline and does take magnesium on a daily basis. The previous request for Emgality was denied by her insurance, they require trial of Botox prior to starting Emgality. Initially, patient was hesitant to do this due to needle phobia, however today she is agreeable to try Botox for chronic migraine treatment. Baseline headache characteristics: She has a daily headache and migraine- severe frontal and occipital a/w photophobia, phonophobia, at times osmophobia, allodynia, nausea, at times vomiting, dizziness, difficulty concentrating, activity intolerance, neck tightness and a feeling of something running up her neck. Severe attack lasts 1-3 days. She is continuing to work with cardiology and GI regarding episodes syncope triggered by constipation. She states her interval tilt-table test results were unremarkable. [facility]LY [facility] Medical History Major depression, recurrent History of COVID-19 Bleeding hemorrhoids H. pylori infection Obesity (BMI 30-39.9) Rectal bleeding Mild recurrent major depression Morbid obesity with BMI of 40.0-44.9, adult Right lateral epicondylitis Epigastric pain Polyarthralgia Bloody stools Right foot pain Left foot pain Finger pain GERD (gastroesophageal reflux disease) Essential hypertension H/O reactive hypoglycemia Vitamin D deficiency Prediabetes Dyslipidemia Surgical History Breast mass, right (11/05/23) S/P laparoscopic sleeve gastrectomy Hx of colonoscopy Deficient knowledge of leg surgery History of incision and drainage History of lithotripsy History of total abdominal hysterectomy History of tubal ligation Hx of section Hx of bilateral breast reduction surgery Family History Daughter Cancer Father Cancer, Onset Age: 54 Diabetes mellitus Mother Cancer, Onset Age: 64 Diabetes mellitus Paternal Aunt Cancer Maternal Grandmother Diabetes mellitus Hypertension CVD (cardiovascular disease) Maternal Grandfather Diabetes mellitus Hypertension CVD (cardiovascular disease) Paternal Grandmother Diabetes mellitus Hypertension Paternal Grandfather No problems noted. 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 Current occupational exposures/hazards: No Cognitive needs: No Hearing needs: No Vision needs: No Physical Exam Vital Signs: Last Vital Signs BP 120/86 12/08/24 08:52 Pulse Ox 99 12/08/24 08:52 Oxygen Delivery Method Room Air 12/08/24 08:52 BMI result Body Mass Index 28.9 Const General: cooperative and no acute distress Orientation/consciousness: patient oriented x3 Resp Effort & Inspection: normal respiratory effort and able to speak in complete sentences Neuro General: patient oriented x3 Cranial nerves: Yes CN's II-XII intact bilaterally Cognition (Neuro): normal cognition Psych Appearance: grossly normal Mental Status: mental status grossly normal Speech and movement: Normal speech and movement present Affect: normal affect Attitude: cooperative Quality Reporting (2019) Adult ([facility] ) Smoking risk assessment performed?: Yes Patient Tobacco Use Status: Never used Tobacco Assessment & Plan Assessment & Plan (1) Migraines: Code(s): G43.909 - Migraine, unspecified, not intractable, without status migrainosus Category: Medical (2) Syncope: Code(s): R55 - Syncope and collapse Category: Medical (3) Dizziness: Code(s): R42 - Dizziness and giddiness Category: Medical Plan Discussion Notes I discussed the potential initiation of Botox therapy for chronic migraine, with attention to its mechanisms, periodic administration, and non-permanence of effects. Addressed insurance hurdles for treatment authorization. We reviewed possible benefits and adverse outcomes of topiramate while confirming symptom management goals. The preventive facet of magnesium for constipation and migraines was noted. The need for systematized documentation in correlating Botox benefits was highlighted, and responsive adjustments were outlined for improved treatment efficacy. Emphasized syncope/dizziness' link to constipation and ongoing management strategies. Previous workup: Brain MRI w/wo- mild non-specific white matter changes. No findings to account for pt's migraine PEREZ or syncope/dizziness. EEG- normal. For syncope and dizziness: Reviewed ECG tilt table test- normal Continue increased fluids. Take full glass glass of water, juice, or electrolyte replacement drink prior to showering. Continue to follow-up with cardiology and GI as scheduled. Future considerations- vestibular PT. For overall headache management: It is important to practice good self-care, including but not limited to eating a healthy diet, drinking enough fluids (typically 64 oz per day), maintaining a good sleep routine, and engaging in regular physical activity (typically 30-45 minutes of moderate physical activity 5 days per week). To help us better understand your headache: Track headaches, especially after treatment plan changes. Also track dizziness and syncope events following tx plan change- such as starting Botox For acute headache treatment: It is important to take as needed acute medications at the first sign of headache, however you want to avoid taking most as needed headache too often as this can lead to medication overuse/adaptation headaches. Discontinue Sumatriptan 100mg tab- not fully effective. Trial Rizatriptan 10mg tab, 1/2 - 1 tab (5-10mg) at onset of headache, may repeat in 2 hours. Max of 2 tabs (200mg) per 24 hours. May adjunct with OTC Tylenol 650mg every 4 hours, Ibuprofen (liquigel) 600mg every 6 hours, or Naproxen (liquigel) 440mg every 12 hrs as needed. Potential adverse effects of triptans, include but are not limited to nausea, fatigue, chest tightness/tingling (usually passes within a few minutes), medication overuse headaches. Goal to reduce p.r.n. Fioricet use. Previous acute migraine medication trials: Pt does not recall Acute migraine medication contraindications: None at this time. For headache prevention medication: Preventative medications should be taken routinely as prescribed for best effect, it may take several weeks to see full effect. Discontinue Amitriptyline 10mg qhs- as this may be contributing to patient's constipation and dry mouth symptoms. Trial Topiramate 25-50 mg q.h.s.. Potential adverse effects of Topiramate, include but are not limited to fatigue, cognitive changes, paresthesias (tingling), vision changes, kidney stones. Discontinue Emgality order was denied by insurance. Start Botox 200 unit vial 155 units over 31 sites across forehead, scalp, trapezius muscles. Previous migraine prevention medication trials: No known others Migraine prevention medication contraindications: Beta-blockers, anti-HTN tx's d/t syncope, hypotension. Would avoid aimovig or atogepoant d/t constipation. Patient was informed and verbally consented to the use of an ambient scribe for clinic note documentation during this visit. Follow-up in 6 months or sooner prn. ? Medications: New onabotulinumtoxinA (Botox) inject 155 units IM across forehead, scalp, and neck 200 units IM ONCE 12 weeks 1 ea 3RF G43.709 - Chronic migraine without aura, not intractable, without status migrainosus topiramate 25 - 50 mg (1 - 2 x 25 mg) PO BEDTIME 30 days 60 tabs 3RF rizatriptan max 2 tabs per day or 4 tabs per week 5 - 10 mg (0.5 - 1 x 10 mg) PO Q2H 30 days PRN 12 tabs 3RF migraine headache Discontinued amitriptyline Discontinued Reason: Doctor's Order 10 mg PO BEDTIME 30 days 30 tabs 3RF Coding Level of Care Code Est Pt Level 4 (47829) Diagnoses Migraines G43.909 Syncope R55 Dizziness R42
== END 2024-12-08 09:44 | disposition home or self-care (01) ==
PROVIDERS: PCP Internal Medicine; Visit Provider Nurse Practitioner Family
DX: G43.909 Migraine, unspecified, not intractable, without status migrainosus (principal); R55 Syncope and collapse; R42 Dizziness and giddiness
CPT/HCPCS: 99214

== ENCOUNTER → 2024-12-08 08:44 | Outpatient (BNVA) | payer OTHER, SELFPAY | PROVIDERS: PCP Internal Medicine; Visit Provider Nurse Practitioner Family | DX: G43.909 Migraine, unspecified, not intractable, without status migrainosus (principal); R55 Syncope and collapse; R42 Dizziness and giddiness | CPT/HCPCS: 99212 ==

== ENCOUNTER 2024-12-14 13:46 | Outpatient (AMB) | payer OTHER, SELFPAY ==
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
[2024-12-14 13:51] VITALS: BP 133/73; PULSE 88; RESP 16; O2SAT 96; BMI 28.9
== END 2024-12-14 14:21 | disposition home or self-care (01) ==
PROVIDERS: PCP Internal Medicine; Visit Provider Anesthesiology
DX: M53.3 Sacrococcygeal disorders, not elsewhere classified (principal)
CPT/HCPCS: 99214

== ENCOUNTER → 2024-12-14 13:46 | Outpatient (BNVA) | payer OTHER, SELFPAY | PROVIDERS: PCP Internal Medicine; Visit Provider Anesthesiology | DX: M53.3 Sacrococcygeal disorders, not elsewhere classified (principal) | CPT/HCPCS: 99212 ==

== ENCOUNTER 2025-01-26 10:25 | Outpatient (AMB) | payer OTHER, SELFPAY ==
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
[2025-01-26 10:49] VITALS: BP 129/82; PULSE 87; TEMP 36.6; O2SAT 99; BMI 28.6
== END 2025-01-26 11:29 | disposition home or self-care (01) ==
LOC: HO.HBS 10:26
PROVIDERS: PCP Internal Medicine; Visit Provider Physician Assistant Surgical
DX: E66.3 Overweight (principal); Z98.84 Bariatric surgery status; Z90.3 Acquired absence of stomach [part of]; Z68.28 Body mass index [BMI] 28.0-28.9, adult
CPT/HCPCS: 99214; G2211

== ENCOUNTER → 2025-01-26 10:25 | Outpatient (BNVA) | payer OTHER, SELFPAY | PROVIDERS: PCP Internal Medicine; Visit Provider Physician Assistant Surgical | DX: E66.3 Overweight (principal); Z98.84 Bariatric surgery status; Z68.28 Body mass index [BMI] 28.0-28.9, adult | CPT/HCPCS: 99212 ==

== ENCOUNTER 2025-02-01 10:51 | Outpatient (AMB) | payer OTHER, SELFPAY ==
[2025-02-01 11:05] VITALS: BP 129/83; PULSE 82; O2SAT 99; BMI 28.9
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
== END 2025-02-01 11:08 | disposition home or self-care (01) ==
LOC: HO.PMC 10:52
PROVIDERS: PCP Internal Medicine; Visit Provider Anesthesiology
DX: M46.1 Sacroiliitis, not elsewhere classified (principal); G89.4 Chronic pain syndrome
CPT/HCPCS: 99213

== ENCOUNTER → 2025-02-01 10:51 | Outpatient (BNVA) | payer OTHER, SELFPAY | PROVIDERS: PCP Internal Medicine; Visit Provider Anesthesiology | DX: M46.1 Sacroiliitis, not elsewhere classified (principal); G89.4 Chronic pain syndrome | CPT/HCPCS: 99212 ==

== ENCOUNTER 2025-02-09 09:30 | Outpatient (REF) | payer OTHER, SELFPAY ==
[2025-02-09 09:49] LABS: MANUAL DIFF FLAG NO
[2025-02-09 10:36] LABS: Basophils Percent Auto 0.5 % (0-2); Eosinophils Absolute Auto 0.1 X10*3/uL (0.0-0.4); Imm Gran Abs Auto 0.02 X10*3/uL (0.00-0.03); Imm Gran Pct Auto 0.4 % (0.0-0.4); Lymphocytes Absolute Auto 1.4 X10*3/uL (1.2-4.9); Lymphocytes Percent Auto 24.2 % (20-40); Mean Corpuscular HGB Conc 33.3 g/dl (31.0-35.0); Mean Corpuscular Hemoglobin 28.6 pg (27.0-33.0); Mean Corpuscular Volume 85.7 fL (80.0-98.0); Mean Platelet Volume 9.5 fL (9.4-12.3); Monocytes Absolute Auto 0.4 X10*3/uL (0.1-1.2); Monocytes Percent Auto 6.3 % (2-11); Neutrophils Absolute Auto 3.7 x10*3/uL (2.0-8.3); Neutrophils Percent Auto 66.6 % (45-73); Platelet Count 266 X10*3/uL (160-400); Red Cell Distribution Width 11.9 % (11.0-16.0); White Blood Count 5.6 X10*3/uL (4.8-10.8)
[2025-02-09 10:46] LABS: Estimated Average Glucose 108 mg/dL; Hemoglobin A1C 112.2143 umol/L; Hemoglobin A1c % 5.4 % (<6.0); Total Hemoglobin (HGBA1C) 3161.3587 umol/L
[2025-02-09 11:23] LABS: Alanine Aminotransferase 14 U/L (0-31); Albumin Level 4.1 g/dL (3.5-5.0); Alkaline Phosphatase 42 U/L (39-117); Anion Gap 11 (12-20); Aspartate Amino Transferase 18 U/L (5-31); Bilirubin Total 0.4 mg/dL (0.0-1.0); Blood Urea Nitrogen 8 mg/dL (9-16); Calcium 9.1 mg/dL (8.4-10.2); Carbon Dioxide 29 mmol/L (22-29); Chloride 104 mmol/L (96-108); Cholesterol 187 mg/dL (<200); Estimated Glomerular Filt Rate > 60; Ferritin 142 ng/mL (10-250); Glucose Random 88 mg/dL (60-115); HDL Cholesterol 59 mg/dL (>40); Insulin 4 uU/mL (2-29); Iron 98 mcg/dL (30-160); LDL Cholesterol Calculated 113 mg/dL (<100); Percent Iron Saturation 44 % (15-50); Sodium 140 mmol/L (135-145); TSH reflex Free T4 0.93 uIU/mL (0.32-4.0); Total Iron Binding Capacity 224 mcg/dL (228-428); Total Protein 6.8 g/dL (6.5-8.0); Triglycerides 78 mg/dL (<150); Unsaturated Iron Binding 126 ug/dL; Vitamin D 25-OH Total 43.1 ng/mL (>30)
[2025-02-09 11:34] LABS: Vitamin B12 401 pg/mL (200-900)
[2025-02-13 03:13] LABS: Zinc 70 mcg/dL (60-130)
[2025-02-14 04:09] LABS: Vitamin A 53 mcg/dL (38-98)
[2025-02-16 06:22] LABS: Vitamin B1 10 nmol/L (8-30)
== END 2025-02-09 09:31 | disposition home or self-care (01) ==
LOC: HO.LAB 09:30
PROVIDERS: PCP Internal Medicine; Visit Provider Physician Assistant Surgical
DX: Z98.84 Bariatric surgery status (principal)
CPT/HCPCS: 36415; 80053; 80061; 82306; 82607; 82728; 82746; 83036; 83525; 83540; 84425; 84443; 84590; 84630; 85025; 86140

== ENCOUNTER 2025-02-21 10:52 | Outpatient (AMB) | payer OTHER, SELFPAY ==
--- NOTE | 2025-02-21 11:00 | A.OFFVIS_ITS ---
Vital Signs 02/21/25 11:02 Height 5 ft 3 in Weight 165 lb BMI 29.2 BP 134/72 Blood Pressure Location Rt brachial Position Sitting Pulse 86 Pulse Source Pulse Oximeter Pulse Oximetry (%) 98 Oxygen Delivery Method Room Air Intake Visit Reasons: Botox-Conf Intake Note: patient here for botox injection. Practice supplied Land Acquisition Manager Required: Yes Land Acquisition Manager Services: Land Acquisition Manager Present Land Acquisition Manager Name: isabella hartley Information Interpreted: non-clinical & clinical Allergies bupropion [Contrave] Allergy (Intermediate, Verified 02/21/25 11:03) nausea,vomit, headaches naltrexone [Contrave] Allergy (Intermediate, Verified 02/21/25 11:03) nausea,vomit, headaches oxycodone [Percocet] Allergy (Intermediate, Verified 02/21/25 11:03) hives duloxetine Adverse Reaction (Severe, Verified 02/21/25 11:03) Hallucinations Medication List - Last Reconciled 02/21/25 by Arabella Tucker MD bisacodyl (Dulcolax (bisacodyl)) 10 mg (2 x 5 mg) PO BEDTIME 30 days ibmjfrdqpx-buiwilgmckrtb-wble 50-325-40 mg 1 tab PO Q6H PRN calcium citrate-vitamin D3 315 mg-5 mcg (200 unit) (Calcium Citrate + D) 1 tab PO BID inulin (Fiber Gummies) 2 grams PO BID lidocaine 5% 1 patch topical DAILY linaclotide 290 mcg PO QAM loratadine (Allergy Relief (loratadine)) 10 mg PO DAILY 90 days methocarbamol 500 mg PO TID PRN metoclopramide HCl (Reglan) 10 mg PO Q6H PRN onabotulinumtoxinA (Botox) 200 units IM ONCE 12 weeks pantoprazole (Protonix) 40 mg PO DAILY 30 days Proctosol HC 2.5% (hydrocortisone) [address] BID NS rizatriptan 5 - 10 mg (0.5 - 1 x 10 mg) PO Q2H PRN 30 days sucralfate (Carafate) 10 mL PO QID PRN sumatriptan succinate 50 - 100 mg orally at onset of headache, may repeat in 2 hrs PRN; max 2 tabs per day or 4 tabs/week (may take with Tylenol) 30 days HPI Comments Details: ??? 44 y/o female comes for treatment of migraines with botox. How many migraine days prior to botox- 30 days /month How long do the migraines last1-2 days Intensity of gcqtaszb39/10 ER visits related to migraine- multiple Effectiveness of botox from last two treatment(s) How many migraine days since receiving treatment: this is her first visit Change? in intensity of migraine? Change in frequency of migraine? Change in use of acute medication for migraine? Change in quality of life? ER visits related to migraine? Have at least three months elapsed since last treatment- ??? Most frequent reported adverse reactions following injection of botox for chronic migraine include neck pain (9%), headache(5%), eyelid ptosis(4%), migraine(4%), muscular weakness(4%), musculuskeletal stiffness(4%), bronchitis(3%), injection site pain (3%), musculoskeletal pain(3%), myalgia(3%), facial paresis(2%), HTN(2%) and muscle spasms(2%) were discussed in detail. ??? Botulinum toxin typeA 200units Lot no [id number] expiration January 2027 was diluted with 4 cc of normal saline . ??? Muscles injected- ??? Frontalis 4 sites ??? Temporalis- 8 sites ??? Occipitalis- 6 sites ??? Cervical paraspinals- 4 sites ??? Trapezius- 6 sites-10 units each clothing worker 2 sites Procerus 1 site ??? 5 units each in 31 site ??? Total use- 185units ??? Discarded-15units [facility] Medical History (Updated 02/21/25 @ 12:00 by Arabella Tucker MD) Chronic migraine without aura, intractable, without status migrainosus Sacroiliac joint dysfunction of both sides Major depression, recurrent History of COVID-19 Bleeding hemorrhoids H. pylori infection Obesity (BMI 30-39.9) Rectal bleeding Mild recurrent major depression Morbid obesity with BMI of 40.0-44.9, adult Right lateral epicondylitis Epigastric pain Polyarthralgia Bloody stools Right foot pain Left foot pain Finger pain GERD (gastroesophageal reflux disease) Essential hypertension H/O reactive hypoglycemia Vitamin D deficiency Prediabetes Dyslipidemia Surgical History Breast mass, right (11/05/23) S/P laparoscopic sleeve gastrectomy Hx of colonoscopy Deficient knowledge of leg surgery History of incision and drainage History of lithotripsy History of total abdominal hysterectomy History of tubal ligation Hx of section Hx of bilateral breast reduction surgery Family History Daughter Cancer Father Cancer, Onset Age: 54 Diabetes mellitus Mother Cancer, Onset Age: 64 Diabetes mellitus Paternal Aunt Cancer Maternal Grandmother Diabetes mellitus Hypertension CVD (cardiovascular disease) Maternal Grandfather Diabetes mellitus Hypertension CVD (cardiovascular disease) Paternal Grandmother Diabetes mellitus Hypertension Paternal Grandfather No problems noted. 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 Current occupational exposures/hazards: No Cognitive needs: No Hearing needs: No Vision needs: No Physical Exam Vital Signs: Last Vital Signs Pulse 86 02/21/25 11:02 BP 134/72 02/21/25 11:02 Pulse Ox 98 02/21/25 11:02 Oxygen Delivery Method Room Air 02/21/25 11:02 BMI result Body Mass Index 29.2 Const General: cooperative and no acute distress Orientation/consciousness: patient oriented x3 Resp Effort & Inspection: normal respiratory effort and able to speak in complete sentences Neuro General: patient oriented x3 Cranial nerves: Yes CN's II-XII intact bilaterally Cognition (Neuro): normal cognition Office Procedures Botulinum toxin Injection 43042 - Migraine Procedure code (CPT) selection complete Office Meds onabotulinumtoxinA 200 unit solution for injection Performing Provider: Arabella Tucker MD Performing Location: [facility] [place] [facility] Administered by: Arabella Tucker MD on 02/21/25 12:08 Dose Route Admin Location Dispensed Lot Number Expiration Date [facility] [employer] 185 unit subcut 200 units [id number] [employer] Comments: see hpi Assessment & Plan Assessment & Plan (1) Chronic migraine without aura, intractable, without status migrainosus: Code(s): G43.719 - Chronic migraine without aura, intractable, without status migrainosus Category: Medical Plan Patient tolerated the procedure well she will call with any side effects Orders: Orders AMB Botulinum toxin Injection Today G43.719 - Chronic migraine without aura, intractable, without status migrainosus Medications: New onabotulinumtoxinA 200 units subcut ONCE 1 ea 0RF migraine G43.719 - Chronic migraine without aura, intractable, without status migrainosus Coding Level of Care Code Est Pt Level 1 (24864) Diagnoses Chronic migraine without aura, intractable, without status migrainosus G43.719 CPT Codes Botox Injection - Botox 3: 96568 - Migraine ([id number])
[2025-02-21 11:02] VITALS: BP 134/72; PULSE 86; O2SAT 98; BMI 29.2
== END 2025-02-21 11:44 | disposition home or self-care (01) ==
LOC: HO.HSMS 10:53
PROVIDERS: PCP Internal Medicine; Visit Provider Psychiatry & Neurology Neurology
DX: G43.719 Chronic migraine without aura, intractable, without status migrainosus (principal)
CPT/HCPCS: 64615

== ENCOUNTER → 2025-02-21 10:52 | Outpatient (BNVA) | payer OTHER, SELFPAY | PROVIDERS: PCP Internal Medicine; Visit Provider Psychiatry & Neurology Neurology | DX: G43.719 Chronic migraine without aura, intractable, without status migrainosus (principal) | CPT/HCPCS: 64615; 99211; J0585 ==

== ENCOUNTER 2025-04-01 15:56 | Emergency (ER) | payer OTHER, SELFPAY ==
--- NOTE | 2025-04-01 | ECG_ITS ---
Test Reason : ABDOMINAL PAIN Blood Pressure : */* mmHG Vent. Rate : 68 BPM Atrial Rate : 68 BPM P-R Int : 144 ms QRS Dur : 86 ms QT Int : 414 ms P-R-T Axes : 28 7 3 degrees QTcB Int : 440 ms Normal sinus rhythm Normal ECG When compared with ECG of 31-Aug-2024 15:53, No significant change was found Referred By: Flora Nguyễn Electronically Signed By: Sameer Poon
--- NOTE | ~2025-04-01 | CT_ITS ---
CLINICAL HISTORY: abd pain, N V, RLQ TTP, hx calculi CT abdomen and pelvis with contrast Comparison: None provided Findings: Diffuse esophageal mural thickening, nonspecific. Atelectasis. Punctate calcification right breast. Distended gallbladder with wall thickening. This may be further evaluated with ultrasound. No radiopaque gallstones. Left adrenal gland nodule measuring 1.8 cm with an average Hounsfield unit of 48, indeterminate. This may be further evaluated with biochemical assay and adrenal protocol imaging if indicated. Small bilateral hypodense renal cysts. Bilateral nonobstructive subcentimeter renal calculi measuring no more than 4 mm. Postsurgical changes along the GE junction and stomach likely reflecting prior sleeve gastrectomy. Mildly prominent inguinal nodes, nonspecific. Right ovarian cyst measuring 3.2 cm. This may be further evaluated with ultrasound. Scattered colonic diverticulosis without diverticulitis or colitis. Normal appendix. The bones are intact. Probable vertebral body hemangioma at T9. IMPRESSION: 1. Bilateral nonobstructive subcentimeter renal calculi measuring no more than 4 mm. 2. Additional findings as described. This document has been electronically signed by: Manny Alford MD on 04/01/2025 18:08:15
[2025-04-01 16:05] VITALS: BP 150/82; PULSE 67; O2SAT 100
[2025-04-01 16:13] VITALS: BP 151/85; PULSE 68; RESP 21; TEMP 37; O2SAT 97; BMI 31.4
--- NOTE | 2025-04-01 16:19 | ED_ITS ---
HPI - Abdominal Pain General Chief Complaint: Abdominal Pain Stated Complaint: abd pain, weakness Time Seen by Provider: 04/01/25 16:03 Source: patient and EMS Mode of arrival: EMS Limitations: language barrier (Maltese-speaking horse stud manager utilized) History of Present Illness ED Provider: thanh osullivan np HPI narrative: Patient is a 45-year-old female who presents emergency department via EMS for evaluation. She is endorsing epigastric pain with the associated nausea vomiting and generalized weakness today. She admits to a history of chronic abdominal pain even in the epigastric region since her bariatric surgery however symptoms today were much more severe. She states that she awoke this morning without any pain she had coffee and something to eat without issue. At approximately 13:30 she had sudden onset of her pain, she had an episode of vomiting. She attempted to drink joslyn guillermo which did help her symptoms for approximately 30 minutes. Until again the pain returned it was very severe, she went outside of [facility] she was feeling weak and fatigued a bit sweaty, she went back inside and other [employer] Goers had placed ice on her but she was still having severe pain which prompted her coming to emergency department. When asked she does admit to having urinary frequency over the past few days has a history of nephrolithiasis. She denies dysuria, hematuria. Reports a history of gallstones but I have not previously been symptomatic for her as these were reportedly found incidentally. No recent fevers or chills, no associated chest pain or shortness of breath, no reported hematemesis, no hematochezia or melena. She denies any pelvic pain or abnormal vaginal discharge. Related Data Previous Rx's ?Medication ?Instructions ?Recorded inulin 2 gram chewable tablet 2 g PO BID #60 tabs 11/13 05/03 (Fiber Gummies) loratadine 10 mg tablet (Allergy 10 mg PO DAILY 90 day s #90 tabs 04/01/23 Relief (loratadine)) bisacodyl 5 mg tablet,delayed 10 mg (2 x 5 mg) PO BEDT CHARITY 30 04/21/23 release (Dulcolax (bisacodyl)) days #60 tabs linaclotide 290 mcg capsule 290 mcg PO QAM #30 caps pantoprazole 40 mg tablet,delayed 40 mg PO DAILY 30 da ys #30 tabs 04/21/23 release (Protonix) Proctosol HC 2.5 % topical cream 1 appl [place] BID hemorrh oids #28.35 05/12/23 perineal applicator grams (hydrocortisone) calcium 315 mg (as 1 tab PO BID #60 tabs citrate)-vitamin D3 5 mcg (200 unit) tablet (Calcium Citrate + D) sumatriptan succinate 100 mg tablet 50 - 100 mg (0.5 - 1 x 100 mg) PO 05/31/24 .COMPLEX PRN migraine headache 30 days #12 tabs metoclopramide HCl 10 mg tablet 10 mg PO Q6H PRN nause a and 08/31/24 (Reglan) vomiting #14 tabs lidocaine 5 % topical patch 1 patch topical DAILY #30 ea 10/07/24 methocarbamol 500 mg tablet 500 mg PO TID PRN muscle s pasm #90 10/07/24 tabs sucralfate 100 mg/mL oral 10 ml PO QID PRN reflux #400 mL 10/18/24 suspension (Carafate) slneiwsnvr-nhyyvfzpkauje-yknctque 1 tab PO Q6H PRN sagar n #10 tabs 11/15/24 50 mg-325 mg-40 mg tablet onabotulinumtoxinA 200 unit 200 unit IM ONCE 12 weeks #1 ea 12/08/24 solution for injection (Botox) rizatriptan 10 mg tablet 5 - 10 mg (0.5 - 1 x 10 mg) PO Q2H 01/08/25 PRN migraine headache 30 days #12 tabs Allergies Allergy/AdvReac Type Severity Reaction Status Date / Time bupropion (Contrave) Allergy Intermediate nausea,vomit, Verified 04/01/25 16:15 headaches naltrexone (Contrave) Allergy Intermediate nausea,vomit, Verified 04/01/25 16:15 headaches oxycodone (Percocet) Allergy Intermediate hives Verified 04/01/25 16:15 duloxetine AdvReac Severe Hallucinati Verified 04/01/25 16:15 ons Review of Systems Review of Systems Yes all other systems are reviewed and are negative ON LICENSE OF [facility] Past Medical History Attestation statement: The following information was validated with the patient. Source: old records reviewed Medical History Chronic migraine without aura, intractable, without status migrainosus Sacroiliac joint dysfunction of both sides Major depression, recurrent History of COVID-19 Bleeding hemorrhoids H. pylori infection Obesity (BMI 30-39.9) Rectal bleeding Mild recurrent major depression Morbid obesity with BMI of 40.0-44.9, adult Right lateral epicondylitis Epigastric pain Polyarthralgia Bloody stools Right foot pain Left foot pain Finger pain GERD (gastroesophageal reflux disease) Essential hypertension H/O reactive hypoglycemia Vitamin D deficiency Prediabetes Dyslipidemia Surgical History Breast mass, right (11/05/23) S/P laparoscopic sleeve gastrectomy Hx of colonoscopy Deficient knowledge of leg surgery History of incision and drainage History of lithotripsy History of total abdominal hysterectomy History of tubal ligation Hx of section Hx of bilateral breast reduction surgery Family History Family History Daughter Cancer Father Cancer, Onset Age: 54 Diabetes mellitus Mother Cancer, Onset Age: 64 Diabetes mellitus Paternal Aunt Cancer Maternal Grandmother Diabetes mellitus Hypertension CVD (cardiovascular disease) Maternal Grandfather Diabetes mellitus Hypertension CVD (cardiovascular disease) Paternal Grandmother Diabetes mellitus Hypertension Paternal Grandfather No problems noted. Social History Social History Housing: House Are you a primary care team assistant to a significant other at home: No Do you presently have visiting nurse or other home services: No Alcohol intake: never Comment: COUNTS CORRECT Patient Tobacco Use Status: Never used Tobacco Smoked in Last 30 Days: No e-Cigarette/Vaping Use: Never Used Second Hand Smoke Exposure: No Use of substances other than those prescribed or required for medical reasons: No Advance Directives: Yes Advance Directives on File: Yes Advance Directives Date on File: 10/07/22 Patient : No service: No Current occupational status: employed 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 No acute distress.?Normal affect.?? Neck: Normal inspection.? Neck supple.?? CVS: Heart sounds normal. Normal heart rate and rhythm.? Pulses normal.?? Respiratory: No respiratory distress.? Lung sounds clear to auscultation bilaterally?? Abdomen: Soft with epigastric tenderness upon palpation, no left or right upper quadrant tenderness upon palpation. Negative Thapa sign. Mild right lower quadrant tenderness, palpation, No rebound tenderness at McBurney's point. Negative psoas sign. Negative Rovsing sign. No CVAT. Normoactive bowel sounds. ? Skin: Skin warm and dry.? Normal skin color.? Extremities: No lower extremity edema.? Neuro: Moves all extremities spontaneously. Sensation intact bilaterally. Ambulates with normal steady gait. Course Reevaluation(s) Reevaluation #1: CBC reveals mild leukocytosis of 11,900, mild normocytic anemia that does not meet transfusion criteria, no thrombocytopenia. No electrolyte derangement. No ZHOU. LFTs overall unremarkable aside from a minimally elevated AST at 77, lipase is normal. High sensitive troponin below detectable limits. Hematuria. HCG is negative. Patient will be signed out to Jessica RAMOS pending CT abdomen and pelvis and re-evaluation RACHEL Ahn-C 2137 ---> Patient's CT scan showed some gallbladder wall thickening but no other evidence of cholecystitis, a 3.2cm right ovarian cyst, and multiple non-obstructing kidney stones. Patient is having both epigastric and lower abdominal pain. Difficult to determine if the patient is having pain from previously passed kidney stones, biliary colic, and/or the opening of the ovarian cyst. Upon re-evaluation the patient states that she has significantly less pain and feels comfortable going home and following up on these CT findings on an outpatient basis. Medical Decision Making Medical Decision Making MDM Narrative: Patient is a 45-year-old female with past medical history of chronic idiopathic constipation, laparoscopic sleeve gastrectomy, GERD, H pylori, hemorrhoids, migraines, polyarthralgia, hypertension, dyslipidemia who presents emergency department for evaluation of abdominal pain with the associated nausea vomiting weakness as per HPI. Endorses pain to be localized to the epigastric region, however on examination she also has right lower quadrant tenderness upon palpation no rebound tenderness no rigidity or guarding. Abdominal examination is benign, overall without signs of systemic toxicity found to be afebrile without tachycardia, no hypotension. No associated chest pain shortness of breath or URI symptoms to suggest pneumonia, no clinical evidence of DVT or personal history of VTE/malignancy to suggest pulmonary embolism. No high-risk past medical history to suggest myocardial infarction and is without chest pain, less likely AAA, aortic dissection. Given immobilization of pain may be secondary to acute cholecystitis, choledocholithiasis, no fever or jaundice to suggest acute cholangitis, may possibly be biliary colic secondary to cholelithiasis. Gastritis as possible, she denies any associated heartburn, left upper quadrant is without tenderness, no recent hematemesis history less likely to suggest PUD. Denies excessive alcohol consumption, history of diabetes, lower suspicion acute pancreatitis. Given presence of pain in the right lower quadrant, appendicitis is a possibility no rebound tenderness however urinary frequency which may suggest UTI/pyelonephritis, renal colic, hydronephrosis. Gi cocktail given localization of pain to the epigastric region, based on examination, we will obtain CT of the abdomen and pelvis, serum labs and urinalysis Differential Diagnosis Differential Diagnoses: The differential diagnosis associated with the presentation includes (See narrative above) Admission/Observation Consideration of admission/observation: Escalation of care including admission/observation considered (See narrative above ) Lab Data MDM Lab Attestation statement: I reviewed the patient's lab results. 04/01/25 16:45 04/01/25 16:45 Labs: Lab Results 04/01/25 Range/Units 16:45 WBC 11.9 H (4.8-10.8) X10*3/uL RBC 3.85 L (4.20-5.50) X10*6/uL Hgb 10.9 L (12.0-16.0) g/dl Hct 33.2 L (37.0-47.0) % MCV 86.2 (80.0-98.0) fL MCH 28.3 (27.0-33.0) pg MCHC 32.8 (31.0-35.0) g/dl RDW 12.3 (11.0-16.0) % Plt Count 229 (160-400) X10*3/uL MPV 9.5 (9.4-12.3) fL Immature Gran % (Auto) 0.4 (0.0-0.4) % Neut % (Auto) 82.1 H (45-73) % Lymph % (Auto) 10.1 L (20-40) % [place] % (Auto) 6.2 (2-11) % Eos % (Auto) 0.8 (0-4) % Baso % (Auto) 0.4 (0-2) % Lymph # (Auto) 1.2 (1.2-4.9) X10*3/uL [place] # (Auto) 0.7 (0.1-1.2) X10*3/uL Eos # (Auto) 0.1 (0.0-0.4) X10*3/uL Baso # (Auto) 0.1 (0.0-0.2) X10*3/uL Abs Immat Gran (auto) 0.05 H (0.00-0.03) X10*3/uL Absolute Neuts (auto) 9.7 H (2.0-8.3) x10*3/uL Absolute Nucleated RBC 0.000 (0.0-0.012) X10*3/uL Nucleated RBC % (auto) 0.0 (0.0-0.2) /100WBC Sodium 141 (135-145) mmol/L Potassium 3.9 (3.3-5.1) mmol/L Chloride 108 (96-108) mmol/L Carbon Dioxide 24 (22-29) mmol/L Anion Gap 13 (12-20) BUN 10 (9-16) mg/dL Creatinine 0.56 (0.5-1.4) mg/dL Estim Creat Clear Calc 124.6 Estimated GFR > 60 Random Glucose 95 (60-115) mg/dL Calcium 8.4 D (8.4-10.2) mg/dL Total Bilirubin 0.5 (0.0-1.0) mg/dL AST 77 H (5-31) U/L ALT 27 (0-31) U/L Alkaline Phosphatase 50 (39-117) U/L Troponin I High Sens < 2.7 (<3.5-17.0) ng/L Total Protein 6.5 (6.5-8.0) g/dL Albumin 3.9 (3.5-5.0) g/dL Lipase 32 (8-78) U/L Urine Color Yellow Urine Appearance Clear Urine pH >= 9.0 (5.0-9.0) Ur Specific [place] 1.015 (1.005-1.025) Urine Protein Negative (Neg-Trace) mg/dL Urine Glucose (UA) Negative (Negative) mg/dL Urine Ketones Negative (Negative) mg/dL Urine Blood Negative (Negative) Urine Nitrite Negative (Negative) Ur Leukocyte Esterase Negative (Negative) Urine Test NEGATIVE (NEGATIVE) Independent Interpretation I performed an independent interpretation of an: EKG Radiology Impression Discussion of test interpretation with radiology: I have reviewed the radiologist's reading. Radiologist Impression: CT abdomen and pelvis with contrast Comparison: None provided Findings: Diffuse esophageal mural thickening, nonspecific. Atelectasis. Punctate calcification right breast. Distended gallbladder with wall thickening. This may be further evaluated with ultrasound. No radiopaque gallstones. Left adrenal gland nodule measuring 1.8 cm with an average Hounsfield unit of 48, indeterminate. This may be further evaluated with biochemical assay and adrenal protocol imaging if indicated. Small bilateral hypodense renal cysts. Bilateral nonobstructive subcentimeter renal calculi measuring no more than 4 mm. Postsurgical changes along the GE junction and stomach likely reflecting prior sleeve gastrectomy. Mildly prominent inguinal nodes, nonspecific. Right ovarian cyst measuring 3.2 cm. This may be further evaluated with ultrasound. Scattered colonic diverticulosis without diverticulitis or colitis. Normal appendix. The bones are intact. Probable vertebral body hemangioma at T9. IMPRESSION: 1. Bilateral nonobstructive subcentimeter renal calculi measuring no more than 4 mm. 2. Additional findings as described. Independent Historian Clinical information obtained from an independent historian. History obtained from or confirmed by: Spouse and EMS External Record Review External record reviewed: Outpatient record Chronic Conditions Patient?s care impacted by: Other (See narrative above) Medications Administered Discontinued Medications Generic Name Dose Route Start Last Admin Trade Name Freq PRN Reason Stop Dose Admin Al Hydroxide/Mg Hydroxide 30 ml 04/01/25 16:32 04/01/25 16:46 Magnesium Hydrox/Alum Hydrox 30 Ml Oral.Susp PO 04/01/25 16:33 30 ml ONCE ONE Administration Famotidine 20 mg 04/01/25 16:32 04/01/25 16:46 Famotidine/Pf 20 Mg/2 Ml Vial IVPUSH 04/01/25 16:33 20 mg ONCE ONE Administration Sodium Chloride 1,000 mls @ 999 mls/hr 04/01/25 16:45 04/01/25 17:44 Ns IV 04/01/25 17:45 Infused .Q1H1M YOU Infusion Iohexol 100 ml 04/01/25 17:27 04/01/25 17:28 Iohexol 350 Mg/Ml 100 Ml Infus..Btl IV 04/01/25 17:28 85 ml ONCE ONE Administration Lidocaine HCl 15 ml 04/01/25 16:32 04/01/25 16:46 Lidocaine Hcl Viscous 2 % 15 Ml Solution MUCOUS MEM 04/01/25 16:33 15 ml ONCE ONE Administration Ondansetron HCl 4 mg 04/01/25 16:32 04/01/25 16:46 Ondansetron Hcl 4 Mg/2 Ml Vial IVPUSH 04/01/25 16:33 4 mg ONCE ONE Administration Discharge Plan Discharge Clinical Impression: Biliary colic, Ovarian cyst, Kidney stone Patient Disposition: Home, Self-Care Instructions: Ovarian Cyst (ED), Biliary Colic (ED), Kidney Stones (ED) Additional Instructions: You should follow up with a general surgeon about your gallbladder wall thickening as well as an incidental finding of a left adrenal gland nodule measuring 1.8cm. Follow up with your primary care provider. Follow up with an OBGYN regarding your right sided ovarian cyst. Your work up today was reassuring that there is no EMERGENT cause for your symptoms. Return to the emergency department immediately if your symptoms worsen or if you develop any numbness, tingling, dizziness, shortness of breath, difficulty breathing, chest pain, blurry vision, loss of vision, nausea, vomiting, abdominal pain, fever, chills, back pain, or any other complaints. Please see the information below about our Patient Portal. If you are not yet enrolled in the [facility] Patient Portal, you will receive an enrollment email invitation following your visit to any [facility] setting. You may also self-enroll in the Patient Portal by visiting our website: [email or web address] The following information is required to access the Patient Portal: - Your [facility] Medical Record Number - Your personal home email address (must match what is in your electronic medical record, Registration staff can assist with this) - Name - Date of Capabilities of the Patient Portal: - Message some providers - View upcoming appointments - Access your health summary, medical history, and visit history - View current conditions and allergies - View procedure and lab results - View your medications, including guidelines, side effects, and precautions - Complete pre-appointment questionnaires requested by your provider - Ready summary reports of your office visits and procedures To access the Patient Portal Mobile Sabrina, follow these directions: - Search [employer] in the Sabrina Store or Google The [employer] Store - Download the Sabrina - Search for [facility] - Enter your login/password Prescriptions: No Action loratadine [Allergy Relief (loratadine)] 10 mg tablet 10 mg PO DAILY 90 Days Qty: 90 1RF rizatriptan 10 mg tablet 5 - 10 mg PO Q2H PRN (Reason: migraine headache) 30 Days Qty: 12 3RF Rx Instructions: max 2 tabs per day or 4 tabs per week metoclopramide HCl [Reglan] 10 mg tablet 10 mg PO Q6H PRN (Reason: nausea and vomiting) Qty: 14 0RF calcium citrate-vitamin D3 [Calcium Citrate + D] 315 mg-5 mcg (200 unit) tablet 1 tab PO BID Qty: 60 11RF bisacodyl [Dulcolax (bisacodyl)] 5 mg tablet,delayed release (DR/EC) 10 mg PO BEDTIME 30 Days Qty: 60 6RF linaclotide 290 mcg capsule 290 mcg PO QAM Qty: 30 6RF pantoprazole [Protonix] 40 mg tablet,delayed release (DR/EC) 40 mg PO DAILY 30 Days Qty: 30 6RF Fiber Gummies 2 gram tablet,chewable 2 g PO BID Qty: 60 6RF sumatriptan succinate 100 mg tablet 50 - 100 mg PO .COMPLEX PRN (Reason: migraine headache) 30 Days Qty: 12 6RF Rx Instructions: 50 - 100 mg orally at onset of headache, may repeat in 2 hrs PRN; max 2 tabs per day or 4 tabs/week (may take with Tylenol) sucralfate [Carafate] 100 mg/mL suspension 10 ml PO QID PRN (Reason: reflux) Qty: 400 0RF Rx Instructions: swish in mouth and swallow; use after food/drink hydrocortisone [Proctosol HC] 2.5 % cream with perineal applicator 1 appl [place] BID Qty: 28.35 3RF Patient Comments: postop med Botox 200 unit recon soln 200 unit IM ONCE 84 Days Qty: 1 3RF Rx Instructions: inject 155 units IM across forehead, scalp, and neck vprcyttqce-hschibeugyygb-axvs 50-325-40 mg tablet 1 tab PO Q6H PRN (Reason: pain) Qty: 10 0RF methocarbamol 500 mg tablet 500 mg PO TID PRN (Reason: muscle spasm) Qty: 90 1RF Rx Instructions: Discontinue use of Cyclobenzaprine No driving while taking this medication. Do no take with alcohol or other INSIDE [employer] SALES Depressants lidocaine 5 % adhesive patch,medicated 1 patch topical DAILY Qty: 30 3RF Rx Instructions: leave on most painful area for up to 12 hrs Referrals: [facility] General Surgeons [Provider Group, General Surgery] Referral Note: Call to establish and follow up with a general surgeon. Luli Azevedo MD [Primary Care Provider, Internal Medicine] Interventions: ED Discharge Assessment Last Done: 04/01/25 18:47 Discharge Date/Time: 04/01/25 18:56 Print Language: Maltese
[2025-04-01] MEDS: Lidocaine HCl Viscous 2 % 15 ML SOLUTION MUCOUS MEM (16:46)
[2025-04-01] MEDS: ondansetron HCL 4 MG/2 ML VIAL IVPUSH (16:46)
[2025-04-01] MEDS: Magnesium Hydrox/Alum Hydrox 30 ML ORAL.SUSP PO (16:46)
[2025-04-01] MEDS: Famotidine/PF 20 MG/2 ML VIAL IVPUSH (16:46)
[2025-04-01] MEDS: 0.9 % Sodium Chloride 1,000 ML 999 ML IV (16:50)
[2025-04-01 16:52] LABS: MANUAL DIFF FLAG NO
[2025-04-01 16:54] LABS: Basophils Absolute Auto 0.1 X10*3/uL (0.0-0.2); Basophils Percent Auto 0.4 % (0-2); Eosinophils Absolute Auto 0.1 X10*3/uL (0.0-0.4); Eosinophils Percent Auto 0.8 % (0-4); Hematocrit 33.2 % (37.0-47.0); Hemoglobin 10.9 g/dl (12.0-16.0); Imm Gran Abs Auto 0.05 X10*3/uL (0.00-0.03); Imm Gran Pct Auto 0.4 % (0.0-0.4); Lymphocytes Absolute Auto 1.2 X10*3/uL (1.2-4.9); Lymphocytes Percent Auto 10.1 % (20-40); Mean Corpuscular HGB Conc 32.8 g/dl (31.0-35.0); Mean Corpuscular Hemoglobin 28.3 pg (27.0-33.0); Mean Corpuscular Volume 86.2 fL (80.0-98.0); Mean Platelet Volume 9.5 fL (9.4-12.3); Monocytes Absolute Auto 0.7 X10*3/uL (0.1-1.2); Monocytes Percent Auto 6.2 % (2-11); Neutrophils Absolute Auto 9.7 x10*3/uL (2.0-8.3); Neutrophils Percent Auto 82.1 % (45-73); Platelet Count 229 X10*3/uL (160-400); Red Blood Count 3.85 X10*6/uL (4.20-5.50); Red Cell Distribution Width 12.3 % (11.0-16.0); White Blood Count 11.9 X10*3/uL (4.8-10.8)
[2025-04-01 16:56] LABS: Appearance Urine Clear; Color Urine Yellow; Glucose Urine UA Negative (Negative); Leukocyte Esterase Urine Negative (Negative); Nitrite Urine Negative (Negative); PH >= 9.0 (5.0-9.0); Specific Gravity - Urine 1.015 (1.005-1.025); Urine Blood Negative (Negative); Urine Ketones Negative (Negative); Urine Protein Negative (Neg-Trace)
[2025-04-01 16:57] LABS: UPreg QC Valid YES; Urine Pregnancy NEGATIVE (NEGATIVE)
[2025-04-01 17:13] LABS: Alanine Aminotransferase 27 U/L (0-31); Albumin Level 3.9 g/dL (3.5-5.0); Alkaline Phosphatase 50 U/L (39-117); Anion Gap 13 (12-20); Aspartate Amino Transferase 77 U/L (5-31); Bilirubin Total 0.5 mg/dL (0.0-1.0); Blood Urea Nitrogen 10 mg/dL (9-16); Calcium 8.4 mg/dL (8.4-10.2); Carbon Dioxide 24 mmol/L (22-29); Chloride 108 mmol/L (96-108); Creatinine Clr Calc Pharmacy 124.6; Estimated Glomerular Filt Rate > 60; Glucose Random 95 mg/dL (60-115); Lipase 32 U/L (8-78); Potassium 3.9 mmol/L (3.3-5.1); Sodium 141 mmol/L (135-145); Total Protein 6.5 g/dL (6.5-8.0)
[2025-04-01 17:26] LABS: Troponin-I High Sensitivity < 2.7 ng/L (<3.5-17.0)
[2025-04-01] MEDS: iohexoL 350 MG/ML 100 ML INFUS..BTL IV (17:28)
[2025-04-01 18:00] VITALS: BP 129/73; PULSE 80; RESP 15; TEMP 36.9; O2SAT 100
--- NOTE | 2025-04-01 18:23 | PC.NURSE ---
Pt reports +pain improvement after meds gv per orders; (12/19); pt denies nausea at this time; vss
[2025-04-01 18:47] VITALS: BP 129/73; PULSE 80; RESP 15; TEMP 36.9; O2SAT 100
== END 2025-04-01 18:56 | disposition home or self-care (01) ==
PROVIDERS: Nurse Practitioner Family; Emergency Provider Emergency Medicine Emergency Medical Services; PCP Internal Medicine
DX: K80.50 Calculus of bile duct without cholangitis or cholecystitis without obstruction (principal); N83.201 Unspecified ovarian cyst, right side; Q61.02 Congenital multiple renal cysts; R11.2 Nausea with vomiting, unspecified; R53.1 Weakness; R10.13 Epigastric pain; E11.9 Type 2 diabetes mellitus without complications; I10 Essential (primary) hypertension; E78.5 Hyperlipidemia, unspecified; G89.4 Chronic pain syndrome; Z98.84 Bariatric surgery status; Z79.899 Other long term (current) drug therapy
CPT/HCPCS: 36415; 74177; 80053; 81003; 81025; 83690; 84484; 85025; 93005; 96361; 96374; 96375; 99285; J1308; J2405; Q9967

== ENCOUNTER → 2025-04-01 16:36 | Outpatient (BNV) | payer OTHER, SELFPAY | PROVIDERS: Emergency Provider Emergency Medicine Emergency Medical Services; PCP Internal Medicine; Visit Provider Radiology Diagnostic Radiology | DX: N20.0 Calculus of kidney (principal) | CPT/HCPCS: 74177 ==

== ENCOUNTER → 2025-04-01 16:50 | Outpatient (BNV) | payer OTHER, SELFPAY | PROVIDERS: Emergency Provider Emergency Medicine Emergency Medical Services; PCP Internal Medicine; Visit Provider Internal Medicine Cardiovascular Disease | DX: R10.13 Epigastric pain (principal) | CPT/HCPCS: 93010 ==

== ENCOUNTER 2025-04-18 11:15 | Outpatient (AMB) | payer OTHER, SELFPAY ==
--- NOTE | 2025-04-18 11:20 | A.OFFVIS_ITS ---
VS Expanded 04/18/25 11:30 BP 143/87 H Blood Pressure Location Rt brachial Blood Pressure Position Sitting Pulse 85 Pulse Source Pulse Oximeter Temp 98.6 F Temperature Source Temporal Artery Scan Pulse Oximetry 98 Oxygen Delivery Method Room Air Height 5 ft 3 in Weight 166 lb 12.8 oz BMI 29.5 Body Fat % 34.8 Body Fat Mass 58.0 Fat Free Mass 108.6 Visceral Fat Rating 7.0 Body Water % 46.6 Body Water Mass 77.6 Muscle Mass/Score 103.2 Basal Metabolic Rate/Score 1,484 Intake Visit Reasons: OV PO LSG 10/01/22 Music Instructor Required: Yes Music Instructor Name: Cynthia Villalobos [id number] Allergies bupropion (Contrave) Allergy (Intermediate, Verified 04/18/25 11:25) nausea,vomit, headaches naltrexone (Contrave) Allergy (Intermediate, Verified 04/18/25 11:25) nausea,vomit, headaches oxycodone (Percocet) Allergy (Intermediate, Verified 04/18/25 11:25) hives duloxetine Adverse Reaction (Severe, Verified 04/18/25 11:25) Hallucinations Medication List - Last Reconciled 04/18/25 by RACHEL Murray bisacodyl (Dulcolax (bisacodyl)) 10 mg (2 x 5 mg) PO BEDTIME 30 days ailzuogxpx-cskohhgdetkcu-rbcw 50-325-40 mg 1 tab PO Q6H PRN calcium citrate-vitamin D3 315 mg-5 mcg (200 unit) (Calcium Citrate + D) 1 tab PO BID inulin (Fiber Gummies) 2 grams PO BID lidocaine 5% 1 patch topical DAILY linaclotide 290 mcg PO QAM loratadine (Allergy Relief (loratadine)) 10 mg PO DAILY 90 days methocarbamol 500 mg PO TID PRN metoclopramide HCl (Reglan) 10 mg PO Q6H PRN onabotulinumtoxinA (Botox) 200 units IM ONCE 12 weeks pantoprazole (Protonix) 40 mg PO DAILY 30 days Proctosol HC 2.5% (hydrocortisone) 1 appl OK BID NS rizatriptan 5 - 10 mg (0.5 - 1 x 10 mg) PO Q2H PRN 30 days sucralfate (Carafate) 10 mL PO QID PRN sumatriptan succinate 50 - 100 mg orally at onset of headache, may repeat in 2 hrs PRN; max 2 tabs per day or 4 tabs/week (may take with Tylenol) 30 days HPI Comments Details: This?is a?45?yo F who is s/p LSG 10/01/2022. Weight gain of 5.6lbs since last OV 3mo ago. Reports ongoing fatigue/weakness. Tried Ryze coffee. Went to ED for abdominal pain on 04/01, was diagnosed with biliary colic vs kidney stone, was able to be discharged from ED. 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 pylori infection Obesity (BMI 30-39.9) Rectal bleeding Mild recurrent major depression Morbid obesity with BMI of 40.0-44.9, adult Right lateral epicondylitis Epigastric pain Polyarthralgia Bloody stools Right foot pain Left foot pain Finger pain GERD (gastroesophageal reflux disease) Essential hypertension H/O reactive hypoglycemia Vitamin D deficiency Prediabetes Dyslipidemia Surgical History Breast mass, right (11/05/23) S/P laparoscopic sleeve gastrectomy Hx of colonoscopy Deficient knowledge of leg surgery History of incision and drainage History of lithotripsy History of total abdominal hysterectomy History of tubal ligation Hx of section Hx of bilateral breast reduction surgery Family History Daughter Cancer Father Cancer, Onset Age: 54 Diabetes mellitus Mother Cancer, Onset Age: 64 Diabetes mellitus Paternal Aunt Cancer Maternal Grandmother Diabetes mellitus Hypertension CVD (cardiovascular disease) Maternal Grandfather Diabetes mellitus Hypertension CVD (cardiovascular disease) Paternal Grandmother Diabetes mellitus Hypertension Paternal Grandfather No problems noted. 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 Current occupational exposures/hazards: No Cognitive needs: No Hearing needs: No Vision needs: No Physical Exam Vital Signs: Last Vital Signs Temp 98.6 F 04/18/25 11:30 Pulse 85 04/18/25 11:30 BP 143/87 H 04/18/25 11:30 Pulse Ox 98 04/18/25 11:30 Oxygen Delivery Method Room Air 04/18/25 11:30 BMI result Body Mass Index 29.5 Quality Reporting (2019) Adult ([facility] ) Smoking risk assessment performed?: Yes Patient Tobacco Use Status: Never used Tobacco Assessment & Plan Assessment & Plan (1) S/P laparoscopic sleeve gastrectomy: Code(s): Z98.84 - Bariatric surgery status Category: Surgical (2) Overweight: Code(s): E66.3 - Overweight Category: Medical Plan Labs reviewed; pt with mildly low H/H. Will start Vitron C due to complaints of ongoing fatigue. Vitamin levels WNL. Can use Ryze coffee 1 cup max per day, have after shake or mix shake. Refilled PPI and carafate. Instructed pt to keep a diary of episodes of pain to determine if biliary colic is contributing to her abdominal pain. RTC 3 mo. Medications: New iron,carbonyl-vitamin C 65 mg iron- 125 mg (Vitron-C) 1 tab PO BEDTIME 90 tabs 3RF Changed From sucralfate (Carafate) swish in mouth and swallow; use after food/drink 10 mL PO QID PRN 400 mL 0RF reflux To sucralfate (Carafate) avoid eating or drinking for 45 minutes after taking 10 mL PO BID PRN 400 mL 3RF reflux Refilled pantoprazole (Protonix) 40 mg PO DAILY 30 tabs 6RF 30 days K21.9 - Gastro- esophageal reflux disease without esophagitis
[2025-04-18 11:30] VITALS: BP 143/87; PULSE 85; TEMP 37; O2SAT 98; BMI 29.5
--- OUTSIDE RECORDS SUMMARY | 2025-04-18 12:22 | XMS_ITS | Patient Health Record ---
Author Organization [facility] Address [address] [place] [address] Care Team Providers Care Forest Resource Specialist Name Role Phone Luli Azevedo Primary Care Provider Lev Grossman [phone] Allergies Allergen (clinical drug ingredient) Drug/Non Drug Allergy documented on EMR Reaction Allergy Type Onset Date Status acetaminophen / oxycodone Percocet Unknown Drug Allergy Active Reason For Referral No Information Medications Medication SIG (Take, Route, Fr equency, Duration) Notes Start Date End Date Status Tums Active Fioricet Migraines Active Advil For abd pain Active Ibuprofen 800 MG Orally For abd pain Active Social History Tobacco Use: Social History Observation Description Date Details (start date - stop date) Never Smoker NA - NA Tobacco Use/Smoking Question Answer Notes Patient is a nonsmoker Alcohol Screen Question Answer Notes Did you have a drink containing alcohol in the p ast year? No Points 0 Interpretation Negative Section Notes: Nonsmoker; no alcohol Problems Problem Type SNOMED Code ICD Code Onset Dates Problem Status W/U Status Risk Notes Problem 517357651 Gastroesophageal reflux disease, esophagitis presence not specified (K21.9) Active confirmed Problem Gallstones (K80.20) Active confirmed Problem [id number] Right upper quad rant abdominal pain (R10.11) Active confirmed Plan Of Treatment Pending Test Test Name Order Date GI BIOPSY 06/28/2018 Future Test Test Name Order Date UPPER GI ENDOSCOPY 06/01/2018 Insurance Providers Payer Name Payer Address Payer Phone Subscriber Number Group Number Insured Name Patient Relationship to Insured Coverage Start Date Coverage End Date [employer] [address] [address] [place], [place] [id number] SERGIO CHAIREZ Self - patient is the insured MEDICA[employer] OF [employer] [address] [place] [address] [id number] SERGIO CHAIREZ Self - patient is the insured Medical (General) History Medical History History ICD Code Kidney stones---ESWL Denies [place],DM,CVA,Lung disease,renal dise ase Hx of hypoglycemia Migraines Gallstone on 2015 U/S Surgical History Surgery Date(Month/Year) Right leg fracture repair/billie x 2 Tubal ligation Sinusitis Breast reduction 2008 Partial hysterectectomy
== END 2025-04-18 12:13 | disposition home or self-care (01) ==
LOC: HO.HBS 11:16
PROVIDERS: PCP Internal Medicine; Visit Provider Physician Assistant Surgical
DX: E66.3 Overweight (principal); Z68.29 Body mass index [BMI] 29.0-29.9, adult; Z90.3 Acquired absence of stomach [part of]; Z98.84 Bariatric surgery status
CPT/HCPCS: 99213; G2211

== ENCOUNTER → 2025-04-18 11:15 | Outpatient (BNVA) | payer OTHER, SELFPAY | PROVIDERS: PCP Internal Medicine; Visit Provider Physician Assistant Surgical | DX: E66.9 Obesity, unspecified (principal); R53.83 Other fatigue; R53.1 Weakness; Z68.29 Body mass index [BMI] 29.0-29.9, adult; Z90.3 Acquired absence of stomach [part of] | CPT/HCPCS: 99212 ==

== ENCOUNTER 2025-04-21 07:09 | Outpatient (AMB) | payer OTHER, SELFPAY ==
[2025-04-21 07:38] VITALS: BP 132/72; PULSE 74; O2SAT 98; BMI 29.9
--- NOTE | 2025-04-21 07:38 | A.OFFPC_ITS ---
Vital Signs 04/21/25 07:38 Height 5 ft 3 in Weight 169 lb BMI 29.9 BP 132/72 Blood Pressure Location Lt brachial Position Sitting Pulse 74 Pulse Source Pulse Oximeter Pulse Oximetry (%) 98 Oxygen Delivery Method Room Air Intake Visit Reasons: [facility] biliary colic, ovarian cyst and kidney stone Biology Department Chair Required: Yes Biology Department Chair Language: English Allergies bupropion (Contrave) Allergy (Intermediate, Verified 04/21/25 07:38) nausea,vomit, headaches naltrexone (Contrave) Allergy (Intermediate, Verified 04/21/25 07:38) nausea,vomit, headaches oxycodone (Percocet) Allergy (Intermediate, Verified 04/21/25 07:38) hives duloxetine Adverse Reaction (Severe, Verified 04/21/25 07:38) Hallucinations Tobacco use date assessed: 11/15/24 Dental Screening Dental Screen Date: 11/15/24 HPI HPI Comments History of Present Illness Details 45 y/o Female patient who presents to [facility] today for EDF. Pt was admitted at [facility] on 04/01 for an evaluation and treatment of Biliary Colic. CT abdomen showed: 1) Bilateral non-obstructive subcentimeter renal calculi measuring no more than 4 mm, Right ovarian cyst measuring 3.2 cm and Left adrenal gland nodule measuring 1.8 cm with an average Hounsfield unit of 48, indeterminate. Today patient continues to have Epigastric region pain, she takes Pantoprazole 40 mg with no relief. She was advised from ED to follow up with GI. Will place referral today. [facility] Medical History (Updated 04/21/25 @ 08:02 by Marium Perea NP) Right ovarian cyst Chronic migraine without aura, intractable, without status migrainosus Sacroiliac joint dysfunction of both sides Major depression, recurrent History of COVID-19 Bleeding hemorrhoids H. pylori infection Obesity (BMI 30-39.9) Rectal bleeding Mild recurrent major depression Morbid obesity with BMI of 40.0-44.9, adult Right lateral epicondylitis Epigastric pain Polyarthralgia Bloody stools Right foot pain Left foot pain Finger pain GERD (gastroesophageal reflux disease) Essential hypertension H/O reactive hypoglycemia Vitamin D deficiency Prediabetes Dyslipidemia Surgical History Breast mass, right (11/05/23) S/P laparoscopic sleeve gastrectomy Hx of colonoscopy Deficient knowledge of leg surgery History of incision and drainage History of lithotripsy History of total abdominal hysterectomy History of tubal ligation Hx of section Hx of bilateral breast reduction surgery Family History Daughter Cancer Father Cancer, Onset Age: 54 Diabetes mellitus Mother Cancer, Onset Age: 64 Diabetes mellitus Paternal Aunt Cancer Maternal Grandmother Diabetes mellitus Hypertension CVD (cardiovascular disease) Maternal Grandfather Diabetes mellitus Hypertension CVD (cardiovascular disease) Paternal Grandmother Diabetes mellitus Hypertension Paternal Grandfather No problems noted. 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 1. Little interest or pleasure in doing things: several days 2. Feeling down, depressed, or hopeless: several days 3. Trouble falling or staying asleep, or sleeping too much: several days 4. Feeling tired or having little energy: nearly every day 5. Poor appetite or overeating: several days 6. Feeling bad about yourself - or that you are a failure or have let yourself or your family down: not at all 7. Trouble concentrating on things, such as reading the newspaper or watching television: not at all 8. Moving or speaking so slowly that other people could have noticed. Or the opposite - being so fidgety or restless that you have been moving around a lot more than usual: not at all 9. Thoughts that you would be better off or of hurting yourself in some way: not at all Total score: 7 Source: Developed by Drs. Lev Dempsey, Dolores B.W. Jacob Solis and colleagues, with an educational tonya from [employer]. Thrive Questionnaire Date Thrive assessed: 04/21/25 I am a: Patient What is your living situation today?: I have a steady place to live Within the past 12 months, did the food you bought not last and you didn't have the money to get more?: Never true Within the past 12 months, did you worry whether your food would run out before you got money to buy more?: Never true Do you have trouble paying for medicines?: No Do you have trouble getting transportation to medical appointments?: No Do you have trouble paying your heating and electricity bill?: No Do you have trouble taking care of your child, family member or friend?: No Do you have trouble with day-to-day activities such as bathing, preparing meals, shopping, managing finances, etc.?: No Are you currently unemployed and looking for a job?: No Are you interested in more education?: No Please select the resources that you would like help with: None Currently or been in a relationship where the following occur: I choose not to answer THRIVE Score: 0 AUDIT C Alcohol Use Questionnaire (AUDIT-C) 1. How often do you have a drink containing alcohol?: Never Total Score: 0 EFRAIN-7 AMB Questionnaire EFRAIN-7 Date EFRAIN - 7 assessed: 11/15/24 Feeling nervous, anxious, or on edge: 0 = Not at all Not being able to stop or control worryin = Not at all Worrying too much about different things: 0 = Not at all Trouble relaxin = Not at all Being so restless that it is hard to sit still: 0 = Not at all Becoming easily annoyed or irritable: 0 = Not at all Feeling afraid as if something awful might happen: 0 = Not at all Total EFRAIN-7 score (0-4 normal; 5-9 mild; 10-14 moderate; 15-21 severe): 0 Source: Developed by Drs. Lev Dempsey, Jacob Gannon and colleagues, with an educational tonya from [employer]. Review of Systems Const All systems reviewed & are unremarkable except as noted in HPI and below Physical exam (Primary Care) Vital Signs: Last Vital Signs Pulse 74 04/21/25 07:38 BP 132/72 04/21/25 07:38 Pulse Ox 98 04/21/25 07:38 Oxygen Delivery Method Room Air 04/21/25 07:38 BMI result Body Mass Index 29.9 Tobacco/Smoking Status: Tobacco use Status Tobacco use date assessed 11/15/24 04/21/25 07:42 Patient Tobacco Use Status Never used Tobacco 04/21/25 07:42 Tobacco use type Cigarette 04/21/25 07:42 e-Cigarette/Vaping Use Never Used 04/21/25 07:42 PHQ-9: PHQ-9 Score PHQ-9: Total score 7 04/21/25 07:58 Thrive Assessment: Date of Thrive Assessment Date Thrive assessed 04/21/25 04/21/25 07:42 Currently or been in a relationship where the following occur: I choose not to answer Const General: no acute distress Nutritional Appearance: obese Orientation/consciousness: patient oriented x3 Resp Effort & Inspection: normal respiratory effort Auscultation: clear to auscultation bilaterally Cardio Heart sounds: S1 normal heart sound present and S2 normal heart sound present GI Palpation (GI): Soft to palpation, not firm, Tenderness to palpation present (GI) in the epigastrum, no guarding, not rigid and No hepatosplenomegaly present Auscultation: normal bowel sounds Neuro General: patient oriented x3 Coding Level of Care Code Est Pt Level 4 (25196) Diagnoses Biliary colic K80.50 Right ovarian cyst N83.201 Gastroesophageal reflux disease, unspecified whether esophagitis present K21.9 Esophagitis presence: esophagitis presence not specified Time Spent (min) 20 Assessment & Plan Assessment & Plan (1) Biliary colic: Code(s): K80.50 - Calculus of bile duct without cholangitis or cholecystitis without obstruction Category: Medical Plan: Placed referral to GI. (2) Right ovarian cyst: Code(s): N83.201 - Unspecified ovarian cyst, right side Category: Medical Plan: Advised to call her Mold Unloader for an appointment. (3) GERD (gastroesophageal reflux disease): Code(s): K21.9 - Gastro-esophageal reflux disease without esophagitis Category: Medical Qualifiers: Esophagitis presence: esophagitis presence not specified Qualified Code(s): K21.9 - Gastro-esophageal reflux disease without esophagitis Plan: Continue with Pantoprazole as prescribed. Ordered Famotidine at Bedtime Advised BLAND diet Placed referral to GI Orders: Referrals Gastroenterology Referral K80.50 - Calculus of bile duct without cholangitis or cholecystitis without obstruction Medications: New famotidine 40 mg PO BEDTIME 30 tabs 0RF K21.9 - Gastro-esophageal reflux disease without esophagitis
== END 2025-04-21 07:58 | disposition home or self-care (01) ==
LOC: HO.HMCH 07:10
PROVIDERS: PCP Internal Medicine; Visit Provider Nurse Practitioner Family
DX: K80.50 Calculus of bile duct without cholangitis or cholecystitis without obstruction (principal); N83.201 Unspecified ovarian cyst, right side; K21.9 Gastro-esophageal reflux disease without esophagitis

== ENCOUNTER → 2025-04-21 07:09 | Outpatient (BNVA) | payer OTHER, SELFPAY | PROVIDERS: PCP Internal Medicine; Visit Provider Nurse Practitioner Family | DX: N20.0 Calculus of kidney (principal); N83.201 Unspecified ovarian cyst, right side; K80.50 Calculus of bile duct without cholangitis or cholecystitis without obstruction; K21.9 Gastro-esophageal reflux disease without esophagitis | CPT/HCPCS: 99212 ==

== ENCOUNTER 2025-05-22 08:54 | Outpatient (AMB) | payer OTHER, SELFPAY ==
--- NOTE | 2025-05-22 08:59 | MHC.PC.OV ---
Vital Signs 05/22/25 09:01 Height 5 ft 3 in Weight 169 lb 8 oz BMI 30.0 BP 136/80 Blood Pressure Location Lt brachial Pulse 78 Pulse Source Pulse Oximeter Pulse Oximetry (%) 98 Oxygen Delivery Method Room Air Intake Visit Reasons: annual Bander Required: No Accompanied by: Self / Same As Patient Allergies bupropion (Contrave) Allergy (Intermediate, Verified 05/22/25 09:18) nausea,vomit, headaches naltrexone (Contrave) Allergy (Intermediate, Verified 05/22/25 09:18) nausea,vomit, headaches oxycodone (Percocet) Allergy (Intermediate, Verified 05/22/25 09:18) hives duloxetine Adverse Reaction (Severe, Verified 05/22/25 09:18) Hallucinations Medication List - Last Reconciled 05/22/25 by Luli Jones MD bisacodyl (Dulcolax (bisacodyl)) 10 mg (2 x 5 mg) PO BEDTIME 30 days oczryrzuvt-wcymnqxsvzyzs-mzlq 50-325-40 mg 1 tab PO Q6H PRN calcium citrate-vitamin D3 315 mg-5 mcg (200 unit) (Calcium Citrate + D) 1 tab PO BID famotidine 40 mg PO BEDTIME inulin (Fiber Gummies) 2 grams PO BID iron,carbonyl-vitamin C 65 mg iron- 125 mg (Vitron-C) 1 tab PO BEDTIME lidocaine 5% 1 patch topical DAILY linaclotide 290 mcg PO QAM loratadine (Allergy Relief (loratadine)) 10 mg PO DAILY 90 days methocarbamol 500 mg PO TID PRN metoclopramide HCl (Reglan) 10 mg PO Q6H PRN onabotulinumtoxinA (Botox) 200 units IM ONCE 12 weeks pantoprazole (Protonix) 40 mg PO DAILY 30 days rizatriptan 5 - 10 mg (0.5 - 1 x 10 mg) PO Q2H PRN 30 days sucralfate (Carafate) 10 mL PO BID PRN sumatriptan succinate 50 - 100 mg orally at onset of headache, may repeat in 2 hrs PRN; max 2 tabs per day or 4 tabs/week (may take with Tylenol) 30 days Tobacco use date assessed: 05/22/25 Dental Screening Dental Screen Date: 05/22/25 Did you have a dental visit in the last 12 months?: No Did you have a dental problem in the last 6 months where you did not have access to dental care?: No Was dental information given to patient?: No HPI HPI Comments History of Present Illness Details The patient is a 45-year-old female presenting with an annual physical examination. The patient underwent a breast mass excision in October 2023, following a biopsy that involved the placement of a metal clip. She reports discomfort and itching at the site of the clip, which occasionally causes irritation. The patient has a history of kidney stones, which she reports as being recurrent and causing significant discomfort when they occur. She experiences sciatica, with pain radiating from the gluteal region to the lower extremities, exacerbated by certain movements. The patient reports discomfort and pain, particularly during intercourse. She has a right ovarian cyst. Complains of bilateral knee pain and will be referred to Ortho and x-ray order was done. She suffers from migraines and is currently using Botox and sumatriptan for management, with regular follow-ups in neurology. Complains of occasional tremors that will be discussed with Neurology. Patient also has mild major depression. The patient has multiple medication allergies, including to bupropion, duloxetine, and others, which have caused adverse reactions in the past. She reports swelling in her feet and has had elevated white blood cell counts and low hemoglobin levels noted during a previous emergency visit. [facility] Medical History Right ovarian cyst Chronic migraine without aura, intractable, without status migrainosus Sacroiliac joint dysfunction of both sides Major depression, recurrent History of COVID-19 Bleeding hemorrhoids H. pylori infection Obesity (BMI 30-39.9) Rectal bleeding Mild recurrent major depression Morbid obesity with BMI of 40.0-44.9, adult Right lateral epicondylitis Epigastric pain Polyarthralgia Bloody stools Right foot pain Left foot pain Finger pain GERD (gastroesophageal reflux disease) Essential hypertension H/O reactive hypoglycemia Vitamin D deficiency Prediabetes Dyslipidemia Surgical History Breast mass, right (11/05/23) S/P laparoscopic sleeve gastrectomy Hx of colonoscopy Deficient knowledge of leg surgery History of incision and drainage History of lithotripsy History of total abdominal hysterectomy History of tubal ligation Hx of section Hx of bilateral breast reduction surgery Family History Daughter Cancer Father Cancer, Onset Age: 54 Diabetes mellitus Mother Cancer, Onset Age: 64 Diabetes mellitus Paternal Aunt Cancer Maternal Grandmother Diabetes mellitus Hypertension CVD (cardiovascular disease) Maternal Grandfather Diabetes mellitus Hypertension CVD (cardiovascular disease) Paternal Grandmother Diabetes mellitus Hypertension Paternal Grandfather No problems noted. Social History Housing: House Are you a primary hospice care transitions coordinator to a significant other at home: No Do you presently have visiting nurse or other home services: No Alcohol intake: never Comment: COUNTS CORRECT Patient Tobacco Use Status: Never used Tobacco Tobacco use type: Cigarette e-Cigarette/Vaping Use: Never Used Second Hand Smoke Exposure: No Advance Directives Date on File: 10/07/22 service: No Current occupational status: employed Current occupation: [employer] Current occupational exposures/hazards: No Cognitive needs: No Hearing needs: No Vision needs: No Questionnaire Thrive Questionnaire Date Thrive assessed: 05/22/25 I am a: Patient What is your living situation today?: I have a steady place to live Within the past 12 months, did the food you bought not last and you didn't have the money to get more?: Never true Within the past 12 months, did you worry whether your food would run out before you got money to buy more?: Never true Do you have trouble paying for medicines?: No Do you have trouble getting transportation to medical appointments?: No Do you have trouble paying your heating and electricity bill?: No Do you have trouble taking care of your child, family member or friend?: No Do you have trouble with day-to-day activities such as bathing, preparing meals, shopping, managing finances, etc.?: No Are you currently unemployed and looking for a job?: No Are you interested in more education?: No Please select the resources that you would like help with: None Currently or been in a relationship where the following occur: I choose not to answer THRIVE Score: 0 EFRAIN-7 AMB Questionnaire EFRAIN-7 Date EFRAIN - 7 assessed: 05/22/25 Worrying too much about different things: 3 = Nearly every day Trouble relaxin = Nearly every day Being so restless that it is hard to sit still: 0 = Not at all Becoming easily annoyed or irritable: 2 = More than half the days Feeling afraid as if something awful might happen: 0 = Not at all Source: Developed by Drs. Lev Dempsey, Dolores Solis, Jacob Spear and colleagues, with an educational tonya from [employer]. EFRAIN-7 Assessment Billing EFRAIN-7 Assessment Tool: EFRAIN-7 Assessment 57455 Review of Systems Const All systems reviewed & are unremarkable except as noted in HPI and below Card Denies chest pain at rest, Denies chest pain with activity, Denies edema, Denies irregular heart rhythm, Denies claudication, Denies dyspnea, Denies dyspnea on exertion, Denies orthopnea, Denies paroxysmal nocturnal dyspnea and Denies slow heart rate Resp Denies cough, Denies dyspnea and Denies dyspnea on exertion GI Denies abdominal pain, Denies change in bowel habits, Denies excessive flatus, Denies nausea and Denies vomiting Neuro Denies lack of coordination Physical exam (Primary Care) Vital Signs: Last Vital Signs Pulse 78 05/22/25 09:01 BP 136/80 05/22/25 09:01 Pulse Ox 98 05/22/25 09:01 Oxygen Delivery Method Room Air 05/22/25 09:01 BMI result Body Mass Index 30.0 Tobacco/Smoking Status: Tobacco use Status Tobacco use date assessed 05/22/25 05/22/25 09:04 Patient Tobacco Use Status Never used Tobacco 05/22/25 09:04 Tobacco use type Cigarette 05/22/25 09:04 e-Cigarette/Vaping Use Never Used 05/22/25 09:04 Thrive Assessment: Date of Thrive Assessment Date Thrive assessed 05/22/25 05/22/25 09:04 Currently or been in a relationship where the following occur: I choose not to answer HENMT Head: Yes normal to inspection, Yes normocephalic and Yes atraumatic Ears: external ears normal Eyes General: appearance normal, both eyes and all related structures Eyelids: Yes eyelids normal Conjunctivae: conjunctivae normal Neck Neck: Yes normal visual inspection and Yes supple Resp Effort & Inspection: normal respiratory effort Auscultation: clear to auscultation bilaterally Cardio Jugular venous distension: no JVD Rate: regular rate Rhythm: regular rhythm Heart sounds: S1 normal heart sound present and S2 normal heart sound present GI Inspection: Yes normal to inspection Palpation (GI): Soft to palpation and nontender Auscultation: normal bowel sounds Skin General skin exam: no rashes or lesions noted Neuro General: no focal motor deficits Extrem General: Yes full ROM Psych Appearance: grossly normal Immunizations Boostrix Tdap 2.5 Lf unit-8 mcg-5 Lf/0.5 mL intramuscular syringe Performing Provider: Luli Jones MD Performing Location: [facility] Administered by: Kerry Stanford LPN on 05/22/25 09:45 Dose Route Admin Location Dispensed Lot Number Expiration Date [facility] Office Communication Professor 0.5 mL IM Left Deltoid 0.5 mL [id number] 08/04/27 [id number] Nvigen Total Dispensed Waste 0.5 mL 0 % VIS Given Date VIS Provided VIS Publication Date 05/22/25 Single Vaccine 21 Eligibility Eligibility Date Funding Source Not [facility] Eligible 05/22/25 Private Coding Level of Care Code Est Pt Level 4 (09695) Est Pt Prev Care 40-64y(14705) Diagnoses Physical exam Z00.00 Chronic pain of right knee M25.561; G89.29 Chronicity: chronic Left knee pain M25.562 Right ovarian cyst N83.201 Mild recurrent major depression F33.0 Iron deficiency anemia D50.9 Dyspareunia in female N94.10 Breast pain, right N64.4 Additional Codes EFRAIN-7 Assessment Billing - EFRAIN-7 Assessment Tool: EFRAIN-7 Assessment 67350 ([id number]) Time Spent (min) 38 Assessment & Plan Assessment & Plan (1) Physical exam: Code(s): Z00.00 - Encounter for general adult medical examination without abnormal findings Category: Medical (2) Right knee pain: Code(s): M25.561 - Pain in right knee Category: Medical Qualifiers: Chronicity: chronic Qualified Code(s): M25.561 - Pain in right knee; G89.29 - Other chronic pain (3) Left knee pain: Code(s): M25.562 - Pain in left knee Category: Medical (4) Right ovarian cyst: Code(s): N83.201 - Unspecified ovarian cyst, right side Category: Medical (5) Mild recurrent major depression: Code(s): F33.0 - Major depressive disorder, recurrent, mild Category: Medical (6) Iron deficiency anemia: Code(s): D50.9 - Iron deficiency anemia, unspecified Category: Medical (7) Dyspareunia in female: Code(s): N94.10 - Unspecified dyspareunia Category: Medical (8) Breast pain, right: Comment: At 03:00 Code(s): N64.4 - Mastodynia Category: Medical Plan The patient will continue with her scheduled mammography on June 01 to monitor for any changes post-breast mass excision. She is advised to maintain regular follow-ups with neurology for migraine management, utilizing Botox and sumatriptan as prescribed. For her sciatica, the patient is encouraged to continue with non-surgical interventions and to discuss any worsening symptoms with her healthcare provider. Given her history of kidney stones, she should stay hydrated and monitor for any symptoms of recurrence. The patient should continue to avoid medications she is allergic to and report any new adverse reactions. Further laboratory tests are recommended to monitor her white blood cell count and hemoglobin levels. Patient was informed and verbally consented to the use of an ambient scribe for clinic note documentation during this visit. Orders: Orders Vitamin D 25-OH Total Today E55.9 - Vitamin D deficiency, unspecified Complete Blood Count Auto Diff Today D64.9 - Anemia, unspecified IRON PROFILE Today D64.9 - Anemia, unspecified Lipid Panel Today E78.5 - Hyperlipidemia, unspecified Comprehensive Pyrites. Panel Fast Today Z00.00 - Encounter for general adult medical examination without abnormal findings XR knee LT 2V Today M25.562 - Pain in left knee XR knee RT 2V Today G89.29 - Other chronic pain, M25.561 - Pain in right knee MM diagnostic mammo BI Today N64.4 - Mastodynia US breast RT limited Today N64.4 - Mastodynia TDaP Immunization Today Z23 - Encounter for immunization Referrals LABORATORY TECHNICIAN Referral N83.201 - Unspecified ovarian cyst, right side, N94.10 - Unspecified dyspareunia Orthopedics Referral G89.29 - Other chronic pain, M25.561 - Pain in right knee, M25.562 - Pain in left knee
[2025-05-22 09:01] VITALS: BP 136/80; PULSE 78; O2SAT 98
--- OUTSIDE RECORDS SUMMARY | 2025-05-22 09:16 | XMS_ITS | Patient Health Record ---
Author Organization [facility] Address [address] [place] [address] Care Team Providers Care Mining Technician Name Role Phone Luli Azevedo Primary Care Provider Lev Grossman [phone] Allergies Allergen (clinical drug ingredient) Drug/Non Drug [...] Problem Status W/U Status Risk Notes Problem [id number] Gastroesophageal reflux disease, esophagitis presence not specified (K21.9) Active confirmed Problem Gallstones (K80.20) Active confirmed Problem [id number] Right upper quad rant abdominal pain (R10.11) Active confirmed Plan Of Treatment Pending Test Test Name Order Date GI BIOPSY 06/28/2018 Future Test Test Name Order Date UPPER GI ENDOSCOPY 06/01/2018 Insurance Providers Payer Name Payer Address Payer Phone Subscriber Number Group Number Insured Name Patient Relationship to Insured Coverage Start Date Coverage End Date [facility] [address] [address] [place], [place] [id number] SERGIO CHAIREZ Self - patient is the insured MEDICAID OF [facility] [address] [place] [address] [id number] SERGIO CHAIREZ Self - patient is the insured Medical (General) History Medical History History ICD Code Kidney stones---ESWL Denies [place],DM,CVA,Lung disease,renal dise ase Hx of hypoglycemia Migraines Gallstone on 2015 U/S Surgical History Surgery Date(Month/Year) Right leg fracture repair/billie x 2 Tubal ligation Sinusitis Breast reduction 2008 Partial hysterectectomy
== END 2025-05-22 09:46 | disposition home or self-care (01) ==
LOC: HO.HMCH 08:55
PROVIDERS: PCP Internal Medicine; Visit Provider Internal Medicine
DX: Z00.00 Encounter for general adult medical examination without abnormal findings (principal); M25.561 Pain in right knee; G89.29 Other chronic pain; M25.562 Pain in left knee; N83.201 Unspecified ovarian cyst, right side; F33.0 Major depressive disorder, recurrent, mild; D50.9 Iron deficiency anemia, unspecified; N94.10 Unspecified dyspareunia; N64.4 Mastodynia; Z23 Encounter for immunization

== ENCOUNTER → 2025-05-22 08:54 | Outpatient (BNVA) | payer OTHER, SELFPAY | PROVIDERS: PCP Internal Medicine; Visit Provider Internal Medicine | DX: Z00.00 Encounter for general adult medical examination without abnormal findings (principal); M25.561 Pain in right knee; M25.562 Pain in left knee; G89.29 Other chronic pain; N83.201 Unspecified ovarian cyst, right side; F33.0 Major depressive disorder, recurrent, mild; D50.9 Iron deficiency anemia, unspecified; N94.10 Unspecified dyspareunia; N64.4 Mastodynia; E55.9 Vitamin D deficiency, unspecified; D64.9 Anemia, unspecified; E78.5 Hyperlipidemia, unspecified; Z23 Encounter for immunization | CPT/HCPCS: 90471; 90715; 96127; 99212; 99396 ==

== ENCOUNTER 2025-05-23 08:28 | Outpatient (AMB) | payer OTHER, SELFPAY ==
[2025-05-23 08:30] VITALS: BP 120/80; PULSE 82; O2SAT 99; BMI 30.3
--- NOTE | 2025-05-23 08:30 | A.OFFVIS_ITS ---
Vital Signs 05/23/25 08:30 Height 5 ft 3 in Weight 171 lb BMI 30.3 BP 120/80 Blood Pressure Location Rt brachial Position Sitting Pulse 82 Pulse Source Pulse Oximeter Pulse Oximetry (%) 99 Oxygen Delivery Method Room Air Intake Visit Reasons: Botox 3mon follow-up Intake Note: Botox Resident Services Supervisor Required: Yes Resident Services Supervisor Services: Resident Services Supervisor Offered & Declined Resident Services Supervisor Name: Cousin -Jacque Accompanied by: cousin Allergies bupropion (Contrave) Allergy (Intermediate, Verified 05/23/25 08:35) nausea,vomit, headaches naltrexone (Contrave) Allergy (Intermediate, Verified 05/23/25 08:35) nausea,vomit, headaches oxycodone (Percocet) Allergy (Intermediate, Verified 05/23/25 08:35) hives duloxetine Adverse Reaction (Severe, Verified 05/23/25 08:35) Hallucinations HPI Comments Details: ??? 45 y/o female comes for treatment of migraines with botox.she also reports episodes of gen body shaking for past 3 mths . she was getting it occasionally but has increased to daily episodes. there is no loss of consciousness sor change in mentation during these episodes. it can last 45 min to 1 hr and not associated with urinary incontinence she denies anxiety denies palpitations. she has occasional dizziness. How many migraine days prior to botox- 30 days /month How long do the migraines last1-2 days Intensity of wtocqhrv63/10 ER visits related to migraine- multiple Effectiveness of botox from last two treatment(s) How many migraine days since receiving treatment: this is her first visit Change? in intensity of migraine? Change in frequency of migraine? Change in use of acute medication for migraine? Change in quality of life? ER visits related to migraine? Have at least three months elapsed since last treatment- ??? Most frequent reported adverse reactions following injection of botox for chronic migraine include neck pain (9%), headache(5%), eyelid ptosis(4%), migraine(4%), muscular weakness(4%), musculuskeletal stiffness(4%), bronchitis(3%), injection site pain (3%), musculoskeletal pain(3%), myalgia(3%), facial paresis(2%), HTN(2%) and muscle spasms(2%) were discussed in detail. ??? Botulinum toxin typeA 200units Lot no [id number] expiration Jul 2027 was diluted with 4 cc of normal saline . ??? Muscles injected- ??? Frontalis 4 sites ??? Temporalis- 8 sites ??? Occipitalis- 6 sites ??? Cervical paraspinals- 4 sites ??? Trapezius- 6 sites-10 units each nurse substance abuse 2 sites Procerus 1 site ??? 5 units each in 31 site ??? Total use- 185units ??? Discarded-15units [facility] Medical History Abnormal involuntary movements Right ovarian cyst Chronic migraine without aura, intractable, without status migrainosus Sacroiliac joint dysfunction of both sides Major depression, recurrent History of COVID-19 Bleeding hemorrhoids H. pylori infection Obesity (BMI 30-39.9) Rectal bleeding Mild recurrent major depression Morbid obesity with BMI of 40.0-44.9, adult Right lateral epicondylitis Epigastric pain Polyarthralgia Bloody stools Right foot pain Left foot pain Finger pain GERD (gastroesophageal reflux disease) Essential hypertension H/O reactive hypoglycemia Vitamin D deficiency Prediabetes Dyslipidemia Surgical History Breast mass, right (11/05/23) S/P laparoscopic sleeve gastrectomy Hx of colonoscopy Deficient knowledge of leg surgery History of incision and drainage History of lithotripsy History of total abdominal hysterectomy History of tubal ligation Hx of section Hx of bilateral breast reduction surgery Family History Daughter Cancer Father Cancer, Onset Age: 54 Diabetes mellitus Mother Cancer, Onset Age: 64 Diabetes mellitus Paternal Aunt Cancer Maternal Grandmother Diabetes mellitus Hypertension CVD (cardiovascular disease) Maternal Grandfather Diabetes mellitus Hypertension CVD (cardiovascular disease) Paternal Grandmother Diabetes mellitus Hypertension Paternal Grandfather No problems noted. 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 [employer] Current occupational exposures/hazards: No Cognitive needs: No Hearing needs: No Vision needs: No Physical Exam Vital Signs: Last Vital Signs Pulse 82 05/23/25 08:30 BP 120/80 05/23/25 08:30 Pulse Ox 99 05/23/25 08:30 Oxygen Delivery Method Room Air 05/23/25 08:30 BMI result Body Mass Index 30.3 Const General: cooperative and no acute distress Orientation/consciousness: patient oriented x3 Resp Effort & Inspection: normal respiratory effort and able to speak in complete sentences Neuro General: patient oriented x3 Cranial nerves: Yes CN's II-XII intact bilaterally Cognition (Neuro): normal cognition Office Procedures Botulinum toxin Injection 80924 - Migraine Procedure code (CPT) selection complete Office Meds onabotulinumtoxinA 200 unit solution for injection Performing Provider: Arabella Tucker MD Performing Location: [facility] Administered by: Arabella Tucker MD on 05/23/25 09:00 Dose Route Admin Location Dispensed Lot Number Expiration Date [facility] Body Painter 185 unit subcut 200 units [id number] ALLERGAN /BOTOX Total Dispensed Waste 200 units 7.5 % Comments: see HPI Assessment & Plan Assessment & Plan (1) Chronic migraine without aura, intractable, without status migrainosus: Code(s): G43.719 - Chronic migraine without aura, intractable, without status migrainosus Category: Medical (2) Abnormal involuntary movements: Comment: episodes of gen shaking Code(s): R25.9 - Unspecified abnormal involuntary movements Category: Medical Plan Patient tolerated the procedure well she will call with any side effects i will evaluate her with MRI brain EEG Orders: Orders AMB Botulinum toxin Injection Today G43.719 - Chronic migraine without aura, intractable, without status migrainosus MR head/brain wo con Today R25.9 - Unspecified abnormal involuntary movements EEG electroencephalogram Today R25.9 - Unspecified abnormal involuntary movements Coding Level of Care Code Est Pt Level 3 (81914) Diagnoses Chronic migraine without aura, intractable, without status migrainosus G43.719 Abnormal involuntary movements R25.9 CPT Codes Botox Injection - Botox 3: 81523 - Migraine ([id number])
--- OUTSIDE RECORDS SUMMARY | 2025-05-23 08:46 | XMS_ITS | Patient Health Record ---
Author Organization [facility] Address [address] [place] [address] Care Team Providers Care Technical Consultant Name Role Phone Luli Azevedo Primary Care Provider Lev Grossman [phone] Allergies Allergen (clinical drug ingredient) Drug/Non Drug [...] Problem Status W/U Status Risk Notes Problem [id number] Gastroesophageal reflux disease, esophagitis presence not specified (K21.9) Active confirmed Problem Gallstones (253293071) Gallstones (K80.20) Active confirmed Problem 556874953 Right upper quad rant abdominal pain (R10.11) Active confirmed Plan Of Treatment Pending Test Test Name Order Date GI BIOPSY 06/28/2018 Future Test Test Name Order Date UPPER GI ENDOSCOPY 06/01/2018 Insurance Providers Payer Name Payer Address Payer Phone Subscriber Number Group Number Insured Name Patient Relationship to Insured Coverage Start Date Coverage End Date [facility] [address] [address] [place], [place] [id number] SERGIO CHAIREZ Self - patient is the insured MEDICAID [facility] [address] [place] [address] [phone] [id number] SERGIO CHAIREZ Self - patient is the insured Medical (General) History Medical History History ICD Code Kidney stones---ESWL Denies [place],DM,CVA,Lung disease,renal dise ase Hx of hypoglycemia Migraines Gallstone on 2015 U/S Surgical History Surgery Date(Month/Year) Right leg fracture repair/billie x 2 Tubal ligation Sinusitis Breast reduction 2007 Partial hysterectectomy
== END 2025-05-23 08:56 | disposition home or self-care (01) ==
LOC: HO.HSMS 08:29
PROVIDERS: PCP Internal Medicine; Visit Provider Psychiatry & Neurology Neurology
DX: G43.719 Chronic migraine without aura, intractable, without status migrainosus (principal); R25.9 Unspecified abnormal involuntary movements
CPT/HCPCS: 64615; 99213

== ENCOUNTER → 2025-05-23 08:28 | Outpatient (BNVA) | payer OTHER, SELFPAY | PROVIDERS: PCP Internal Medicine; Visit Provider Psychiatry & Neurology Neurology | DX: G43.719 Chronic migraine without aura, intractable, without status migrainosus (principal); R25.9 Unspecified abnormal involuntary movements | CPT/HCPCS: 64615; 99212; J0585 ==

== ENCOUNTER 2025-05-31 07:23 | Outpatient (REF) | payer OTHER, SELFPAY ==
--- OUTSIDE RECORDS SUMMARY | 2025-05-31 07:26 | XMS_ITS | Patient Health Record ---
Author Organization [facility] Address [address] [place] [address] Care Team Providers Care Network Associate Name Role Phone Luli Azevedo Primary Care Provider Lev Grossman [phone] Allergies Allergen (clinical drug ingredient) Drug/Non Drug [...] Problem Status W/U Status Risk Notes Problem [id number] Gastroesophageal reflux disease, esophagitis presence not specified (K21.9) Active confirmed Problem Gallstones (K80.20) Active confirmed Problem [id number] Right upper quad rant abdominal pain (R10.11) Active confirmed Plan Of Treatment Pending Test Test Name Order Date GI BIOPSY 06/28/2018 Future Test Test Name Order Date UPPER GI ENDOSCOPY 06/01/2018 Insurance Providers Payer Name Payer Address Payer Phone Subscriber Number Group Number Insured Name Patient Relationship to Insured Coverage Start Date Coverage End Date [facility] [address] [address] [place], [place] [id number] SERGIO CHAIREZ Self - patient is the insured MEDICAID OF [employer] [address] [place] [address] [id number] SERGIO CHAIREZ Self - patient is the insured Medical (General) History Medical History History ICD Code Kidney stones---ESWL Denies NH,DM,CVA,Lung disease,renal dise ase Hx of hypoglycemia Migraines Gallstone on 2015 U/S Surgical History Surgery Date(Month/Year) Right leg fracture repair/billie x 2 Tubal ligation Sinusitis Breast reduction 2008 Partial hysterectectomy
[2025-05-31 07:33] LABS: MANUAL DIFF FLAG NO
[2025-05-31 07:49] LABS: Hematocrit 37.1 % (37.0-47.0); Hemoglobin 12.4 g/dl (12.0-16.0); Imm Gran Abs Auto 0.01 X10*3/uL (0.00-0.03); Imm Gran Pct Auto 0.2 % (0.0-0.4); Lymphocytes Absolute Auto 1.8 X10*3/uL (1.2-4.9); Mean Corpuscular HGB Conc 33.4 g/dl (31.0-35.0); Mean Corpuscular Hemoglobin 28.6 pg (27.0-33.0); Mean Corpuscular Volume 85.7 fL (80.0-98.0); NRBC Abs Auto 0.020 X10*3/uL (0.0-0.012); NRBC Pct Auto 0.4 /100WBC (0.0-0.2); Platelet Count 279 X10*3/uL (160-400); Red Blood Count 4.33 X10*6/uL (4.20-5.50); White Blood Count 5.7 X10*3/uL (4.8-10.8)
[2025-05-31 08:27] LABS: Alanine Aminotransferase 6 U/L (0-31); Albumin Level 4.3 g/dL (3.5-5.0); Alkaline Phosphatase 53 U/L (39-117); Anion Gap 12 (12-20); Aspartate Amino Transferase 19 U/L (5-31); Blood Urea Nitrogen 8 mg/dL (9-16); Calcium 8.7 mg/dL (8.4-10.2); Carbon Dioxide 29 mmol/L (22-29); Chloride 105 mmol/L (96-108); Cholesterol 205 mg/dL (<200); Estimated Glomerular Filt Rate > 60; HDL Cholesterol 52 mg/dL (>40); Iron 97 mcg/dL (30-160); Percent Iron Saturation 41 % (15-50); Potassium 3.9 mmol/L (3.3-5.1); Sodium 142 mmol/L (135-145); Total Iron Binding Capacity 238 mcg/dL (228-428); Total Protein 6.9 g/dL (6.5-8.0); Triglycerides 114 mg/dL (<150); Unsaturated Iron Binding 141 ug/dL
== END 2025-05-31 07:24 | disposition home or self-care (01) ==
LOC: HO.LAB 07:23
PROVIDERS: PCP Internal Medicine; Visit Provider Internal Medicine
DX: Z00.00 Encounter for general adult medical examination without abnormal findings (principal); E55.9 Vitamin D deficiency, unspecified; D64.9 Anemia, unspecified; E78.5 Hyperlipidemia, unspecified
CPT/HCPCS: 36415; 80053; 80061; 82306; 83540; 85025

== ENCOUNTER 2025-06-09 09:00 | Outpatient (REF) | payer OTHER, SELFPAY ==
[2025-06-09 17:25] LABS: Free T4 (Free Thyroxine) 1.19 ng/dL (0.71-1.85)
== END 2025-06-09 09:01 | disposition home or self-care (01) ==
LOC: HO.LAB 09:00
PROVIDERS: Absent Provider Nurse Practitioner; PCP Internal Medicine; Visit Provider Nurse Practitioner Family
DX: G43.009 Migraine without aura, not intractable, without status migrainosus (principal); H81.10 Benign paroxysmal vertigo, unspecified ear; R55 Syncope and collapse; R42 Dizziness and giddiness; I67.1 Cerebral aneurysm, nonruptured; R90.89 Other abnormal findings on diagnostic imaging of central nervous system; R10.9 Unspecified abdominal pain; R93.5 Abnormal findings on diagnostic imaging of other abdominal regions, including retroperitoneum
CPT/HCPCS: 36415; 84439; 84443; 99212

== ENCOUNTER 2025-06-09 09:00 | Outpatient (AMB) | payer OTHER, SELFPAY ==
--- NOTE | 2025-06-09 09:25 | A.OFFVIS_ITS ---
Vital Signs 06/09/25 09:26 Height 5 ft 3 in Weight 174 lb 2 oz BMI 30.8 BP 120/82 Blood Pressure Location Rt brachial Position Sitting Pulse 89 Pulse Source Pulse Oximeter Pulse Oximetry (%) 98 Oxygen Delivery Method Room Air Intake Visit Reasons: 6 mnts f/u Intake Note: Patient presents 6 month follow up for migraines Information Systems Audit Manager Required: Yes Information Systems Audit Manager Services: Information Systems Audit Manager Offered & Declined Information Systems Audit Manager Name: Will need when provider comes Accompanied by: Self / Same As Patient Allergies bupropion (Contrave) Allergy (Intermediate, Verified 06/09/25 11:07) nausea,vomit, headaches naltrexone (Contrave) Allergy (Intermediate, Verified 06/09/25 11:07) nausea,vomit, headaches oxycodone (Percocet) Allergy (Intermediate, Verified 06/09/25 11:07) hives duloxetine Adverse Reaction (Severe, Verified 06/09/25 11:07) Hallucinations Medication List - Last Reconciled 06/09/25 by POR[facility] Branch bisacodyl (Dulcolax (bisacodyl)) 10 mg (2 x 5 mg) PO BEDTIME 30 days ctbamhpbnx-igaokxboqtfae-nncs 50-325-40 mg 1 tab PO Q6H PRN calcium citrate-vitamin D3 315 mg-5 mcg (200 unit) (Calcium Citrate + D) 1 tab PO BID famotidine 40 mg PO BEDTIME inulin (Fiber Gummies) 2 grams PO BID iron,carbonyl-vitamin C 65 mg iron- 125 mg (Vitron-C) 1 tab PO BEDTIME lidocaine 5% 1 patch topical DAILY linaclotide 290 mcg PO QAM loratadine (Allergy Relief (loratadine)) 10 mg PO DAILY 90 days methocarbamol 500 mg PO TID PRN metoclopramide HCl (Reglan) 10 mg PO Q6H PRN onabotulinumtoxinA (Botox) 200 units IM ONCE 12 weeks pantoprazole (Protonix) 40 mg PO DAILY 30 days rizatriptan 5 - 10 mg (0.5 - 1 x 10 mg) PO Q2H PRN 30 days sucralfate (Carafate) 10 mL PO BID PRN sumatriptan succinate 50 - 100 mg orally at onset of headache, may repeat in 2 hrs PRN; max 2 tabs per day or 4 tabs/week (february take with Tylenol) 30 days HPI Comments Details: The patient is a 44-year-old female presenting with chronic migraine. Pateint reports her migraine attcaks are much better since starting botox tx. Has not had asevere migarien in sometime. Has a milder headache 1-2 x's per week, which she treats w/ prn fioricet, w/ usual good effect. * Baseline headache characteristics: She has a daily headache and migraine- severe frontal and occipital a/w photophobia, phonophobia, at times osmophobia, allodynia, nausea, at times vomiting, dizziness, difficulty concentrating, activity intolerance, neck tightness and a feeling of something running up her neck. Severe attack lasts 1-3 days. Since the last visit with myself, she reports she developed episodes of shakiness about 6 months ago. She discussed this w/ Dr Tucker at her last appt- and EEG and brain MRI w/o was ordered- scheduled for 06/28 and 06/12 respectively. Today, she reports she continues to have episodes of generalized shakiness lasting up to an hour 2-3 times a day. Today, she notes the first symptom of the shakiness, is room spinning dizziness, f/b nausea, shakiness, and then vomiting, at which point, these symptoms lessen. However, she can also have the episodes of shakiness even when sleeping. She states the dizziness can be provoked by turning ehr head or rolling over in bed. She endorses occasional right ear discomfort and tinnitus- high pitched, at times bothersome. Denies a history of similair vertigo- but does have h/o syncope and dizziness a/w abd pain. Has seen cardiology and GI regarding episodes syncope triggered by constipation. Her previous tilt-table test results were unremarkable. She has not had vestibular therapy. [facility] Medical History Abnormal involuntary movements Right ovarian cyst Chronic migraine without aura, intractable, without status migrainosus Sacroiliac joint dysfunction of both sides Major depression, recurrent History of COVID-19 Bleeding hemorrhoids H. pylori infection Obesity (BMI 30-39.9) Rectal bleeding Mild recurrent major depression Morbid obesity with BMI of 40.0-44.9, adult Right lateral epicondylitis Epigastric pain Polyarthralgia Bloody stools Right foot pain Left foot pain Finger pain GERD (gastroesophageal reflux disease) Essential hypertension H/O reactive hypoglycemia Vitamin D deficiency Prediabetes Dyslipidemia Surgical History Breast mass, right (11/05/23) S/P laparoscopic sleeve gastrectomy Hx of colonoscopy Deficient knowledge of leg surgery History of incision and drainage History of lithotripsy History of total abdominal hysterectomy History of tubal ligation Hx of section Hx of bilateral breast reduction surgery Family History Daughter Cancer Father Cancer, Onset Age: 54 Diabetes mellitus Mother Cancer, Onset Age: 64 Diabetes mellitus Paternal Aunt Cancer Maternal Grandmother Diabetes mellitus Hypertension CVD (cardiovascular disease) Maternal Grandfather Diabetes mellitus Hypertension CVD (cardiovascular disease) Paternal Grandmother Diabetes mellitus Hypertension Paternal Grandfather No problems noted. 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 No scalp or amber-auricular pain. General: patient oriented x3 Cranial nerves: Yes CN's II-XII intact bilaterally Cognition (Neuro): normal cognition Psych Appearance: grossly normal Mental Status: mental status grossly normal Speech and movement: Normal speech and movement present Affect: normal affect Attitude: cooperative Assessment & Plan Assessment & Plan (1) Migraines: Code(s): G43.909 - Migraine, unspecified, not intractable, without status migrainosus Category: Medical Qualifiers: Intractability: not intractable Migraine type: migraine (< 15 days per month) without aura Status migrainosus presence: without status migrainosus Qualified Code(s): G43.009 - Migraine without aura, not intractable, without status migrainosus (2) Benign paroxysmal vertigo, unspecified ear: Code(s): H81.10 - Benign paroxysmal vertigo, unspecified ear Category: Medical Qualifiers: Laterality: unspecified laterality Qualified Code(s): H81.10 - Benign paroxysmal vertigo, unspecified ear (3) Syncope: Comment: h/o syncope a/w abd pain Code(s): R55 - Syncope and collapse Category: Medical Qualifiers: Syncope type: vasovagal syncope Qualified Code(s): R55 - Syncope and collapse (4) Dizziness: Code(s): R42 - Dizziness and giddiness Category: Medical (5) Intracranial aneurysm: Code(s): I67.1 - Cerebral aneurysm, nonruptured Category: Medical (6) Abnormal brain MRI: Code(s): R90.89 - Other abnormal findings on diagnostic imaging of central nervous system Category: Medical Plan For vertigo, nausea, tremor, vomiting: Brain MRI as ordered. EEG as scheduled. PT eval & Tx - vestibular tx Zofran 4mg 2-3 x's per day rn N/V For syncope and dizziness: Previous workup: * Brain MRI w/wo- mild non-specific white matter changes. No findings to account for pt's migraine PEREZ or syncope/dizziness. * EEG- normal. Continue increased fluids. Take full glass glass of water, juice, or electrolyte replacement drink prior to showering. Continue to follow-up with cardiology and GI as scheduled. For overall headache management: It is important to practice good self-care, including but not limited to eating a healthy diet, drinking enough fluids (typically 64 oz per day), maintaining a good sleep routine, and engaging in regular physical activity (typically 30-45 minutes of moderate physical activity 5 days per week). To help us better understand your headache: Track headaches, especially after treatment plan changes. For acute headache treatment: It is important to take as needed acute medications at the first sign of headache, however you want to avoid taking most as needed headache too often as this can lead to medication overuse/adaptation headaches. * Rizatriptan 10mg tab, 1/2 - 1 tab (5-10mg) at onset of headache, may repeat in 2 hours. Max of 2 tabs (200mg) per 24 hours. May adjunct with OTC Tylenol 650mg every 4 hours, Ibuprofen (liquigel) 600mg every 6 hours, or Naproxen (liquigel) 440mg every 12 hrs as needed. * As pt is having less migraine attacks, may continue Fioricet prn. * Previous acute migraine medication trials: Pt does not recall * Acute migraine medication contraindications: None at this time. For headache prevention medication: Preventative medications should be taken routinely as prescribed for best effect, it may take several weeks to see full effect. * Continue Botox 200 unit vial 155 units over 31 sites across forehead, scalp, trapezius muscles. * Previous migraine prevention medication trials: Amitriptyline- ineffective and caused constipation. Topiramate- ineffective. Emgality previously ordered- was denied by insurance. * Migraine prevention medication contraindications: Beta-blockers, anti-HTN tx's d/t syncope, hypotension. Would avoid aimovig or atogepoant d/t constipation. Will follow-up upon review of above and patient to follow-up in clinic in 6 months or sooner prn. ? 06/13/2025 Addendum: Reviewed 06/12/2025 MR/MR head/brain wo con IMPRESSION: No acute stroke/nonhemorrhagic ischemia or acute intracranial hemorrhage. Supratentorial compartment white matter signal abnormality. Leading consideration demyelinating process such as multiple sclerosis in the correct clinical settings. 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 Meningocele, left Meckel's cave. Patient is thus advised to undergo follow-up brain MRI with and without contrast and brain MRA without contrast to further assess the supratentorial white matter lesion for evidence of active inflammation, and better assess left MCA intercerebral aneurysm Orders: Orders MR head/brain wo/w con Today POR[facility] Branch I67.1 - Cerebral aneurysm, nonruptured, R90.89 - Other abnormal findings on diagnostic imaging of central nervous system PT Evaluation and Treatment 06/09/25 [facility] H81.10 - Benign paroxysmal vertigo, unspecified ear MR angio head wo con Today [facility] I67.1 - Cerebral aneurysm, nonruptured, R90.89 - Other abnormal findings on diagnostic imaging of central nervous system Medications: New ondansetron HCl 4 mg PO BID-TID PRN 30 tabs 3RF nausea and vomiting 30 days [facility] Refilled rizatriptan max 2 tabs per day or 4 tabs per week 5 - 10 mg (0.5 - 1 x 10 mg) PO Q2H PRN 12 tabs 6RF migraine headache 30 days [facility] On Hold metoclopramide HCl (Reglan) Hold Comment: Doctor's Order 10 mg PO Q6H PRN 14 tabs 0RF nausea and vomiting Mily ZURI Cheung Coding Level of Care Code Est Pt Level 4 (22722) Diagnoses Migraine without aura and without status migrainosus, not intractable G43.009 Intractability: not intractable Migraine type: migraine (< 15 days per month) without aura Status migrainosus presence: without status migrainosus Benign paroxysmal vertigo, unspecified laterality H81.10 Laterality: unspecified laterality Vasovagal syncope R55 Syncope type: vasovagal syncope Dizziness R42 Intracranial aneurysm I67.1 Abnormal brain MRI R90.89
[2025-06-09 09:26] VITALS: BP 120/82; PULSE 89; O2SAT 98; BMI 30.8
--- OUTSIDE RECORDS SUMMARY | 2025-06-09 09:52 | XMS_ITS | Patient Health Record ---
Author Organization [facility] Address [address] [place] [address] Care Team Providers Care Glue Sprayer Name Role Phone Luli Azevedo Primary Care Provider Lev Grossman [phone] Allergies Allergen (clinical drug ingredient) Drug/Non Drug [...] Problem Status W/U Status Risk Notes Problem [id number] Gastroesophageal reflux disease, esophagitis presence not specified (K21.9) Active confirmed Problem Gallstones (528429407) Gallstones (K80.20) Active confirmed Problem 220255190 Right upper quad rant abdominal pain (R10.11) Active confirmed Plan Of Treatment Pending Test Test Name Order Date GI BIOPSY 06/28/2018 Future Test Test Name Order Date UPPER GI ENDOSCOPY 06/01/2018 Insurance Providers Payer Name Payer Address Payer Phone Subscriber Number Group Number Insured Name Patient Relationship to Insured Coverage Start Date Coverage End Date [facility] [employer] [facility] [address] [address] [place], [place] [id number] SERGIO CHAIREZ Self - patient is the insured [facility] [facility] [address] [place] [address] [phone] [id number] SERGIO CHAIREZ Self - patient is the insured Medical (General) History Medical History History ICD Code Kidney stones---ESWL Denies OR,DM,CVA,Lung disease,renal dise ase Hx of hypoglycemia Migraines Gallstone on 2015 U/S Surgical History Surgery Date(Month/Year) Right leg fracture repair/billie x 2 Tubal ligation Sinusitis Breast reduction 2007 Partial hysterectectomy
== END 2025-06-09 10:17 | disposition home or self-care (01) ==
LOC: HO.HSMS 09:01
PROVIDERS: PCP Internal Medicine; Visit Provider Nurse Practitioner Family
DX: G43.009 Migraine without aura, not intractable, without status migrainosus (principal); H81.10 Benign paroxysmal vertigo, unspecified ear; R55 Syncope and collapse; R42 Dizziness and giddiness; I67.1 Cerebral aneurysm, nonruptured; R90.89 Other abnormal findings on diagnostic imaging of central nervous system
CPT/HCPCS: 99214

== ENCOUNTER 2025-06-09 10:54 | Outpatient (AMB) | payer OTHER, SELFPAY ==
[2025-06-09 11:04] VITALS: BP 137/82; PULSE 68; RESP 14; O2SAT 99; BMI 30.5
--- NOTE | 2025-06-09 11:04 | MHC.OFFVIS ---
Vital Signs 06/09/25 11:04 Height 5 ft 3 in Weight 172 lb BMI 30.5 BP 137/82 Respiration 14 Pulse 68 Pulse Oximetry (%) 99 Intake Visit Reasons: Biliary Colic and GERD. Intake Note: c/o of stomach pain and constipation Associate Professor Of Art History Required: Yes Associate Professor Of Art History Language: Passenger Locomotive Engineer Services: Associate Professor Of Art History Present (in person) Associate Professor Of Art History Name: Liz CHEEMA Information Interpreted: non-clinical & clinical Accompanied by: Self / Same As Patient Allergies bupropion (Contrave) Allergy (Intermediate, Verified 06/09/25 11:07) nausea,vomit, headaches naltrexone (Contrave) Allergy (Intermediate, Verified 06/09/25 11:07) nausea,vomit, headaches oxycodone (Percocet) Allergy (Intermediate, Verified 06/09/25 11:07) hives duloxetine Adverse Reaction (Severe, Verified 06/09/25 11:07) Hallucinations Is last menstrual period known: No (Hysterectomy) HPI HPI Biliary Colic and GERD.: Details: Assessment & Plan (1) Chronic idiopathic constipation: Code(s): K59.04 - Chronic idiopathic constipation Plan: Malian #William LIve SHE TELLS ME THAT her symptoms of the same. She continues to have bloating that starts in the upper abdomen but then will spread to the rest of the abdomen. She continues to take Linzess at the maximum dose along with bisacodyl and does not move her bowels consistently. She is not having just liquid stools anymore in fact she has had several very large bowel movements that have been formed. She continues to have the feeling that everything just fax up all the way to her throat causing worsening reflux. At this point I think we will continue her regimen but add metoclopramide 5 mg 3 times a day. She was instructed how to use this and about any potential side effects that would necessitate discontinuance. We reviewed the x-ray that does not seem to show any grave stool burden however we really need to titrate to the patient response and not just to the radiology finding. She continues on her pantoprazole once a day and she also has Proctosol cream for hemorrhoidal bleeding. Return office visit in 2 weeks. (2) GERD (gastroesophageal reflux disease): Code(s): K21.9 - Gastro-esophageal reflux disease without esophagitis Qualifiers: Esophagitis presence: esophagitis presence not specified Qualified Code(s): K21.9 - Gastro-esophageal reflux disease without esophagitis (3) Hemorrhoids: Code(s): K64.9 - Unspecified hemorrhoids Medications: New metoclopramide HCl (Reglan) 5 mg PO .tidac 90 tabs 3RF K21.9 - Gastro-esophageal reflux disease without esophagitis TODAYS VISIT Malian #Liz Live She continues on Linzess 290 micro g, bisacodyl, metoclopramide 5 mg 3 times a day, pantoprazole once a day and she uses Proctosol cream for hemorrhoids. [facility] Medical History Abnormal involuntary movements Right ovarian cyst Chronic migraine without aura, intractable, without status migrainosus Sacroiliac joint dysfunction of both sides Major depression, recurrent History of COVID-19 Bleeding hemorrhoids H. pylori infection Obesity (BMI 30-39.9) Rectal bleeding Mild recurrent major depression Morbid obesity with BMI of 40.0-44.9, adult Right lateral epicondylitis Epigastric pain Polyarthralgia Bloody stools Right foot pain Left foot pain Finger pain GERD (gastroesophageal reflux disease) Essential hypertension H/O reactive hypoglycemia Vitamin D deficiency Prediabetes Dyslipidemia Surgical History Breast mass, right (11/05/23) S/P laparoscopic sleeve gastrectomy Hx of colonoscopy Deficient knowledge of leg surgery History of incision and drainage History of lithotripsy History of total abdominal hysterectomy History of tubal ligation Hx of section Hx of bilateral breast reduction surgery Family History Daughter Cancer Father Cancer, Onset Age: 54 Diabetes mellitus Mother Cancer, Onset Age: 64 Diabetes mellitus Paternal Aunt Cancer Maternal Grandmother Diabetes mellitus Hypertension CVD (cardiovascular disease) Maternal Grandfather Diabetes mellitus Hypertension CVD (cardiovascular disease) Paternal Grandmother Diabetes mellitus Hypertension Paternal Grandfather No problems noted. 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 Current occupational exposures/hazards: No Cognitive needs: No Hearing needs: No Vision needs: No Female Reproductive History Menstrual Menopause type: surgical Review of Systems Const Denies fatigue, Denies fever(s), Denies night sweats, Denies poor appetite and Denies weight loss ENT Reports Normal hearing present, Denies dental pain, Denies dysphagia, Denies hearing loss, Denies mouth pain, Denies odynophagia, Denies throat swelling, Denies tongue swelling and Reports other (Dentition adequate) Card Reports no additional complaints Resp Reports no additional complaints GI Details: Reports abdominal pain, Denies melena, Denies bloating, Denies hematochezia, Reports constipation, Denies GI cramping, Denies dysphagia, Denies excessive flatus, Denies early satiety, Reports heartburn, Denies diarrhea, Denies nausea, Denies odynophagia, Denies vomiting and Denies hematemesis Reports flank pain Skin/Breast Denies pruritus, Denies lesions, Denies rash and Denies jaundice Neuro Reports Normal hearing present, Denies Abnormal speech present and Reports tremor(s) Psych Reports anxiety and Reports panic attacks Endo Denies fatigue Aller/Immun Denies throat swelling and Denies tongue swelling Physical Exam Vital Signs: Last Vital Signs Pulse 68 06/09/25 11:04 Resp 14 06/09/25 11:04 BP 137/82 06/09/25 11:04 Pulse Ox 99 06/09/25 11:04 BMI result Body Mass Index 30.5 Const General: cooperative, no acute distress, well developed and well groomed Nutritional Appearance: well nourished and obese Orientation/consciousness: oriented to person, oriented to place and oriented to time Limitations: language barrier HEENT Head: Yes normocephalic and Yes atraumatic Eyes General: appearance normal, both eyes and all related structures Pupils: Equal, round and reactive pupils present Neck Neck: Yes normal visual inspection and Yes no lymphadenopathy Thyroid: Thyroid normal Resp Effort & Inspection: normal respiratory effort and able to speak in complete sentences Auscultation: clear to auscultation bilaterally Cardio Rate: regular rate Rhythm: regular rhythm Heart sounds: Normal, physiologic split S2 sound present Peripheral pulses: radial pulses present and posterior tibial pulses present GI Inspection: No distended, Yes Abdominal panniculus present and Yes obesity Palpation (GI): Soft to palpation, nontender, no guarding, not rigid and No hepatosplenomegaly present Percussion: Yes normal to percussion Auscultation: normal bowel sounds Rectal Exam - Female: deferred Skin General skin exam: no rashes or lesions noted, turgor normal, skin not dry, no jaundice, No spider nevi and no striae Rashes: no rashes Nails: normal Neuro General: oriented to person, oriented to place and oriented to time Cranial nerves: Yes Equal, round and reactive pupils present and Yes Normal hearing present Speech: No Abnormal speech present Extrem General: Yes normal to inspection, No clubbing, No cyanosis and No edema Psych Appearance: grossly normal and well kempt Mental Status: mental status grossly normal Speech and movement: Normal speech and movement present Affect: normal affect Attitude: cooperative Thought process: Normal thought process present and not confabulating Thought content: Normal thought content present Insight: Good insight present (Psych) Judgement: Good judgement present (Psych) Results Reviewed Results Reviewed: CT abdomen and pelvis 04/01/2025 Findings: Diffuse esophageal mural thickening, nonspecific. Atelectasis. Punctate calcification right breast. Distended gallbladder with wall thickening. This may be further evaluated with ultrasound. No radiopaque gallstones. Left adrenal gland nodule measuring 1.8 cm with an average Hounsfield unit of 48, indeterminate. This may be further evaluated with biochemical assay and adrenal protocol imaging if indicated. Small bilateral hypodense renal cysts. Bilateral nonobstructive subcentimeter renal calculi measuring no more than 4 mm. Postsurgical changes along the GE junction and stomach likely reflecting prior sleeve gastrectomy. Mildly prominent inguinal nodes, nonspecific. Right ovarian cyst measuring 3.2 cm. This may be further evaluated with ultrasound. Scattered colonic diverticulosis without diverticulitis or colitis. Normal appendix. The bones are intact. Probable vertebral body hemangioma at T9. IMPRESSION: 1. Bilateral nonobstructive subcentimeter renal calculi measuring no more than 4 mm. 2. Additional findings as described. Assessment & Plan Assessment & Plan (1) Chronic idiopathic constipation: Code(s): K59.04 - Chronic idiopathic constipation Category: Medical (2) GERD (gastroesophageal reflux disease): Code(s): K21.9 - Gastro-esophageal reflux disease without esophagitis Category: Medical Qualifiers: Esophagitis presence: esophagitis presence not specified Qualified Code(s): K21.9 - Gastro-esophageal reflux disease without esophagitis (3) Abdominal pain: Code(s): R10.9 - Unspecified abdominal pain Category: Medical (4) Abnormal CT of the abdomen: Comment: CT 04/01/2025 Distended gallbladder with wall thickening. This may be further evaluated with ultrasound. No radiopaque gallstones. Code(s): R93.5 - Abnormal findings on diagnostic imaging of other abdominal regions, including retroperitoneum Category: Medical (5) Panic attacks: Code(s): F41.0 - Panic disorder [episodic paroxysmal anxiety] Category: Medical Plan - The patient is a 45-year-old female presenting for continued management of severe constipation along with GERD and abdominal discomfort/burning/bloating.. - Metoclopramide therapy we began at the last visit caused her a tremor and increased anxiety so will be stopping this medication. This was done to try to facilitate bowel motility. - Notable post-bariatric surgery complications include increased constipation managed with Linzess and bisacodyl. Strangely she reports that her panic attacks affecting daily life seem to have worsened after her bariatric surgery. - Regular burning abdominal discomfort consistent with GERD is treated with pantoprazole, famotidine, and sucralfate, which have provided partial relief. - Despite no gallstones evident on CT abdomen and pelvis 03/2025, gallbladder inflammation necessitated consideration of a HIDA scan to assess functional pain contributors. - Acknowledges bilateral flank discomfort from a right ovarian cyst, under current monitoring with no further intervention detailed. - Prior panic attack resulted in elevated blood pressure readings during emergency assessment. In the past she was on Paxil which she tolerated well and I think we will try starting this again to facilitate her sleep in her overall well-being. If this is successful then she can have this prescribed by her primary care provider. So in short we will be getting a HIDA scan to investigate inflammation seen on ultrasound of the gallbladder and a thyroid study to make sure this isn't driving her increased panic attacks. I am also starting her on a trial of Paxil at low dose and will increase this if she is responding well. Return office visit in 6 weeks Orders: Orders NM hepatobiliary w pharm 06/09/25 R10.9 - Unspecified abdominal pain, R93.5 - Abnormal findings on diagnostic imaging of other abdominal regions, including retroperitoneum TSH reflex Free T4 06/09/25 R10.9 - Unspecified abdominal pain, R93.5 - Abnormal findings on diagnostic imaging of other abdominal regions, including retroperitoneum Medications: New paroxetine HCl (Paxil) 10 mg PO DAILY 30 tabs 6RF F41.0 - Panic disorder [episodic paroxysmal anxiety] Refilled famotidine 40 mg PO BEDTIME 30 tabs 0RF K21.9 - Gastro-esophageal reflux disease without esophagitis bisacodyl (Dulcolax (bisacodyl)) 10 mg (2 x 5 mg) PO BEDTIME 60 tabs 6RF 30 days pantoprazole (Protonix) 40 mg PO DAILY 30 tabs 6RF 30 days K21.9 - Gastro-esophageal reflux disease without esophagitis linaclotide 290 mcg PO QAM 30 caps 6RF On Hold metoclopramide HCl (Reglan) Hold Comment: Doctor's Order 10 mg PO Q6H PRN 14 tabs 0RF nausea and vomiting Coding Level of Care Code Est Pt Level 4 (65550) Diagnoses Chronic idiopathic constipation K59.04 Gastroesophageal reflux disease, unspecified whether esophagitis present K21.9 Esophagitis presence: esophagitis presence not specified Abdominal pain R10.[address] of the abdomen R93.5 Panic attacks F41.0 Time Spent (min) 37
== END 2025-06-09 11:56 | disposition home or self-care (01) ==
LOC: HO.HGI 10:55
PROVIDERS: PCP Internal Medicine; Visit Provider Nurse Practitioner
DX: K59.04 Chronic idiopathic constipation (principal); K21.9 Gastro-esophageal reflux disease without esophagitis; R10.9 Unspecified abdominal pain; R93.5 Abnormal findings on diagnostic imaging of other abdominal regions, including retroperitoneum; F41.0 Panic disorder [episodic paroxysmal anxiety]
CPT/HCPCS: 99214

== ENCOUNTER → 2025-06-12 09:17 | Outpatient (BNV) | payer OTHER, SELFPAY | PROVIDERS: PCP Internal Medicine; Visit Provider Radiology Diagnostic Radiology | DX: I67.1 Cerebral aneurysm, nonruptured (principal) | CPT/HCPCS: 70551 ==

== ENCOUNTER 2025-06-12 09:35 | Outpatient (REF) | payer OTHER, SELFPAY ==
--- NOTE | ~2025-06-12 | MR_ITS ---
EXAMINATION: MR BRAIN WITHOUT CONTRAST CLINICAL INFORMATION: Dizziness and giddiness COMPARISON: Correlated to CT brain dated June 16, 2024. TECHNIQUE: MRI of the brain was obtained using routine sequences without contrast. FINDINGS: No restricted diffusion. No acute intracranial hemorrhage, mass effect, midline shift, hydrocephalus or herniation. Rodrigues-white matter differentiation is normal. Bilateral, patchy and punctate deep periventricular white matter and subcortical white matter hyperintense T2 FLAIR signal involving centrum semiovale and ward radiata, the most conspicuous in the deep periventricular white matter, left parietal with some perpendicular orientation to the corpus callosum. No signal abnormality within the infratentorial compartment. The flow-void signal within the main cerebral vessels is normal. Questionable 3.6 mm flow void signal abnormality in the bifurcation/trifurcation left MCA. CSF prominence, left Meckel's cave. Sellar/suprasellar region demonstrated a 3.3 mm intrinsic hyperintense T1 signal in the mid pituitary gland. Craniocervical junction demonstrates normal position of the cerebellar tonsils. MR/MR head/brain wo con IMPRESSION: No acute stroke/nonhemorrhagic ischemia or acute intracranial hemorrhage. Supratentorial compartment white matter signal abnormality. Leading consideration demyelinating process such as multiple sclerosis in the correct clinical settings. 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 Meningocele, left Meckel's cave. Electronically signed by: Larry Torres MD 06/12/2025 12:16 PM EDT
--- OUTSIDE RECORDS SUMMARY | 2025-06-12 09:38 | XMS_ITS | Patient Health Record ---
Author Organization [facility] Address [address] [place] [address] Care Team Providers Care Environmental Emergencies Assistant Name Role Phone Luli Azevedo Primary Care Provider Lev Grossman [phone] Allergies Allergen (clinical drug ingredient) Drug/Non Drug [...] Problem Status W/U Status Risk Notes Problem [id number] Gastroesophageal reflux disease, esophagitis presence not specified (K21.9) Active confirmed Problem Gallstones (K80.20) Active confirmed Problem [id number] Right upper quad rant abdominal pain (R10.11) Active confirmed Plan Of Treatment Pending Test Test Name Order Date GI BIOPSY 06/28/2018 Future Test Test Name Order Date UPPER GI ENDOSCOPY 06/01/2018 Insurance Providers Payer Name Payer Address Payer Phone Subscriber Number Group Number Insured Name Patient Relationship to Insured Coverage Start Date Coverage End Date [facility] [address] [address] [place], [place] [id number] SERGIO CHAIREZ Self - patient is the insured MEDICAID OF [employer] [address] [place] [address] [id number] SERGIO CHAIREZ Self - patient is the insured Medical (General) History Medical History History ICD Code Kidney stones---ESWL Denies [place],DM,CVA,Lung disease,renal dise ase Hx of hypoglycemia Migraines Gallstone on 2015 U/S Surgical History Surgery Date(Month/Year) Right leg fracture repair/billie x 2 Tubal ligation Sinusitis Breast reduction 2008 Partial hysterectectomy
== END 2025-06-12 09:36 | disposition home or self-care (01) ==
LOC: HO.MRI 09:35
PROVIDERS: PCP Internal Medicine; Visit Provider Psychiatry & Neurology Neurology
DX: R25.9 Unspecified abnormal involuntary movements (principal)
CPT/HCPCS: 70551

== ENCOUNTER 2025-06-23 08:47 | Outpatient (REF) | payer OTHER, SELFPAY ==
--- NOTE | ~2025-06-23 | MM_ITS ---
EXAMINATION: MM DIAGNOSTIC DIGITAL BREAST TOMOSYNTHESIS, BILATERAL Bilateral Limited ultrasound. CLINICAL INFORMATION: Patient has had previous bilateral reduction mammoplasty. Right breast pain upper outer quadrant. COMPARISON: Mammography: Comparison is made with relevant prior exams. TECHNIQUE: Digital breast mammography with tomosynthesis is performed in both the craniocaudal and mediolateral oblique views along with computer-aided detection (CAD). FINDINGS: The breasts are extremely dense, which lowers the sensitivity of mammography (ACR BI-RADS breast composition Category d). Left: Focal asymmetry upper outer quadrant which may represent dense patch of normal breast tissue. No suspicious calcifications or other abnormal findings. Targeted color Doppler ultrasound thickening in the left upper outer quadrant demonstrates dense normal fibronodular breast tissue. There is no sonographic abnormal finding. Right: Triangular marker in the upper outer breast at site of patient's pain without underlying abnormal finding. Postsurgical changes. Central inner marker clip. No suspicious calcifications or other abnormal findings. Targeted color Doppler ultrasound in the right breast area of patient's pain upper outer quadrant and retroareolar region demonstrates normal fibroglandular breast tissue. There is no sonographic abnormal finding. Results are provided to the patient at time of visit by the technologist. MM/MM tomosynthesis diagnostic BI IMPRESSION: Right: No mammographic or sonographic abnormal finding to account for the patient's right breast pain. Recommend clinical evaluation follow-up. Left: Focal asymmetry upper outer breast without sonographic correlate this could represent a dense patch of dense fibroglandular breast tissue. Recommend six-month follow-up mammography of the left breast for further evaluation of stability. Patient has a family history of breast cancer including maternal aunt and mother as well as extremely dense fibroglandular breast tissue. Breast MRI could be considered for further evaluation. Breast MRI would need to be ordered by the patient's providing clinician. ASSESSMENT: BI-RADS BI-RADS 3 - Probably benign finding(s) - 6 month follow-up suggested RECOMMENDATION: 6 Month F/U This patient's information was entered into a reminder system with a target due date for their next mammogram. Electronically signed by: Ingrid Trevino DO 06/23/2025 10:53 AM EDT
--- OUTSIDE RECORDS SUMMARY | 2025-06-23 09:28 | XMS_ITS | Patient Health Record ---
Author Organization [facility] Address [address] [place] [address] Care Team Providers Care Shirt Cleaner Name Role Phone Luli Azevedo Primary Care Provider Lev Grossman [phone] Allergies Allergen (clinical drug ingredient) Drug/Non Drug [...] Problem Status W/U Status Risk Notes Problem [id number] Gastroesophageal reflux disease, esophagitis presence not specified (K21.9) Active confirmed Problem Gallstones (987018318) Gallstones (K80.20) Active confirmed Problem 293382253 Right upper quad rant abdominal pain (R10.11) Active confirmed Plan Of Treatment Pending Test Test Name Order Date GI BIOPSY 06/28/2018 Future Test Test Name Order Date UPPER GI ENDOSCOPY 06/01/2018 Insurance Providers Payer Name Payer Address Payer Phone Subscriber Number Group Number Insured Name Patient Relationship to Insured Coverage Start Date Coverage End Date [facility] [employer] [facility] [address] [address] [place], [place] [id number] SERGIO CHAIREZ Self - patient is the insured MEDICAID [facility] [address] [place] [address] [phone] [id number] SERGIO CHAIREZ Self - patient is the insured Medical (General) History Medical History History ICD Code Kidney stones---ESWL Denies [place],DM,CVA,Lung disease,renal dise ase Hx of hypoglycemia Migraines Gallstone on 2015 U/S Surgical History Surgery Date(Month/Year) Right leg fracture repair/billie x 2 Tubal ligation Sinusitis Breast reduction 2007 Partial hysterectectomy
== END 2025-06-23 08:48 | disposition home or self-care (01) ==
LOC: HO.MAMMO 08:47
PROVIDERS: PCP Internal Medicine; Visit Provider Internal Medicine
DX: N64.4 Mastodynia (principal)
CPT/HCPCS: 76642; 77062; 77066

== ENCOUNTER → 2025-06-23 09:00 | Outpatient (BNV) | payer OTHER, SELFPAY | PROVIDERS: PCP Internal Medicine; Visit Provider Internal Medicine | DX: N64.4 Mastodynia (principal); R92.8 Other abnormal and inconclusive findings on diagnostic imaging of breast | CPT/HCPCS: 76642; 77062; 77066 ==

== ENCOUNTER 2025-06-28 07:47 | Outpatient (REF) | payer OTHER, SELFPAY ==
--- NOTE | 2025-06-28 07:50 | EEG_ITS ---
Roomed Performed: first floor lab Reason: Abnormal involuntary movements History: patient complains of frequent headaches in the frontal region that have increased over the last year, history of migraines, patient experienced episodes of whole body shaking that can last up to two hours in duration, no LOC, no incontinence, neuro imaging pending Medication: Fioricet Technical description: Photic stimulation: Completed Hyperventilation: Completed Behavioral state: during study patient had abnormal involuntary movement of upper torso, which presented as a quiver patient was able to preform tasks during this event and answered questions correctly State of Consciousness: awake and drowsy Skull defect: None Sedation: None Handedness: Right Duration of study: 30min This is a 16 channel EEG with an EKG lead. Patient is reported awake during the tracing. Background EEG rhythm is low amplitude fast with some lead and muscle artifacts. Photic stimulation does not produce any significant abnormality. Hyperventilation is unremarkable. Cardiac lead does not reveal any significant abnormality. No sharp wave spikes or paroxysmal tendency noted. Impression: Unremarkable EEG. [id number]
--- OUTSIDE RECORDS SUMMARY | 2025-06-28 07:50 | XMS_ITS | Patient Health Record ---
Author Organization [facility] Address [address] [place] [address] Care Team Providers Care Electrical Project Engineer Name Role Phone Luli Azevedo Primary Care Provider Lev Grossman [phone] Allergies Allergen (clinical drug ingredient) Drug/Non Drug [...] Problem Status W/U Status Risk Notes Problem 657477362 Gastroesophageal reflux disease, esophagitis presence not specified (K21.9) Active confirmed Problem Gallstones (825345706) Gallstones (K80.20) Active confirmed Problem 481644450 Right upper quad rant abdominal pain (R10.11) Active confirmed Plan Of Treatment Pending Test Test Name Order Date GI BIOPSY 06/28/2018 Future Test Test Name Order Date UPPER GI ENDOSCOPY 06/01/2018 Insurance Providers Payer Name Payer Address Payer Phone Subscriber Number Group Number Insured Name Patient Relationship to Insured Coverage Start Date Coverage End Date [facility] [address] [address] [place], [place] [id number] SERGIO CHAIREZ Self - patient is the insured [facility]ID [facility] [address] [place] [address] [phone] [id number] SERGIO CHAIREZ Self - patient is the insured Medical (General) History Medical History History ICD Code Kidney stones---ESWL Denies [place],DM,CVA,Lung disease,renal dise ase Hx of hypoglycemia Migraines Gallstone on 2015 U/S Surgical History Surgery Date(Month/Year) Right leg fracture repair/billie x 2 Tubal ligation Sinusitis Breast reduction 2007 Partial hysterectectomy
== END 2025-06-28 07:48 | disposition home or self-care (01) ==
LOC: HO.NEURO 07:47
PROVIDERS: PCP Internal Medicine; Visit Provider Psychiatry & Neurology Neurology
DX: R25.9 Unspecified abnormal involuntary movements (principal)
CPT/HCPCS: 95816

== ENCOUNTER → 2025-06-28 07:50 | Outpatient (BNV) | payer OTHER, SELFPAY | PROVIDERS: PCP Internal Medicine; Visit Provider Psychiatry & Neurology Neurology | DX: R25.9 Unspecified abnormal involuntary movements (principal) | CPT/HCPCS: 95816 ==

== ENCOUNTER 2025-07-02 15:58 | Outpatient (REF) | payer OTHER, SELFPAY ==
--- OUTSIDE RECORDS SUMMARY | 2025-07-02 16:02 | XMS_ITS | Patient Health Record ---
Author Organization [facility] Address [address] [place] [address] Care Team Providers Care Hotel Clerk Name Role Phone Luli Azevedo Primary Care Provider Lev Grossman [phone] Allergies Allergen (clinical drug ingredient) Drug/Non Drug [...] Problem Status W/U Status Risk Notes Problem [id number] Gastroesophageal reflux disease, esophagitis presence not specified (K21.9) Active confirmed Problem Gallstones (325279578) Gallstones (K80.20) Active confirmed Problem [id number] Right upper quad rant abdominal pain (R10.11) Active confirmed Plan Of Treatment Pending Test Test Name Order Date GI BIOPSY 06/28/2018 Future Test Test Name Order Date UPPER GI ENDOSCOPY 06/01/2018 Insurance Providers Payer Name Payer Address Payer Phone Subscriber Number Group Number Insured Name Patient Relationship to Insured Coverage Start Date Coverage End Date [facility] [employer] [facility] [address] [address] [place], [place] [id number] SERGIO CHAIREZ Self - patient is the insured [facility]ICA[facility] [address] [place] [address] [phone] [id number] SERGIO CHAIREZ Self - patient is the insured Medical (General) History Medical History History ICD Code Kidney stones---ESWL Denies [place],DM,CVA,Lung disease,renal dise ase Hx of hypoglycemia Migraines Gallstone on 2015 U/S Surgical History Surgery Date(Month/Year) Right leg fracture repair/billie x 2 Tubal ligation Sinusitis Breast reduction 2007 Partial hysterectectomy
== END 2025-07-02 15:59 | disposition home or self-care (01) ==
LOC: HO.MRI 15:58
PROVIDERS: PCP Internal Medicine; Visit Provider Nurse Practitioner Family
DX: Z13.89 Encounter for screening for other disorder (principal)

== ENCOUNTER → 2025-07-03 07:35 | Outpatient (REF) | payer OTHER, SELFPAY ==
--- NOTE | ~2025-07-03 | NM_ITS ---
EXAMINATION: NM HEPATOBILIARY WITH PHARM HISTORY: R10.9 - Unspecified abdominal pain. TECHNIQUE: An hepatobiliary scan was performed following the intravenous administration of 5 mCi technetium 99m-mebrofenin. Sequential images were obtained over 1 hour. Subsequently, the patient received 1.5 microgram of IV CCK over 30 minutes and additional imaging was performed. COMPARISON: Correlation is made with a CT of the abdomen with contrast dated 04/01/2025. FINDINGS: There is normal uptake and excretion of the radiopharmaceutical by the liver. Gallbladder activity is noted at 10 minutes. Common bile duct activity is seen at 12 minutes. Small bowel activity is noted at 54 minutes. After the administration of intravenous CCK, the estimated gallbladder ejection fraction is 95%, which is abnormally high (normal 35-80%), suggestive of biliary hyperkinesia. NM/NM hepatobiliary w pharm IMPRESSION: Abnormally high gallbladder ejection fraction of 95% which can be seen in the setting of biliary hyperkinesia. Clinical correlation is recommended. Electronically signed by: Lev Singh MD 07/03/2025 12:11 PM EDT
--- OUTSIDE RECORDS SUMMARY | 2025-07-03 07:39 | XMS_ITS | Patient Health Record ---
Author Organization [facility] Address [address] [place] [address] Care Team Providers Care Language And Literature Division Chair Name Role Phone Luli Azevedo Primary Care Provider Lev Grossman [phone] Allergies Allergen (clinical drug ingredient) Drug/Non Drug [...] Problem Status W/U Status Risk Notes Problem [id number] Gastroesophageal reflux disease, esophagitis presence not specified (K21.9) Active confirmed Problem Gallstones (319824930) Gallstones (K80.20) Active confirmed Problem 168268225 Right upper quad rant abdominal pain (R10.11) Active confirmed Plan Of Treatment Pending Test Test Name Order Date GI BIOPSY 06/28/2018 Future Test Test Name Order Date UPPER GI ENDOSCOPY 06/01/2018 Insurance Providers Payer Name Payer Address Payer Phone Subscriber Number Group Number Insured Name Patient Relationship to Insured Coverage Start Date Coverage End Date [facility] [employer] [facility] [address] [address] [place], [place] [id number] SERGIO CHAIREZ Self - patient is the insured MEDICAID OF [facility] [address] [place] [address] [phone] [id number] SERGIO CHAIREZ Self - patient is the insured Medical (General) History Medical History History ICD Code Kidney stones---ESWL Denies [place],DM,CVA,Lung disease,renal dise ase Hx of hypoglycemia Migraines Gallstone on 2015 U/S Surgical History Surgery Date(Month/Year) Right leg fracture repair/billie x 2 Tubal ligation Sinusitis Breast reduction 2007 Partial hysterectectomy
== END ==
LOC: HO.NUCMED 07:35
PROVIDERS: PCP Internal Medicine; Visit Provider Nurse Practitioner
DX: R10.9 Unspecified abdominal pain (principal); R93.5 Abnormal findings on diagnostic imaging of other abdominal regions, including retroperitoneum
CPT/HCPCS: 78227; A9537; J2805

== ENCOUNTER → 2025-07-03 07:38 | Outpatient (BNV) | payer OTHER, SELFPAY | PROVIDERS: PCP Internal Medicine; Visit Provider Radiology Diagnostic Radiology | DX: K82.8 Other specified diseases of gallbladder (principal) | CPT/HCPCS: 78227 ==

== ENCOUNTER 2025-07-17 10:04 | Outpatient (REF) | payer OTHER, SELFPAY ==
--- NOTE | ~2025-07-17 | MR_ITS ---
EXAMINATION: MR ANGIOGRAPHY BRAIN WITHOUT CONTRAST CLINICAL INFORMATION: Cerebral aneurysm, unruptured. COMPARISON: No prior angiography. Correlation made with MRI of brain 06/12/2025. TECHNIQUE: 3-D yzvq-me-unmose imaging of the major arterial intracranial vasculature was performed. Multiplanar reformatted and MIPPED images were constructed. FINDINGS: There is normal flow related enhancement in the anterior and posterior circulation. There is no evidence of aneurysm identified. Specifically, no aneurysm noted in the left MCA bifurcation region. There is no significant stenosis, flow gap, or occlusion identified. Vertebral arteries are codominant. Partial origin of the right TEST TECH. Anterior communicating artery is normal. Left posterior communicating artery is normal. MR/MR angio head wo con IMPRESSION: Normal MR angiogram of the brain. No definite aneurysm identified. Electronically signed by: Mati Sanchez MD 07/17/2025 11:33 AM EDT
--- NOTE | ~2025-07-17 | MR_ITS ---
EXAMINATION: MR BRAIN WITHOUT AND WITH CONTRAST CLINICAL INFORMATION: Cerebral aneurysm, nonruptured. Headaches, nausea, whole body shaking dizziness. COMPARISON: 06/12/2025 MRI brain without contrast. TECHNIQUE: Multiplanar, multisequence MRI of the brain was obtained before and after the intravenous administration of 7.5 mL Gadavist. Examination performed on a 1.5 Laney Siemens high-field unit. FINDINGS: There is no diffusion restriction. There is no intracranial hemorrhage, acute infarction, mass effect, or edema. Ventricles, sulci, and cisterns are normal in size and configuration for patient age. No shift of midline. No abnormal hemosiderin deposition is identified. There are a few scattered punctate foci of white matter T2 hyperintensity in the periventricular, subcortical, and hemispheric deep white matter. These foci are entirely nonspecific. There is no abnormal intra or extra-axial enhancement after the administration of contrast. Midline structures appear normally formed. The pituitary gland appears normal, with normal pituitary T1 bright spot. No pituitary lesion is evident. Posterior fossa structures appear normal. Cerebellar tonsils are appropriately located. Major flow voids are preserved within the skull base. No evidence of aneurysm is detected. The globes and orbital contents demonstrate no abnormalities. Paranasal sinuses are clear bilaterally. Nasal septum is midline without spur. The mastoids and tympanic cavities are normally aerated. Extracranial soft tissues demonstrate no abnormalities. No suspicious bone marrow changes are evident. Atlantoaxial joint is normal. MR/MR head/brain wo/w con IMPRESSION: 1. No evidence of intracranial hemorrhage, acute infarction, mass effect, edema, or abnormal contrast enhancement. 2. There is no evidence of cerebral aneurysm identified. The finding seen on the prior MRI is consistent with artifact. 3. There are stable bilateral scattered punctate foci of white matter T2 hyperintensity in the supratentorial white matter. This carries a long differential and includes migraines, small vessel ischemic changes, vasculitides, and demyelinating disease, among others. No definite distribution or morphology specific to demyelinating disease. Electronically signed by: Mati Sanchez MD 07/17/2025 11:47 AM EDT
--- OUTSIDE RECORDS SUMMARY | 2025-07-17 11:42 | XMS_ITS | Patient Health Record ---
Author Organization [facility] Address [address] [place] [address] Care Team Providers Care Licensed Sales Producer Name Role Phone Luli Azevedo Primary Care Provider Lev Grossman [phone] Allergies Allergen (clinical drug ingredient) Drug/Non Drug [...] Problem Status W/U Status Risk Notes Problem [id number] Gastroesophageal reflux disease, esophagitis presence not specified (K21.9) Active confirmed Problem Gallstones (414092132) Gallstones (K80.20) Active confirmed Problem 220388793 Right upper quad rant abdominal pain (R10.11) Active confirmed Plan Of Treatment Pending Test Test Name Order Date GI BIOPSY 06/28/2018 Future Test Test Name Order Date UPPER GI ENDOSCOPY 06/01/2018 Insurance Providers Payer Name Payer Address Payer Phone Subscriber Number Group Number Insured Name Patient Relationship to Insured Coverage Start Date Coverage End Date [facility] [employer] [facility] [address] [address] [place], [place] [id number] SERGIO CHAIREZ Self - patient is the insured MEDICAID OF [facility] [address] [place] [address] [phone] [id number] SERGIO CHAIREZ Self - patient is the insured Medical (General) History Medical History History ICD Code Kidney stones---ESWL Denies [place],DM,CVA,Lung disease,renal dise ase Hx of hypoglycemia Migraines Gallstone on 2015 U/S Surgical History Surgery Date(Month/Year) Right leg fracture repair/billie x 2 Tubal ligation Sinusitis Breast reduction 2007 Partial hysterectectomy
== END 2025-07-17 10:05 | disposition home or self-care (01) ==
LOC: HO.MRI 10:04
PROVIDERS: PCP Internal Medicine; Visit Provider Nurse Practitioner Family
DX: I67.1 Cerebral aneurysm, nonruptured (principal); R90.89 Other abnormal findings on diagnostic imaging of central nervous system
CPT/HCPCS: 70544; 70553; A9585

== ENCOUNTER → 2025-07-17 10:15 | Outpatient (BNV) | payer OTHER, SELFPAY | PROVIDERS: PCP Internal Medicine; Visit Provider Radiology Diagnostic Radiology | DX: I67.1 Cerebral aneurysm, nonruptured (principal) | CPT/HCPCS: 70544; 70553 ==

== ENCOUNTER 2025-07-26 10:43 | Outpatient (AMB) | payer OTHER, SELFPAY ==
--- NOTE | 2025-07-26 11:02 | MHC.OFFVISWM ---
VS Expanded 07/26/25 11:08 BP 116/73 Blood Pressure Location Lt brachial Blood Pressure Position Sitting Pulse 82 Pulse Source Pulse Oximeter Temp 98.1 F Temperature Source Skin Pulse Oximetry 98 Height 5 ft 3 in Weight 170 lb 12.8 oz BMI 30.3 Body Fat % 44.7 Body Fat Mass 63.4 Fat Free Mass 107.2 Visceral Fat Rating 8 Body Water % 44.7 Body Water Mass 76.2 Muscle Mass/Score 101.6 Basal Metabolic Rate/Score 1,470 Intake Visit Reasons: OV PO LSG 10/01/22 Development System Efficiency Manager Required: Yes Development System Efficiency Manager Name: Bhupendra Forrester- [id number] Information Interpreted: clinical only Allergies bupropion (Contrave) Allergy (Intermediate, Verified 06/09/25 11:07) nausea,vomit, headaches naltrexone (Contrave) Allergy (Intermediate, Verified 06/09/25 11:07) nausea,vomit, headaches oxycodone (Percocet) Allergy (Intermediate, Verified 06/09/25 11:07) hives duloxetine Adverse Reaction (Severe, Verified 06/09/25 11:07) Hallucinations Medication List - Last Reconciled 07/26/25 by RACHEL Murray alprazolam 0.25 - 0.5 mg orally 1 tab 30 minutes prior to MRI, may repeat x's 1; 1 day MDD 4 tabs bisacodyl (Dulcolax (bisacodyl)) 10 mg (2 x 5 mg) PO BEDTIME 30 days rvolihubfr-sjpoyiqdgjtvs-bvly 50-325-40 mg 1 tab PO Q6H PRN calcium citrate-vitamin D3 315 mg-5 mcg (200 unit) (Calcium Citrate + D) 1 tab PO BID famotidine 40 mg PO BEDTIME inulin (Fiber Gummies) 2 grams PO BID iron,carbonyl-vitamin C 65 mg iron- 125 mg (Vitron-C) 1 tab PO BEDTIME lidocaine 5% 1 patch topical DAILY linaclotide 290 mcg PO QAM loratadine (Allergy Relief (loratadine)) 10 mg PO DAILY 90 days methocarbamol 500 mg PO TID PRN metoclopramide HCl (Reglan) 10 mg PO Q6H PRN Held on 06/09/25. Instructions: Doctor's Order onabotulinumtoxinA (Botox) 200 units IM ONCE 12 weeks ondansetron HCl 4 mg PO BID-TID PRN 30 days pantoprazole (Protonix) 40 mg PO DAILY 30 days paroxetine HCl (Paxil) 10 mg PO DAILY rizatriptan 5 - 10 mg (0.5 - 1 x 10 mg) PO Q2H PRN 30 days sucralfate 10 mL PO BID sumatriptan succinate 50 - 100 mg orally at onset of headache, may repeat in 2 hrs PRN; max 2 tabs per day or 4 tabs/week (may take with Tylenol) 30 days HPI Comments Details: This?is a?45?yo F who is s/p LSG 10/01/2022. Presents for 2y 10mo post op visit. Weight at last visit on 04/18/2025 was 166.8 pounds; weight today is 170.8 pounds, representing a 3 pound weight gain with a BMI today of 30.2.? At last visit pt reported occasional abdominal pain accompanied by nausea. Occasional vomiting when she eats too much/fast. She notes it continues over the last few months. She has had some imaging for this. She is awaiting GI followup to review results. She had to cancel a previous appointment due to illness by provider. She also reports constipation, sees GI for this as well. No tobacco, does take naproxen. Takes pantoprazole for reflux although she feels this doesn't help much. Present meal plan includes: breakfast- 1-2 eggs snack- 1 scoop Orgain lunch- no farina, try yoruba yogurt, or meat/veg snack- 1 scoop Orgain dinner- 4f meat/4f veg takes MVI at last visit gave uberall gallo to create a new meal plan; says she had problems downloading the gallo and didn't use it notes she does drink shakes quickly sometimes. 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 pylori infection Obesity (BMI 30-39.9) Rectal bleeding Mild recurrent major depression Morbid obesity with BMI of 40.0-44.9, adult Right lateral epicondylitis Epigastric pain Polyarthralgia Bloody stools Right foot pain Left foot pain Finger pain GERD (gastroesophageal reflux disease) Essential hypertension H/O reactive hypoglycemia Vitamin D deficiency Prediabetes Dyslipidemia Surgical History Breast mass, right (11/05/23) S/P laparoscopic sleeve gastrectomy Hx of colonoscopy Deficient knowledge of leg surgery History of incision and drainage History of lithotripsy History of total abdominal hysterectomy History of tubal ligation Hx of section Hx of bilateral breast reduction surgery Family History Daughter Cancer Father Cancer, Onset Age: 54 Diabetes mellitus Mother Cancer, Onset Age: 64 Diabetes mellitus Paternal Aunt Cancer Maternal Grandmother Diabetes mellitus Hypertension CVD (cardiovascular disease) Maternal Grandfather Diabetes mellitus Hypertension CVD (cardiovascular disease) Paternal Grandmother Diabetes mellitus Hypertension Paternal Grandfather No problems noted. 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 [employer] Current occupational exposures/hazards: No Cognitive needs: No Hearing needs: No Vision needs: No Quality Reporting (2019) Adult ([facility] ) Smoking risk assessment performed?: Yes Patient Tobacco Use Status: Never used Tobacco Assessment & Plan Assessment & Plan (1) S/P laparoscopic sleeve gastrectomy: Code(s): Z98.84 - Bariatric surgery status Category: Medical (2) Overweight: Code(s): E66.3 - Overweight Category: Medical (3) GERD (gastroesophageal reflux disease): Code(s): K21.9 - Gastro-esophageal reflux disease without esophagitis Category: Medical Qualifiers: Esophagitis presence: esophagitis presence not specified Qualified Code(s): K21.9 - Gastro-esophageal reflux disease without esophagitis (4) Abdominal pain: Code(s): R10.9 - Unspecified abdominal pain Category: Medical Plan New meal plan with appropriate eating windows and adequate protein intake. Drink shakes over 2 hours and eat protein bars over 2 hours. If she is experiencing any gallbladder issues this will likely help with any related pain. 8-10am Orgain shake with 1 scoop powder in 8oz UAM 11am-1pm Celebrate or Atkins protein bar, or Latvian yogurt cup 2-4pm same shake as above 5pm dinner 6ff meat, 6ff veg 7-8pm half protein bar We discussed the risks of taking naproxen/NSAIDs after bariatric surgery. Carafate rx sent, hopefully this will help with reflux and any inflammation of stomach. Follow up with GI as scheduled. I asked pt to text me in 1 month with update on her abdominal pain and weight measurement. RTC 3mo. Medications: New sucralfate 10 mL PO BID 414 mL 3RF Discontinued sucralfate (Carafate) avoid eating or drinking for 45 minutes after taking Discontinued Reason: Doctor's Order 10 mL PO BID PRN 400 mL 3RF reflux
[2025-07-26 11:08] VITALS: BP 116/73; PULSE 82; TEMP 36.7; O2SAT 98; BMI 30.3
--- OUTSIDE RECORDS SUMMARY | 2025-07-26 12:52 | XMS_ITS | Patient Health Record ---
Author Organization [facility] Address [address] [place] [address] Care Team Providers Care Employee Development Specialist Name Role Phone Luli Azevedo Primary Care Provider Lev Grossman [phone] Allergies Allergen (clinical drug ingredient) Drug/Non Drug [...] Problem Status W/U Status Risk Notes Problem Gastroesophageal reflux disease (168934987) Gastroesophageal reflux disease, esophagitis presence not specified (K21.9) Active confirmed Problem Gallstones (342646749) Gallstones (K80.20) Active confirmed Problem Right upper quadrant pain (109580267) Right upper quadrant abdominal pain (R10.11) Active confirmed Plan Of Treatment Pending Test Test Name Order Date GI BIOPSY 06/28/2018 Future Test Test Name Order Date UPPER GI ENDOSCOPY 06/01/2018 Insurance Providers Payer Name Payer Address Payer Phone Subscriber Number Group Number Insured Name Patient Relationship to Insured Coverage Start Date Coverage End Date [facility] [address] [address] [place], [place] [id number] [phone] [id number] SERGIO CHAIREZ Self - patient is the insured [facility] [address] [place] [address] [phone] [id number] SERGIO CHAIREZ Self - patient is the insured Medical (General) History Medical History History ICD Code Kidney stones---ESWL Denies [place],DM,CVA,Lung disease,renal dise ase Hx of hypoglycemia Migraines Gallstone on 2015 U/S Surgical History Surgery Date(Month/Year) Right leg fracture repair/billie x 2 Tubal ligation Sinusitis Breast reduction 2007 Partial hysterectectomy
== END 2025-07-26 11:37 | disposition home or self-care (01) ==
LOC: HO.HBS 10:44
PROVIDERS: PCP Internal Medicine; Visit Provider Physician Assistant Surgical
DX: E66.9 Obesity, unspecified (principal); Z68.30 Body mass index [BMI] 30.0-30.9, adult; K21.9 Gastro-esophageal reflux disease without esophagitis; R10.9 Unspecified abdominal pain; Z90.3 Acquired absence of stomach [part of]; Z98.84 Bariatric surgery status
CPT/HCPCS: 99213

== ENCOUNTER → 2025-07-26 10:43 | Outpatient (BNVA) | payer OTHER, SELFPAY | PROVIDERS: PCP Internal Medicine; Visit Provider Physician Assistant Surgical | DX: E66.3 Overweight (principal); K21.9 Gastro-esophageal reflux disease without esophagitis; R10.9 Unspecified abdominal pain; Z98.84 Bariatric surgery status; Z68.30 Body mass index [BMI] 30.0-30.9, adult | CPT/HCPCS: 99212 ==

== ENCOUNTER 2025-08-08 08:51 | Outpatient (REF) | payer OTHER, SELFPAY ==
--- NOTE | ~2025-08-08 | XR_ITS ---
EXAMINATION: X-ray bilateral knees CLINICAL INFORMATION: Pain COMPARISON: Correlation right knee x-ray 05/17/2024 TECHNIQUE: AP bilateral knees one view. Right knee 2 views. Left knee 2 views. FINDINGS: Right knee: Redemonstrated intramedullary billie in the proximal tibia, partially imaged. Redemonstrated lucency in the central tibia superior to this, unchanged, probably postsurgical. No significant narrowing of the medial and lateral compartment. Limited evaluation patellofemoral compartment joint space, possible mild narrowing. No acute fracture or dislocation. Small effusion. Left knee: No acute fracture or dislocation. No significant joint space narrowing. No significant effusion. No suspicious bony lesion. No abnormal soft tissue calcification. XR/XR knee LT 3V IMPRESSION: RIGHT KNEE: No acute osseous abnormality. Small effusion. LEFT KNEE: No acute osseous abnormality. Electronically signed by: Austen Aragon MD 08/08/2025 03:52 PM EDT
--- NOTE | ~2025-08-08 | XR_ITS ---
EXAMINATION: X-ray bilateral knees CLINICAL INFORMATION: Pain COMPARISON: Correlation right knee x-ray 05/17/2024 TECHNIQUE: AP bilateral knees one view. Right knee 2 views. Left knee 2 views. FINDINGS: Right knee: Redemonstrated intramedullary billie in the proximal tibia, partially imaged. Redemonstrated lucency in the central tibia superior to this, unchanged, probably postsurgical. No significant narrowing of the medial and lateral compartment. Limited evaluation patellofemoral compartment joint space, possible mild narrowing. No acute fracture or dislocation. Small effusion. Left knee: No acute fracture or dislocation. No significant joint space narrowing. No significant effusion. No suspicious bony lesion. No abnormal soft tissue calcification. XR/XR knee RT 3V IMPRESSION: RIGHT KNEE: No acute osseous abnormality. Small effusion. LEFT KNEE: No acute osseous abnormality. Electronically signed by: Austen Aragon MD 08/08/2025 03:52 PM EDT
--- OUTSIDE RECORDS SUMMARY | 2025-08-09 09:43 | XMS_ITS | Patient Health Record ---
Author Organization [facility] Address [address] [place] [address] Care Team Providers Care Donor Recruiter Name Role Phone Luli Azevedo Primary Care Provider Lev Grossman [phone] Allergies Allergen (clinical drug ingredient) Drug/Non Drug [...] Status Risk Notes Problem Gastroesophageal reflux disease (784068307) Gastroesophageal reflux disease, esophagitis presence not specified (K21.9) Active confirmed Problem Gallstones (085788143) Gallstones (K80.20) Active confirmed Problem Right upper quadrant pain (141899669) Right upper quadrant abdominal pain (R10.11) Active confirmed Plan Of Treatment Pending Test Test Name Order Date GI BIOPSY 06/28/2018 Future Test Test Name Order Date UPPER GI ENDOSCOPY 06/01/2018 Insurance Providers Payer Name Payer Address Payer Phone Subscriber Number Group Number Insured Name Patient Relationship to Insured Coverage Start Date Coverage End Date [facility] [address] [address] [place], [place] [id number] [phone] [id number] SERGIO CHAIREZ Self - patient is the insured MEDICAID OF [facility] [address] [place] [address] [phone] [id number] SERGIO CHAIREZ Self - patient is the insured Medical (General) History Medical History History ICD Code Kidney stones---ESWL Denies [place],DM,CVA,Lung disease,renal dise ase Hx of hypoglycemia Migraines Gallstone on 2015 U/S Surgical History Surgery Date(Month/Year) Right leg fracture repair/billie x 2 Tubal ligation Sinusitis Breast reduction 2007 Partial hysterectectomy
== END 2025-08-08 08:52 | disposition home or self-care (01) ==
LOC: HO.HOSX 08:51
PROVIDERS: Visit Provider Physician Assistant
DX: M23.91 Unspecified internal derangement of right knee (principal); M23.92 Unspecified internal derangement of left knee
CPT/HCPCS: 20610; 73562; 99202; J0665; J1100; J2003

== ENCOUNTER 2025-08-08 14:10 | Outpatient (AMB) | payer OTHER, SELFPAY ==
--- NOTE | 2025-08-08 14:55 | A.OFFVIS_ITS ---
Vital Signs 08/08/25 15:00 Height 5 ft 3 in Weight 170 lb BMI 30.1 Handedness Right Intake Visit Reasons: New Pt - B/L knee pain Intake Note: Jessie is a 45 year old female who presents today as a new patient for a evaluation of her bilateral knee pain. Patient reports ongoing pain for about 6 months. She states that her pain is worse on the left knee than the right. Patient reports her pain is on the lateral aspect of both knees. Patient states that her pain is worse when she is bending, walking and going up and down stairs. She has tried 3 + months of taking tylenol and ibuprofen with mild relief. She also mentions having some sessions with [facility] therapy with no relief. Guideman Services: Guideman Present ([id number]) Allergies bupropion (Contrave) Allergy (Intermediate, Verified 06/09/25 11:07) nausea,vomit, headaches naltrexone (Contrave) Allergy (Intermediate, Verified 06/09/25 11:07) nausea,vomit, headaches oxycodone (Percocet) Allergy (Intermediate, Verified 06/09/25 11:07) hives duloxetine Adverse Reaction (Severe, Verified 06/09/25 11:07) Hallucinations HPI HPI New Pt - B/L knee pain: Details: Ms. Woodson is a 45-year-old female who presents to the office today for bilateral knee pain. She reports ongoing pain for the past 6 months. She denies any injury to the knees. Of note, the patient does have an IM nail in the right tibia from a prior distal tibia fracture. This was placed roughly 10+ years ago. She reports that the pain is located along the lateral aspect of both knees. Her pain worsens with bending, squatting, walking and going up and down stairs. She has tried 3 months plus of ibuprofen and Tylenol with mild relief. She has also been attending physical therapy with no relief. [facility] Medical History Abnormal involuntary movements Right ovarian cyst Chronic migraine without aura, intractable, without status migrainosus Sacroiliac joint dysfunction of both sides Major depression, recurrent History of COVID-19 Bleeding hemorrhoids H. pylori infection Obesity (BMI 30-39.9) Rectal bleeding Mild recurrent major depression Morbid obesity with BMI of 40.0-44.9, adult Right lateral epicondylitis Epigastric pain Polyarthralgia Bloody stools Right foot pain Left foot pain Finger pain GERD (gastroesophageal reflux disease) Essential hypertension H/O reactive hypoglycemia Vitamin D deficiency Prediabetes Dyslipidemia Surgical History Breast mass, right (11/05/23) S/P laparoscopic sleeve gastrectomy Hx of colonoscopy Deficient knowledge of leg surgery History of incision and drainage History of lithotripsy History of total abdominal hysterectomy History of tubal ligation Hx of section Hx of bilateral breast reduction surgery Family History Daughter Cancer Father Cancer, Onset Age: 54 Diabetes mellitus Mother Cancer, Onset Age: 64 Diabetes mellitus Paternal Aunt Cancer Maternal Grandmother Diabetes mellitus Hypertension CVD (cardiovascular disease) Maternal Grandfather Diabetes mellitus Hypertension CVD (cardiovascular disease) Paternal Grandmother Diabetes mellitus Hypertension Paternal Grandfather No problems noted. 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 No ecchymosis, erythema, or joint effusion. Tenderness to palpation along the lateral joint line bilaterally. NVI. Psych Appearance: grossly normal Mental Status: mental status grossly normal Attitude: cooperative Office Procedures AMB Joint Injection/Aspiration Joint Injection/Aspiration Primary Site: right knee Secondary Site: left knee Prep: site was prepped using aseptic technique, ethochloride spray was applied and injection warnings given Injected: 40 mg of, with 3 mL of, 1% plain lidocaine, 0.25% bupivacaine, in the joint and decadron Procedure: The patient tolerated the procedure well, but had some pain with the injection and there was some relief with the local anesthesia Coding - Bilateral Large Joint Procedure code (CPT) selection complete Assessment & Plan Assessment & Plan (1) Internal derangement of both knees: Code(s): M23.91 - Unspecified internal derangement of right knee; M23.92 - Unspecified internal derangement of left knee Category: Medical Plan Ms. Woodson is a 45-year-old female who presents to the office today for bilateral knee pain. She reports ongoing pain for the past 6 months. She denies any injury to the knees. Of note, the patient does have an IM nail in the right tibia from a prior distal tibia fracture. This was placed roughly 10+ years ago. She reports that the pain is located along the lateral aspect of both knees. Her pain worsens with bending, squatting, walking and going up and down stairs. She has tried 3 months plus of ibuprofen and Tylenol with mild relief. She has also been attending physical therapy with no relief. The patient was offered a cortisone injection in bilateral knees. The patient was explained the risks, benefits, and alternatives to receiving this injection. After receiving consent for the injection, the patient had the procedure done while in the office today. The patient tolerated the procedure well with no complications. Follow-up will be PRN, or sooner if needed X-rays of bilateral knees which were obtained while in the office today and were reviewed by me, Xochitl Garrett PA-C, revealed no acute fracture or dislocation. Mild degenerative changes. Orders: Orders XR knee RT 3V Today M25.569 - Pain in unspecified knee XR knee LT 3V Today M25.569 - Pain in unspecified knee Coding Level of Care Code New Pt Level 3 (81012) Diagnoses Internal derangement of both knees M23.91; M23.92 CPT Codes Coding - 06150 - Bilateral Large Joint: 06257 - Bilateral Large Joint ([id number])
[2025-08-08 15:00] VITALS: BMI 30.1
--- OUTSIDE RECORDS SUMMARY | 2025-08-08 18:34 | XMS_ITS | Patient Health Record ---
Author Organization [facility] Address [address] [place] [address] Care Team Providers Care Quality Improvement Coordinator (Rn) Name Role Phone Luli Azevedo Primary Care Provider Lev Grossman [phone] Allergies Allergen (clinical drug ingredient) Drug/Non Drug [...] Status Risk Notes Problem Gastroesophageal reflux disease (541124571) Gastroesophageal reflux disease, esophagitis presence not specified (K21.9) Active confirmed Problem Gallstones (280479117) Gallstones (K80.20) Active confirmed Problem Right upper quadrant pain (602091238) Right upper quadrant abdominal pain (R10.11) Active confirmed Plan Of Treatment Pending Test Test Name Order Date GI BIOPSY 06/28/2018 Future Test Test Name Order Date UPPER GI ENDOSCOPY 06/01/2018 Insurance Providers Payer Name Payer Address Payer Phone Subscriber Number Group Number Insured Name Patient Relationship to Insured Coverage Start Date Coverage End Date [facility] [address] [address] [place], [place] [id number] [phone] [id number] SERGIO CHAIREZ Self - patient is the insured MEDICAID OF [facility] [address] [place] [address] [phone] [id number] SERGIO CHAIREZ Self - patient is the insured Medical (General) History Medical History History ICD Code Kidney stones---ESWL Denies [place],DM,CVA,Lung disease,renal dise ase Hx of hypoglycemia Migraines Gallstone on 2015 U/S Surgical History Surgery Date(Month/Year) Right leg fracture repair/billie x 2 Tubal ligation Sinusitis Breast reduction 2007 Partial hysterectectomy
== END 2025-08-08 15:49 | disposition home or self-care (01) ==
LOC: HO.HOS 14:11
PROVIDERS: PCP Internal Medicine; Visit Provider Physician Assistant
DX: M23.91 Unspecified internal derangement of right knee (principal); M23.92 Unspecified internal derangement of left knee
CPT/HCPCS: 20610; 99203

== ENCOUNTER 2025-08-22 08:27 | Outpatient (AMB) | payer OTHER, SELFPAY ==
[2025-08-22 08:33] VITALS: BP 140/90; PULSE 88; O2SAT 98; BMI 31.9
--- NOTE | 2025-08-22 08:33 | MHC.OFFVIS ---
Vital Signs 08/22/25 08:33 Height 5 ft 3 in Weight 180 lb 2 oz BMI 31.9 BP 140/90 H Blood Pressure Location Rt brachial Position Sitting Pulse 88 Pulse Source Pulse Oximeter Pulse Oximetry (%) 98 Oxygen Delivery Method Room Air Intake Visit Reasons: Botox-Conf Intake Note: Botox Franchise Development Manager Required: Yes Franchise Development Manager Services: Franchise Development Manager Offered & Declined Franchise Development Manager Name: Sonali Wright ID: [id number] Accompanied by: Daddy Allergies bupropion (Contrave) Allergy (Intermediate, Verified 08/22/25 08:42) nausea,vomit, headaches naltrexone (Contrave) Allergy (Intermediate, Verified 08/22/25 08:42) nausea,vomit, headaches oxycodone (Percocet) Allergy (Intermediate, Verified 08/22/25 08:42) hives duloxetine Adverse Reaction (Severe, Verified 08/22/25 08:42) Hallucinations Medication List - Last Reconciled 08/22/25 by Arabella Tucker MD alprazolam 0.25 - 0.5 mg orally 1 tab 30 minutes prior to MRA/MRV, may repeat x's 1; 1 day MDD 4 tabs bisacodyl (Dulcolax (bisacodyl)) 10 mg (2 x 5 mg) PO BEDTIME 30 days psbiwvfxfg-luvozsgrqmlwb-gdhf 50-325-40 mg 1 tab PO Q6H PRN calcium citrate-vitamin D3 315 mg-5 mcg (200 unit) (Calcium Citrate + D) 1 tab PO BID clonazepam 0.5 mg PO BID PRN famotidine 40 mg PO BEDTIME inulin (Fiber Gummies) 2 grams PO BID iron,carbonyl-vitamin C 65 mg iron- 125 mg (Vitron-C) 1 tab PO BEDTIME lidocaine 5% 1 patch topical DAILY linaclotide 290 mcg PO QAM loratadine (Allergy Relief (loratadine)) 10 mg PO DAILY 90 days methocarbamol 500 mg PO TID PRN metoclopramide HCl (Reglan) 10 mg PO Q6H PRN Held on 06/09/25. Instructions: Doctor's Order onabotulinumtoxinA (Botox) 200 units IM ONCE 12 weeks ondansetron HCl 4 mg PO BID-TID PRN 30 days pantoprazole (Protonix) 40 mg PO DAILY 30 days paroxetine HCl (Paxil) 10 mg PO DAILY rizatriptan 5 - 10 mg (0.5 - 1 x 10 mg) PO Q2H PRN 30 days sucralfate 10 mL PO BID sumatriptan succinate 50 - 100 mg orally at onset of headache, may repeat in 2 hrs PRN; max 2 tabs per day or 4 tabs/week (may take with Tylenol) 30 days HPI Comments Details: ??? 45 y/o female comes for treatment of migraines with botox. How many migraine days prior to botox- 30 days /month How long do the migraines last1-2 days Intensity of wuxyoxuv24 ER visits related to migraine- multiple Effectiveness of botox from last two treatment(s) How many migraine days since receiving treatment: this is her first visit Change? in intensity of migraine? Change in frequency of migraine? Change in use of acute medication for migraine? Change in quality of life? ER visits related to migraine? Have at least three months elapsed since last treatment- ??? Most frequent reported adverse reactions following injection of botox for chronic migraine include neck pain (9%), headache(5%), eyelid ptosis(4%), migraine(4%), muscular weakness(4%), musculuskeletal stiffness(4%), bronchitis(3%), injection site pain (3%), musculoskeletal pain(3%), myalgia(3%), facial paresis(2%), HTN(2%) and muscle spasms(2%) were discussed in detail. ??? Botulinum toxin typeA 200units Lot no [id number] expiration Sep 2027 was diluted with 4 cc of normal saline . ??? Muscles injected- ??? Frontalis 4 sites ??? Temporalis- 8 sites ??? Occipitalis- 6 sites ??? Cervical paraspinals- 4 sites ??? Trapezius- 6 sites-10 units each process control board operator 2 sites Procerus 1 site ??? 5 units each in 31 site ??? Total use- 185units ??? Discarded-15units [facility] Medical History (Updated 08/22/25 @ 10:45 by Arabella Tucker MD) Abnormal involuntary movements Right ovarian cyst Chronic migraine without aura, intractable, without status migrainosus Sacroiliac joint dysfunction of both sides Major depression, recurrent History of COVID-19 Bleeding hemorrhoids H. pylori infection Obesity (BMI 30-39.9) Rectal bleeding Mild recurrent major depression Morbid obesity with BMI of 40.0-44.9, adult Right lateral epicondylitis Epigastric pain Polyarthralgia Bloody stools Right foot pain Left foot pain Finger pain GERD (gastroesophageal reflux disease) Essential hypertension H/O reactive hypoglycemia Vitamin D deficiency Prediabetes Dyslipidemia Surgical History Breast mass, right (11/05/23) S/P laparoscopic sleeve gastrectomy Hx of colonoscopy Deficient knowledge of leg surgery History of incision and drainage History of lithotripsy History of total abdominal hysterectomy History of tubal ligation Hx of section Hx of bilateral breast reduction surgery Family History Daughter Cancer Father Cancer, Onset Age: 54 Diabetes mellitus Mother Cancer, Onset Age: 64 Diabetes mellitus Paternal Aunt Cancer Maternal Grandmother Diabetes mellitus Hypertension CVD (cardiovascular disease) Maternal Grandfather Diabetes mellitus Hypertension CVD (cardiovascular disease) Paternal Grandmother Diabetes mellitus Hypertension Paternal Grandfather No problems noted. 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 Current occupational exposures/hazards: No Cognitive needs: No Hearing needs: No Vision needs: No Physical Exam Vital Signs: Last Vital Signs Pulse 88 08/22/25 08:33 BP 140/90 H 08/22/25 08:33 Pulse Ox 98 08/22/25 08:33 Oxygen Delivery Method Room Air 08/22/25 08:33 BMI result Body Mass Index 31.9 Const General: cooperative and no acute distress Orientation/consciousness: patient oriented x3 Resp Effort & Inspection: normal respiratory effort and able to speak in complete sentences Neuro General: patient oriented x3 Cranial nerves: Yes CN's II-XII intact bilaterally Cognition (Neuro): normal cognition Office Procedures Botulinum toxin Injection 00020 - Migraine Procedure code (CPT) selection complete Office Meds onabotulinumtoxinA 200 unit solution for injection Performing Provider: Arabella Tucker MD Performing Location: [facility] Administered by: Arabella Tucker MD on 08/22/25 10:46 Dose Route Admin Location Dispensed Lot Number Expiration Date [facility] Metal Handler 185 unit subcut 200 units 2406-2250-90 [employer]ER[employer]/BOTOX Total Dispensed Waste 200 units 7.5 % Comments: see hpi Assessment & Plan Assessment & Plan (1) Chronic migraine without aura, intractable, without status migrainosus: Code(s): G43.719 - Chronic migraine without aura, intractable, without status migrainosus Category: Medical Plan Patient tolerated the procedure well she will call with any side effects Orders: Orders AMB Botulinum toxin Injection Today G43.719 - Chronic migraine without aura, intractable, without status migrainosus Coding Level of Care Code Est Pt Level 1 (10239) Diagnoses Chronic migraine without aura, intractable, without status migrainosus G43.719 CPT Codes Botox Injection - Botox 3: 02240 - Migraine ([id number])
--- OUTSIDE RECORDS SUMMARY | 2025-08-22 08:43 | XMS_ITS | Patient Health Record ---
Author Organization [facility] Address [address] [place] [address] Care Team Providers Care Copper Etcher Name Role Phone Luli Azevedo Primary Care Provider Lev Grossman [phone] Allergies Allergen (clinical drug ingredient) Drug/Non Drug [...] Status Risk Notes Problem Gastroesophageal reflux disease (348183510) Gastroesophageal reflux disease, esophagitis presence not specified (K21.9) Active confirmed Problem Gallstones (746700762) Gallstones (K80.20) Active confirmed Problem Right upper quadrant pain (616940214) Right upper quadrant abdominal pain (R10.11) Active confirmed Plan Of Treatment Pending Test Test Name Order Date GI BIOPSY 06/28/2018 Future Test Test Name Order Date UPPER GI ENDOSCOPY 06/01/2018 Insurance Providers Payer Name Payer Address Payer Phone Subscriber Number Group Number Insured Name Patient Relationship to Insured Coverage Start Date Coverage End Date [facility] [address] [address] [place], [place] [id number] [phone] [id number] SERGIO CAHIREZ Self - patient is the insured [facility]ICAID [facility] [address] [place] [address] [phone] [id number] SERGIO CHAIREZ Self - patient is the insured Medical (General) History Medical History History ICD Code Kidney stones---ESWL Denies [place],DM,CVA,Lung disease,renal dise ase Hx of hypoglycemia Migraines Gallstone on 2015 U/S Surgical History Surgery Date(Month/Year) Right leg fracture repair/billie x 2 Tubal ligation Sinusitis Breast reduction 2007 Partial hysterectectomy
== END 2025-08-22 09:08 | disposition home or self-care (01) ==
LOC: HO.HSMS 08:28
PROVIDERS: PCP Internal Medicine; Visit Provider Psychiatry & Neurology Neurology
DX: G43.719 Chronic migraine without aura, intractable, without status migrainosus (principal)
CPT/HCPCS: 64615

== ENCOUNTER → 2025-08-22 08:27 | Outpatient (BNVA) | payer OTHER, SELFPAY | PROVIDERS: PCP Internal Medicine; Visit Provider Psychiatry & Neurology Neurology | DX: G43.719 Chronic migraine without aura, intractable, without status migrainosus (principal) | CPT/HCPCS: 64615; 99211; J0585 ==

== ENCOUNTER 2025-09-01 12:18 | Outpatient (AMB) | payer OTHER, SELFPAY ==
--- NOTE | 2025-09-01 12:20 | MHC.OFFVIS ---
Vital Signs 09/01/25 12:21 Height 5 ft 3 in Weight 174 lb 2.643 oz BMI 30.8 BP 117/71 Blood Pressure Location Lt brachial Position Sitting Pulse 77 Intake Visit Reasons: 6 weeks eval off reglan r/s from, 07/21 Intake Note: Jessie presents in the office as a 6 week follow up. CC: follow up from starting reglan - states she continues to have the pains in her stomach - states she also still has lots of constipation. Rail Transportation Tabeler Required: Yes Rail Transportation Tabeler Name: [id number] Allergies bupropion (Contrave) Allergy (Intermediate, Verified 09/01/25 12:24) nausea,vomit, headaches naltrexone (Contrave) Allergy (Intermediate, Verified 09/01/25 12:24) nausea,vomit, headaches oxycodone (Percocet) Allergy (Intermediate, Verified 09/01/25 12:24) hives duloxetine Adverse Reaction (Severe, Verified 09/01/25 12:24) Hallucinations HPI HPI 6 weeks eval off reglan r/s from, 07/21: Details: Assessment & Plan (1) Chronic idiopathic constipation: Code(s): K59.04 - Chronic idiopathic constipation Category: Medical (2) GERD (gastroesophageal reflux disease): Code(s): K21.9 - Gastro-esophageal reflux disease without esophagitis Category: Medical Qualifiers: Esophagitis presence: esophagitis presence not specified Qualified Code(s): K21.9 - Gastro-esophageal reflux disease without esophagitis (3) Abdominal pain: Code(s): R10.9 - Unspecified abdominal pain Category: Medical (4) Abnormal CT of the abdomen: Comment: CT 04/01/2025 Distended gallbladder with wall thickening. This may be further evaluated with ultrasound. No radiopaque gallstones. Code(s): R93.5 - Abnormal findings on diagnostic imaging of other abdominal regions, including retroperitoneum Category: Medical (5) Panic attacks: Code(s): F41.0 - Panic disorder [episodic paroxysmal anxiety] Category: Medical Plan - The patient is a 45-year-old female presenting for continued management of severe constipation along with GERD and abdominal discomfort/burning/bloating.. - Metoclopramide therapy we began at the last visit caused her a tremor and increased anxiety so will be stopping this medication. This was done to try to facilitate bowel motility. - Notable post-bariatric surgery complications include increased constipation managed with Linzess and bisacodyl. Strangely she reports that her panic attacks affecting daily life seem to have worsened after her bariatric surgery. - Regular burning abdominal discomfort consistent with GERD is treated with pantoprazole, famotidine, and sucralfate, which have provided partial relief. - Despite no gallstones evident on CT abdomen and pelvis 03/2025, gallbladder inflammation necessitated consideration of a HIDA scan to assess functional pain contributors. - Acknowledges bilateral flank discomfort from a right ovarian cyst, under current monitoring with no further intervention detailed. - Prior panic attack resulted in elevated blood pressure readings during emergency assessment. In the past she was on Paxil which she tolerated well and I think we will try starting this again to facilitate her sleep in her overall well-being. If this is successful then she can have this prescribed by her primary care provider. So in short we will be getting a HIDA scan to investigate inflammation seen on ultrasound of the gallbladder and a thyroid study to make sure this isn't driving her increased panic attacks. I am also starting her on a trial of Paxil at low dose and will increase this if she is responding well. Return office visit in 6 weeks Orders: Orders NM hepatobiliary w pharm 06/09/25 R10.9 - Unspecified abdominal pain, R93.5 - Abnormal findings on diagnostic imaging of other abdominal regions, including retroperitoneum TSH reflex Free T4 06/09/25 R10.9 - Unspecified abdominal pain, R93.5 - Abnormal findings on diagnostic imaging of other abdominal regions, including retroperitoneum Medications: New paroxetine HCl (Paxil) 10 mg PO DAILY 30 tabs 6RF F41.0 - Panic disorder [episodic paroxysmal anxiety] Refilled famotidine 40 mg PO BEDTIME 30 tabs 0RF K21.9 - Gastro-esophageal reflux disease without esophagitis bisacodyl (Dulcolax (bisacodyl)) 10 mg (2 x 5 mg) PO BEDTIME 60 tabs 6RF 30 days pantoprazole (Protonix) 40 mg PO DAILY 30 tabs 6RF 30 days K21.9 - Gastro-esophageal reflux disease without esophagitis linaclotide 290 mcg PO QAM 30 caps 6RF On Hold metoclopramide HCl (Reglan) Hold Comment: Doctor's Order 10 mg PO Q6H PRN 14 tabs 0RF nausea and vomiting HIDA IMPRESSION: Abnormally high gallbladder ejection fraction of 95% which can be seen in the setting of biliary hyperkinesia. Clinical correlation is recommended. 8 TODAYS VISIT Citizen [place] # [id number] tELE BOX [facility] Medical History Abnormal involuntary movements Right ovarian cyst Chronic migraine without aura, intractable, without status migrainosus Sacroiliac joint dysfunction of both sides Major depression, recurrent History of COVID-19 Bleeding hemorrhoids H. pylori infection Obesity (BMI 30-39.9) Rectal bleeding Mild recurrent major depression Morbid obesity with BMI of 40.0-44.9, adult Right lateral epicondylitis Epigastric pain Polyarthralgia Bloody stools Right foot pain Left foot pain Finger pain GERD (gastroesophageal reflux disease) Essential hypertension H/O reactive hypoglycemia Vitamin D deficiency Prediabetes Dyslipidemia Surgical History Breast mass, right (11/05/23) S/P laparoscopic sleeve gastrectomy Hx of colonoscopy Deficient knowledge of leg surgery History of incision and drainage History of lithotripsy History of total abdominal hysterectomy History of tubal ligation Hx of section Hx of bilateral breast reduction surgery Family History Daughter Cancer Father Cancer, Onset Age: 54 Diabetes mellitus Mother Cancer, Onset Age: 64 Diabetes mellitus Paternal Aunt Cancer Maternal Grandmother Diabetes mellitus Hypertension CVD (cardiovascular disease) Maternal Grandfather Diabetes mellitus Hypertension CVD (cardiovascular disease) Paternal Grandmother Diabetes mellitus Hypertension Paternal Grandfather No problems noted. 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 Current occupational exposures/hazards: No Cognitive needs: No Hearing needs: No Vision needs: No Review of Systems Const Denies fatigue, Denies fever(s), Denies night sweats, Denies poor appetite and Denies weight loss ENT Reports Normal hearing present, Denies dental pain, Denies dysphagia, Denies hearing loss, Denies mouth pain, Denies odynophagia, Denies throat swelling, Denies tongue swelling and Reports other (Dentition adequate) Card Reports no additional complaints Resp Reports no additional complaints GI Details: Reports abdominal pain, Denies melena, Denies bloating, Denies hematochezia, Reports constipation, Denies GI cramping, Denies dysphagia, Denies excessive flatus, Denies early satiety, Reports heartburn, Denies diarrhea, Denies nausea, Denies odynophagia, Denies vomiting and Denies hematemesis Skin/Breast Denies pruritus, Denies lesions, Denies rash and Denies jaundice Neuro Reports Normal hearing present and Denies Abnormal speech present Endo Denies fatigue Aller/Immun Denies throat swelling and Denies tongue swelling Physical Exam Vital Signs: Last Vital Signs Pulse 77 09/01/25 12:21 BP 117/71 09/01/25 12:21 BMI result Body Mass Index 30.8 Const General: cooperative, no acute distress, well developed and well groomed Nutritional Appearance: well nourished and obese Orientation/consciousness: oriented to person, oriented to place and oriented to time Limitations: No language barrier HEENT Head: Yes normocephalic and Yes atraumatic Eyes General: appearance normal, both eyes and all related structures Pupils: Equal, round and reactive pupils present Neck Neck: Yes normal visual inspection and Yes no lymphadenopathy Thyroid: Thyroid normal Resp Effort & Inspection: normal respiratory effort and able to speak in complete sentences Auscultation: clear to auscultation bilaterally Cardio Rate: regular rate Rhythm: regular rhythm Heart sounds: Normal, physiologic split S2 sound present Peripheral pulses: radial pulses present and posterior tibial pulses present GI Inspection: No distended and No Abdominal panniculus present Palpation (GI): Soft to palpation, Tenderness to palpation present (GI) (Gastric area lower than epigastric mild at this time), no guarding, not rigid and No hepatosplenomegaly present Percussion: Yes normal to percussion Auscultation: normal bowel sounds Rectal Exam - Female: deferred Skin General skin exam: no rashes or lesions noted, turgor normal, skin not dry, no jaundice, No spider nevi and no striae Rashes: no rashes Nails: normal Neuro General: oriented to person, oriented to place and oriented to time Cranial nerves: Yes Equal, round and reactive pupils present and Yes Normal hearing present Speech: No Abnormal speech present Extrem General: Yes normal to inspection, No clubbing, No cyanosis and No edema Psych Appearance: grossly normal and well kempt Mental Status: mental status grossly normal Speech and movement: Normal speech and movement present Affect: normal affect Attitude: cooperative Thought process: Normal thought process present and not confabulating Thought content: Normal thought content present Insight: Fair insight present (Psych) Judgement: Fair judgement present (Psych) Assessment & Plan Assessment & Plan (1) GERD (gastroesophageal reflux disease): Code(s): K21.9 - Gastro-esophageal reflux disease without esophagitis Category: Medical Qualifiers: Esophagitis presence: esophagitis presence not specified Qualified Code(s): K21.9 - Gastro-esophageal reflux disease without esophagitis (2) Chronic idiopathic constipation: Code(s): K59.04 - Chronic idiopathic constipation Category: Medical (3) Abdominal pain: Code(s): R10.9 - Unspecified abdominal pain Category: Medical Plan Citizen [place] # [id number] tELE BOX Subjective Follow-up for persistent upper abdominal pain. Episodes are severe and predominantly nocturnal, with worst pain occurring around midnight despite eating the evening meal around 6 p.m. Pain localizes to the mid-epigastrium and slightly to the left. During the HIDA scan in June, the pain became much worse. Warm compresses and tea provide mild relief; she often curls into a position during attacks. She reports associated panic attacks during severe episodes. Sucralfate provided only minimal relief and has been constipating. Metoclopramide has been stopped. She reports constipation requiring Linzess daily and Dulcolax 2?4 tablets at night; effect diminishes with continuous daily use. She also reports pelvic pressure and radiating pain from prior scar to the back with intermittent leg numbness, which she attributes to a possible ovarian fibroid. Objective - HIDA scan showed abnormally high gallbladder ejection fraction. - Thyroid testing noted to be slightly high but within the normal range. Assessment & Plan Upper abdominal pain, unclear etiology; hyperkinetic gallbladder considered: HIDA demonstrated elevated gallbladder ejection fraction. Pain is epigastric/left-sided and markedly nocturnal. I am not convinced the gallbladder is the primary source and do not recommend cholecystectomy at this time. - Start trial of Creon (pancreatic enzymes) to rest the gallbladder and assess symptom response. - Stop sucralfate to reduce constipation; may resume if pain clearly worsens off therapy. - Schedule upper endoscopy (EGD) to evaluate the upper GI tract; patient will be contacted to schedule (anticipated into November). Pre-procedure instructions: nothing to eat or drink after midnight the night before. - Review current medications for potential to aggravate gallbladder spasm. - Return visit in 8 weeks. Constipation, likely medication-related (sucralfate) - Discontinue sucralfate as above to assess for improvement in bowel function. - Current regimen discussed: Linzess daily and bisacodyl (Dulcolax) at night; no additional laxatives prescribed today. Monitor response after stopping sucralfate and adjust as needed at follow-up. Orders: Referrals GI Procedure Notification R10.9 - Unspecified abdominal pain Medications: New raokmj-dyddzixu-eviprnr (pork) 24,000-76,000 -120,000 unit (Creon) 2 caps PO BID 120 caps 3RF 30 days K58.9 - Irritable bowel syndrome, unspecified Discontinued metoclopramide HCl (Reglan) Discontinued Reason: Doctor's Order 10 mg PO Q6H PRN 14 tabs 0RF nausea and vomiting Patient Instructions: 1. Por favor, intente suspender el sucralfate, ya que le est? causando estre?imiento. Si el dolor regresa, puede volver a tomarlo, gus no estoy ennis de que le est? ayudando lo suficiente. 2. Por favor, tome el nuevo medicamento, Creon, para que la ves?cula biliar descanse y ann si esto earlene el dolor. 3. Le estoy solicitando mary kate endoscopia digestiva mitchel (SHIRA) para determinar si hay algo en la parte superior del est?jerome que est? causando el dolor. Regrese en 8 semanas Coding Level of Care Code Est Pt Level 3 (73875) Diagnoses Gastroesophageal reflux disease, unspecified whether esophagitis present K21.9 Esophagitis presence: esophagitis presence not specified Chronic idiopathic constipation K59.04 Abdominal pain R10.9
[2025-09-01 12:21] VITALS: BP 117/71; PULSE 77; BMI 30.8
--- OUTSIDE RECORDS SUMMARY | 2025-09-01 12:47 | XMS_ITS | Patient Health Record ---
Author Organization [facility] Address [address] [place] [address] Care Team Providers Care Radarman Name Role Phone Luli Azevedo Primary Care Provider Lev Grossman [phone] Allergies Allergen (clinical drug ingredient) Drug/Non Drug Allergy documented on EMR Reaction Allergy Type Onset Date Status acetaminophen / oxycodone Percocet Unknown Drug Allergy Active Reason For Referral No Information Medications Medication SIG (Take, Route, Frequency, Duration) Notes Start Date End Date Status Tums Active Fioricet Migraines Active Advil For abd pain Active Ibuprofen 800 MG Tablet Orally For abd pain Active Social History Tobacco Use: Social History Observation Description Date Details (start date - stop date) Never Smoker NA - NA Social History Drugs/Alcohol: Social Info Question Answer Notes Alcohol Screen Did you have a drink containing alcohol in the past year? 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 Section Notes: Nonsmoker; no alcohol Problems Problem Type SNOMED Code ICD Code Onset Dates Problem Status W/U Status Risk Notes Problem Gastroesophageal reflux disease (884089167) Gastroesophageal reflux disease, esophagitis presence not specified (K21.9) Active confirmed Problem Gallstones (299533255) Gallstones (K80.20) Active confirmed Problem Right upper quadrant pain (722021333) Right upper quadrant abdominal pain (R10.11) Active confirmed Plan Of Treatment Pending Test Test Name Order Date GI BIOPSY 06/28/2018 Future Test Test Name Order Date UPPER GI ENDOSCOPY 06/01/2018 Insurance Providers Payer Name Payer Address Payer Phone Subscriber Number Group Number Insured Name Patient Relationship to Insured Coverage Start Date Coverage End Date [facility] [address] [address] [place], [place] [id number] [phone] [id number] SERGIO CHAIREZ Self - patient is the insured [facility] [facility] [employer] [facility] [address] [place] [address] [id number] SERGIO CHAIREZ Self - patient is the insured Medical (General) History Medical History History ICD Code Kidney stones---ESWL Denies [place],DM,CVA,Lung disease,renal dise ase Hx of hypoglycemia Migraines Gallstone on 2015 U/S Surgical History Surgery Date(Month/Year) Right leg fracture repair/billie x 2 Tubal ligation Sinusitis Breast reduction 2007 Partial hysterectectomy
== END 2025-09-01 13:27 | disposition home or self-care (01) ==
PROVIDERS: PCP Internal Medicine; Visit Provider Nurse Practitioner
DX: K21.9 Gastro-esophageal reflux disease without esophagitis (principal); K59.04 Chronic idiopathic constipation; R10.9 Unspecified abdominal pain
CPT/HCPCS: 99213

== ENCOUNTER → 2025-09-01 12:18 | Outpatient (BNVA) | payer OTHER, SELFPAY | PROVIDERS: PCP Internal Medicine; Visit Provider Nurse Practitioner | DX: K21.9 Gastro-esophageal reflux disease without esophagitis (principal); K59.04 Chronic idiopathic constipation; R10.9 Unspecified abdominal pain; K58.9 Irritable bowel syndrome, unspecified | CPT/HCPCS: 99212 ==

== ENCOUNTER → 2025-09-03 15:03 | Outpatient (BNV) | payer OTHER, SELFPAY | PROVIDERS: PCP Internal Medicine; Visit Provider Radiology Diagnostic Radiology | DX: M51.24 Other intervertebral disc displacement, thoracic region (principal); M47.812 Spondylosis without myelopathy or radiculopathy, cervical region | CPT/HCPCS: 72156; 72157 ==

== ENCOUNTER 2025-09-03 15:04 | Outpatient (REF) | payer OTHER, SELFPAY ==
--- NOTE | ~2025-09-03 | MR_ITS ---
FINDINGS: MR THORACIC SPINE WITH AND WITHOUT CONTRAST CLINICAL INFORMATION: White matter disease, unspecified. COMPARISON: Thoracic spine radiographs 02/16/2019. TECHNIQUE: Multiplanar multisequence MR imaging of the thoracic spine was done following the administration of 7 mL Gadavist. Examination performed on a 1.5 Laney Siemens high-field unit, utilizing standard sequences. FINDINGS: ALIGNMENT: There is no significant scoliosis. There is a normal kyphosis. There is a 2 mm degenerative appearing anterolisthesis of C7 on T1. There is no additional subluxation identified. VERTEBRAL BODIES AND BONE MARROW: There is a prominent hemangioma in the T9 vertebral body. There is no abnormal infiltrating bone marrow signal or lesion. There is no fracture or compression deformity. DISCS: Moderate loss of disc height and signal at T6-T7. Mild loss of height and signal at T7-T8. PARASPINAL SOFT TISSUES: Normal. The aorta is normal in caliber. There are no pleural effusions. There is a partially imaged small cyst in the midpole of the right kidney. SPINAL CORD: The cord is normal in caliber and signal throughout. There is no definitive regions of cord signal abnormality. There is no cord thinning or expansion. There is no abnormal intra or extra medullary enhancement. SPINAL LEVELS: C7-T1: No central canal or neural foraminal narrowing. T1-T2: No central canal or neural foraminal narrowing. T2-T3: No central canal or neural foraminal narrowing. T3-T4: No central canal or neural foraminal narrowing. T4-T5: No central canal or neural foraminal narrowing. T5-T6: No central canal or neural foraminal narrowing. T6-T7: There is a prominent right paracentral disc extrusion, measuring approximately 6 x 8 x 9 mm (AP, TRV, CC). This contacts and indents upon the right ventral aspect of the cord with minimal cord flattening (series 21, image 28; series 16, image 9). No cord signal abnormality. There is preserved CSF space posterior and lateral to the cord. Normal facets. There is no associated foraminal narrowing. T7-T8: No central canal or neural foraminal narrowing. T8-T9: No central canal or neural foraminal narrowing. T9-T10: No central canal or neural foraminal narrowing. T10-T11: Minimal disc bulge present. No central canal or neural foraminal narrowing. T11-T12: Minimal disc bulge present. No central canal or neural foraminal narrowing. T12-L1: No central canal or neural foraminal narrowing. MR/MR thoracic spine wo/w con IMPRESSION: 1. There is no definite focal cord signal abnormality or abnormal enhancement. 2. There is a focal right paracentral disc extrusion measuring 6 x 8 x 9 mm at T6-T7 as discussed. This contacts and indents upon the right ventral aspect of the cord, resulting in mild central canal narrowing. There is no associated cord signal abnormality. Electronically signed by: Mati Sanchez MD 09/04/2025 11:08 AM PATRICK
--- NOTE | ~2025-09-03 | MR_ITS ---
EXAMINATION: MR CERVICAL SPINE WITH AND WITHOUT CONTRAST CLINICAL INFORMATION: White matter disease, unspecified. COMPARISON: No prior MRI. Correlation made to CT cervical 06/16/2024. TECHNIQUE: Multiplanar multisequence MR imaging of the cervical spine was done prior to and without the administration IV gadolinium. Examination was performed on a 1.5 Laney Siemens unit, using standard sequences. FINDINGS: CORONAL ALIGNMENT: -Normal. SAGITTAL ALIGNMENT: -Straightening of the normal lordosis, nonspecific. -There is a 2 mm degenerative anterolisthesis of C7 on T1. -Sagittal Alignment is otherwise anatomic. CRANIOCERVICAL JUNCTION/C1-2 ARTICULATIONS: -Intact and aligned. VERTEBRAL BODIES/BONE MARROW: -There is no vertebral body edema or abnormal infiltrating bone marrow signal. DISCS: -There is mild to moderate loss of disc height and signal spanning C4-C7. -There is otherwise minimal loss of disc height and signal. CERVICAL CORD: -Normal in caliber and signal throughout. There is no thinning or expansion. There are mild foci of abnormal cord signal. -There is no abnormal intra or extra medullary contrast enhancement after the administration of gadolinium. PARAVERTEBRAL SOFT TISSUES: -Normal. There is no paravertebral or paraspinous edema or abnormal fluid collection. -The thyroid gland is obscured by a saturation band. VISUALIZED INTRACRANIAL STRUCTURES: -Within normal limits. AXIAL DISC SPACE IMAGING: C2-C3: Minimal left facet hypertrophy present. This results in mild left neural foraminal narrowing. There is no central canal narrowing. C3-C4: Mild bilateral hypertrophic facet changes and moderate bilateral uncinate spurring, contributing to moderate bilateral neural foraminal stenosis. There is no central canal narrowing. C4-C5: There is a central disc protrusion present, which indents upon the thecal sac but does not contact or deform the central cord. There is preserved CSF signal surrounding the cord. There is mild central canal narrowing. Bilateral uncinate and facet spurring contributes to moderate bilateral neural foraminal stenosis. C5-C6: There is a shallow diffuse disc bulge present, contiguous with left greater than right uncinate spurring. This indents upon the ventral thecal sac but does not contact or deform the cord. There is mild central canal stenosis. Mild to moderate bilateral facet spurring is present. There is severe left uncinate spurring, resulting in severe left neural foraminal stenosis. There is moderate right neural foraminal narrowing. C6-C7: Shallow disc bulge is present, indenting on the ventral thecal sac with central annular fissuring. This does not contact or deform the cord or result in central canal narrowing. Mild bilateral uncinate spurring contributes to mild bilateral neural foraminal narrowing. Normal facets. C7-T1: Shallow disc bulging is present without significant mass effect. There is no central canal narrowing. There are mild degenerative hypertrophic facet changes right greater than left, contributing to moderate right and mild left neural foraminal narrowing. MR/MR cervical spine wo/w con IMPRESSION: 1. There is no cord signal abnormality, abnormal enhancement, expansion, or thinning. There is no evidence for demyelinating disease of the cord. 2. There is mild to moderate cervical spondylosis as discussed in the body of the report. Most notable findings are C4-5 and C5-6. There is no high-grade central canal stenosis nor cord impingement evident. Electronically signed by: Mati Sanchez MD 09/04/2025 09:05 AM PATRICK GOMEZ
--- OUTSIDE RECORDS SUMMARY | 2025-09-03 15:16 | XMS_ITS | Patient Health Record ---
Author Organization [facility] Address [address] [place] [address] Care Team Providers Care Cable Machine Operator Name Role Phone uLli Azevedo Primary Care Provider Lev Grossman [phone] Allergies Allergen (clinical drug ingredient) Drug/Non Drug [...] Status Risk Notes Problem Gastroesophageal reflux disease (325137472) Gastroesophageal reflux disease, esophagitis presence not specified (K21.9) Active confirmed Problem Gallstones (883485343) Gallstones (K80.20) Active confirmed Problem Right upper quadrant pain (496244873) Right upper quadrant abdominal pain (R10.11) Active confirmed Plan Of Treatment Pending Test Test Name Order Date GI BIOPSY 06/28/2018 Future Test Test Name Order Date UPPER GI ENDOSCOPY 06/01/2018 Insurance Providers Payer Name Payer Address Payer Phone Subscriber Number Group Number Insured Name Patient Relationship to Insured Coverage Start Date Coverage End Date [facility] [address] [address] [place], [place] [id number] [phone] [id number] SERGIO CHAIREZ Self - patient is the insured [facility] [address] [place] [address] [id number] SERGIO CHAIREZ Self - patient is the insured Medical (General) History Medical History History ICD Code Kidney stones---ESWL Denies [place],DM,CVA,Lung disease,renal dise ase Hx of hypoglycemia Migraines Gallstone on 2015 U/S Surgical History Surgery Date(Month/Year) Right leg fracture repair/billie x 2 Tubal ligation Sinusitis Breast reduction 2007 Partial hysterectectomy
== END 2025-09-03 15:05 | disposition home or self-care (01) ==
LOC: HO.MRI 15:04
PROVIDERS: PCP Internal Medicine; Visit Provider Nurse Practitioner Family
DX: R90.82 White matter disease, unspecified (principal); R25.9 Unspecified abnormal involuntary movements
CPT/HCPCS: 72156; 72157; A9585

== ENCOUNTER 2025-09-26 10:17 | Emergency (ER) | payer OTHER, SELFPAY ==
[2025-09-26 11:24] VITALS: BP 141/78; PULSE 90; RESP 16; TEMP 36.6; O2SAT 99; BMI 30.9
--- NOTE | 2025-09-26 11:41 | ED.GENADULT ---
HPI - General Adult General Chief complaint: Wound/Laceration Stated complaint: finger lac Time Seen by Provider: 09/26/25 11:26 Source: patient Mode of arrival: ambulatory Limitations: no limitations History of Present Illness ED Provider: Timo Membreno HPI narrative: 45 yold female with pmh of fibromyalgia and anemia presents to the ED for left 4th finger laceration while cutting bread. laceration superficial. patient up to date with tetanus. Patient goto cut with clean kitchen knife Related Data Home Medications ?Medication ?Instructions ?Recorded ?Confirmed clonazepam 0.5 mg tablet 0.5 mg PO BID PRN anxiety 08/22/25 08/22/25 Previous Rx's ?Medication ?Instructions ?Recorded inulin 2 gram chewable tablet 2 g PO BID #60 tabs 12/08/22 (Fiber Gummies) loratadine 10 mg tablet (Allergy 10 mg PO DAILY 90 days #90 tabs 04/01/23 Relief (loratadine)) calcium 315 mg (as 1 tab PO BID #60 tabs 11/11/23 citrate)-vitamin D3 5 mcg (200 unit) tablet (Calcium Citrate + D) sumatriptan succinate 100 mg tablet 50 - 100 mg (0.5 - 1 x 100 mg) PO 05/31/24 .COMPLEX PRN migraine headache 30 days #12 tabs methocarbamol 500 mg tablet 500 mg PO TID PRN muscle spasm #90 10/07/24 tabs onabotulinumtoxinA 200 unit 200 unit IM ONCE 12 weeks #1 ea 12/08/24 solution for injection (Botox) iron,carbonyl 65 mg-vitamin C 125 1 tab PO BEDTIME #90 tabs 04/18/25 mg tablet,delayed release (Vitron-C) lidocaine 5 % topical patch 1 patch topical DAILY #30 ea 06/01/25 bisacodyl 5 mg tablet,delayed 10 mg (2 x 5 mg) PO BEDTIME 30 06/09/25 release (Dulcolax (bisacodyl)) days #60 tabs linaclotide 290 mcg capsule 290 mcg PO QAM #30 caps 06/09/25 ondansetron HCl 4 mg tablet 4 mg PO BID-TID PRN nausea and 06/09/25 vomiting 30 days #30 tabs pantoprazole 40 mg tablet,delayed 40 mg PO DAILY 30 days #30 tabs 06/09/25 release (Protonix) paroxetine HCl 10 mg tablet (Paxil) 10 mg PO DAILY #30 tabs 06/09/25 rizatriptan 10 mg tablet 5 - 10 mg (0.5 - 1 x 10 mg) PO Q2H 06/09/25 PRN migraine headache 30 days #12 tabs famotidine 40 mg tablet 40 mg PO BEDTIME #30 tabs 07/11/25 sucralfate 100 mg/mL oral 10 ml PO BID #414 mL 07/26/25 suspension alprazolam 0.25 mg tablet 0.25 - 0.5 mg (1 - 2 x 0.25 mg) PO 08/04/25 .COMPLEX 1 day #4 tabs qmbojdqhxu-dxfkzqlbqljus-vhdmfzgx 1 tab PO Q6H PRN pain #10 tabs 08/14/25 50 mg-325 mg-40 mg tablet evwrce-nvbgsdju-hubmao(pork)24,000-76,000-120,000 2 cap PO BID 30 days #120 caps 09/01/25 unit capsule,del rel (Creon) Allergies Allergy/AdvReac Type Severity Reaction Status Date / Time bupropion (Contrave) Allergy Intermediate nausea,vomit, Verified 09/26/25 11:27 headaches naltrexone (Contrave) Allergy Intermediate nausea,vomit, Verified 09/26/25 11:27 headaches oxycodone (Percocet) Allergy Intermediate hives Verified 09/26/25 11:27 duloxetine AdvReac Severe Hallucinati Verified 09/26/25 11:27 ons Review of Systems Review of Systems: left 4th finger laceration Yes all other systems are reviewed and are negative FOR[facility]LY [facility] Past Medical History Medical History Abnormal involuntary movements Right ovarian cyst Chronic migraine without aura, intractable, without status migrainosus Sacroiliac joint dysfunction of both sides Major depression, recurrent History of COVID-19 Bleeding hemorrhoids H. pylori infection Obesity (BMI 30-39.9) Rectal bleeding Mild recurrent major depression Morbid obesity with BMI of 40.0-44.9, adult Right lateral epicondylitis Epigastric pain Polyarthralgia Bloody stools Right foot pain Left foot pain Finger pain GERD (gastroesophageal reflux disease) Essential hypertension H/O reactive hypoglycemia Vitamin D deficiency Prediabetes Dyslipidemia Surgical History Breast mass, right (11/05/23) S/P laparoscopic sleeve gastrectomy Hx of colonoscopy Deficient knowledge of leg surgery History of incision and drainage History of lithotripsy History of total abdominal hysterectomy History of tubal ligation Hx of section Hx of bilateral breast reduction surgery Family History Family History Daughter Cancer Father Cancer, Onset Age: 54 Diabetes mellitus Mother Cancer, Onset Age: 64 Diabetes mellitus Paternal Aunt Cancer Maternal Grandmother Diabetes mellitus Hypertension CVD (cardiovascular disease) Maternal Grandfather Diabetes mellitus Hypertension CVD (cardiovascular disease) Paternal Grandmother Diabetes mellitus Hypertension Paternal Grandfather No problems noted. 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 Current occupational exposures/hazards: No Cognitive needs: No Hearing needs: No Vision needs: No Physical Exam ED Vital Signs: Vital Signs - 24 hr 09/26/25 11:24 Temperature 98 F Pulse Rate 90 Respiratory Rate 16 Blood Pressure 141/78 H Pulse Oximetry 99 Oxygen Delivery Method Room Air BMI result Body Mass Index 30.9 Const General: cooperative, healthy appearing, comfortable, no acute distress, well developed, alert, awake and Physically active Orientation/consciousness: patient oriented x3 HENMT Head: Yes normal to inspection, Yes No palpable skull fracture present, Yes normocephalic and Yes atraumatic Eyes General: appearance normal, both eyes and all related structures Neck Neck: Yes normal visual inspection, Yes full ROM, Yes no lymphadenopathy, Yes no meningeal signs, Yes trachea midline, Yes supple, No anterior neck swelling and No tender Chest Chest palpation & inspection: normal inspection of the chest and normal palpation of entire chest wall Resp Effort & Inspection: normal respiratory effort and able to speak in complete sentences Auscultation: clear to auscultation bilaterally Cardio Jugular venous distension: no JVD Heart sounds: S1 normal heart sound present and S2 normal heart sound present GI Inspection: Yes normal to inspection Palpation (GI): Soft to palpation, not firm, nontender, no guarding and not rigid General: Yes no CVA tenderness Back/Spine/Pelvis Back: no CVA tenderness and No back tenderness Skin General skin exam: no rashes or lesions noted, elasticity normal and turgor normal Neuro General: patient oriented x3, gait normal, tone normal, moves all extremities, Normal light touch and pain sensation, no meningeal signs, no focal motor deficits and CN's II-XI intact bilaterally Extrem General: Yes normal to inspection, Yes full ROM and Yes capillary refill normal Hand/finger images:  1. superficial laceration/abrasion. no active bleeding. capillary refill intact. no nerve/tendon injury. rest of extremity is normal. motor, neuro, and vacsular exam is intact. Psych Appearance: grossly normal, well kempt and not disheveled Medical Decision Making Medical Decision Making MDM Narrative: 45 yold female presents to the ED for left 4th finger superficial abrasion/laceration. wound cleaned with sterile saline and pivocoine iodine. dermabond glue used to close wound and sterile strips placed. patient explained worrisome signs and informed to return to the ED. No suspecting tenosynovitis, nerve/tenond injury, osteomyelitits, or any other life threatening etiology. Differential Diagnosis Differential Diagnoses: The differential diagnosis associated with the presentation includes (laceration, abrasion) Admission/Observation Consideration of admission/observation: Escalation of care including admission/observation considered Independent Historian Clinical information obtained from an independent historian. History obtained from or confirmed by: Other (patient) Prescription Management I considered prescription management with: Pain Medication Discharge Plan Discharge Clinical Impression: Laceration of finger of left hand Patient Disposition: Home, Self-Care Instructions: Laceration (ED), Skin Adhesive Care (ED), Skin Adhesive Strips (ED) Additional Instructions: Recommend follow up with PCP. keep area dry the frist 48 hours. Return to the ED immeidatley for any redness, pus discharge, foul odor, red streaks, ecchymosis, or any other concernign symptoms. Prescriptions: No Action loratadine [Allergy Relief (loratadine)] 10 mg tablet 10 mg PO DAILY 90 Days Qty: 90 1RF lidocaine 5 % adhesive patch,medicated 1 patch topical DAILY Qty: 30 3RF Rx Instructions: leave on most painful area for up to 12 hrs famotidine 40 mg tablet 40 mg PO BEDTIME Qty: 30 0RF alprazolam 0.25 mg tablet 0.25 - 0.5 mg PO .COMPLEX MDD 4 tabs 1 Days Qty: 4 0RF Rx Instructions: 0.25 - 0.5 mg orally 1 tab 30 minutes prior to MRA/MRV, may repeat x's 1; ujrsijfmmw-winxqqtcmgenq-dszs 50-325-40 mg tablet 1 tab PO Q6H PRN (Reason: pain) Qty: 10 0RF calcium citrate-vitamin D3 [Calcium Citrate + D] 315 mg-5 mcg (200 unit) tablet 1 tab PO BID Qty: 60 11RF Fiber Gummies 2 gram tablet,chewable 2 g PO BID Qty: 60 6RF sumatriptan succinate 100 mg tablet 50 - 100 mg PO .COMPLEX PRN (Reason: migraine headache) 30 Days Qty: 12 6RF Rx Instructions: 50 - 100 mg orally at onset of headache, may repeat in 2 hrs PRN; max 2 tabs per day or 4 tabs/week (may take with Tylenol) ondansetron HCl 4 mg tablet 4 mg PO BID-TID PRN (Reason: nausea and vomiting) 30 Days Qty: 30 3RF rizatriptan 10 mg tablet 5 - 10 mg PO Q2H PRN (Reason: migraine headache) 30 Days Qty: 12 6RF Rx Instructions: max 2 tabs per day or 4 tabs per week Vitron-C 65 mg iron- 125 mg tablet,delayed release (DR/EC) 1 tab PO BEDTIME Qty: 90 3RF pantoprazole [Protonix] 40 mg tablet,delayed release (DR/EC) 40 mg PO DAILY 30 Days Qty: 30 6RF linaclotide 290 mcg capsule 290 mcg PO QAM Qty: 30 6RF bisacodyl [Dulcolax (bisacodyl)] 5 mg tablet,delayed release (DR/EC) 10 mg PO BEDTIME 30 Days Qty: 60 6RF paroxetine HCl [Paxil] 10 mg tablet 10 mg PO DAILY Qty: 30 6RF clonazepam 0.5 mg tablet 0.5 mg PO BID PRN (Reason: anxiety) Botox 200 unit recon soln 200 unit IM ONCE 84 Days Qty: 1 3RF Rx Instructions: inject 155 units IM across forehead, scalp, and neck methocarbamol 500 mg tablet 500 mg PO TID PRN (Reason: muscle spasm) Qty: 90 1RF Rx Instructions: Discontinue use of Cyclobenzaprine No driving while taking this medication. Do no take with alcohol or other HOME THEATER SPECIALIST Depressants sucralfate 100 mg/mL suspension 10 ml PO BID Qty: 414 3RF Creon 24,000-76,000 -120,000 unit capsule,delayed release(DR/EC) 2 cap PO BID 30 Days Qty: 120 3RF Discharge Date/Time: 09/26/25 11:56 Print Language: Tristanian
--- OUTSIDE RECORDS SUMMARY | 2025-09-26 15:41 | XMS_ITS | Patient Health Record ---
Author Organization [facility] Address [address] [place] [address] Care Team Providers Care Residential Mortgage Underwriter Name Role Phone Luli Azevedo Primary Care Provider Lev Grossman [phone] Allergies Allergen (clinical drug ingredient) Drug/Non Drug [...] Status Risk Notes Problem Gastroesophageal reflux disease (139027217) Gastroesophageal reflux disease, esophagitis presence not specified (K21.9) Active confirmed Problem Gallstones (724644374) Gallstones (K80.20) Active confirmed Problem Right upper quadrant pain (344664791) Right upper quadrant abdominal pain (R10.11) Active confirmed Plan Of Treatment Pending Test Test Name Order Date GI BIOPSY 06/28/2018 Future Test Test Name Order Date UPPER GI ENDOSCOPY 06/01/2018 Insurance Providers Payer Name Payer Address Payer Phone Subscriber Number Group Number Insured Name Patient Relationship to Insured Coverage Start Date Coverage End Date [facility] [address] [address] [place], [place] [phone] [id number] SERGIO CHAIREZ Self - patient is the insured [facility] [facility] [address] [place] [address] [id number] SERGIO CHAIREZ Self - patient is the insured Medical (General) History Medical History History ICD Code Kidney stones---ESWL Denies MO,DM,CVA,Lung disease,renal dise ase Hx of hypoglycemia Migraines Gallstone on 2015 U/S Surgical History Surgery Date(Month/Year) Right leg fracture repair/billie x 2 Tubal ligation Sinusitis Breast reduction 2007 Partial hysterectectomy
== END 2025-09-26 11:56 | disposition home or self-care (01) ==
PROVIDERS: Emergency Provider Emergency Medicine; PCP Internal Medicine
DX: S61.215A Laceration without foreign body of left ring finger without damage to nail, initial encounter (principal); W26.0XXA Contact with knife, initial encounter; Y93.89 Activity, other specified; Y92.89 Other specified places as the place of occurrence of the external cause; Y99.8 Other external cause status; I10 Essential (primary) hypertension
CPT/HCPCS: 99281